=== PATIENT | male | born 1930 | race Caucasian/White ===

== ENCOUNTER 2016-07-08 18:45 | Inpatient (IN) | payer MEDICARE ==
[~2016-07-08] VITALS: Ht 175.3 cm; Wt 86.0 kg
[~2016-07-08 18:45] MED LIST: ACET325T PO; ALLO300 PO; ASPI1TAB73 PO; DIGO0.12 PO; DOCU1CAP39 PO; ENOX40P SQ; FAMO20TA2 PO; FLEE5TAB PO; FURO1TAB60 PO; GLIP10TA6 PO; METF500 PO; METFPOW PO; METO25TA3 PO; MILKSUS PO; OXYC-392 PO; PRAD150C PO; WALKER WHEELS/F1 MIS; [UNRECOGNIZED DRUG - CODE] PO; [UNRECOGNIZED DRUG - OTHER] TOPICAL
[2016-07-08 18:51] VITALS: BP 137/63; PULSE 105; RESP 20; TEMP 101; O2SAT 90
[2016-07-08 19:08] VITALS: O2SAT 89; O2SAT 98
--- NOTE | 2016-07-08 19:24 | PD ---
HPI Chief Complaint: Altered Mental Status Time Seen by Provider: 19:05 Travel History International Travel<30 days: No Contact w/Intl Traveler<30days: No Traveled to known affect area: No History of Present Illness HPI This is an 85 year old male who presents to the emergency department sent by his assisted due to problems with a wound on his back. The patient has been having fevers, some moderate pain in his back wound, constant, improved now with no associated numbness or weakness. He reports he is not sure why he was sent in but would like to go home. The patient recently completed a long stay in rehab following a thoracic fusion after a fall from a ladder, and fixation of an intertrochanteric femur fracture. PFSH Past Medical History Arthritis: No Asthma: No Autoimmune Disease: No Anxiety: Yes (occasionally in the evening since surgery) Depression: No Heart Rhythm Problems: Yes (A-fib) Cancer: No Cardiovascular Problems: Yes (AFIB) High Cholesterol: No Chemotherapy: No Chest Pain: No Congestive Heart Failure: No COPD: No Cerebrovascular Accident: No Diabetes: Yes Patient Takes Glucophage: No Endocrine: Yes Gastrointestinal Disorders: No GERD: Yes (occasional) Genitourinary: Yes Headaches: No Hiatal Hernia: No Heparin Induced Thrombocytopen: No Hypertension: Yes Immune Disorder: No Implanted Vascular Access Dvce: No Kidney Stones: Yes Musculoskeletal: Yes (gout) Neurologic: No Psychiatric: No Reproductive: No Respiratory: No Migraines: No Radiation Therapy: No Renal Failure: No Seizures: No Sickle Cell Disease: No Sleep Apnea: Yes Thyroid Disease: No Ulcer: No Past Surgical History Abdominal Surgery: Yes AICD: No Arteriovenous Shunt: No Cardiac Surgery: No Ear Surgery: No Endocrine Surgery: No Eye Surgery: Yes (Cataract surgery both eyes) Genitourinary Surgery: Yes (STONES) Gynecologic Surgery: No Insulin Pump: No Joint Replacement: Yes (KNEE) Neurologic Surgery: No Oral Surgery: No Pacemaker: No Thoracic Surgery: Yes (Laminectomy 05/04/2016) Other Surgery: Yes (INGUINAL HERNIA REPAIR) Social History Alcohol Use: Yes Tobacco Use: No Substance Use: No Allergies-Medications (Allergen,Severity, Reaction): Coded Allergies: No Known Allergies (Unverified , 07/08/16) Reported Meds & Prescriptions Reported Meds & Active Scripts Active Ilex Skin Protectant (Skin Protectants, Misc.) 58.3 % Pst 1 Applic TOPICAL DAILY PRN 14 Days Oxycodone (Oxycodone HCl) 5 Mg Tab 5 Mg PO Q4H PRN Metoprolol Tartrate 25 Mg Tab 25 Mg PO Q8HR 14 Days Milk of Magnesia Liq (Magnesium Hydroxide) 400 Mg/5 Ml Susp 30 Ml PO DAILY PRN 14 Days Glucophage (Metformin HCl) 500 Mg Tab 500 Mg PO BIDPC 14 Days Isradipine 2.5 Mg Cap 5 Mg PO BID 14 Days Glipizide 10 Mg Tab 10 Mg PO DAILY 14 Days Lasix (Furosemide) 40 Mg Tab 40 Mg PO DAILY 14 Days Famotidine 20 Mg Tab 10 Mg PO BID 14 Days Digoxin 0.125 Mg Tab 0.125 Mg PO DAILY 14 Days Bisacodyl EC (Bisacodyl) 5 Mg Tabec 10 Mg PO DAILY PRN 14 Days Zyloprim (Allopurinol) 300 Mg Tab 300 Mg PO DAILY 14 Days Acetaminophen 325 Mg Tab 650 Mg PO Q4H PRN 14 Days Oxycodone (Oxycodone HCl) 5 Mg Tab 10 Mg PO Q4H PRN 30 Days Walker with Front Wheels (Device) 1 Mis Mis 1 Ea .ROUTE DIRECTED Reported Glipizide 10 Mg Tab 20 Mg PO BIDAC Take 30 minutes before a meal Metformin HCl (Metformin HCl (Bulk)) 1 Pow Pow 1 Tab PO BID Review of Systems Except as stated in HPI: all other systems reviewed are Neg Physical Exam Narrative GENERAL: Frail, no acute distress SKIN: 1 cm area of wound dehiscence in the mid thoracic back with 7 cm surrounding area of warmth and erythema HEAD: Atraumatic. Normocephalic. EYES: Pupils equal and round. No injection or drainage. ENT: Moist mucous membranes NECK: Trachea midline. CARDIOVASCULAR: Regular rate and rhythm. No murmur appreciated. 2+ bilateral pitting edema. RESPIRATORY: Clear to auscultation. Breath sounds equal bilaterally. GASTROINTESTINAL: Abdomen soft, non-tender, nondistended. MUSCULOSKELETAL: No obvious deformities. NEUROLOGICAL: Awake and alert. No obvious cranial nerve deficits. Moving all extremities. PSYCHIATRIC: Appropriate mood and affect; insight and judgment normal. Data Data Last Documented VS Vital Signs Date Time Temp Pulse Resp B/P Pulse Ox O2 Delivery O2 Flow Rate FiO2 07/08/16 19:08 98 Nasal Cannula 2 07/08/16 18:51 101.0 105 20 137/63 Orders Complete Blood Count With Diff (07/08/16 19:06) Comprehensive Metabolic Panel (07/08/16 19:06) Prothrombin Time / Inr (Pt) (07/08/16 19:06) Act Partial Throm Time (Ptt) (07/08/16 19:06) Lactic Acid Sepsis Protocol (07/08/16 19:06) Urinalysis - C+S If Indicated (07/08/16 19:06) Blood Culture (07/08/16 19:06) Blood Glucose (07/08/16 19:06) Ecg Monitoring (07/08/16 19:06) Iv Access Insert/Monitor (07/08/16 19:06) Oximetry (07/08/16 19:06) Oxygen Administration (07/08/16 19:06) Chest, Single Ap (07/08/16 ) Sodium Chlor 0.9% 1000 Ml Inj (Ns 1000 M (07/08/16 19:30) Sodium Chlor 0.9% 1000 Ml Inj (Ns 1000 M (07/08/16 19:30) Vancomycin Inj (Vancomycin Inj) (07/08/16 19:45) Cefepime Inj (Maxipime Inj) (07/08/16 19:45) Urine Culture (07/08/16 19:41) Acetaminophen Supp (Tylenol Supp) (07/08/16 20:30) Acetaminophen (Tylenol) (07/08/16 20:45) Ct Thor Spine W Iv Contrast (07/08/16 ) Iohexol 350 Inj (Omnipaque 350 Inj) (07/08/16 21:02) Admit Order (Ed Use Only) (07/08/16 22:11) Admit Order (Ed Use Only) (07/08/16 22:12) Labs Laboratory Tests Test 07/08/16 07/08/16 19:11 19:41 White Blood Count 15.3 TH/MM3 Red Blood Count 4.07 MIL/MM3 Hemoglobin 12.3 GM/DL Hematocrit 37.3 % Mean Corpuscular Volume 91.6 FL Mean Corpuscular Hemoglobin 30.2 PG Mean Corpuscular Hemoglobin 33.0 % Concent Red Cell Distribution Width 15.4 % Platelet Count 192 TH/MM3 Mean Platelet Volume 9.4 FL Neutrophils (%) (Auto) 80.7 % Lymphocytes (%) (Auto) 11.8 % Monocytes (%) (Auto) 6.3 % Eosinophils (%) (Auto) 0.8 % Basophils (%) (Auto) 0.4 % Neutrophils # (Auto) 12.3 TH/MM3 Lymphocytes # (Auto) 1.8 TH/MM3 Monocytes # (Auto) 1.0 TH/MM3 Eosinophils # (Auto) 0.1 TH/MM3 Basophils # (Auto) 0.1 TH/MM3 CBC Comment DIFF FINAL Differential Comment Prothrombin Time 13.7 SEC Prothromb Time International 1.2 RATIO Ratio Activated Partial 30.1 SEC Thromboplast Time Sodium Level 137 MEQ/L Potassium Level 3.4 MEQ/L Chloride Level 97 MEQ/L Carbon Dioxide Level 32.2 MEQ/L Anion Gap 8 MEQ/L Blood Urea Nitrogen 22 MG/DL Creatinine 0.88 MG/DL Estimat Glomerular Filtration 82 ML/MIN Rate Random Glucose 168 MG/DL Lactic Acid Level 2.0 mmol/L Calcium Level 8.7 MG/DL Total Bilirubin 0.7 MG/DL Aspartate Amino Transf 16 U/L (AST/SGOT) Alanine Aminotransferase 26 U/L (ALT/SGPT) Alkaline Phosphatase 159 U/L Total Protein 7.1 GM/DL Albumin 2.8 GM/DL Urine Color YELLOW Urine Turbidity HAZY Urine pH 5.5 Urine Specific [place] 1.012 Urine Protein TRACE mg/dL Urine Glucose (UA) NEG mg/dL Urine Ketones NEG mg/dL Urine Occult Blood NEG Urine Nitrite NEG Urine Bilirubin NEG Urine Urobilinogen LESS THAN 2.0 MG/DL Urine Leukocyte Esterase LARGE Urine RBC 2 /hpf Urine WBC 19 /hpf Urine WBC Clumps FEW Urine Calcium Oxalate Crystals RARE /hpf Urine Amorphous Sediment RARE Urine Bacteria OCC /hpf Urine Mucus FEW /lpf Microscopic Urinalysis Comment CATH-CULTURE IND MDM Medical Decision Making Medical Screen Exam Complete: Yes Emergency Medical Condition: Yes Interpretation(s) Fever, tachycardia, mild hypoxia Leukocytosis with left shift Mild hypokalemia Lactic acid is 2.0 Urinalysis: Infection Chest x-ray: No pneumonia Differential Diagnosis Wound infection, osteomyelitis, discitis, urinary tract infection, pneumonia Narrative Course This is an 85-year-old male who presents to the emergency department with fever. He was placed on a monitor and an IV was established. He was found to have a white count of 15. He was covered with broad-spectrum antibiotics. He was found to have a urinary tract infection and on physical exam he has an area around his wound dehiscence which is concern for wound infection. I spoke to Dr. Knight who requested CT imaging. There is no obvious abscess or deep space infection. Dr. Knight will consult on the patient in the hospital. Physician Communication Physician Communication Discussed with Dr. Knight and Dr. Park Diagnosis Primary Impression: Sepsis Qualified Code: A41.9 - Sepsis, due to unspecified organism Admitting Information Admitting Physician Requests: Admit Isabel Stout MD Jul 08, 2016 19:24
[2016-07-08] MEDS ORDERED: SODIUM CHLOR 0.9% 1000 ML INJ 1,000 ML IV SCH ×2 (19:30)
[2016-07-08] MEDS ORDERED: VANCOMYCIN INJ 1,200 MG in SODIUM CHLOR 0.9% 250 ML INJ 250 ML IV ONE (19:45)
[2016-07-08] MEDS ORDERED: CEFEPIME INJ 2,000 MG in SODIUM CHLORIDE 0.9% INJ 100 ML IV ONE (19:45)
[2016-07-08 19:58] LABS: AUTOMATED NEUTROPHIL # 12.3 TH/MM3 (1.8-7.7); BASOPHIL # 0.1 TH/MM3 (0-0.2); BASOPHIL % 0.4 % (0.0-2.0); EOSINOPHIL # 0.1 TH/MM3 (0-0.4); EOSINOPHIL % 0.8 % (0.0-4.0); HEMATOCRIT 37.3 % (39.0-51.0); HEMO FLAGS DIFF FINAL; LYMPH % 11.8 % (9.0-44.0); LYMPHOCYTE # 1.8 TH/MM3 (1.0-4.8); MEAN CELL VOLUME 91.6 FL (80.0-100.0); MEAN CORPUSCULAR HEMOGLOBIN 30.2 PG (27.0-34.0); MONO % 6.3 % (0.0-8.0); NEUT % 80.7 % (16.0-70.0); PLATELET COUNT 192 TH/MM3 (150-450); RED BLOOD COUNT 4.07 MIL/MM3 (4.50-5.90); RED CELL DISTRIBUTION WIDTH 15.4 % (11.6-17.2); WHITE BLOOD COUNT 15.3 TH/MM3 (4.0-11.0)
[2016-07-08 20:09] LABS: APTT (PATIENT) 30.1 SEC (24.3-30.1); INTERNATIONAL NORMALIZED RATIO 1.2 RATIO; PROTHROMBIN TIME - PATIENT 13.7 SEC (9.8-11.6)
[2016-07-08 20:13] LABS: BACTERIA, URINE OCC /hpf; BLOOD, URINE NEG (NEG); CALCIUM OXALATE CRYSTALS,URINE RARE /hpf; GLUCOSE,URINE NEG (NEG); KETONE, URINE NEG (NEG); MUCUS URINE FEW /lpf (OCC); NITRITE,URINE NEG (NEG); PH, URINE 5.5 (5.0-8.5); URINE COLOR YELLOW (YELLW/STRAW)
[2016-07-08 20:14] LABS: COMMENT (UR) CATH-CULTURE IND; CULTURE IF INDICATED CATH CULTURE IND
[2016-07-08 20:18] LABS: ANION GAP 8 MEQ/L (5-15); AST (GOT) 16 U/L (15-37); BICARBONATE 32.2 MEQ/L (21.0-32.0); BLOOD UREA NITROGEN 22 MG/DL (7-18); CHLORIDE 97 MEQ/L (98-107); GLOMERULAR FILTRATION RATE 82 ML/MIN (>89); POTASSIUM 3.4 MEQ/L (3.5-5.1); SODIUM (NA) 137 MEQ/L (136-145)
[2016-07-08 20:21] LABS: ALKALINE PHOSPHATASE 159 U/L (45-117); ALT (GPT) 26 U/L (12-78); TOTAL BILIRUBIN ADULT 0.7 MG/DL (0.2-1.0)
[2016-07-08] MEDS ORDERED: ACETAMINOPHEN 650 MG SUPP RECTAL ONE (20:30)
--- NOTE | 2016-07-08 20:39 | RADRPT ---
EXAM DATE/TIME: 07/08/2016 17:46 [facility] COMPARISON: CHEST SINGLE AP, May 26, 2016, 9:57. INDICATIONS : Short of breath MEDICAL HISTORY : Cardiovascular disease. Diabetes mellitus type II. Hypertension. SURGICAL HISTORY : Fusion, thoracic. ENCOUNTER: Initial ACUITY: 1 day PAIN SCORE: 0/10 LOCATION: Bilateral chest FINDINGS: Heart size enlarged. Minimal basilar dependent atelectasis. Old left-sided rib fractures. No pneumoth orax or effusion. Previous spine fixation. CONCLUSION: 1. Cardiomegaly. Basilar atelectasis. No significant change from May 26. Kwasi Rico MD on July 08, 2016 at 20:37 Board Certified Radiologist. This report was verified electronically.
[2016-07-08] MEDS ORDERED: ACETAMINOPHEN 500 MG CPLT PO ONE (20:45)
[2016-07-08] MEDS ORDERED: IOHEXOL 350 MG/ML 10 ML VIAL (for RAD DIAG) IV ONE (21:02)
--- NOTE | 2016-07-08 21:36 | RADRPT ---
EXAM DATE/TIME: 07/08/2016 20:51 [facility] COMPARISON: MRI THORACIC SPINE W/O CONTRAST, May 01, 2016, 19:32. INDICATIONS : Wound on surgical site from thoracic fusion; fever. IV CONTRAST: 96 cc Omnipaque 350 (iohexol) IV RADIATION DOSE: 39.12 CTDIvol (mGy) MEDICAL HISTORY : Cardiovascular disease. Hypertension. Diabetes mellitus type 2. SURGICAL HISTORY : Fusion, thoracic. Laminectomy. ENCOUNTER: Initial ACUITY: 2 months PAIN SCALE: 5/10 LOCATION: Middle back TECHNIQUE: Volumetric scanning of the thoracic spine was performed. Multiplanar reconstructions in the sagittal , coronal and oblique axial planes were performed. Using automated exposure control and adjustment o f the mA and/or kV according to patient size, radiation dose was kept as low as reasonably achievable to obtain optimal diagnostic quality images. FINDINGS: Correlation is made with prior MRI. The patient is status post screw and rosa fixation extending from T7-T11 across a fracture through the superior aspect of T9 in the inferior aspect of T8. There is no significant subluxation. No significant bony canal stenosis. No new fractures are identified. No disc rete disc protrusions are seen on CT. CONCLUSION: 1. Remote fractures of T8 and T9 involving its superior aspect of T9 and inferior aspect of T8. There is previous screw and rosa fixation extending from T7-T11. No new fractures on the current exam. No s ignificant bony canal stenosis. Kwasi Rico MD on July 08, 2016 at 21:30 Board Certified Radiologist. This report was verified electronically.
[2016-07-08] MEDS ORDERED: BISACODYL EC 5 MG TABEC PO PRN (22:30)
[2016-07-08] MEDS ORDERED: GLUCAGON 1 MG/ML VIAL OTHER PRN (22:45)
[2016-07-08] MEDS: PIPERACIL-TAZO 3.375 GM PREMIX 50 ML IV SCH (23:31)
[2016-07-08 23:32] VITALS: BP 132/71; PULSE 103; RESP 20; O2SAT 95
[2016-07-09] VITALS (13 sets, daily range): BP systolic 110–165; BP diastolic 5–94; PULSE 88–106; RESP 18–20; TEMP 98.1–104.2; O2SAT 93–98
[2016-07-09] MEDS: RESP: ALBUTEROL 2.5 MG/IPRATROPIUM 0.5 MG NEB (SCH) NEB ×4 (03:27→19:17)
[2016-07-09] MEDS: PIPERACIL-TAZO 3.375 GM PREMIX 50 ML IV SCH ×3 (04:51→17:43)
[2016-07-09] MEDS: METOPROLOL TARTRATE 25 MG TAB PO SCH ×3 (04:51→23:46)
[2016-07-09] MEDS: INSULIN ASPART SUPPLEMENTAL SCALE SQ SCH ×4 (06:00→23:40)
[2016-07-09] MEDS: metFORMIN HCL 500 MG TAB PO SCH ×2 (07:23→17:47)
[2016-07-09] MEDS: FAMOTIDINE 20 MG TAB PO SCH ×2 (08:36→23:46)
[2016-07-09] MEDS: ACETAMINOPHEN 650 MG SUPP RECTAL PRN ×3 (08:37→17:44)
[2016-07-09] MEDS ORDERED: ACETAMINOPHEN 120 MG SUPP RECTAL PRN (08:45)
[2016-07-09] MEDS: ISRADIPINE 2.5 MG PO SCH (09:00)
[2016-07-09] MEDS: ALLOPURINOL 300 MG TAB PO SCH (09:30)
[2016-07-09] MEDS: DIGOXIN 0.125 MG TAB PO SCH (09:30)
--- NOTE | 2016-07-09 10:05 | MH ---
cc: RICARDA MOSS DATE OF ADMISSION: 07/08/2016 DATE OF 1930 CHIEF COMPLAINT Altered mental status HISTORY OF PRESENT ILLNESS This is an 85 year-old white male who was brought to the emergency room from a rehabilitation SNF unit for an extended stay from a previous fall from a ladder. He has a repaired intertrochanteric left femur fracture and was in rehab for his associated weaknesses. The patient was noted to have high fevers within the past 24-hours. Currently his fever rectally was 104.2 and he is drowsy, but will respond to loud verbal stimuli. He does attempt to assist with turning and positioning, but is currently tachypneic and still showing signs of altered mental status. According to the record, there is no associated numbness or weakness. He does have a small 1 cm round wound noted in the thoracic area around T7 in his back. It is draining a clear creamy serous drainage. His review of systems is limited secondary to his altered mental status. Some of this information is being pulled from the records. MEDICAL HISTORY Includes: 1. Atrial fibrillation 2. Cardiovascular disease 3. Recent left intertrochanteric femur fracture 4. Diabetes type 2 5. GERD 6. Previous UTI 7. Hypertension 8. Kidney stones 9. Gout 10. Sleep apnea SURGICAL HISTORY 1. Abdominal surgery 2. Cataracts both eyes 3. Stones 4. Lithotripsy 5. Knee replacement surgery 6. Laminectomy in 05/04/2016 7. Inguinal hernia repair ALLERGIES No known allergies. MEDICATIONS Reported: 1. Skin protectants 2. Oxycodone 3. Metoprolol 4. Milk of Magnesia 5. Glucophage 6. Isradipine 7. Glipizide 8. Lasix 9. Famotidine 10. Digoxin 11. Zyloprim 12. Tylenol 13. Oxycodone 14. Metformin SOCIAL HISTORY According to the record, positive for alcohol use. No tobacco. No illicit drugs. FAMILY HISTORY NA REVIEW OF SYSTEMS A 12-point review was attempted with limited information from patient secondary to his altered mental status. Most of this information was gathered from the record. PHYSICAL EXAM GENERAL: This is a tall, slim, slightly frail white male who looks to be his stated age resting in the bed, drowsy, tachypneic with mild respiratory distress. He does respond vaguely to verbal stimuli. SKIN: Pale, very warm to touch, dry, noted a 1 cm wound on his mid thoracic back around T7 with some erythema and drainage. HEAD, EYES, EARS, NOSE, AND THROAT: Atraumatic, normocephalic. Pupils are 2 mm and PERRLA. There is no drainage from his eyes. Mucous membranes are pale and moist. NECK: Midline and supple. CARDIOVASCULAR: Irregular rhythm with heart rate around 100. Distant heart sounds, but no murmurs, rubs or gallops heard. He has bilateral 1-2+ edema in his lower extremities. RESPIRATORY: He is essentially clear in his anteriorly lobes, but is showing some decreased breath sounds bilaterally at the bases with some rales and some minimal wheezing. GASTROINTESTINAL: Abdomen is round, soft, nontender and nondistended. Active bowel sounds in all four quadrants. MUSCULOSKELETAL: He moves his extremities randomly at this time. NEUROLOGIC: He is drowsy and lethargic. He does respond to loud verbal stimuli. PSYCHIATRIC: Appropriate mood without anxiety, drowsy. DIAGNOSTIC DATA WBC count 15.3, RBC 4.07, hemoglobin 12.3, hematocrit 37.3, platelet count 192, neutrophil auto count 80.7, modified R count 1, PT-INR is 1.2. Chemistry shows sodium 137, potassium 3.4, chloride 97, carbon dioxide 32.2, amnion gap 8, BUN 22, creatinine 0.88, GFR 82, glucose is 168, lactic acid 2, alkaline phosphatase 159, albumin 2.8. Urine is yellow and hazy. The pH is 5.5, specific gravity 1.012, trace of protein, large amount of leukocyte esterase, rare calcium oxylate crystals. Mucous few. Culture is being obtained. Chest x-ray shows bilateral atelectasis and cardiomegaly. CT of the thoracic spine shows fracture of T8 and T9 and the superior aspect of T9 and inferior aspect of T8. Previous screw and rosa fixation extended from T7 to T11. No new fractures on this exam. ASSESSMENT 1. Lactic acid sepsis related to thoracic wound infection 2. Urosepsis 3. Atrial fibrillation with RVR borderline heart rate 100-104. 4. Acute kidney injury with dehydration. 5. Hypokalemia 6. Diabetes type 2 with diabetic neuropathy. 7. History of gout. 8. Cardiomegaly PLAN Our plan is to admit currently for inpatient. Neurosurgery has been consulted for his expert opinion to evaluate the needs of the draining wound in the thoracic area. He is also being placed on antibiotics which includes vancomycin and Piperacillin. He also received Maxipime in the ER. The patient has had labs which include blood cultures, urine cultures done. We will reconcile his medications. The patient will be placed on PUD prophylaxis with Pepcid. He will be on pain management with Oxycodone, DuoNebs. Vital signs will be according to his needs anywhere from q1 to q4. ID consult will be obtained. O2 therapy. Wound care. When the patient is a little more stabilized, we will get physical therapy back involved. To my knowledge, the patient is full code, full aggressive care and we will follow. Dictated by ABAD Santana Ricarda Moss MD JP/STEFFEN /8:22 AM /10:02 AM PT SEEN AND EXAMINED ON DAY ADMISSION ABOVE FACE TO FACE TIME SPENT WITH PT CHART WAS REVIEWED. INCLUDING LABS MEDS AND RAD DATA NOTES WERE REVEIWED PLAN OF CARE WAS DW CODING QUALITY COORDINATOR ABOVE DW PT IN DETAIL DW DAUGHTER IN ER IN [facility] WAS GUARDED DW ID ON DAY OF ADMISSION MTDD
[2016-07-09] MEDS: glipiZIDE 10 MG TAB PO SCH (11:20)
[2016-07-09] MEDS: HEPARIN SODIUM - SQ 10,000 UNITS/ML VIAL SQ SCH ×2 (11:21→23:46)
--- NOTE | 2016-07-09 14:54 | PD.ID.CON ---
History of Present Illness Service ID Consult Requested By Reason for Consult Evaluation and Mment of Sepsis, Surgical site infection. Primary Care Physician Renard Phillips M.D. Diagnoses: History of Present Illness is an 85 y/o CM with PMHx of history of admission for Trauma alert after a fall from a ladder, when he was diagnosed to have left side femur fracture, left side rib fracture and fracture thoracic spine. He underwent open reduction internal fixation of T8 and T9 fractures, T7 to T11 segmental instrumented fixation using transpedicular screws and rods, T7 to T11 posterolateral fusion using autologous bone graft combined with stem cells, microsurgical dissection. Post surgery he was sent to a rehab. Family reports he was being treated with IM and oral antibiotics prior to admission at the facility for ? UTI. They also report the support shell for his thoracic spine has been abrading his skin locally. The rehab folks have been doing local wound care for the same but it continued to have local discharge. He is now brought to the emergency room from as patient was noted to have high grade fevers in last 24 hours. Patient was noted to have a temp of 104.2 F and was noted to be drowsy but responding to loud verbal stimuli. Sepsis workup was initiated. Patient has recd 2 liters of fluids per RN. Patient denies any change in sensation in perineal area or lower extremities. History of prostate problems with h/o UTIs in past. ID was consulted for evaluation and Mment of Sepsis, Probable surgical site infection ? Epidural abscess. Review of Systems Constitutional: COMPLAINS OF: Diaphoretic episodes, Fever, Chills, DENIES: Fatigue, Weight gain, Weight loss, Dizziness, Change in appetite, Night Sweats Endocrine: DENIES: Heat/cold intolerance, Polydipsia, Polyuria, Polyphagia Eyes: DENIES: Blurred vision, Diplopia, Eye inflammation, Eye pain, Vision loss , Photosensitivity, Double Vision Ears, nose, mouth, throat: DENIES: Tinnitus, Hearing loss, Vertigo, Nasal discharge, Oral lesions, Throat pain, Hoarseness, Ear Pain, Running Nose, Epistaxis, Sinus Pain, Toothache, Odynophagia Respiratory: DENIES: Apneas, Cough, Snoring, Wheezing, Hemoptysis, Sputum production, Shortness of breath Cardiovascular: DENIES: Chest pain, Palpitations, Syncope, Dyspnea on Exertion , PND, Lower Extremity Edema, Orthopnea, Claudication Gastrointestinal: DENIES: Abdominal pain, Black stools, Bloody stools, Constipation, Diarrhea, Nausea, Vomiting, Difficulty Swallowing, Anorexia Genitourinary: DENIES: Sexual dysfunction, Urinary frequency, Urinary incontinence, Urgency, Hematuria, Dysuria, Nocturia, Penile Discharge, Testicular Pain, Testicular Swelling Musculoskeletal: DENIES: Joint pain, Muscle aches, Stiffness, Joint Swelling, Back pain, Neck pain Integumentary: DENIES: Abnormal pigmentation, Nail changes, Pruritus, Rash Hematologic/lymphatic: DENIES: Bruising, Lymphadenopathy Immunologic/allergic: DENIES: Eczema, Urticaria Neurologic: DENIES: Abnormal gait, Headache, Localized weakness, Paresthesias, Seizures, Speech Problems, Tremor, Poor Balance Psychiatric: DENIES: Anxiety, Confusion, Mood changes, Depression, Hallucinations, Agitation, Suicidal Ideation, Homicidal Ideation, Delusions Past Family Social History Allergies: Coded Allergies: No Known Allergies (Unverified , 07/08/16) Past Medical History 1. Atrial fibrillation 2. Cardiovascular disease 3. Recent left intertrochanteric femur fracture 4. Diabetes type 2 5. GERD 6. Previous UTI 7. Hypertension 8. Kidney stones 9. Gout 10. Sleep apnea Past Surgical History 1. Abdominal surgery 2. Cataracts both eyes 3. Stones 4. Lithotripsy 5. Knee replacement surgery 6. Laminectomy in 05/04/2016 7. Inguinal hernia repair Reported Medications Reported Meds & Active Scripts Active Ilex Skin Protectant (Skin Protectants, Misc.) 58.3 % Pst 1 Applic TOPICAL DAILY PRN 14 Days Oxycodone (Oxycodone HCl) 5 Mg Tab 5 Mg PO Q4H PRN Metoprolol Tartrate 25 Mg Tab 25 Mg PO Q8HR 14 Days Milk of Magnesia Liq (Magnesium Hydroxide) 400 Mg/5 Ml Susp 30 Ml PO DAILY PRN 14 Days Glucophage (Metformin HCl) 500 Mg Tab 500 Mg PO BIDPC 14 Days Isradipine 2.5 Mg Cap 5 Mg PO BID 14 Days Glipizide 10 Mg Tab 10 Mg PO DAILY 14 Days Lasix (Furosemide) 40 Mg Tab 40 Mg PO DAILY 14 Days Famotidine 20 Mg Tab 10 Mg PO BID 14 Days Digoxin 0.125 Mg Tab 0.125 Mg PO DAILY 14 Days Bisacodyl EC (Bisacodyl) 5 Mg Tabec 10 Mg PO DAILY PRN 14 Days Zyloprim (Allopurinol) 300 Mg Tab 300 Mg PO DAILY 14 Days Acetaminophen 325 Mg Tab 650 Mg PO Q4H PRN 14 Days Oxycodone (Oxycodone HCl) 5 Mg Tab 10 Mg PO Q4H PRN 30 Days Walker with Front Wheels (Device) 1 Mis Mis 1 Ea .ROUTE DIRECTED Reported Glipizide 10 Mg Tab 20 Mg PO BIDAC Take 30 minutes before a meal Metformin HCl (Metformin HCl (Bulk)) 1 Pow Pow 1 Tab PO BID Active Ordered Medications Current Medications Medications (Trade) Dose Ordered Sig/Sybil Route Start Time Stop Time Status Last Admin (Zyloprim) 300 mg DAILY PO 07/09/16 09:00 07/09/16 09:30 (Dulcolax Ec) 10 mg DAILY PRN PO 07/08/16 22:30 (Lanoxin) 0.125 mg DAILY PO 07/09/16 09:00 07/09/16 09:30 (Pepcid) 10 mg BID PO 07/09/16 09:00 07/09/16 08:36 (Glucotrol) 10 mg DAILY PO 07/09/16 09:00 07/09/16 11:20 (Dynacirc) 5 mg BID PO 07/09/16 09:00 (Glucophage) 500 mg BIDPC PO 07/09/16 09:00 (Lopressor) 25 mg Q8HR PO 07/09/16 06:00 07/09/16 04:51 (Roxicodone) 10 mg Q4H PRN PO 07/08/16 22:30 (D50w (Vial) Inj) 25 ml UNSCH PRN IV PUSH 07/08/16 22:45 Glucagon 1 mg 1 mg UNSCH PRN OTHER 07/08/16 22:45 Piperacillin Sod/ Tazobactam Sod 50 ml @ 100 mls/hr Q6H IV 07/08/16 23:00 07/09/16 17:43 (Vancomycin Inj/ NS 250 ml Inj) 250 ml @ 250 mls/hr Q24H IV 07/09/16 20:00 (Tylenol Supp) 650 mg Q4H PRN RECTAL 07/09/16 08:30 07/09/16 17:44 (Tylenol Supp) 120 mg Q4H PRN RECTAL 07/09/16 08:45 Heparin Sodium (Porcine) 5000 units 5,000 units Q12HR SQ 07/09/16 09:00 07/09/16 11:21 (NS 1000 ml Inj) 1,000 ml @ 100 mls/hr Q10H IV 07/09/16 15:30 07/09/16 15:48 Family History reviewed and NC to current ID problems. Social History reviewed. Comes from Rehab. Sent to Rehab after a fall and several injuries and surgeries. No alcohol No drugs No illicit drugs. Physical Exam Vital Signs Vital Signs Date Time Temp Pulse Resp B/P Pulse Ox O2 Delivery O2 Flow Rate FiO2 07/09/16 13:00 101.6 91 127/60 93 Nasal Cannula 4 07/09/16 12:07 88 110/57 97 Nasal Cannula 4 07/09/16 12:01 100.2 90 114/67 98 Nasal Cannula 4 07/09/16 09:20 93 Nasal Cannula 4.50 07/09/16 08:00 104.2 104 145/94 93 Nasal Cannula 3 07/09/16 06:01 106 20 142/64 95 Nasal Cannula 3 07/09/16 04:56 95 Nasal Cannula 3 07/09/16 04:53 98.1 106 18 157/71 95 Nasal Cannula 3 07/09/16 03:30 94 Nasal Cannula 3.00 07/09/16 02:51 105 20 165/72 95 Nasal Cannula 3 07/09/16 01:40 98 18 155/68 96 Nasal Cannula 3 07/08/16 23:32 103 20 132/71 95 07/08/16 19:08 98 Nasal Cannula 2 07/08/16 19:08 98 Nasal Cannula 2.00 07/08/16 19:08 89 Room Air 07/08/16 18:51 101.0 105 20 137/63 90 Physical Exam GENERAL: This is a well-nourished, well-developed patient, in no apparent distress. SKIN: No rashes, ecchymoses or lesions. Cool and dry. HEAD: Atraumatic. Normocephalic. No temporal or scalp tenderness. EYES: Pupils equal round and reactive. Extraocular motions intact. No scleral icterus. No injection or drainage. ENT: Nose without bleeding, purulent drainage or septal hematoma. Throat without erythema, tonsillar hypertrophy or exudate. Uvula midline. Airway patent. NECK: Trachea midline. Supple, nontender, no meningeal signs. CARDIOVASCULAR: HS audible. RESPIRATORY: Clear to auscultation. Breath sounds equal bilaterally. No wheezes , rales, or rhonchi. GASTROINTESTINAL: Abdomen soft, non-tender, nondistended. MUSCULOSKELETAL: Extremities without clubbing, cyanosis, or edema. No joint tenderness, effusion, or edema noted. No calf tenderness. Negative Homans sign bilaterally. Left LE slightly shorter than right. Surgical scar on left hip with no e/o infection. Back: surgical site with copious serous at times yellow discharge. Dressing soaked, bedding soaked. Some fluctuance noted. NEUROLOGICAL: Awake and alert. Grossly non focal Psych: cooperative IV line sites with no e/o infection. Laboratory Laboratory Tests Test 07/08/16 07/08/16 19:11 19:41 White Blood Count 15.3 Red Blood Count 4.07 Hemoglobin 12.3 Hematocrit 37.3 Mean Corpuscular Volume 91.6 Mean Corpuscular Hemoglobin 30.2 Mean Corpuscular Hemoglobin 33.0 Concent Red Cell Distribution Width 15.4 Platelet Count 192 Mean Platelet Volume 9.4 Neutrophils (%) (Auto) 80.7 Lymphocytes (%) (Auto) 11.8 Monocytes (%) (Auto) 6.3 Eosinophils (%) (Auto) 0.8 Basophils (%) (Auto) 0.4 Neutrophils # (Auto) 12.3 Lymphocytes # (Auto) 1.8 Monocytes # (Auto) 1.0 Eosinophils # (Auto) 0.1 Basophils # (Auto) 0.1 CBC Comment DIFF FINAL Differential Comment Prothrombin Time 13.7 Prothromb Time International 1.2 Ratio Activated Partial 30.1 Thromboplast Time Sodium Level 137 Potassium Level 3.4 Chloride Level 97 Carbon Dioxide Level 32.2 Anion Gap 8 Blood Urea Nitrogen 22 Creatinine 0.88 Estimat Glomerular Filtration 82 Rate Random Glucose 168 Lactic Acid Level 2.0 Calcium Level 8.7 Total Bilirubin 0.7 Aspartate Amino Transf 16 (AST/SGOT) Alanine Aminotransferase 26 (ALT/SGPT) Alkaline Phosphatase 159 Total Protein 7.1 Albumin 2.8 Urine Color YELLOW Urine Turbidity HAZY Urine pH 5.5 Urine Specific [place] 1.012 Urine Protein TRACE Urine Glucose (UA) NEG Urine Ketones NEG Urine Occult Blood NEG Urine Nitrite NEG Urine Bilirubin NEG Urine Urobilinogen LESS THAN 2.0 Urine Leukocyte Esterase LARGE Urine RBC 2 Urine WBC 19 Urine WBC Clumps FEW Urine Calcium Oxalate Crystals RARE Urine Amorphous Sediment RARE Urine Bacteria OCC Urine Mucus FEW Microscopic Urinalysis Comment CATH-CULTURE IND Date/Time Procedure Status Source Growth 07/08/16 19:41 Urine Culture - Preliminary Resulted Urine Catheterized Urine NO GROWTH IN 24 HOURS. 07/08/16 19:11 Aerobic Blood Culture - Preliminary Resulted Blood Peripheral NO GROWTH IN 1 DAY 07/08/16 19:11 Anaerobic Blood Culture - Preliminary Resulted Blood Peripheral NO GROWTH IN 1 DAY Result Diagram: 07/08/16191007/08/161910 Imaging Last Impressions Thoracic Spine CT 07/08/16 0000 Signed Impressions: Service Date/Time: June 20:51 - CONCLUSION: 1. Remote fractures of T8 and T9 involving its superior aspect of T9 and inferior aspect of T8. There is previous screw and rosa fixation extending from T7-T11. No new fractures on the current exam. No significant bony canal stenosis. Kwasi Rico MD Chest X-Ray 07/08/16 0000 Signed Impressions: Service Date/Time: June 17:46 - CONCLUSION: 1. Cardiomegaly. Basilar atelectasis. No significant change from May 26. Kwasi Rico MD Assessment and Plan Assessment and Plan Severe Sepsis present on admission (Sepsis with acute metabolic encephalopathy, source: probable surgical site infection). Probable surgical site infection. Concern for epidural abscess or deep infection in view of high grade persistent fevers. Pneumonia present on admission. Was being treated for UTI prior to admission per family Acute metabolic encephalopathy: lethargic per family, sepsis. DM2 uncontrolled: sepsis, infection Recs: DC Zosyn IV Start Ceftazidime IV (better [employer]IC[employer] presentation) Continue Vanco IV (target trough 15-20) Start Flagyl oral Check CRP MRI T spine with and without contrast (concern for deeper infection: hardware infection, epidural abscess) Please make sure Neurosurgery sees patient in am. Persistent fevers and discharge concern for deep infection and abscess. Source control essential. Consult placed again and notified. Follow cultures Follow clinically. to cover for me this weekend. Melinda Antonio MD Jul 09, 2016 14:54
[2016-07-09] MEDS: SODIUM CHLOR 0.9% 1000 ML INJ 1,000 ML IV SCH (15:48)
[2016-07-09] MEDS ORDERED: VANCOMYCIN INJ 1,000 MG in SODIUM CHLOR 0.9% 250 ML INJ 250 ML IV SCH (20:00)
[2016-07-09] MEDS ORDERED: Vancomycin Consult Pharmacy 1 EA OTHER SCH (22:15)
[2016-07-09] MEDS: cefTAZidime INJ 2,000 MG in SODIUM CHLORIDE 0.9% INJ 100 ML IV SCH (23:46)
[2016-07-10] VITALS (9 sets, daily range): BP systolic 98–126; BP diastolic 51–71; PULSE 71–112; RESP 16–22; TEMP 96.2–100; O2SAT 93–98
[2016-07-10] MEDS ORDERED: VANCOMYCIN INJ 2,000 MG in SODIUM CHLORID 0.9% 500 ML INJ 500 ML IV ONE ×2
[2016-07-10] MEDS: ACETAMINOPHEN 650 MG SUPP RECTAL PRN (04:15)
[2016-07-10] MEDS: RESP: ALBUTEROL 2.5 MG/IPRATROPIUM 0.5 MG NEB (SCH) NEB ×4 (04:59→21:23)
[2016-07-10] MEDS: metroNIDAZOLE 500 MG TAB PO SCH ×3 (05:28→21:53)
[2016-07-10] MEDS: METOPROLOL TARTRATE 25 MG TAB PO SCH ×3 (05:28→21:54)
[2016-07-10] MEDS: cefTAZidime INJ 2,000 MG in SODIUM CHLORIDE 0.9% INJ 100 ML IV SCH ×3 (06:57→22:00)
[2016-07-10] MEDS: INSULIN ASPART SUPPLEMENTAL SCALE SQ SCH ×4 (07:00→20:32)
[2016-07-10] MEDS: ISRADIPINE 2.5 MG PO SCH ×2 (09:00→21:00)
[2016-07-10] MEDS: SODIUM CHLOR 0.9% 1000 ML INJ 1,000 ML IV SCH ×3 (09:04→15:13)
[2016-07-10] MEDS: glipiZIDE 10 MG TAB PO SCH (09:05)
[2016-07-10] MEDS: DIGOXIN 0.125 MG TAB PO SCH (09:05)
[2016-07-10] MEDS: metFORMIN HCL 500 MG TAB PO SCH ×2 (09:05→17:48)
[2016-07-10] MEDS: HEPARIN SODIUM - SQ 10,000 UNITS/ML VIAL SQ SCH ×2 (09:06→21:53)
[2016-07-10] MEDS: FAMOTIDINE 20 MG TAB PO SCH ×2 (09:06→21:54)
[2016-07-10] MEDS: ALLOPURINOL 300 MG TAB PO SCH (09:06)
[2016-07-10 09:39] LABS: HEMATOCRIT 33.9 % (39.0-51.0); MEAN CELL VOLUME 91.9 FL (80.0-100.0); MEAN CORPUSCULAR HEMOGLOBIN 29.5 PG (27.0-34.0); MEAN CORPUSCULAR HGB CONC 32.1 % (32.0-36.0); PLATELET COUNT 157 TH/MM3 (150-450); RED BLOOD COUNT 3.69 MIL/MM3 (4.50-5.90); RED CELL DISTRIBUTION WIDTH 15.5 % (11.6-17.2); REVIEW FLAG FINAL; WHITE BLOOD COUNT 15.8 TH/MM3 (4.0-11.0)
[2016-07-10 10:21] LABS: BICARBONATE 31.8 MEQ/L (21.0-32.0); POTASSIUM 3.2 MEQ/L (3.5-5.1)
[2016-07-10 11:05] LABS: CALCIUM-PROTEIN CORRECTED 8.1 MG/DL (8.5-10.1)
[2016-07-10] MEDS ORDERED: FUROSEMIDE 20 MG/2 ML VIAL IV PUSH ONE (13:30)
[2016-07-10] MEDS ORDERED: POTASSIUM CL 40 MEQ/30 ML LIQ UDC PO ONE (13:30)
--- NOTE | 2016-07-10 14:08 | HHI.PR ---
Subjective Subjective Remarks on 6L/NC via FM, dropped sats to 79 on 4L. Mouth breathing noted with coarse breath sounds, has a cough, congested, non productive fever 100 this morning not eating much no cp no sob somewhat lethargic, opens eyes to voice,oriented x 2 daughter at bsd Review of Systems Constitutional Constitutional Remarks 12 point ROS difficult to complete Vitals/Results Intake & Output 07/09/16 07/09/16 07/10/16 14:59 22:59 06:59 Intake Total 240 ml Balance 240 ml Intake Oral 240 ml # Voids 1 3 # Bowel Movements 1 1 Vital Signs Vital Signs Date Time Temp Pulse Resp B/P Pulse Ox O2 Delivery O2 Flow Rate FiO2 07/10/16 12:00 96.2 71 19 98/51 96 07/10/16 08:00 96.9 87 16 111/55 98 07/10/16 08:00 74 07/10/16 05:08 100.0 105 20 117/60 96 07/10/16 00:50 98.0 106 22 125/55 93 07/09/16 19:17 93 Nasal Cannula 2.00 07/09/16 17:06 101.9 99 19 115/57 94 Nasal Cannula 4 07/09/16 15:06 104 133/59 93 Nasal Cannula 4 CBC/BMP: 07/10/16 0835 07/10/16 0836 Lab Results Laboratory Tests Test 07/10/16 07/10/16 08:35 08:36 White Blood Count 15.8 TH/MM3 Red Blood Count 3.69 MIL/MM3 Hemoglobin 10.9 GM/DL Hematocrit 33.9 % Mean Corpuscular Volume 91.9 FL Mean Corpuscular Hemoglobin 29.5 PG Mean Corpuscular Hemoglobin 32.1 % Concent Red Cell Distribution Width 15.5 % Platelet Count 157 TH/MM3 Mean Platelet Volume 9.5 FL Sodium Level 142 MEQ/L Potassium Level 3.2 MEQ/L Chloride Level 101 MEQ/L Carbon Dioxide Level 31.8 MEQ/L Anion Gap 9 MEQ/L Blood Urea Nitrogen 33 MG/DL Creatinine 1.14 MG/DL Estimat Glomerular Filtration 61 ML/MIN Rate Random Glucose 96 MG/DL Calcium Level 7.3 MG/DL Protein Corrected Calcium 8.1 MG/DL C-Reactive Protein 25.00 MG/DL Total Protein 5.6 GM/DL Physical Exam General General Appearance: Well Developed, Comfortable Eyes Eye Exam: Pupils Equal, Pupils Reactive Ears & Nose Ears & Nose Exam: Nasal Mucosa [place] Throat Throat Exam: Oral Mucosa [place] & Moist Neck Neck Exam: Neck Supple, Trachea Midline Pulmonary Resp Exam: Crackles, Rhonchi Cardiology CV Exam: Regular Gastrointestinal/Abdomen GI Exam: Soft, Non-Tender, Bowel Sounds Present, Non-Distended Musculoskeletal MS Exam: Joints Intact Integumentary Skin Exam: Warm, Lesion(s) Skin Remarks mid back wound dehiscence Extremeties Extremities Exam: No Edema, Pedal Pulses Palpable Neurologic Neuro Exam: Awake, Speech Clear, Moving All Extremities, No Focal Deficits Psychiatric Psych Exam: Appropriate Responses VTE Prophylaxis VTE Prophylaxis Device: SCDs VTE Prophylaxis Meds: Heparin Assessment/Plan Problem List: (1) Sepsis (2) Hypoxia (3) Diabetic neuropathy (4) Atrial fibrillation (5) Hypertension (6) Diabetes 1.5, managed as type 2 (7) Hypokalemia (8) UTI (urinary tract infection) (9) Hx of unstable T8,T9 fractures due to fall with T7 to T11 posterior fixation using transpedicular screws and rods on 05/04/16 Assessment/Plan Sepsis, etiology unclear, poss. pulmonary, urinary, versus wound infection (s/p T7 to T11 posterior fixation using transpedicular screws and rods on 05/04/16) now with wound dehiscence CT thoracic spine results noted, no abscess MRI thoracic spine pending BC GPC +, sens. pending Urine + yeast Continue with abx, follow cultures ID following Neurosurgery consult pending Afib well controlled continue Dig Telemetry monitoring no anticoagulation, was on ASA resume baby ASA Noted with rales, hypoxia, now on 6L/NC D/C IVF CXR now BNP now Lasix 20 mg IV x 1 Resume PO lasix Echo 04/2016, EF 50 - 55% ? dysphagia, noted coughing with pills swallow evaluation Accuchecks AC/HS Blood glucose 80, dc oral hypoglycemics pt. not eating much enc. PO intake, family may bring food from home PT for eval and tx Heparin for DVT prophylaxis Pepcid for GI prophylaxis Condition guarded Labs in am D/W RN D/W pt, daughter and her , questions answered in detail D/W Dr. Moss This patient was seen by myself and Dr. Moss, this note is written on his behalf. Problem Qualifiers (1) Sepsis: Qualified Code: A41.9 - Sepsis, due to unspecified organism (2) Diabetic neuropathy: Qualified Code: E11.49 - Other diabetic neurological complication associated with type 2 diabetes mellitus (3) Atrial fibrillation: Qualified Code: I48.91 - Atrial fibrillation, unspecified type (4) Hypertension: Qualified Code: I10 - Essential hypertension (5) UTI (urinary tract infection): Qualified Code: N39.0 - Urinary tract infection without hematuria, site unspecified Margareth Iglesias Jul 10, 2016 14:08
--- NOTE | 2016-07-10 14:18 | RADRPT ---
EXAM DATE/TIME: 07/10/2016 14:04 [facility] COMPARISON: CHEST SINGLE AP, July 08, 2016, 17:46. INDICATIONS : Short of Breath. MEDICAL HISTORY : Congestive heart failure. Cardiovascular disease. Hypertension. Diabetes mellitus type 2. SURGICAL HISTORY : Fusion, thoracic. Laminectomy. ENCOUNTER: Subsequent ACUITY: 3 days PAIN SCORE: 0/10 LOCATION: Bilateral chest FINDINGS: A single view of the chest demonstrates cardiomegaly. Bibasilar densities and probable small left ple ural effusion.. Osseous structures are intact. Fusion rods along the mid to lower thoracic spine. CONCLUSION: Cardiomegaly bibasilar density likely atelectasis. There may be a small left pleural effusion. Jared Larios MD on July 10, 2016 at 14:16 Board Certified Radiologist. This report was verified electronically.
[2016-07-10] MEDS ORDERED: GADODIAMIDE PF 287 MG/ML 20 ML VIAL (for RAD MRI) IV ONE (14:45)
[2016-07-10] MEDS: FLUCONAZOLE 200 MG TAB PO SCH (15:12)
[2016-07-10] MEDS: ASPIRIN EC 81 MG TABEC PO SCH (15:12)
--- NOTE | 2016-07-10 15:47 | RADRPT ---
EXAM DATE/TIME: 07/10/2016 14:02 [facility] COMPARISON: No previous studies available for comparison. INDICATIONS : Abscess. Fever. Wound infection. CONTRAST: 16 cc Omniscan (gadodiamide) IV MEDICAL HISTORY : Hypertension. Afib,Kidney stones, enlarged prostate. SURGICAL HISTORY : Total knee replacement, left. Laminectomy, Left hip replacement. ENCOUNTER: Subsequent ACUITY: 3 day PAIN SCORE: 3/10 LOCATION: Parasp[facility] TECHNIQUE: Multiplanar multisequence MRI of the thoracic spine was performed. FINDINGS: Comparison MRI from May 01, 2016. Previous fracture at T8 and T9 have not healed with fracture [place] remaining visible. There is also extensive marrow edema in T9 and T10 and to a lesser extent T11 and T8. The thoracic cord appears atrophic. No enhancing epidural fluid collections are present. Ricks allan, there is a increased enhancement of the T9 and T10 vertebral bodies with some enhancement of T11 as well. In the dorsal soft tissues there is also some soft tissue swelling and edema posteriorly extending fr om T3 level through the T12 level. Fixation hardware is seen at T7-T12. Upper thoracic spine appears intact. CONCLUSION: 1. Marrow edema and enhancement predominantly at T9, T10 and T11 concerning for osteomyelitis. The am ount of marrow edema has increased from the previous study dated April 2016. No epidural abscess i s identified. There is a presumed cellulitis in the dorsal soft tissues with soft tissue swelling and edema present as above. Kwasi Rico MD on July 10, 2016 at 15:37 Board Certified Radiologist. This report was verified electronically.
--- NOTE | 2016-07-10 16:52 | HHI.NSPN ---
History Chief Complaint: none Interval History 85 yr old with multiple co morbidities including DM and ankylosing spondylitis underwent internal fixation with pedicular screws and rods for T9 unstable traumatic fx in early April 2016 after a fall from a homemade scaffold to fix his pool screen. He had some drainage from the wound after surgery. He was mobilized and went to rehab but is being readmitted with sepsis. CT of the thoracic spine shows no cutaneous or subcutaneous fluid collection and good approximation at the fracture level. However MRI shows a lytic defect with enhancement within T9 vertebra. One of two blood cultures are showing staph ape. The urine cx only shows yeast. He had significant pulmonary complications in April prior to rehab. Neurologically he appears stable, follows commands and moves the lower extremities well. Review of Systems General: Positive for: fever Respiratory: Positive for: shortness of breath Gastrointestinal: Negative for: nausea, vomitting, diarrhea, constipation Exam Results Vital Signs Date Time Temp Pulse Resp B/P Pulse Ox O2 Delivery O2 Flow Rate FiO2 07/10/16 12:00 96.2 71 19 98/51 96 07/10/16 10:50 Venturi Mask 35 07/09/16 19:17 2.00 Physical Examination Alert, speech fluent but short of breath, elderly gentleman, appears his stated age Follows commands, moves both bic/tri/IO/hip flex/gastroc with good strength No sensory level. no clonus, no Babinski Wound with 1 cm opening with about 2 inch subcutaneous pocket. Granulation tissue evident. Swab taken and sent for culture Lab, Micro, Other Results Last Impressions Thoracic Spine MRI 07/10/16 0000 Signed Impressions: Service Date/Time: Sunday, July 10, 2016 14:02 - CONCLUSION: 1. Marrow edema and enhancement predominantly at T9, T10 and T11 concerning for osteomyelitis. The amount of marrow edema has increased from the previous study dated April 2016. No epidural abscess is identified. There is a presumed cellulitis in the dorsal soft tissues with soft tissue swelling and edema present as above. Kwasi Rico MD Chest X-Ray 07/10/16 0000 Signed Impressions: Service Date/Time: Sunday, July 10, 2016 14:04 - CONCLUSION: Cardiomegaly bibasilar density likely atelectasis. There may be a small left pleural effusion. Jared Larios MD Thoracic Spine CT 07/08/16 0000 Signed Impressions: Service Date/Time: June 20:51 - CONCLUSION: 1. Remote fractures of T8 and T9 involving its superior aspect of T9 and inferior aspect of T8. There is previous screw and rosa fixation extending from T7-T11. No new fractures on the current exam. No significant bony canal stenosis. Kwasi Rico MD Laboratory Tests Test 07/10/16 07/10/16 08:35 08:36 White Blood Count 15.8 TH/MM3 Red Blood Count 3.69 MIL/MM3 Hemoglobin 10.9 GM/DL Hematocrit 33.9 % Mean Corpuscular Volume 91.9 FL Mean Corpuscular Hemoglobin 29.5 PG Mean Corpuscular Hemoglobin 32.1 % Concent Red Cell Distribution Width 15.5 % Platelet Count 157 TH/MM3 Mean Platelet Volume 9.5 FL Sodium Level 142 MEQ/L Potassium Level 3.2 MEQ/L Chloride Level 101 MEQ/L Carbon Dioxide Level 31.8 MEQ/L Anion Gap 9 MEQ/L Blood Urea Nitrogen 33 MG/DL Creatinine 1.14 MG/DL Estimat Glomerular Filtration 61 ML/MIN Rate Random Glucose 96 MG/DL Calcium Level 7.3 MG/DL Protein Corrected Calcium 8.1 MG/DL C-Reactive Protein 25.00 MG/DL Total Protein 5.6 GM/DL Medical Decision Making Impression and Plan 85 yr old with multiple co morbidities well known to use from his April 2016 trauma admission, has evidence of T9 vertebral body enhancement with marin on MRI. The is no fluid collection outside the spine and hematogenous seeding is unfortunately possibly happened from the skin breakdown from the TLSO. Removal of the hardware is not possible so soon after an unstable T9 fx and bracing alone would not allow for mobilization OOB. Wound debridement may be helpful but would not address the main enhancement which is within the T9 body. Radiologic and neurologic follow up will be needed. I will follow. Total Minutes: 20 Jared Ingram Jul 10, 2016 16:52
[2016-07-10] MEDS: VANCOMYCIN 1,500 MG/NS 500 ML IV SCH ×2 (17:49)
[2016-07-10] MEDS: DEXT 5%-NACL 0.9% 1000 ML INJ 1,000 ML IV SCH (23:00)
[2016-07-11] VITALS (9 sets, daily range): BP systolic 99–138; BP diastolic 57–67; PULSE 85–121; RESP 18–20; TEMP 96.5–98.3; O2SAT 92–99
[2016-07-11] MEDS: DEXT 5%-NACL 0.9% 1000 ML INJ 1,000 ML IV SCH (01:15)
[2016-07-11] MEDS: RESP: ALBUTEROL 2.5 MG/IPRATROPIUM 0.5 MG NEB (SCH) NEB ×4 (04:50→21:02)
[2016-07-11] MEDS: METOPROLOL TARTRATE 25 MG TAB PO SCH ×3 (06:21→21:15)
[2016-07-11] MEDS: metroNIDAZOLE 500 MG TAB PO SCH ×3 (06:21→21:16)
[2016-07-11] MEDS: cefTAZidime INJ 2,000 MG in SODIUM CHLORIDE 0.9% INJ 100 ML IV SCH ×3 (06:22→22:14)
[2016-07-11] MEDS: INSULIN ASPART SUPPLEMENTAL SCALE SQ SCH ×4 (06:33→21:00)
[2016-07-11] MEDS: DEXTROSE 50% IN WATER 50 ML VIAL(D50) IV PUSH PRN ×3 (06:44→16:55)
[2016-07-11 08:53] LABS: HEMATOCRIT 31.7 % (39.0-51.0); MEAN CELL VOLUME 91.4 FL (80.0-100.0); MEAN CORPUSCULAR HEMOGLOBIN 30.1 PG (27.0-34.0); MEAN CORPUSCULAR HGB CONC 32.9 % (32.0-36.0); PLATELET COUNT 139 TH/MM3 (150-450); RED BLOOD COUNT 3.47 MIL/MM3 (4.50-5.90); RED CELL DISTRIBUTION WIDTH 15.4 % (11.6-17.2); REVIEW FLAG FINAL; WHITE BLOOD COUNT 12.8 TH/MM3 (4.0-11.0)
[2016-07-11] MEDS: ISRADIPINE 2.5 MG PO SCH ×2 (09:00→21:00)
[2016-07-11 09:18] LABS: BICARBONATE 30.4 MEQ/L (21.0-32.0); POTASSIUM 3.3 MEQ/L (3.5-5.1)
[2016-07-11] MEDS ORDERED: POTASSIUM CL 40 MEQ/30 ML LIQ UDC PO ONE (09:45)
[2016-07-11] MEDS: ALLOPURINOL 300 MG TAB PO SCH (09:51)
[2016-07-11] MEDS: ASPIRIN EC 81 MG TABEC PO SCH (09:51)
[2016-07-11] MEDS: FLUCONAZOLE 200 MG TAB PO SCH (09:51)
[2016-07-11] MEDS: DIGOXIN 0.125 MG TAB PO SCH (09:52)
[2016-07-11] MEDS: FAMOTIDINE 20 MG TAB PO SCH ×2 (09:52→21:16)
[2016-07-11] MEDS: FUROSEMIDE 40 MG TAB PO SCH (09:52)
[2016-07-11] MEDS: HEPARIN SODIUM - SQ 10,000 UNITS/ML VIAL SQ SCH ×2 (09:52→21:17)
[2016-07-11] MEDS: VANCOMYCIN 1,500 MG/NS 500 ML IV SCH ×2 (10:00)
--- NOTE | 2016-07-11 11:11 | HHI.PR ---
Subjective Subjective Remarks on VM 6L/NC, sats 95% more awake today, oriented x 2-3 no pain no fever no cp some cough blood glucose dropped to 43, up to 100's with glucose x 2 not eating much no family at bsd Review of Systems Constitutional Constitutional Remarks 12 point ROS limited Vitals/Results Intake & Output 07/10/16 07/10/16 07/11/16 15:00 23:00 07:00 Intake Total 760 ml 120 ml 240 ml Balance 760 ml 120 ml 240 ml Intake Oral 760 ml 120 ml 240 ml # Voids 4 2 4 # Bowel Movements 0 1 1 Vital Signs Vital Signs Date Time Temp Pulse Resp B/P Pulse Ox O2 Delivery O2 Flow Rate FiO2 07/11/16 09:00 96 Venturi Mask 6.00 35 07/11/16 08:58 96.9 85 20 99/58 96 07/11/16 05:16 97.6 98 18 138/67 96 07/11/16 00:28 97.3 110 18 115/59 95 07/10/16 21:23 94 Venturi Mask 3.00 35 07/10/16 21:01 97.3 96 18 116/55 96 07/10/16 19:20 112 07/10/16 16:00 96.4 74 18 126/71 98 07/10/16 12:00 96.2 71 19 98/51 96 CBC/BMP: 07/11/16 0805 07/11/16 0805 Lab Results Laboratory Tests Test 07/10/16 07/11/16 07/11/16 20:20 06:50 08:05 Random Glucose 52 MG/DL 43 MG/DL 107 MG/DL White Blood Count 12.8 TH/MM3 Red Blood Count 3.47 MIL/MM3 Hemoglobin 10.4 GM/DL Hematocrit 31.7 % Mean Corpuscular Volume 91.4 FL Mean Corpuscular Hemoglobin 30.1 PG Mean Corpuscular Hemoglobin 32.9 % Concent Red Cell Distribution Width 15.4 % Platelet Count 139 TH/MM3 Mean Platelet Volume 9.5 FL Sodium Level 141 MEQ/L Potassium Level 3.3 MEQ/L Chloride Level 103 MEQ/L Carbon Dioxide Level 30.4 MEQ/L Anion Gap 8 MEQ/L Blood Urea Nitrogen 34 MG/DL Creatinine 1.08 MG/DL Estimat Glomerular Filtration 65 ML/MIN Rate Calcium Level 7.6 MG/DL Microbiology Microbiology 07/10/16 Gram Stain - Final, Resulted 07/10/16 Wound Culture, Resulted Pending 07/10/16 Aerobic Blood Culture, Received Pending 07/10/16 Anaerobic Blood Culture, Received Pending 07/10/16 Aerobic Blood Culture, Received Pending 07/10/16 Anaerobic Blood Culture, Received Pending Physical Exam General General Appearance: Well Developed, Comfortable Eyes Eye Exam: Pupils Equal, Pupils Reactive Ears & Nose Ears & Nose Exam: Nasal Mucosa Marvin Throat Throat Exam: Oral Mucosa Marvin & Moist Neck Neck Exam: Neck Supple, Trachea Midline Pulmonary Resp Remarks diffuse ronchi Cardiology CV Exam: Regular Gastrointestinal/Abdomen GI Exam: Soft, Non-Tender, Bowel Sounds Present, Non-Distended Musculoskeletal MS Exam: Joints Intact Integumentary Skin Exam: Warm, Lesion(s) Skin Remarks mid back wound dehiscence Extremeties Extremities Exam: No Edema, Pedal Pulses Palpable Neurologic Neuro Exam: Awake, Speech Clear, Moving All Extremities, No Focal Deficits Psychiatric Psych Exam: Appropriate Responses VTE Prophylaxis VTE Prophylaxis Device: SCDs VTE Prophylaxis Meds: Heparin PUD Prophylasis PUD Remarks PEPCID Assessment/Plan Problem List: (1) Sepsis (2) Hypoxia (3) Diabetic neuropathy (4) Atrial fibrillation (5) Hypertension (6) Diabetes 1.5, managed as type 2 (7) Hypokalemia (8) UTI (urinary tract infection) (9) Hx of unstable T8,T9 fractures due to fall with T7 to T11 posterior fixation using transpedicular screws and rods on 05/04/16 Assessment/Plan Sepsis, etiology unclear, poss. pulmonary, urinary, versus wound infection (s/p T7 to T11 posterior fixation using transpedicular screws and rods on 05/04/16) now with wound dehiscence. Source appears surgical site based on imaging findings, also has UTI, maybe pulmonary process as well. CT thoracic spine results noted, no abscess MRI thoracic spine done, results noted -has evidence of T9 vertebral body enhancement BC GPC +, sens. pending Urine + yeast Continue with abx, follow cultures ID following Neurosurgery input appreciated, per review of noted--"removal of the hardware is not possible so soon after an unstable T9 fx and bracing alone would not allow for mobilization OOB. Wound debridement may be helpful but would not address the main enhancement which is within the T9 body. Radiologic and neurologic follow up will be needed" Afib -HR elevated continue Dig and BB add Cardizem 30 mg PO TID no anticoagulation, was on ASA, can't take anticoagulant due to bleeding. Used to take coumadin continue baby ASA Poss. mild CHF continue PO Lasix off IVF BNP D/C IVF CXR 07/10, mild cardiomegaly BNP 211 Echo 04/2016, EF 50 - 55% ? dysphagia, noted coughing with pills swallow evaluation done, recommendations noted Accuchecks AC/HS Hypoglycemic overnight will dc Metformin also D5W at 30/hr Enc. PO intake PT for eval and tx Needs brace Heparin for DVT prophylaxis Pepcid for GI prophylaxis Condition guarded Labs reviewed Replace K D/W RN D/W pt, D/W Dr. Moss This patient was seen by myself and Dr. Moss, this note is written on his behalf. Problem Qualifiers (1) Sepsis: Qualified Code: A41.9 - Sepsis, due to unspecified organism (2) Diabetic neuropathy: Qualified Code: E11.49 - Other diabetic neurological complication associated with type 2 diabetes mellitus (3) Atrial fibrillation: Qualified Code: I48.91 - Atrial fibrillation, unspecified type (4) Hypertension: Qualified Code: I10 - Essential hypertension (5) UTI (urinary tract infection): Qualified Code: N39.0 - Urinary tract infection without hematuria, site unspecified Margareth Iglesias Jul 11, 2016 11:11
--- NOTE | 2016-07-11 13:42 | HHI.NSPN ---
History Chief Complaint: none Interval History 85 yr old with multiple co morbidities including DM and ankylosing spondylitis underwent internal fixation with pedicular screws and rods for T9 unstable traumatic fx in early April 2016 after a fall from a homemade scaffold to fix his pool screen. He had some drainage from the wound after surgery. He was mobilized and went to rehab but is being readmitted with sepsis. CT of the thoracic spine shows no cutaneous or subcutaneous fluid collection and good approximation at the fracture level. However MRI shows a lytic defect with enhancement within T9 vertebra. One of two blood cultures are showing staph ape. The urine cx only shows yeast. He had significant pulmonary complications in April prior to rehab. Neurologically he appears stable, follows commands and moves the lower extremities well. 07/11/16 The wound in the back is being packed. It will need I and D in the future. Neurologically he is alert and awake moving both extremities 5/5 Review of Systems General: Negative for: fever, chills, insomnia Respiratory: Positive for: cough, Negative for: shortness of breath, sputum Exam Results Vital Signs Date Time Temp Pulse Resp B/P Pulse Ox O2 Delivery O2 Flow Rate FiO2 07/11/16 13:33 96.5 101 20 108/63 96 07/11/16 09:00 Venturi Mask 6.00 35 Intake and Output 07/10/16 07/10/16 07/11/16 08:00 16:00 00:00 Intake Total 240 ml 760 ml 120 ml Balance 240 ml 760 ml 120 ml Physical Examination Alert, speech fluent but short of breath, elderly gentleman, appears his stated age Follows commands, moves both bic/tri/IO/hip flex/gastroc with good strength No sensory level. no clonus, no Babinski Wound with 1 cm opening with about 2 inch subcutaneous pocket. Granulation tissue evident. Swab taken and sent for culture again Lab, Micro, Other Results Laboratory Tests Test 07/10/16 07/11/16 07/11/16 20:20 06:50 08:05 Random Glucose 52 MG/DL 43 MG/DL 107 MG/DL White Blood Count 12.8 TH/MM3 Red Blood Count 3.47 MIL/MM3 Hemoglobin 10.4 GM/DL Hematocrit 31.7 % Mean Corpuscular Volume 91.4 FL Mean Corpuscular Hemoglobin 30.1 PG Mean Corpuscular Hemoglobin 32.9 % Concent Red Cell Distribution Width 15.4 % Platelet Count 139 TH/MM3 Mean Platelet Volume 9.5 FL Sodium Level 141 MEQ/L Potassium Level 3.3 MEQ/L Chloride Level 103 MEQ/L Carbon Dioxide Level 30.4 MEQ/L Anion Gap 8 MEQ/L Blood Urea Nitrogen 34 MG/DL Creatinine 1.08 MG/DL Estimat Glomerular Filtration 65 ML/MIN Rate Calcium Level 7.6 MG/DL Medical Decision Making Impression and Plan 85 yr old with multiple co morbidities well known to use from his April 2016 trauma admission, has evidence of T9 vertebral body enhancement with marin on MRI. The is no fluid collection outside the spine and hematogenous seeding is unfortunately possibly happened from the skin breakdown from the TLSO. Removal of the hardware is not possible so soon after an unstable T9 fx and bracing alone would not allow for mobilization OOB. Wound debridement may be helpful but would not address the main enhancement which is within the T9 body. Radiologic and neurologic follow up will be needed. I will follow. 07/11/16 The wound looks like it will need an I and D. He is doing well clinically and may be OOB. Cultures are pending. Total Minutes: 20 Jared Ingram Jul 11, 2016 13:42
[2016-07-11] MEDS: DILTIAZEM HCL 30 MG TAB PO SCH ×2 (14:29→21:16)
[2016-07-12] VITALS (9 sets, daily range): BP systolic 105–139; BP diastolic 51–73; PULSE 56–110; RESP 18–20; TEMP 95.8–98.2; O2SAT 90–95
[2016-07-12] MEDS: RESP: ALBUTEROL 2.5 MG/IPRATROPIUM 0.5 MG NEB (SCH) NEB ×4 (04:29→20:40)
[2016-07-12] MEDS ORDERED: PHARMACY ORDERED LAB XX ONE (04:45)
[2016-07-12] MEDS: VANCOMYCIN 1,500 MG/NS 500 ML IV SCH ×4 (05:06→22:29)
[2016-07-12] MEDS: METOPROLOL TARTRATE 25 MG TAB PO SCH ×3 (06:00→21:38)
[2016-07-12] MEDS: metroNIDAZOLE 500 MG TAB PO SCH ×3 (06:00→21:38)
[2016-07-12] MEDS: cefTAZidime INJ 2,000 MG in SODIUM CHLORIDE 0.9% INJ 100 ML IV SCH ×3 (06:00→21:40)
[2016-07-12] MEDS: INSULIN ASPART SUPPLEMENTAL SCALE SQ SCH ×4 (07:00→21:40)
[2016-07-12] MEDS: FLUCONAZOLE 200 MG TAB PO SCH (08:18)
[2016-07-12] MEDS: ALLOPURINOL 300 MG TAB PO SCH (08:18)
[2016-07-12] MEDS: HEPARIN SODIUM - SQ 10,000 UNITS/ML VIAL SQ SCH ×2 (08:19→21:39)
[2016-07-12] MEDS: DILTIAZEM HCL 30 MG TAB PO SCH ×3 (08:19→21:38)
[2016-07-12] MEDS: FUROSEMIDE 40 MG TAB PO SCH (08:19)
[2016-07-12] MEDS: ISRADIPINE 2.5 MG PO SCH ×2 (08:19→21:38)
[2016-07-12] MEDS: ASPIRIN EC 81 MG TABEC PO SCH (08:19)
[2016-07-12] MEDS: DIGOXIN 0.125 MG TAB PO SCH (08:19)
[2016-07-12] MEDS: FAMOTIDINE 20 MG TAB PO SCH ×2 (08:19→21:38)
--- NOTE | 2016-07-12 12:18 | HHI.PR ---
Subjective Subjective Remarks on NC 4L awake, oriented x 2 forgetful was able to stand and use commode no cp no sob no fever no family at bsd tele reviewed, HR 100, afib Review of Systems Constitutional Constitutional Remarks 12 point ROS limited Vitals/Results Intake & Output 07/11/16 07/11/16 07/12/16 14:59 22:59 06:59 Intake Total 480 ml 360 ml Balance 480 ml 360 ml Intake Oral 480 ml 360 ml # Voids 2 7 # Bowel Movements 3 1 Vital Signs Vital Signs Date Time Temp Pulse Resp B/P Pulse Ox O2 Delivery O2 Flow Rate FiO2 07/12/16 10:41 102 07/12/16 10:17 95 Nasal Cannula 5.00 07/12/16 08:15 97.0 110 18 139/73 93 07/12/16 04:48 98.2 94 18 123/70 93 07/12/16 00:40 98.0 99 18 119/60 93 07/11/16 21:04 95 Nasal Cannula 4.00 07/11/16 19:59 98.1 94 18 106/57 92 07/11/16 16:38 98.3 95 20 125/59 99 07/11/16 13:33 96.5 101 20 108/63 96 CBC/BMP: 07/11/16 0805 07/11/16 0805 Lab Results Laboratory Tests Test 07/12/16 04:40 Vancomycin Level Trough 18.4 MCG/ML Physical Exam General General Appearance: Well Developed, Comfortable Eyes Eye Exam: Pupils Equal, Pupils Reactive Ears & Nose Ears & Nose Exam: Nasal Mucosa Hector Throat Throat Exam: Oral Mucosa Hector & Moist Neck Neck Exam: Neck Supple, Trachea Midline Pulmonary Resp Remarks diffuse ronchi-improved Cardiology CV Exam: Regular Gastrointestinal/Abdomen GI Exam: Soft, Non-Tender, Bowel Sounds Present, Non-Distended Musculoskeletal MS Exam: Joints Intact Integumentary Skin Exam: Warm, Lesion(s) Skin Remarks mid back wound dehiscence Extremeties Extremities Exam: No Edema, Pedal Pulses Palpable Neurologic Neuro Exam: Alert, Awake, Speech Clear, Moving All Extremities, No Focal Deficits Psychiatric Psych Exam: Appropriate Responses VTE Prophylaxis VTE Prophylaxis Device: SCDs VTE Prophylaxis Meds: Heparin PUD Prophylasis PUD Remarks PEPCID Assessment/Plan Problem List: (1) Sepsis (2) Hypoxia (3) Diabetic neuropathy (4) Atrial fibrillation (5) Hypertension (6) Diabetes 1.5, managed as type 2 (7) Hypokalemia (8) UTI (urinary tract infection) (9) Hx of unstable T8,T9 fractures due to fall with T7 to T11 posterior fixation using transpedicular screws and rods on 05/04/16 (10) thoracic wound infection + MRSA Assessment/Plan Sepsis, etiology unclear, poss. pulmonary, urinary, versus wound infection (s/p T7 to T11 posterior fixation using transpedicular screws and rods on 05/04/16) now with wound dehiscence. Source appears surgical site based on imaging findings, also has UTI, maybe pulmonary process as well. CT thoracic spine results noted, no abscess MRI thoracic spine done, results noted -has evidence of T9 vertebral body enhancement BC GPC +, sens noted Urine + yeast Wound culture 07/10-MRSA ID following, already on Vanco Neurosurgery input appreciated, per review of noted--removal of the hardware is not possible so soon after an unstable T9 fx and bracing alone would not allow for mobilization OOB. Wound debridement may be helpful but would not address the main enhancement which is within the T9 body. Radiologic and neurologic follow up will be needed" Wound care orders per neurosurgery Afib -HR elevated -improving continue Dig and BB/ Cardizem no anticoagulation, was on ASA, can't take anticoagulant due to bleeding. Used to take coumadin continue baby ASA Poss. mild CHF CXR 07/10, mild cardiomegaly BNP 211 Echo 04/2016, EF 50 - 55% Stable, continue with Lasix Accuchecks AC/HS Was hypoglycemic -now improved D/C D5W continue to hold hypoglycemic agents Enc. PO intake PT for eval and tx OOB with corset brace per neurosurgery orders Heparin for DVT prophylaxis Pepcid for GI prophylaxis Labs in am D/W RN D/W pt, D/W Dr. Moss This patient was seen by myself and Dr. Moss, this note is written on his behalf. Problem Qualifiers (1) Sepsis: Qualified Code: A41.9 - Sepsis, due to unspecified organism (2) Diabetic neuropathy: Qualified Code: E11.49 - Other diabetic neurological complication associated with type 2 diabetes mellitus (3) Atrial fibrillation: Qualified Code: I48.91 - Atrial fibrillation, unspecified type (4) Hypertension: Qualified Code: I10 - Essential hypertension (5) UTI (urinary tract infection): Qualified Code: N39.0 - Urinary tract infection without hematuria, site unspecified Margareth Iglesias Jul 12, 2016 12:18 (4) Hypertension: Qualified Code: I10 - Essential hypertension (5) UTI (urinary tract infection): Qualified Code: N39.0 - Urinary tract infection without hematuria, site unspecified Margareth Iglesias Jul 12, 2016 12:18
--- NOTE | 2016-07-12 13:31 | HHI.NSPN ---
(Loulou Lozano) Note Status Status: Progress Note (Loulou Lozano) Interval History Interval History 85 yr old with multiple co morbidities including DM and ankylosing spondylitis underwent internal fixation with pedicular screws and rods for T9 unstable traumatic fx in early April 2016 after a fall from a homemade scaffold to fix his pool screen. He had some drainage from the wound after surgery. He was mobilized and went to rehab but is being readmitted with sepsis. CT of the thoracic spine shows no cutaneous or subcutaneous fluid collection and good approximation at the fracture level. However MRI shows a lytic defect with enhancement within T9 vertebra. One of two blood cultures are showing staph ape. The urine cx only shows yeast. He had significant pulmonary complications in April prior to rehab. Neurologically he appears stable, follows commands and moves the lower extremities well. 07/12: denies back pain. feeling better today, sitting up. no drainage seen from wound. (Loulou Lozano) Labs, Micro, & Vital Signs Results Date Time Temp Pulse Resp B/P Pulse Ox O2 Delivery O2 Flow Rate FiO2 07/12/16 13:00 96.1 85 20 115/51 91 07/12/16 10:41 102 07/12/16 10:17 95 Nasal Cannula 5.00 07/12/16 08:15 97.0 110 18 139/73 93 07/12/16 04:48 98.2 94 18 123/70 93 07/12/16 00:40 98.0 99 18 119/60 93 07/11/16 21:04 95 Nasal Cannula 4.00 07/11/16 19:59 98.1 94 18 106/57 92 07/11/16 16:38 98.3 95 20 125/59 99 07/11/16 13:33 96.5 101 20 108/63 96 07/12/16 07:00 Intake Total 840 ml Balance 840 ml Constitutional Vital Signs Date Time Temp Pulse Resp B/P Pulse Ox O2 Delivery O2 Flow Rate FiO2 07/12/16 13:00 96.1 85 20 115/51 91 07/12/16 10:41 102 07/12/16 10:17 95 Nasal Cannula 5.00 07/12/16 08:15 97.0 110 18 139/73 93 07/12/16 04:48 98.2 94 18 123/70 93 07/12/16 00:40 98.0 99 18 119/60 93 07/11/16 21:04 95 Nasal Cannula 4.00 07/11/16 19:59 98.1 94 18 106/57 92 07/11/16 16:38 98.3 95 20 125/59 99 07/11/16 13:33 96.5 101 20 108/63 96 07/12/16 07:00 Intake Total 840 ml Balance 840 ml (Loulou Lozano) Review of Systems/Exam Exam Alert, siting up edge of bed eating lunch. Very pleasant. Speech is appropriate. Thoracic wound with 1 cm opening with about 2 inch subcutaneous pocket. No drainage seen currently. Wound packed with nu gauze and covered with clean dressing Motor: moves major muscle groups of LE's well b/l Sensory: intact to light touch in LE's No clonus, no Babinski (Loulou Lozano) Medications Current Medications Current Medications Medications (Trade) Dose Ordered Sig/Sybil Route PRN Reason Start Time Stop Time Status Last Admin Dose Admin Allopurinol (Zyloprim) 300 mg DAILY PO 07/09/16 09:00 07/12/16 08:18 Bisacodyl (Dulcolax Ec) 10 mg DAILY PRN PO CONSTIPATION 07/08/16 22:30 Digoxin (Lanoxin) 0.125 mg DAILY PO 07/09/16 09:00 07/12/16 08:19 Famotidine (Pepcid) 10 mg BID PO 07/09/16 09:00 07/12/16 08:19 Isradipine (Dynacirc) 5 mg BID PO 07/09/16 09:00 07/12/16 08:19 Metoprolol Tartrate (Lopressor) 25 mg Q8HR PO 07/09/16 06:00 07/12/16 06:00 Oxycodone HCl (Roxicodone) 10 mg Q4H PRN PO PAIN SCALE 6 TO 10 07/08/16 22:30 Dextrose (D50w (Vial) Inj) 25 ml UNSCH PRN IV PUSH HYPOGLYCEMIA-SEE COMMENTS 07/08/16 22:45 07/11/16 16:55 Glucagon (Glucagon Inj) 1 mg UNSCH PRN OTHER HYPOGLYCEMIA-SEE COMMENTS 07/08/16 22:45 Acetaminophen (Tylenol Supp) 650 mg Q4H PRN RECTAL FEVER 07/09/16 08:30 07/10/16 04:15 Acetaminophen (Tylenol Supp) 120 mg Q4H PRN RECTAL FEVER 07/09/16 08:45 Heparin Sodium (Porcine) 5000 units 5,000 units Q12HR SQ 07/09/16 09:00 07/12/16 08:19 Pharmacy Profile Note 0 ml @ 0 mls/hr UNSCH OTHER 07/09/16 22:15 Ceftazidime/ Sodium Chloride (Fortaz Inj/NS Inj) 100 ml @ 200 mls/hr Q8H IV 07/09/16 22:00 07/12/16 06:00 Metronidazole 500 mg 500 mg Q8HR PO 07/10/16 06:00 07/12/16 06:00 Vancomycin HCl/ Sodium Chloride (Vancomycin Inj/ NS 500 ml Inj) 515 ml @ 257.5 mls/ hr Q18H IV 07/10/16 17:00 07/12/16 05:06 Fluconazole (Diflucan) 200 mg DAILY PO 07/10/16 14:00 07/12/16 08:18 Furosemide (Lasix) 40 mg DAILY PO 07/11/16 09:00 07/12/16 08:19 Aspirin 81 mg 81 mg DAILY PO 07/10/16 14:15 07/12/16 08:19 Dextrose/Sodium Chloride (D5W-NS 1000 ml Inj) 1,000 ml @ 30 mls/hr Q24H IV 07/10/16 23:00 07/11/16 01:15 Diltiazem HCl (Cardizem) 30 mg TID@08,14,20 PO 07/11/16 14:00 07/12/16 08:19 (Loulou Lozano) Medical Decision Making MDM Remarks 85y/o male with 85 yr old with thoracic wound dehiscence wound cultures reports MRSA infection hx T8/T9 fracture following fall and underwent ORIF with T7-T11 posterolateral fixation on 05/04/16 (Loulou Lozano) Plan Plan Remarks wound care with wet to dry nu gauze dressing keep wound covered cont IV abx will need total 6 weeks, dw Dr. Paco resendez use of TLSO, place on quick draw corset when out of bed (Loulou Lozano) Attending Statement Discussed with his daughter and Dr fan The exam, history, and the medical decision-making described in the above note were completed with the assistance of the mid-level provider. I reviewed and agree with the findings presented. I attest that I had a [id number] encounter with the patient on the same day, and personally performed and documented my assessment and findings in the medical record. (Leeroy Knight MD) Loulou Lozano Jul 12, 2016 13:31 Leeroy Knight MD Jul 12, 2016 15:35
--- NOTE | 2016-07-12 17:30 | HHI.IDPN ---
Subjective Subjective Remarks is an 85 y/o CM with PMHx of history of admission for Trauma alert after a fall from a ladder, when he was diagnosed to have left side femur fracture, left side rib fracture and fracture thoracic spine. He underwent open reduction internal fixation of T8 and T9 fractures, T7 to T11 segmental instrumented fixation using transpedicular screws and rods, T7 to T11 posterolateral fusion using autologous bone graft combined with stem cells, microsurgical dissection. Overnight events reviewed. Reports less drainage and bed sheets are dry now. No fever No rash No diarrhea Antibiotics Ceftazidime IV Vanco IV Flagyl oral Lines Line sites with no e/o infection Past Medical History reviewed Allergies: Coded Allergies: No Known Allergies (Unverified , 07/08/16) Objective . Vital Signs Date Time Temp Pulse Resp B/P Pulse Ox O2 Delivery O2 Flow Rate FiO2 07/12/16 16:05 95.8 78 20 105/58 92 07/12/16 13:00 96.1 85 20 115/51 91 07/12/16 10:41 102 07/12/16 10:17 95 Nasal Cannula 5.00 07/12/16 08:15 97.0 110 18 139/73 93 07/12/16 04:48 98.2 94 18 123/70 93 07/12/16 00:40 98.0 99 18 119/60 93 07/11/16 21:04 95 Nasal Cannula 4.00 07/11/16 19:59 98.1 94 18 106/57 92 07/11/16 07/11/16 07/12/16 15:00 23:00 07:00 Intake Total 480 ml 360 ml Balance 480 ml 360 ml Intake Oral 480 ml 360 ml # Voids 2 7 # Bowel Movements 3 1 . Laboratory Tests Test 07/11/16 08:05 White Blood Count 12.8 TH/MM3 Red Blood Count 3.47 MIL/MM3 Hemoglobin 10.4 GM/DL Hematocrit 31.7 % Mean Corpuscular Volume 91.4 FL Mean Corpuscular Hemoglobin 30.1 PG Mean Corpuscular Hemoglobin 32.9 % Concent Red Cell Distribution Width 15.4 % Platelet Count 139 TH/MM3 Mean Platelet Volume 9.5 FL Laboratory Tests Test 07/10/16 07/11/16 07/11/16 20:20 06:50 08:05 Random Glucose 52 MG/DL 43 MG/DL 107 MG/DL Sodium Level 141 MEQ/L Potassium Level 3.3 MEQ/L Chloride Level 103 MEQ/L Carbon Dioxide Level 30.4 MEQ/L Anion Gap 8 MEQ/L Blood Urea Nitrogen 34 MG/DL Creatinine 1.08 MG/DL Estimat Glomerular Filtration 65 ML/MIN Rate Calcium Level 7.6 MG/DL Microbiology Date/Time Procedure Status Source Growth 07/10/16 18:48 Gram Stain - Final Resulted Wound Back 07/10/16 18:48 Wound Culture - Preliminary Resulted S. Aureus Mrsa 07/10/16 19:30 Aerobic Blood Culture - Preliminary Resulted Blood Peripheral NO GROWTH IN 2 DAYS 07/10/16 19:30 Anaerobic Blood Culture - Preliminary Resulted Blood Peripheral NO GROWTH IN 2 DAYS 07/10/16 19:40 Aerobic Blood Culture - Preliminary Resulted Blood Peripheral NO GROWTH IN 2 DAYS 07/10/16 19:40 Anaerobic Blood Culture - Preliminary Resulted Blood Peripheral NO GROWTH IN 2 DAYS Imaging Last Impressions Thoracic Spine MRI 07/10/16 0000 Signed Impressions: Service Date/Time: Sunday, July 10, 2016 14:02 - CONCLUSION: 1. Marrow edema and enhancement predominantly at T9, T10 and T11 concerning for osteomyelitis. The amount of marrow edema has increased from the previous study dated April 2016. No epidural abscess is identified. There is a presumed cellulitis in the dorsal soft tissues with soft tissue swelling and edema present as above. Kwasi Rico MD Chest X-Ray 07/10/16 0000 Signed Impressions: Service Date/Time: Sunday, July 10, 2016 14:04 - CONCLUSION: Cardiomegaly bibasilar density likely atelectasis. There may be a small left pleural effusion. Jared Larios MD Thoracic Spine CT 07/08/16 0000 Signed Impressions: Service Date/Time: June 20:51 - CONCLUSION: 1. Remote fractures of T8 and T9 involving its superior aspect of T9 and inferior aspect of T8. There is previous screw and rosa fixation extending from T7-T11. No new fractures on the current exam. No significant bony canal stenosis. Kwasi Rico MD Physical Exam GENERAL: This is a well-nourished, well-developed patient, in no apparent distress. SKIN: No rashes, ecchymoses or lesions. Cool and dry. HEAD: Atraumatic. Normocephalic. No temporal or scalp tenderness. EYES: Pupils equal round and reactive. Extraocular motions intact. No scleral icterus. No injection or drainage. ENT: Nose without bleeding, purulent drainage or septal hematoma. Throat without erythema, tonsillar hypertrophy or exudate. Uvula midline. Airway patent. NECK: Trachea midline. Supple, nontender, no meningeal signs. CARDIOVASCULAR: HS audible. RESPIRATORY: Clear to auscultation. Breath sounds equal bilaterally. No wheezes , rales, or rhonchi. GASTROINTESTINAL: Abdomen soft, non-tender, nondistended. MUSCULOSKELETAL: Extremities without clubbing, cyanosis, or edema. No joint tenderness, effusion, or edema noted. No calf tenderness. Negative Homans sign bilaterally. Left LE slightly shorter than right. Surgical scar on left hip with no e/o infection. Back: surgical site with no active discharge. Appears dried since last exam. NEUROLOGICAL: Awake and alert. Grossly non focal Psych: cooperative IV line sites with no e/o infection. Assessment & Plan Remarks Severe Sepsis present on admission (Sepsis with acute metabolic encephalopathy, source: probable surgical site infection). Probable surgical site infection. Concern for epidural abscess or deep infection in view of high grade persistent fevers. Pneumonia present on admission. Was being treated for UTI prior to admission per family Acute metabolic encephalopathy: lethargic per family, sepsis. 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 Will deescalate once cultures final. Continue Vanco IV (target trough 15-20) will need 6 weeks. Await Susceptibility to decide final regimen. Continue Flagyl oral will deescalate once cultures final. Continue Diflucan for C.glabrata UTI. H/o prostate problems and urinary retention. Noted CRP high. Noted MRI T spine with abnormal marrow edema. ? trauma ? infection. Khadar Emerson will treat as osteomyelitis. Follow cultures Follow clinically. Khadar patient and daughter in room. Melinda Antonio MD Jul 12, 2016 17:30
[2016-07-13] VITALS (7 sets, daily range): BP systolic 97–119; BP diastolic 51–57; PULSE 56–85; RESP 18–25; TEMP 95.9–97.9; O2SAT 85–92
[2016-07-13] MEDS: cefTAZidime INJ 2,000 MG in SODIUM CHLORIDE 0.9% INJ 100 ML IV SCH ×2 (05:04→13:38)
[2016-07-13] MEDS: METOPROLOL TARTRATE 25 MG TAB PO SCH ×3 (05:04→21:33)
[2016-07-13] MEDS: metroNIDAZOLE 500 MG TAB PO SCH ×2 (05:04→13:38)
[2016-07-13] MEDS: INSULIN ASPART SUPPLEMENTAL SCALE SQ SCH ×4 (05:52→21:35)
[2016-07-13 08:45] LABS: HEMATOCRIT 30.6 % (39.0-51.0); MEAN CORPUSCULAR HEMOGLOBIN 30.4 PG (27.0-34.0); MEAN CORPUSCULAR HGB CONC 33.4 % (32.0-36.0); PLATELET COUNT 155 TH/MM3 (150-450); RED BLOOD COUNT 3.36 MIL/MM3 (4.50-5.90); RED CELL DISTRIBUTION WIDTH 15.1 % (11.6-17.2); REVIEW FLAG FINAL
[2016-07-13] MEDS: DIGOXIN 0.125 MG TAB PO SCH (09:15)
[2016-07-13] MEDS: ALLOPURINOL 300 MG TAB PO SCH (09:15)
[2016-07-13] MEDS: FUROSEMIDE 40 MG TAB PO SCH (09:15)
[2016-07-13] MEDS: DILTIAZEM HCL 30 MG TAB PO SCH ×3 (09:15→21:33)
[2016-07-13] MEDS: ISRADIPINE 2.5 MG PO SCH ×2 (09:16→21:33)
[2016-07-13] MEDS: FLUCONAZOLE 200 MG TAB PO SCH (09:16)
[2016-07-13] MEDS: ASPIRIN EC 81 MG TABEC PO SCH (09:16)
[2016-07-13] MEDS: FAMOTIDINE 20 MG TAB PO SCH ×2 (09:16→21:34)
[2016-07-13 09:17] LABS: BICARBONATE 29.9 MEQ/L (21.0-32.0); POTASSIUM 3.7 MEQ/L (3.5-5.1)
[2016-07-13] MEDS: HEPARIN SODIUM - SQ 10,000 UNITS/ML VIAL SQ SCH ×2 (09:17→21:34)
--- NOTE | 2016-07-13 10:41 | HHI.PR ---
Subjective Subjective Remarks Cough, coarse, unable to cough up Alert Appetite fair Weakness generalized No chest pain No shortness of breath at rest (Chloé Khanna) Review of Systems Constitutional Constitutional: Fatigue, Weakness (mild) Constitutional Remarks 10 point ROS done. Positives include weakness fatigue, cough course (Chloé Khanna) Pulmonary Respiratory: Coughing, Shortness of Breath (exertional mild) (Chloé Khanna) Musculoskeletal MS: Stiffness (Chloé Khanna) Psychiatric Psychiatric: Normal Mood (Chloé Khanna) Vitals/Results Intake & Output 07/12/16 07/12/16 07/13/16 15:00 23:00 07:00 Output Total 300 ml Balance -300 ml Output Urine Total 300 ml # Voids 1 2 # Bowel Movements 1 1 Vital Signs Vital Signs Date Time Temp Pulse Resp B/P Pulse Ox O2 Delivery O2 Flow Rate FiO2 07/13/16 08:38 95.9 65 18 119/56 92 07/13/16 04:49 97.4 85 22 104/55 91 07/13/16 00:25 97.9 56 18 103/53 90 07/12/16 21:06 97.0 56 18 122/55 90 07/12/16 17:41 73 07/12/16 16:05 95.8 78 20 105/58 92 07/12/16 13:00 96.1 85 20 115/51 91 07/12/16 10:41 102 (Chloé Khanna) CBC/BMP: 07/13/16 0759 07/13/16 0759 Lab Results Laboratory Tests Test 07/13/16 07:59 White Blood Count 10.0 TH/MM3 Red Blood Count 3.36 MIL/MM3 Hemoglobin 10.2 GM/DL Hematocrit 30.6 % Mean Corpuscular Volume 91.0 FL Mean Corpuscular Hemoglobin 30.4 PG Mean Corpuscular Hemoglobin 33.4 % Concent Red Cell Distribution Width 15.1 % Platelet Count 155 TH/MM3 Mean Platelet Volume 9.8 FL Sodium Level 143 MEQ/L Potassium Level 3.7 MEQ/L Chloride Level 106 MEQ/L Carbon Dioxide Level 29.9 MEQ/L Anion Gap 7 MEQ/L Blood Urea Nitrogen 26 MG/DL Creatinine 1.00 MG/DL Estimat Glomerular Filtration 71 ML/MIN Rate Random Glucose 165 MG/DL Calcium Level 8.6 MG/DL Imaging Remarks Last Impressions Thoracic Spine MRI 07/10/16 Signed Impressions: Service Date/Time: Sunday, July 10, 2016 14:02 - CONCLUSION: 1. Marrow edema and enhancement predominantly at T9, T10 and T11 concerning for osteomyelitis. The amount of marrow edema has increased from the previous study dated April 2016. No epidural abscess is identified. There is a presumed cellulitis in the dorsal soft tissues with soft tissue swelling and edema present as above. Kwasi Rico MD Chest X-Ray 07/10/16 Signed Impressions: Service Date/Time: Sunday, July 10, 2016 14:04 - CONCLUSION: Cardiomegaly bibasilar density likely atelectasis. There may be a small left pleural effusion. Jared Larios MD Thoracic Spine CT 07/08/16 Signed Impressions: Service Date/Time: June 20:51 - CONCLUSION: 1. Remote fractures of T8 and T9 involving its superior aspect of T9 and inferior aspect of T8. There is previous screw and rosa fixation extending from T7-T11. No new fractures on the current exam. No significant bony canal stenosis. Kwasi Rico MD (Chloé Khanna M. ABAD) Physical Exam General General Appearance: Well Developed, Comfortable (Chloé Khanna M. DOOR HANGER) Eyes Eye Exam: Pupils Equal, Pupils Reactive (Chloé Khanna M. DOOR HANGER) Ears & Nose Ears & Nose Exam: Nasal Mucosa [place] (Chloé Khanna M. DOOR HANGER) Throat Throat Exam: Oral Mucosa [place] & Moist ([place],Chloé M. DOOR HANGER) Neck Neck Exam: Neck Supple, Trachea Midline ([place],Chloé M. DOOR HANGER) Pulmonary Resp Exam: Rhonchi, Diminished Breath Sounds, Poor Inspiratory Effort (Elenita Khannaan M. DOOR HANGER) Cardiology CV Exam: Regular ([place] M. DOOR HANGER) Gastrointestinal/Abdomen GI Exam: Soft, Non-Tender, Bowel Sounds Present, Non-Distended ([place] M. DOOR HANGER) Musculoskeletal MS Exam: Joints Intact (Chloé Khanna M. DOOR HANGER) Integumentary Skin Exam: Warm, Lesion(s) Skin Remarks Small surgical site wound mid back, (Chloé Khanna) Extremeties Extremities Exam: No Edema, Pedal Pulses Palpable (Chloé Khanna) Neurologic Neuro Exam: Alert, Awake, Speech Clear, Moving All Extremities, No Focal Deficits (Chloé KhannaP) Psychiatric Psych Exam: Appropriate Responses (Chloé Khanna) VTE Prophylaxis VTE Prophylaxis Device: SCDs VTE Prophylaxis Meds: Heparin VTE Remarks ASA (Chloé Khanna DOOR HANGER) PUD Prophylasis PUD Remarks Pepcid (Chloé Khanna) Assessment/Plan Problem List: (1) Sepsis (2) Hypoxia (3) Diabetic neuropathy (4) Atrial fibrillation (5) Hypertension (6) Diabetes 1.5, managed as type 2 (7) Hypokalemia (8) UTI (urinary tract infection) (9) Hx of unstable T8,T9 fractures due to fall with T7 to T11 posterior fixation using transpedicular screws and rods on 05/04/16 (10) thoracic wound infection + MRSA Assessment/Plan Sepsis, etiology unclear, poss. pulmonary, urinary, versus wound infection (s/p T7 to T11 posterior fixation using transpedicular screws and rods on 05/04/16) now with wound dehiscence. Source appears surgical site based on imaging findings, also has UTI, maybe pulmonary process as well. Shows small soft tissue swelling, concern for osteomyelitis. Will need IV antibiotics for 6 weeks according to neurosurgery note CT thoracic spine results noted, no abscess MRI thoracic spine done, results noted -has evidence of T9 vertebral body enhancement BC GPC +, sens noted Urine + yeast Wound culture 07/10-MRSA ID following, already on Vanco Neurosurgery input appreciated, per review of noted--removal of the hardware is not possible so soon after an unstable T9 fx and bracing alone would not allow for mobilization OOB. Wound debridement may be helpful but would not address the main enhancement which is within the T9 body. Radiologic and neurologic follow up will be needed" Wound care orders per neurosurgery , dressing clean dry and intact. Monitor for any acute redness or needs Afib -HR elevated -improving continue Dig and BB/ Cardizem no anticoagulation, was on ASA, can't take anticoagulant due to bleeding. Used to take coumadin continue baby ASA Poss. mild CHF CXR 07/10, mild cardiomegaly BNP elevated.mild Echo 04/2016, EF 50 - 55% Stable, continue with Lasix Cough productive, encourage patient to spit out any sputum. Patient denies any problems with swallow, liquid or solid food Accuchecks AC/HS Monitor for any hypoglycemia D/C D5W continue to hold hypoglycemic agents Enc. PO intake , and solid food. A DA diet PT for eval and tx, needs strengthening, and mobility strengthening. OOB with corset brace per neurosurgery orders Heparin for DVT prophylaxis Pepcid for GI prophylaxis Labs monitor, Monitor vital signs, currently patient afebrile D/W RN D/W pt, and son D/W Dr. Moss This patient was seen by myself and Dr. Moss, this note is written on his behalf. (Chloé Khanna) Assessment/Plan Patient seen and examined as above Labs reviewed Culture reviewed Appreciate infectious disease input. Discussed with her yesterday Discussed with patient On a fair discussed with DOOR HANGER (Devorah Moss MD) Problem Qualifiers (1) Sepsis: Qualified Code: A41.9 - Sepsis, due to unspecified organism (2) Diabetic neuropathy: Qualified Code: E11.49 - Other diabetic neurological complication associated with type 2 diabetes mellitus (3) Atrial fibrillation: Qualified Code: I48.91 - Atrial fibrillation, unspecified type (4) Hypertension: Qualified Code: I10 - Essential hypertension (5) UTI (urinary tract infection): Qualified Code: N39.0 - Urinary tract infection without hematuria, site unspecified Chloé Khanna Jul 13, 2016 10:41 Devorah Moss MD Jul 13, 2016 13:47
--- NOTE | 2016-07-13 18:03 | HHI.IDPN ---
Subjective Subjective Remarks is an 85 y/o CM with PMHx of history of admission for Trauma alert after a fall from a ladder, when he was diagnosed to have left side femur fracture, left side rib fracture and fracture thoracic spine. He underwent open reduction internal fixation of T8 and T9 fractures, T7 to T11 segmental instrumented fixation using transpedicular screws and rods, T7 to T11 posterolateral fusion using autologous bone graft combined with stem cells, microsurgical dissection. Overnight events reviewed. Reports less drainage and bed sheets are dry now. No fever No rash No diarrhea Antibiotics Ceftazidime IV Vanco IV Flagyl oral Lines Line sites with no e/o infection Past Medical History reviewed Allergies: Coded Allergies: *MDRO Multi-Drug Resistant Organism (Verified Adverse Reaction, Unknown, ) 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 Objective . Vital Signs Date Time Temp Pulse Resp B/P Pulse Ox O2 Delivery O2 Flow Rate FiO2 07/13/16 16:39 96.1 62 18 97/51 90 07/13/16 11:19 96.9 75 25 115/56 85 07/13/16 08:38 95.9 65 18 119/56 92 07/13/16 04:49 97.4 85 22 104/55 91 07/13/16 00:25 97.9 56 18 103/53 90 07/12/16 21:06 97.0 56 18 122/55 90 07/12/16 07/12/16 07/13/16 15:00 23:00 07:00 Output Total 300 ml Balance -300 ml Output Urine Total 300 ml # Voids 1 2 # Bowel Movements 1 1 . Laboratory Tests Test 07/13/16 07:59 White Blood Count 10.0 TH/MM3 Red Blood Count 3.36 MIL/MM3 Hemoglobin 10.2 GM/DL Hematocrit 30.6 % Mean Corpuscular Volume 91.0 FL Mean Corpuscular Hemoglobin 30.4 PG Mean Corpuscular Hemoglobin 33.4 % Concent Red Cell Distribution Width 15.1 % Platelet Count 155 TH/MM3 Mean Platelet Volume 9.8 FL Laboratory Tests Test 07/13/16 07:59 Sodium Level 143 MEQ/L Potassium Level 3.7 MEQ/L Chloride Level 106 MEQ/L Carbon Dioxide Level 29.9 MEQ/L Anion Gap 7 MEQ/L Blood Urea Nitrogen 26 MG/DL Creatinine 1.00 MG/DL Estimat Glomerular Filtration 71 ML/MIN Rate Random Glucose 165 MG/DL Calcium Level 8.6 MG/DL Microbiology Date/Time Procedure Status Source Growth 07/10/16 18:48 Gram Stain - Final Complete Wound Back 07/10/16 18:48 Wound Culture - Final Complete S. Aureus Mrsa 07/10/16 19:30 Aerobic Blood Culture - Preliminary Resulted Blood Peripheral NO GROWTH IN 3 DAYS 07/10/16 19:30 Anaerobic Blood Culture - Preliminary Resulted Blood Peripheral NO GROWTH IN 3 DAYS 07/10/16 19:40 Aerobic Blood Culture - Preliminary Resulted Blood Peripheral NO GROWTH IN 3 DAYS 07/10/16 19:40 Anaerobic Blood Culture - Preliminary Resulted Blood Peripheral NO GROWTH IN 3 DAYS Imaging Last Impressions Thoracic Spine MRI 07/10/16 0000 Signed Impressions: Service Date/Time: Sunday, July 10, 2016 14:02 - CONCLUSION: 1. Marrow edema and enhancement predominantly at T9, T10 and T11 concerning for osteomyelitis. The amount of marrow edema has increased from the previous study dated April 2016. No epidural abscess is identified. There is a presumed cellulitis in the dorsal soft tissues with soft tissue swelling and edema present as above. Kwasi iRco MD Chest X-Ray 07/10/16 0000 Signed Impressions: Service Date/Time: Sunday, July 10, 2016 14:04 - CONCLUSION: Cardiomegaly bibasilar density likely atelectasis. There may be a small left pleural effusion. Jared Larios MD Thoracic Spine CT 07/08/16 0000 Signed Impressions: Service Date/Time: June 20:51 - CONCLUSION: 1. Remote fractures of T8 and T9 involving its superior aspect of T9 and inferior aspect of T8. There is previous screw and rosa fixation extending from T7-T11. No new fractures on the current exam. No significant bony canal stenosis. Kwasi Rico MD Physical Exam GENERAL: This is a well-nourished, well-developed patient, in no apparent distress. SKIN: No rashes, ecchymoses or lesions. Cool and dry. HEAD: Atraumatic. Normocephalic. No temporal or scalp tenderness. EYES: Pupils equal round and reactive. Extraocular motions intact. No scleral icterus. No injection or drainage. ENT: Nose without bleeding, purulent drainage or septal hematoma. Throat without erythema, tonsillar hypertrophy or exudate. Uvula midline. Airway patent. NECK: Trachea midline. Supple, nontender, no meningeal signs. CARDIOVASCULAR: HS audible. RESPIRATORY: Clear to auscultation. Breath sounds equal bilaterally. No wheezes , rales, or rhonchi. GASTROINTESTINAL: Abdomen soft, non-tender, nondistended. MUSCULOSKELETAL: Extremities without clubbing, cyanosis, or edema. No joint tenderness, effusion, or edema noted. No calf tenderness. Negative Homans sign bilaterally. Left LE slightly shorter than right. Surgical scar on left hip with no e/o infection. Back: surgical site with no active discharge. Appears dried since last exam. NEUROLOGICAL: Awake and alert. Grossly non focal Psych: cooperative IV line sites with no e/o infection. Assessment & Plan Remarks Severe Sepsis present on admission (Sepsis with acute metabolic encephalopathy, source: probable surgical site infection). Probable surgical site infection. Concern for epidural abscess or deep infection in view of high grade persistent fevers. Pneumonia present on admission. Staph epidermidis bacteremia: Likely contaminant MRSA surgical site infection. Was being treated for UTI prior to admission per family Acute metabolic encephalopathy: lethargic per family, sepsis. DM2 uncontrolled: sepsis, infection Recs: Discontinue ceftaz Continue Vanco IV (target trough 15-20) will need 6 weeks. Await Susceptibility to decide final regimen. DC Flagyl Continue Diflucan for C.glabrata UTI. H/o prostate problems and urinary retention. Follow cultures Follow clinically. Khadar patient and son in room. Melinda Antonio MD Jul 13, 2016 18:03
[2016-07-13] MEDS: VANCOMYCIN 1,500 MG/NS 500 ML IV SCH ×2 (18:17)
[2016-07-14] VITALS (10 sets, daily range): BP systolic 93–130; BP diastolic 50–57; PULSE 48–67; RESP 18–22; TEMP 96.2–97.9; O2SAT 90–93
[2016-07-14] MEDS: METOPROLOL TARTRATE 25 MG TAB PO SCH ×4 (06:00→22:51)
[2016-07-14] MEDS: INSULIN ASPART SUPPLEMENTAL SCALE SQ SCH ×4 (06:46→21:00)
[2016-07-14] MEDS: DILTIAZEM HCL 30 MG TAB PO SCH ×3 (09:17→22:51)
[2016-07-14] MEDS: FLUCONAZOLE 200 MG TAB PO SCH (09:17)
[2016-07-14] MEDS: DIGOXIN 0.125 MG TAB PO SCH (09:18)
[2016-07-14] MEDS: ISRADIPINE 2.5 MG PO SCH ×3 (09:18→22:51)
[2016-07-14] MEDS: FUROSEMIDE 40 MG TAB PO SCH (09:18)
[2016-07-14] MEDS: HEPARIN SODIUM - SQ 10,000 UNITS/ML VIAL SQ SCH ×2 (09:18→22:52)
[2016-07-14] MEDS: FAMOTIDINE 20 MG TAB PO SCH ×2 (09:18→22:51)
[2016-07-14] MEDS: ASPIRIN EC 81 MG TABEC PO SCH (09:18)
[2016-07-14] MEDS: ALLOPURINOL 300 MG TAB PO SCH (09:18)
--- NOTE | 2016-07-14 09:53 | HHI.NSPN ---
(Loulou Lozano) Note Status Status: Progress Note (Loulou Lozano) Interval History Interval History 85 yr old with multiple co morbidities including DM and ankylosing spondylitis underwent internal fixation with pedicular screws and rods for T9 unstable traumatic fx in early April 2016 after a fall from a homemade scaffold to fix his pool screen. He had some drainage from the wound after surgery. He was mobilized and went to rehab but is being readmitted with sepsis. CT of the thoracic spine shows no cutaneous or subcutaneous fluid collection and good approximation at the fracture level. However MRI shows a lytic defect with enhancement within T9 vertebra. One of two blood cultures are showing staph ape. The urine cx only shows yeast. He had significant pulmonary complications in April prior to rehab. Neurologically he appears stable, follows commands and moves the lower extremities well. 07/12: denies back pain. feeling better today, sitting up. no drainage seen from wound. 07/14: wound packed with nu gauze, no gross drainage seen. (Loulou Lozano) Labs, Micro, & Vital Signs Results Date Time Temp Pulse Resp B/P Pulse Ox O2 Delivery O2 Flow Rate FiO2 07/14/16 08:42 96.2 58 22 105/55 91 07/14/16 04:29 96.2 65 22 120/56 91 07/14/16 00:35 97.5 56 20 93/50 91 07/14/16 00:10 64 07/13/16 20:53 97.5 74 18 106/57 92 07/13/16 16:39 96.1 62 18 97/51 90 07/13/16 15:00 67 07/13/16 11:19 96.9 75 25 115/56 85 07/14/16 07:00 Intake Total 480 ml Balance 480 ml Constitutional Vital Signs Date Time Temp Pulse Resp B/P Pulse Ox O2 Delivery O2 Flow Rate FiO2 07/14/16 08:42 96.2 58 22 105/55 91 07/14/16 04:29 96.2 65 22 120/56 91 07/14/16 00:35 97.5 56 20 93/50 91 07/14/16 00:10 64 07/13/16 20:53 97.5 74 18 106/57 92 07/13/16 16:39 96.1 62 18 97/51 90 07/13/16 15:00 67 07/13/16 11:19 96.9 75 25 115/56 85 07/14/16 07:00 Intake Total 480 ml Balance 480 ml (Loulou Lozano) Review of Systems/Exam Exam Alert, pleasant. Speech is appropriate. Thoracic wound with 1 cm opening with nu gauze packed. Scant drainage seen on dressing. Motor: moves major muscle groups of LE's well b/l Sensory: intact to light touch in LE's No clonus, no Babinski (Loulou Lozano) Medications Current Medications Current Medications Medications (Trade) Dose Ordered Sig/Sybil Route PRN Reason Start Time Stop Time Status Last Admin Dose Admin Allopurinol (Zyloprim) 300 mg DAILY PO 07/09/16 09:00 07/14/16 09:18 Bisacodyl (Dulcolax Ec) 10 mg DAILY PRN PO CONSTIPATION 07/08/16 22:30 Digoxin (Lanoxin) 0.125 mg DAILY PO 07/09/16 09:00 07/14/16 09:18 Famotidine (Pepcid) 10 mg BID PO 07/09/16 09:00 07/14/16 09:18 Isradipine (Dynacirc) 5 mg BID PO 07/09/16 09:00 07/14/16 09:18 Metoprolol Tartrate (Lopressor) 25 mg Q8HR PO 07/09/16 06:00 07/14/16 06:00 Oxycodone HCl (Roxicodone) 10 mg Q4H PRN PO PAIN SCALE 6 TO 10 07/08/16 22:30 Dextrose (D50w (Vial) Inj) 25 ml UNSCH PRN IV PUSH HYPOGLYCEMIA-SEE COMMENTS 07/08/16 22:45 07/11/16 16:55 Glucagon (Glucagon Inj) 1 mg UNSCH PRN OTHER HYPOGLYCEMIA-SEE COMMENTS 07/08/16 22:45 Acetaminophen (Tylenol Supp) 650 mg Q4H PRN RECTAL FEVER 07/09/16 08:30 07/10/16 04:15 Acetaminophen (Tylenol Supp) 120 mg Q4H PRN RECTAL FEVER 07/09/16 08:45 Heparin Sodium (Porcine) 5000 units 5,000 units Q12HR SQ 07/09/16 09:00 07/14/16 09:18 Pharmacy Profile Note 0 ml @ 0 mls/hr UNSCH OTHER 07/09/16 22:15 Vancomycin HCl/ Sodium Chloride (Vancomycin Inj/ NS 500 ml Inj) 515 ml @ 257.5 mls/ hr Q18H IV 07/10/16 17:00 07/13/16 18:17 Fluconazole (Diflucan) 200 mg DAILY PO 07/10/16 14:00 07/17/16 13:59 07/14/16 09:17 Furosemide (Lasix) 40 mg DAILY PO 07/11/16 09:00 07/14/16 09:18 Aspirin (Ecotrin Ec) 81 mg DAILY PO 07/10/16 14:15 07/14/16 09:18 Diltiazem HCl (Cardizem) 30 mg TID@08,14,20 PO 07/11/16 14:00 07/14/16 09:17 (Loulou Lozano) Medical Decision Making MDM Remarks 85y/o male with 85 yr old with thoracic wound dehiscence wound cultures reports MRSA infection hx T8/T9 fracture following fall and underwent ORIF with T7-T11 posterolateral fixation on 05/04/16 (Loulou Lozano) Plan Plan Remarks cont wound care with wet to dry nu gauze dressing bid keep wound covered cont IV abx will need total 6 weeks, dw Dr. Antonio quick draw corset when out of bed clear for dc from standpoint, Dr. Antonia Moss (Loulou Lozano) Attending Statement The exam, history, and the medical decision-making described in the above note were completed with the assistance of the mid-level provider. I reviewed and agree with the findings presented. I attest that I had a [id number] encounter with the patient on the same day, and personally performed and documented my assessment and findings in the medical record. (Leeroy Knight MD) Loulou Lozano Jul 14, 2016 09:53 Leeroy Knight MD Jul 14, 2016 15:06
[2016-07-14] MEDS: VANCOMYCIN 1,500 MG/NS 500 ML IV SCH ×2 (11:36)
--- NOTE | 2016-07-14 17:43 | HHI.IDPN ---
Subjective Subjective Remarks is an 85 y/o CM with PMHx of history of admission for Trauma alert after a fall from a ladder, when he was diagnosed to have left side femur fracture, left side rib fracture and fracture thoracic spine. He underwent open reduction internal fixation of T8 and T9 fractures, T7 to T11 segmental instrumented fixation using transpedicular screws and rods, T7 to T11 posterolateral fusion using autologous bone graft combined with stem cells, microsurgical dissection. Overnight events reviewed. No fever No rash No diarrhea Antibiotics Vanco IV Lines Line sites with no e/o infection Past Medical History reviewed Allergies: Coded Allergies: *MDRO Multi-Drug Resistant Organism (Verified Adverse Reaction, Unknown, ) 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 Objective . Vital Signs Date Time Temp Pulse Resp B/P Pulse Ox O2 Delivery O2 Flow Rate FiO2 07/14/16 16:41 97.9 54 22 116/55 90 07/14/16 12:44 97.4 56 20 130/51 91 07/14/16 10:31 67 07/14/16 08:42 96.2 58 22 105/55 91 07/14/16 04:29 96.2 65 22 120/56 91 07/14/16 00:35 97.5 56 20 93/50 91 07/14/16 00:10 64 07/13/16 20:53 97.5 74 18 106/57 92 07/13/16 07/13/16 07/14/16 15:00 23:00 07:00 Intake Total 240 ml 240 ml Balance 240 ml 240 ml Intake Oral 240 ml 240 ml # Voids 2 5 . Laboratory Tests Test 07/13/16 07:59 White Blood Count 10.0 TH/MM3 Red Blood Count 3.36 MIL/MM3 Hemoglobin 10.2 GM/DL Hematocrit 30.6 % Mean Corpuscular Volume 91.0 FL Mean Corpuscular Hemoglobin 30.4 PG Mean Corpuscular Hemoglobin 33.4 % Concent Red Cell Distribution Width 15.1 % Platelet Count 155 TH/MM3 Mean Platelet Volume 9.8 FL Laboratory Tests Test 07/13/16 07:59 Sodium Level 143 MEQ/L Potassium Level 3.7 MEQ/L Chloride Level 106 MEQ/L Carbon Dioxide Level 29.9 MEQ/L Anion Gap 7 MEQ/L Blood Urea Nitrogen 26 MG/DL Creatinine 1.00 MG/DL Estimat Glomerular Filtration 71 ML/MIN Rate Random Glucose 165 MG/DL Calcium Level 8.6 MG/DL Imaging Last Impressions Thoracic Spine MRI 07/10/16 0000 Signed Impressions: Service Date/Time: Sunday, July 10, 2016 14:02 - CONCLUSION: 1. Marrow edema and enhancement predominantly at T9, T10 and T11 concerning for osteomyelitis. The amount of marrow edema has increased from the previous study dated April 2016. No epidural abscess is identified. There is a presumed cellulitis in the dorsal soft tissues with soft tissue swelling and edema present as above. Kwasi Rico MD Chest X-Ray 07/10/16 0000 Signed Impressions: Service Date/Time: Sunday, July 10, 2016 14:04 - CONCLUSION: Cardiomegaly bibasilar density likely atelectasis. There may be a small left pleural effusion. Jared Larios MD Thoracic Spine CT 07/08/16 0000 Signed Impressions: Service Date/Time: June 20:51 - CONCLUSION: 1. Remote fractures of T8 and T9 involving its superior aspect of T9 and inferior aspect of T8. There is previous screw and rosa fixation extending from T7-T11. No new fractures on the current exam. No significant bony canal stenosis. Kwasi Rico MD Physical Exam GENERAL: This is a well-nourished, well-developed patient, in no apparent distress. SKIN: No rashes, ecchymoses or lesions. Cool and dry. HEAD: Atraumatic. Normocephalic. No temporal or scalp tenderness. EYES: Pupils equal round and reactive. Extraocular motions intact. No scleral icterus. No injection or drainage. ENT: Nose without bleeding, purulent drainage or septal hematoma. Throat without erythema, tonsillar hypertrophy or exudate. Uvula midline. Airway patent. NECK: Trachea midline. Supple, nontender, no meningeal signs. CARDIOVASCULAR: HS audible. RESPIRATORY: Clear to auscultation. Breath sounds equal bilaterally. No wheezes , rales, or rhonchi. GASTROINTESTINAL: Abdomen soft, non-tender, nondistended. MUSCULOSKELETAL: Extremities without clubbing, cyanosis, or edema. No joint tenderness, effusion, or edema noted. No calf tenderness. Negative Homans sign bilaterally. Left LE slightly shorter than right. Surgical scar on left hip with no e/o infection. Back: surgical site with no active discharge. Appears dried since last exam. NEUROLOGICAL: Awake and alert. Grossly non focal Psych: cooperative IV line sites with no e/o infection. Assessment & Plan Remarks Severe Sepsis present on admission (Sepsis with acute metabolic encephalopathy, source: probable surgical site infection). 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 Pneumonia present on admission. Staph epidermidis bacteremia: Likely contaminant MRSA surgical site infection. DM2 uncontrolled: sepsis, infection Recs: Continue Vanco IV (target trough 15-20) will need 6 weeks. Vanco dose adjusted by me to make it a q24hrs regimen. Continue Diflucan for C.glabrata UTI. Stop date in chart. d.w case management. Orders placed in chart. Plan d/w family on multiple occasions Will not start Rifampin as this is not biopsy proven osteo and infection appears superficial. MRI with bone abnormality which could be from trauma or infection per jeanew . Follow cultures. If negative in am final ok to place PICC line. Follow clinically. Dr.Reba Esteves office notified of pt visit needs. Pt family to call to schedule appt. Khadar patient and son in room yesterday and need for ID follow up with Dr.Reba Esteves. Time spent in DC planning 40 mins. jeanew registered nurse hh case manager, orders, jeanew office. If patients discharge is delayed please notify me as Vanco consult was cancelled. Will sign off please call back if any change in clinical condition or questions. Melinda Antonio MD Jul 14, 2016 17:43
--- NOTE | 2016-07-14 17:54 | HHI.FF ---
cc: Alisha Esteves MD Infusion Therapy Location of Infusion Therapy: Infusion Therapy Order Patient Information Appointment Date: Jul 15, 2016 Patient Weight 86 kg Diagnosis: Diagnosis MRSA surgical site infection MRSA spinal hardware infection/osteomyelitis C.glabrata UTI Coded Allergies: *MDRO Multi-Drug Resistant Organism (Verified Adverse Reaction, Unknown, ) 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 Administer Medication Vancomycin 1.5 grams IV q 24 hours (Target trough 15-20) Start Treatment: Jul 15, 2016 Stop Treatment: Aug 20, 2016 Additional Information Venous access: PICC Line Additional Instructions [x] Peripheral flush and dressing changes per protocol [x] Implanted port and central automatic line set up mechanic: * Implanted port: 10 ml Normal Saline followed by 5 ml Heparin 100 units/ml Heparin flush after each use and monthly to maintain. [] May leave port accessed during therapy. [] May leave peripheral site accessed for duration of therapy. [x] If patient has SOB or respiratory distress, check oxygen saturation. If less than 90% or clinical signs of respiratory distress, administer oxygen at 2 L/min. via nasal cannula and notify physician. [x] Anaphylaxis/Reaction orders: * Stop infusion. * Keep IV line open with saline flush. * Notify physician. * Monitor vital signs every 15 minutes until symptoms resolve. * Check Oxygen saturation; Oxygen at 2 L/min. via nasal cannula if less than 90% or clinical signs of respiratory distress. * Administer diphenhydramine (Benadryl) 25 mg IV STAT, (unless patient has received as pre-med). May repeat once, if necessary. * Solu-Cortef 250 mg IVP over 30-60 seconds, use 100 mg vials for each dissolution. * Epinephrine (1mg/1 ml) 0.3 mg subcutaneously or IVP now with any signs of respiratory distress. * Check with physician for new additional pre-med orders if patient is re- challenged or re-treated. [x] May remove PICC line when treatment complete, after confirming with Physician. [x] If the patient is admitted to the hospital, the ED, or transferred via [facility] , complete transfer form including medication reconciliation order sheet. Laboratory Tests Weekly Labs: CBC w/diff, Creatinine, CRP, LFT's (Hepatic function test), Vancomycin Trough Additional Information Please draw labs, fax labs to numbers below, Call with abnormal labs, change in clinical condition or problems to: Dr.Reba Esteves or or covering ID Physician Follow up appt: Patient to schedule follow up appt with Dr.Reba Esteves within 2 weeks post discharge. Follow up with PCP Follow up with Follow up with other MDs as planned. Counseling: Counseled about medication side effects Counseled about PICC line care and hand hygiene. Mleinda Antonio MD Jul 14, 2016 17:54
[2016-07-14] MEDS ORDERED: EPIN1INJ21 SQ (17:56)
[2016-07-14] MEDS ORDERED: SOLU250I IV PUSH (17:56)
[2016-07-14] MEDS ORDERED: VANC10IN IV (17:56)
[2016-07-14] MEDS ORDERED: DIFL200T PO (17:56)
[2016-07-14] MEDS ORDERED: EPIN1INJ21 IV PUSH (17:56)
[2016-07-15 04:46] VITALS: BP 116/61; PULSE 92; RESP 20; TEMP 97.5; O2SAT 91
[2016-07-15] MEDS: METOPROLOL TARTRATE 25 MG TAB PO SCH ×2 (05:07→13:17)
[2016-07-15] MEDS: INSULIN ASPART SUPPLEMENTAL SCALE SQ SCH ×2 (07:00→11:52)
[2016-07-15 08:00] VITALS: BP 115/53; PULSE 68; RESP 24; TEMP 95.3; O2SAT 93
[2016-07-15] MEDS: ALLOPURINOL 300 MG TAB PO SCH (08:07)
[2016-07-15] MEDS: FLUCONAZOLE 200 MG TAB PO SCH (08:07)
[2016-07-15] MEDS: FAMOTIDINE 20 MG TAB PO SCH (08:07)
[2016-07-15] MEDS: DIGOXIN 0.125 MG TAB PO SCH (08:08)
[2016-07-15] MEDS: FUROSEMIDE 40 MG TAB PO SCH (08:08)
[2016-07-15] MEDS: HEPARIN SODIUM - SQ 10,000 UNITS/ML VIAL SQ SCH (08:08)
[2016-07-15] MEDS: DILTIAZEM HCL 30 MG TAB PO SCH ×2 (08:08→13:17)
[2016-07-15] MEDS: ASPIRIN EC 81 MG TABEC PO SCH (08:08)
[2016-07-15] MEDS ORDERED: VANCOMYCIN INJ 1,500 MG in SODIUM CHLORID 0.9% 500 ML INJ 500 ML IV SCH (11:00)
--- NOTE | 2016-07-15 11:30 | HHI.PR ---
Subjective Interval History Patient is feeling better Happy about discharge Offering no complaint Review of systems a 10 point system unremarkable Review of Systems Pulmonary Pulmonary Remarks Occasional cough Psychiatric Psychiatric: Normal Mood Vitals/Results Intake & Output 07/14/16 07/14/16 07/15/16 15:00 23:00 07:00 Intake Total 360 ml Balance 360 ml Intake Oral 360 ml # Voids 8 3 # Bowel Movements 2 Vital Signs Vital Signs Date Time Temp Pulse Resp B/P Pulse Ox O2 Delivery O2 Flow Rate FiO2 07/15/16 08:00 95.3 68 24 115/53 93 07/15/16 04:46 97.5 92 20 116/61 91 07/14/16 23:39 96.9 61 18 121/57 92 07/14/16 19:30 96.2 56 22 116/51 93 07/14/16 18:00 48 07/14/16 16:41 97.9 54 22 116/55 90 07/14/16 12:44 97.4 56 20 130/51 91 CBC/BMP: 07/13/16 0759 07/15/16 0606 Lab Results Laboratory Tests Test 07/15/16 06:06 Creatinine 1.20 MG/DL Estimat Glomerular Filtration 57 ML/MIN Rate Physical Exam General General Appearance: Well Developed, Comfortable Eyes Eye Exam: Pupils Equal, Pupils Reactive Ears & Nose Ears & Nose Exam: Nasal Mucosa [place] Throat Throat Exam: Oral Mucosa [place] & Moist Neck Neck Exam: Neck Supple, Trachea Midline Pulmonary Resp Exam: Breath Sounds Equal, Diminished Breath Sounds Resp Remarks Slight diminished breath sounds bibasally Cardiology CV Exam: Regular Gastrointestinal/Abdomen GI Exam: Soft, Non-Tender, Bowel Sounds Present, Non-Distended Musculoskeletal MS Exam: Joints Intact Integumentary Skin Exam: Warm, Lesion(s) Extremeties Extremities Exam: No Edema, Pedal Pulses Palpable Neurologic Neuro Exam: Alert, Awake, Speech Clear, Moving All Extremities, No Focal Deficits Psychiatric Psych Exam: Appropriate Responses VTE Prophylaxis VTE Prophylaxis Device: SCDs VTE Prophylaxis Meds: Heparin Assessment/Plan Problem List: (1) Sepsis (2) Hypoxia (3) Diabetic neuropathy (4) Atrial fibrillation (5) Hypertension (6) Diabetes 1.5, managed as type 2 (7) Hypokalemia (8) UTI (urinary tract infection) (9) Hx of unstable T8,T9 fractures due to fall with T7 to T11 posterior fixation using transpedicular screws and rods on 05/04/16 (10) thoracic wound infection + MRSA Assessment/Plan (1) Sepsis (2) Hypoxia (3) Diabetic neuropathy (4) Atrial fibrillation (5) Hypertension (6) Diabetes 1.5, managed as type 2 (7) Hypokalemia (8) UTI (urinary tract infection) (9) Hx of unstable T8,T9 fractures due to fall with T7 to T11 posterior fixation using transpedicular screws and rods on 05/04/16 (10) thoracic wound infection + MRSA Plan Sepsis,source appears surgical site based on imaging findings, also has UTI. Shows small soft tissue swelling, concern for osteomyelitis. Will need long- term IV antibiotics according to neurosurgery and ID CT thoracic spine results noted, no abscess MRI thoracic spine done, results noted -has evidence of T9 vertebral body enhancement BC GPC +, sens noted Urine + yeast Wound culture 07/10-MRSA ID following, already on Vanco. Appreciate input Neurosurgery input appreciated, per review of noted--removal of the hardware is not possible so soon after an unstable T9 fx and bracing alone would not allow for mobilization OOB. Wound debridement may be helpful but would not address the main enhancement which is within the T9 body. Radiologic and neurologic follow up will be needed" Wound care orders per neurosurgery , dressing clean dry and intact. Monitor for any acute redness or needs Afib -HR elevated -improving continue Dig and BB/ Cardizem no anticoagulation, was on ASA, can't take anticoagulant due to bleeding. Used to take coumadin continue baby ASA Poss. mild CHF CXR 07/10, mild cardiomegaly BNP elevated.mild Echo 04/2016, EF 50 - 55% Stable, continue with Lasix Cough productive, encourage patient to spit out any sputum. Patient denies any problems with swallow, liquid or solid food Accuchecks AC/HS Monitor for any hypoglycemia D/C D5W continue to hold hypoglycemic agents Enc. PO intake , and solid food. A DA diet PT for eval and tx, needs strengthening, and mobility strengthening. OOB with corset brace per neurosurgery orders Heparin for DVT prophylaxis Pepcid for GI prophylaxis Patient is stable to transfer with IV antibiotics as per ID. As per consultants okay to discharge plan to discharge today D/W RN D/W pt Problem Qualifiers (1) Sepsis: Qualified Code: A41.9 - Sepsis, due to unspecified organism (2) Diabetic neuropathy: Qualified Code: E11.49 - Other diabetic neurological complication associated with type 2 diabetes mellitus (3) Atrial fibrillation: Qualified Code: I48.91 - Atrial fibrillation, unspecified type (4) Hypertension: Qualified Code: I10 - Essential hypertension (5) UTI (urinary tract infection): Qualified Code: N39.0 - Urinary tract infection without hematuria, site unspecified Devorah Moss MD Jul 15, 2016 11:30
[2016-07-15] MEDS ORDERED: OXYC-392 PO (11:35)
[2016-07-15] MEDS ORDERED: ASPI81TA11 PO (11:35)
[2016-07-15] MEDS: ISRADIPINE 2.5 MG PO SCH (11:57)
[2016-07-15 12:00] VITALS: BP 141/55; PULSE 69; RESP 23; TEMP 95.6; O2SAT 90
--- NOTE | 2016-07-15 15:51 | RADRPT ---
EXAM DATE/TIME: 07/15/2016 15:25 [facility] COMPARISON: CHEST SINGLE AP, July 10, 2016, 14:04. INDICATIONS : Picc line placement. MEDICAL HISTORY : Congestive heart failure. Cardiovascular disease. Hypertension. Diabetes SURGICAL HISTORY : Thoracic fusion, Lamenectomy. ENCOUNTER: Subsequent ACUITY: 4 - 6 days PAIN SCORE: 0/10 LOCATION: Bilateral chest FINDINGS: A right-sided PICC line has been placed. The tip projects at the cavoatrial junction. Heart remains e nlarged. Right basal pulmonary infiltrates are partially seen and are grossly unchanged. Heart remain s enlarged. Orthopedic hardware involving the spine. CONCLUSION: PICC line in good position. Leonel Cuellar Jr., MD on July 15, 2016 at 15:48 Board Certified Radiologist. This report was verified electronically.
[2016-07-15 16:00] VITALS: BP 102/47; PULSE 50; RESP 23; TEMP 95.7; O2SAT 92
--- NOTE | 2016-07-15 17:37 | HHI.DS ---
Discharge Summary Admission Date Jul 08, 2016 at 22:13 Discharge Date: Jul 15, 2016 Admitting Diagnosis sepsis, urinary tract infection, wound infection Brief History This was an 85 year-old white male who was brought to the emergency room from a rehabilitation SNF unit for an extended stay from a previous fall from a ladder. He had a repaired intertrochanteric left femur fracture and was in rehab for his associated weaknesses. The patient was noted to have high fevers within the past 24-hours. Currently his fever was rectally at 104.2 and he was drowsy, but would respond to loud verbal stimuli. He did attempt to assist with turning and positioning, but was currently tachypneic and still showing signs of altered mental status. According to the record, there was no associated numbness or weakness. He did have a small 1 cm round wound noted in the thoracic area around T7 in his back. It was draining a clear creamy serous drainage. His review of systems was limited secondary to his altered mental status. Some of this information was being pulled from the records. CBC/BMP: 07/13/16 0759 07/15/16 0606 Significant Findings Laboratory Tests Test 07/13/16 07/15/16 07:59 06:06 Red Blood Count 3.36 MIL/MM3 (4.50-5.90) Hemoglobin 10.2 GM/DL (13.0-17.0) Hematocrit 30.6 % (39.0-51.0) Blood Urea Nitrogen 26 MG/DL (7-18) Estimat Glomerular Filtration 71 ML/MIN (>89) 57 ML/MIN (>89) Rate Random Glucose 165 MG/DL (74-106) Imaging Last Impressions Chest X-Ray 07/15/16 0000 Signed Impressions: Service Date/Time: June 15:25 - CONCLUSION: PICC line in good position. Leonel Cuellar Jr., MD Thoracic Spine MRI 07/10/16 0000 Signed Impressions: Service Date/Time: Sunday, July 10, 2016 14:02 - CONCLUSION: 1. Marrow edema and enhancement predominantly at T9, T10 and T11 concerning for osteomyelitis. The amount of marrow edema has increased from the previous study dated April 2016. No epidural abscess is identified. There is a presumed cellulitis in the dorsal soft tissues with soft tissue swelling and edema present as above. Kwasi Rico MD Thoracic Spine CT 07/08/16 0000 Signed Impressions: Service Date/Time: June 20:51 - CONCLUSION: 1. Remote fractures of T8 and T9 involving its superior aspect of T9 and inferior aspect of T8. There is previous screw and rosa fixation extending from T7-T11. No new fractures on the current exam. No significant bony canal stenosis. Kwasi Rico MD PE at Discharge General Appearance: Well Developed, Comfortable Eye Exam: Pupils Equal, Pupils Reactive Ears & Nose Exam: Nasal Mucosa [place] Throat Exam: Oral Mucosa [place] & Moist Neck Exam: Neck Supple, Trachea Midline Resp Exam: Breath Sounds Equal, Diminished Breath Sounds Resp Remarks Slight diminished breath sounds bibasally CV Exam: Regular GI Exam: Soft, Non-Tender, Bowel Sounds Present, Non-Distended MS Exam: Joints Intact Skin Exam: Warm, Lesion(s) Extremities Exam: No Edema, Pedal Pulses Palpable Neuro Exam: Alert, Awake, Speech Clear, Moving All Extremities, No Focal Deficits Psych Exam: Appropriate Responses VTE Prophylaxis Device: SCDs VTE Prophylaxis Meds: Heparin Hospital Course These are the diagnosis used to treat with this plan of care. (1) Sepsis (2) Hypoxia (3) Diabetic neuropathy (4) Atrial fibrillation (5) Hypertension (6) Diabetes 1.5, managed as type 2 (7) Hypokalemia (8) UTI (urinary tract infection) (9) Hx of unstable T8,T9 fractures due to fall with T7 to T11 posterior fixation using transpedicular screws and rods on 05/04/16 (10) thoracic wound infection + MRSA According to initial exam , sepsis,source appears to be the surgical site based on imaging findings. Patient also has UTI. The wound shows small soft tissue swelling, concern for osteomyelitis. Patient will need long-term IV antibiotics according to neurosurgery and ID consults. We appreciate their expert opinion. CT thoracic spine results noted, no abscess MRI thoracic spine done, results noted -has evidence of T9 vertebral body enhancement BC GPC +, sens noted Urine + yeast Wound culture 07/10-MRSA ID is following patient and is already placed on Vanco. Neurosurgery input appreciated, per review of noted--removal of the hardware is not possible so soon after an unstable T9 fx and bracing alone would not allow for mobilization OOB. Wound debridement may be helpful but would not address the main enhancement which is within the T9 body. Radiologic and neurologic follow up will be needed at a later date. Wound care orders per neurosurgery , dressing clean dry and intact. Monitor for any acute redness or needs. Afib -HR elevated -improving with medical management and time. continue Dig and BB/ Cardizem for control of heart rate. no anticoagulation, was on ASA, patient can't take anticoagulant due to bleeding. Used to take coumadin in the past. continue baby ASA for now. Poss. mild CHF CXR 07/10, mild cardiomegaly BNP elevated.mild Echo 04/2016, EF 50 - 55% Stable, continue with Lasix and monitor intake and output. Cough productive noted during hospital stay .Encouraged patient to spit out any sputum. Patient denies any problems with swallow, liquid or solid food Accuchecks AC/HS Monitor for any hypoglycemia D/C D5W continue to hold any hypoglycemic agents Enc. PO intake , and solid food. A DA diet, with at bedtime snack. Patient tolerated without any nausea vomiting diarrhea or constipation. PT for eval and tx, patient needesd strengthening, and mobility strengthening. OOB with corset brace per neurosurgery orders Heparin for DVT prophylaxis Pepcid for GI prophylaxis Patient is stable to transfer with IV antibiotics as per ID. As per consultants okay to discharge plan to discharge today to SNF. Vital signs were monitored. Afebrile, heart rate ,blood pressure ,and respirations normal trends. Labs monitored as warranted any abnormals treated. Pt Condition on Discharge: Good Discharge Disposition: Discharge to SNF Discharge Instructions DIET: Follow Instructions for: Diabetic Diet Activities you can perform: Weight Bearing as Mary Follow up Referrals: Appointment for Follow Up - 07/28/16 @ [facility] with Alisha Esteves Infectious Disease - 2 Weeks Neurosurgery - 2 Weeks PCP Follow-up - 3-5 Days New Medications: Epinephrine Inj (Epinephrine Inj) 1 Mg/Ml Inj 0.3 MG IV PUSH ONCE PRN ALLERGIC REACTION #1 VIAL Epinephrine Inj (Epinephrine Inj) 1 Mg/Ml Inj 0.3 MG SQ ONCE Give with any signs of respiratory distress. PRN ALLERGIC REACTION #1 VIAL Hydrocortisone Inj (Solu-Cortef Inj) 250 Mg Inj 250 MG IV PUSH ONCE Give over 30-60 seconds. PRN ALLERGIC REACTION #1 Ref 0 VIAL Vancomycin Inj (Vancomycin Inj) 10 Gm Inj 1500 MG IV DAILY MRSA spine hardware infection Days 42 Ref [address] (Aspirin EC) 81 Mg Tabdr 81 MG PO DAILY A. fib #30 TAB Fluconazole (Diflucan) 200 Mg Tab 200 MG PO DAILY Ethel UTI Days 7 Ref 0 TAB Continued Medications: Acetaminophen (Acetaminophen) 325 Mg Tab 650 MG PO Q4H PRN PAIN SCALE 1 TO 5 Days 14 TAB Allopurinol (Zyloprim) 300 Mg Tab 300 MG PO DAILY Days [address] (Bisacodyl EC) 5 Mg Tabec 10 MG PO DAILY PRN CONSTIPATION Days 14 TAB Digoxin (Digoxin) 0.125 Mg Tab 0.125 MG PO DAILY Days 14 TAB Famotidine (Famotidine) 20 Mg Tab 10 MG PO BID Days 14 TAB Furosemide (Lasix) 40 Mg Tab 40 MG PO DAILY Days 14 TAB Glipizide (Glipizide) 10 Mg Tab 20 MG PO BIDAC Take 30 minutes before a meal Blood Sugar Management #60 Ref 0 TAB Glipizide (Glipizide) 10 Mg Tab 10 MG PO DAILY Days 14 TAB Isradipine (Isradipine) 2.5 Mg Cap 5 MG PO BID Days 14 CAP Magnesium Hydroxide Liq (Milk of Magnesia Liq) 400 Mg/5 Ml Susp 30 ML PO DAILY PRN constipation Days 14 Metformin (Glucophage) 500 Mg Tab 500 MG PO BIDPC Days 14 TAB Metformin HCl (Bulk) (Metformin HCl) 1 Pow Pow 1 TAB PO BID Metoprolol Tartrate (Metoprolol Tartrate) 25 Mg Tab 25 MG PO Q8HR Days 14 TAB Oxycodone (Oxycodone) 5 Mg Tab 10 MG PO Q4H PRN PAIN SCALE 6 TO 10 Days 30 TAB (This prescription has been renewed) Oxycodone (Oxycodone) 5 Mg Tab 5 MG PO Q4H PRN PAIN SCALE 1 TO 10 #14 TAB (This prescription has been renewed) Skin Protectants, Misc. (Ilex Skin Protectant) 58.3 % Pst 1 APPLIC TOPICAL DAILY PRN skin prep Days 14 Chloé Khanna Jul 15, 2016 17:37 10 MG PO BID Days 14 TAB Furosemide (Lasix) 40 Mg Tab 40 MG PO DAILY Days 14 TAB Glipizide (Glipizide) 10 Mg Tab 20 MG PO BIDAC Take 30 minutes before a meal Blood Sugar Management #60 Ref 0 TAB Glipizide (Glipizide) 10 Mg Tab 10 MG PO DAILY Days 14 TAB Isradipine (Isradipine) 2.5 Mg Cap 5 MG PO BID Days 14 CAP Magnesium Hydroxide Liq (Milk of Magnesia Liq) 400 Mg/5 Ml Susp 30 ML PO DAILY PRN constipation Days 14 Metformin (Glucophage) 500 Mg Tab 500 MG PO BIDPC Days 14 TAB Metformin HCl (Bulk) (Metformin HCl) 1 Pow Pow 1 TAB PO BID Metoprolol Tartrate (Metoprolol Tartrate) 25 Mg Tab 25 MG PO Q8HR Days 14 TAB Oxycodone (Oxycodone) 5 Mg Tab 10 MG PO Q4H PRN PAIN SCALE 6 TO 10 Days 30 TAB (This prescription has been renewed) Oxycodone (Oxycodone) 5 Mg Tab 5 MG PO Q4H PRN PAIN SCALE 1 TO 10 #14 TAB (This prescription has been renewed) Skin Protectants, Misc. (Ilex Skin Protectant) 58.3 % Pst 1 APPLIC TOPICAL DAILY PRN skin prep Days 14 Chloé Khanna Jul 15, 2016 17:37
[2016-09-08] MEDS ORDERED: DOXA1TAB36 PO (12:07)
[2016-09-20] MEDS ORDERED: BETH25TA2 PO (14:43)
[2016-09-27] MEDS ORDERED: DOXA1TAB36 PO (17:13)
[2016-10-13] MEDS ORDERED: LACTCAP8 PO (10:52)
[2016-10-13] MEDS ORDERED: DOXY1CAP91 PO (10:52)
[2016-11-03] MEDS ORDERED: LACTCAP8 PO (13:27)
[2016-11-03] MEDS ORDERED: VITA100T54 PO (13:27)
[2016-11-03] MEDS ORDERED: FURO1TAB62 PO (13:27)
[2016-11-03] MEDS ORDERED: METO25TA3 PO (13:27)
[2016-11-03] MEDS ORDERED: MELA5TAB15 PO (13:27)
[2016-11-03] MEDS ORDERED: DOXA1TAB36 PO (14:14)
[2016-11-03] MEDS ORDERED: BETH25TA2 PO (14:14)
== END 2016-07-15 18:40 | DRG 871 ==
LOC: NEPE 18:45 → NEDA 22:13 → NEDH 07-09 02:13 → N05B 07-09 21:02
PROVIDERS: ADMIT Specialist; ATTEND Specialist
DX: A41.9 Sepsis, unspecified organism (principal); J18.9 Pneumonia, unspecified organism; G93.41 Metabolic encephalopathy; N17.9 Acute kidney failure, unspecified; T81.30XA Disruption of wound, unspecified, initial encounter; E11.40 Type 2 diabetes mellitus with diabetic neuropathy, unspecified; R13.10 Dysphagia, unspecified; B37.49 Other urogenital candidiasis; T81.4XXA Infection following a procedure, initial encounter; E11.65 Type 2 diabetes mellitus with hyperglycemia; I48.91 Unspecified atrial fibrillation; I10 Essential (primary) hypertension; E86.0 Dehydration; M10.9 Gout, unspecified; F41.9 Anxiety disorder, unspecified; G47.30 Sleep apnea, unspecified; K21.9 Gastro-esophageal reflux disease without esophagitis; Z87.442 Personal history of urinary calculi; S72.142D Displaced intertrochanteric fracture of left femur, subsequent encounter for closed fracture with routine healing; W11.XXXD Fall on and from ladder, subsequent encounter; Z87.440 Personal history of urinary (tract) infections; Z79.84 Long term (current) use of oral hypoglycemic drugs; E87.6 Hypokalemia; I50.9 Heart failure, unspecified; S22.069D Unspecified fracture of T7-T8 vertebra, subsequent encounter for fracture with routine healing; S22.079D Unspecified fracture of T9-T10 vertebra, subsequent encounter for fracture with routine healing; R09.02 Hypoxemia; B95.62 Methicillin resistant Staphylococcus aureus infection as the cause of diseases classified elsewhere; M45.9 Ankylosing spondylitis of unspecified sites in spine; R65.20 Severe sepsis without septic shock; I25.10 Atherosclerotic heart disease of native coronary artery without angina pectoris; I51.7 Cardiomegaly; Z96.642 Presence of left artificial hip joint
CPT/HCPCS: 36569; 71010; 72129; 72157; 76937; 80048; 80053; 80202; 81001; 82565; 82947; 82948; 83605; 83880; 84155; 85025; 85027; 85610; 85730; 86140; 86403; 87040; 87070; 87086; 87147; 87186; 87205; 94640; 94664; 96365; 96367; A9579; J0692; J0713; J1644; J1815; J1940; J2543; J3370; J7030; J7040; J7042; J7050; L0484; L0627; Q9967

== ENCOUNTER 2016-07-16 19:36 | Inpatient (IN) | payer MEDICARE ==
[~2016-07-16] VITALS: Ht 180.3 cm; Wt 85.6 kg
[~2016-07-16 19:36] MED LIST changes: -ASPI1TAB73 PO; +ASPI81TA11 PO; +DIFL200T PO; -DOCU1CAP39 PO; -ENOX40P SQ; +EPIN1INJ21 IV PUSH; +EPIN1INJ21 SQ; -PRAD150C PO; +SOLU250I IV PUSH; +VANC10IN IV
[2016-07-16 19:39] VITALS: BP 150/77; PULSE 64; RESP 24; TEMP 97.7; O2SAT 95
[2016-07-16] MEDS ORDERED: SODIUM CHLORIDE 0.9% FLUSH 5 ML FLUSH IVF PRN (20:00)
[2016-07-16 20:33] LABS: AUTOMATED NEUTROPHIL # 7.8 TH/MM3 (1.8-7.7); BASOPHIL % 0.2 % (0.0-2.0); EOSINOPHIL # 0.8 TH/MM3 (0-0.4); EOSINOPHIL % 7.1 % (0.0-4.0); LYMPH % 16.3 % (9.0-44.0); LYMPHOCYTE # 1.8 TH/MM3 (1.0-4.8); MEAN CELL VOLUME 90.5 FL (80.0-100.0); MEAN CORPUSCULAR HEMOGLOBIN 29.9 PG (27.0-34.0); MONO % 7.3 % (0.0-8.0); NEUT % 69.1 % (16.0-70.0); PLATELET COUNT 312 TH/MM3 (150-450); RED BLOOD COUNT 3.75 MIL/MM3 (4.50-5.90); RED CELL DISTRIBUTION WIDTH 15.1 % (11.6-17.2); WHITE BLOOD COUNT 11.3 TH/MM3 (4.0-11.0)
[2016-07-16 20:49] LABS: ANION GAP 8 MEQ/L (5-15); AST (GOT) 17 U/L (15-37); BLOOD UREA NITROGEN 26 MG/DL (7-18); CHLORIDE 102 MEQ/L (98-107); GLOMERULAR FILTRATION RATE 46 ML/MIN (>89); POTASSIUM 3.5 MEQ/L (3.5-5.1); SODIUM (NA) 141 MEQ/L (136-145)
[2016-07-16 20:51] LABS: HEMO FLAGS AUTO DIFF
[2016-07-16 20:53] LABS: ALKALINE PHOSPHATASE 99 U/L (45-117); ALT (GPT) 20 U/L (12-78); TOTAL BILIRUBIN ADULT 0.3 MG/DL (0.2-1.0)
[2016-07-16 21:04] LABS: CREATINE KINASE 20 U/L (39-308)
[2016-07-16 21:19] VITALS: RESP 18; O2SAT 96
[2016-07-16 21:20] VITALS: BP 144/71; PULSE 61; RESP 20; O2SAT 96
--- NOTE | 2016-07-16 21:20 | RADRPT ---
EXAM DATE/TIME: 07/16/2016 20:04 [place] COMPARISON: CHEST SINGLE AP, July 15, 2016, 15:25. INDICATIONS : Weakness and shortness of breath. MEDICAL HISTORY : Hypertension. Diabetes mellitus type II. Congestive heart failure. Cardiova scular disease. SURGICAL HISTORY : Thoracic spinal fusion. ENCOUNTER: Initial ACUITY: 1 day PAIN SCORE: 5/10 LOCATION: Bilateral chest FINDINGS: There is a PICC line in place from the right arm with the tip overlying the SVC. There is surgical hardware in the mid and lower thoracic spine. The heart size is enlarged. The lungs dem onstrate diffuse mixed interstitial and alveolar consolidation. There is hazy density identified at the bases bilaterally which may represent some degree of effusion. There is a fracture at the senior naval parachutist ior left sixth rib. CONCLUSION: Cardiomegaly with diffuse pulmonary consolidation likely representing edema. Some deg ree of effusion needs to be considered given the increased density at the bases. Paul Mahmood MD on July 16, 2016 at 21:13 Board Certified Radiologist. This report was verified electronically.
--- NOTE | 2016-07-16 22:09 | PD ---
HPI Chief Complaint: General Weakness Time Seen by Provider: 19:55 Travel History International Travel<30 days: No Contact w/Intl Traveler<30days: No Traveled to known affect area: No History of Present Illness HPI This report is in ERROR Please disregard this report and all prior copies ! This report is in ERROR Please disregard this report and all prior copies ! This report is in ERROR Please disregard this report and all prior copies ! PFSH Past Medical History Arthritis: No Asthma: No Autoimmune Disease: No Anxiety: Yes (occasionally in the evening since surgery) Depression: No Heart Rhythm Problems: Yes (A-fib) Cancer: No Cardiovascular Problems: Yes (AFIB) High Cholesterol: No Chemotherapy: No Chest Pain: No Congestive Heart Failure: No COPD: No Cerebrovascular Accident: No Diabetes: Yes Patient Takes Glucophage: Yes Endocrine: Yes Gastrointestinal Disorders: No GERD: Yes (occasional) Genitourinary: Yes Headaches: No Hiatal Hernia: No Heparin Induced Thrombocytopen: No Hypertension: Yes Immune Disorder: No Implanted Vascular Access Dvce: No Kidney Stones: Yes Musculoskeletal: Yes (gout) Neurologic: No Psychiatric: No Reproductive: No Respiratory: No Migraines: No Radiation Therapy: No Renal Failure: No Seizures: No Sickle Cell Disease: No Sleep Apnea: Yes Thyroid Disease: No Ulcer: No Past Surgical History Abdominal Surgery: Yes AICD: No Arteriovenous Shunt: No Cardiac Surgery: No Ear Surgery: No Endocrine Surgery: No Eye Surgery: Yes (Cataract surgery both eyes) Genitourinary Surgery: Yes (STONES) Gynecologic Surgery: No Insulin Pump: No Joint Replacement: Yes (KNEE) Neurologic Surgery: No Oral Surgery: No Pacemaker: No Thoracic Surgery: Yes (Laminectomy 05/04/2016) Other Surgery: Yes (INGUINAL HERNIA REPAIR) Social History Alcohol Use: Yes (couple times a week) Tobacco Use: No Substance Use: No Allergies-Medications (Allergen,Severity, Reaction): Coded Allergies: *MDRO Multi-Drug Resistant Organism (Verified Adverse Reaction, Unknown, ) 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 Epinephrine Inj 1 Mg/Ml Inj 0.3 Mg IV PUSH ONCE PRN Solu-Cortef Inj (Hydrocortisone Sodium Succinate) 250 Mg Inj 250 Mg IV PUSH ONCE PRN Give over 30-60 seconds. Vancomycin Inj (Vancomycin HCl) 10 Gm Inj 1,500 Mg IV DAILY 42 Days Diflucan (Fluconazole) 200 Mg Tab 200 Mg PO DAILY 7 Days Ilex Skin Protectant (Skin Protectants, Misc.) 58.3 % Pst 1 Applic TOPICAL DAILY PRN 14 Days Metoprolol Tartrate 25 Mg Tab 25 Mg PO Q8HR 14 Days Milk of Magnesia Liq (Magnesium Hydroxide) 400 Mg/5 Ml Susp 30 Ml PO DAILY PRN 14 Days Glucophage (Metformin HCl) 500 Mg Tab 500 Mg PO BIDPC 14 Days Isradipine 2.5 Mg Cap 5 Mg PO BID 14 Days Lasix (Furosemide) 40 Mg Tab 40 Mg PO DAILY 14 Days Famotidine 20 Mg Tab 10 Mg PO BID 14 Days Digoxin 0.125 Mg Tab 0.125 Mg PO DAILY 14 Days Bisacodyl EC (Bisacodyl) 5 Mg Tabec 10 Mg PO DAILY PRN 14 Days Zyloprim (Allopurinol) 300 Mg Tab 300 Mg PO DAILY 14 Days Acetaminophen 325 Mg Tab 650 Mg PO Q4H PRN 14 Days Walker with Front Wheels (Device) 1 Mis Mis 1 Ea .ROUTE DIRECTED Reported Glipizide 10 Mg Tab 20 Mg PO BIDAC Take 30 minutes before a meal Physical Exam Narrative This report is in ERROR Please disregard this report and all prior copies ! This report is in ERROR Please disregard this report and all prior copies ! This report is in ERROR Please disregard this report and all prior copies ! Data Data Last Documented VS Vital Signs Date Time Temp Pulse Resp B/P Pulse Ox O2 Delivery O2 Flow Rate FiO2 07/17/16 00:35 64 20 147/80 95 Simple Mask 07/16/16 21:20 5 07/16/16 19:39 97.7 Orders Electrocardiogram (07/16/16 20:00) Complete Blood Count With Diff (07/16/16 20:00) Comprehensive Metabolic Panel (07/16/16 20:00) Creatine Kinase (Cpk) (07/16/16 20:00) Troponin I (07/16/16 20:00) Urinalysis - C+S If Indicated (07/16/16 20:00) Chest, Single Ap (07/16/16 20:00) Blood Glucose (07/16/16 20:00) Ecg Monitoring (07/16/16 20:00) Iv Access Insert/Monitor (07/16/16 20:00) Cath For Specimen (07/16/16 20:00) Oximetry (07/16/16 20:00) Sodium Chloride 0.9% Flush (Ns Flush) (07/16/16 20:00) Drug Screen, Random Urine (07/16/16 20:00) Blood Culture (07/16/16 22:08) Ceftriaxone Inj (Rocephin Inj) (07/16/16 22:15) Azithromycin Inj (Zithromax Inj) (07/16/16 22:15) B-Type Natriuretic Peptide (07/16/16 22:17) Urine Culture (07/16/16 22:10) Cefepime Inj (Maxipime Inj) (07/16/16 23:15) Azithromycin (Zithromax) (07/16/16 23:15) Furosemide Inj (Lasix Inj) (07/16/16 23:45) Admit To Inpatient (07/17/16 ) Vital Signs (Adult) Q4H (07/17/16 00:29) Bedside Glucose JA.AC&HS (07/17/16 00:29) Manager Drug / Telemetry .CONTINUOUS (07/17/16 00:29) Intake + Output JA.QSHIFT (07/17/16 00:29) Diet Regular Basic (07/17/16 Breakfast) Sodium Chloride 0.9% Flush (Ns Flush) (07/17/16 00:30) Sodium Chloride 0.9% Flush (Ns Flush) (07/17/16 09:00) Acetaminophen (Tylenol) (07/17/16 00:30) Ondansetron Inj (Zofran Inj) (07/17/16 00:30) Comprehensive Metabolic Panel (07/18/16 06:00) Complete Blood Count With Diff (07/18/16 06:00) Naloxone Inj (Narcan Inj) (07/17/16 00:30) Vancomycin Consult Pharmacy (Vancomycin (07/17/16 00:30) Cefepime Inj (Maxipime Inj) (07/17/16 12:00) Vancomycin Inj (Vancomycin Inj) (07/17/16 01:00) Admit Order (Ed Use Only) (07/17/16 00:56) Labs Laboratory Tests Test 07/16/16 07/16/16 07/16/16 07/16/16 19:50 20:00 22:10 22:45 White Blood Count 11.3 TH/MM3 Red Blood Count 3.75 MIL/MM3 Hemoglobin 11.2 GM/DL Hematocrit 34.0 % Mean Corpuscular Volume 90.5 FL Mean Corpuscular Hemoglobin 29.9 PG Mean Corpuscular Hemoglobin 33.0 % Concent Red Cell Distribution Width 15.1 % Platelet Count 312 TH/MM3 Mean Platelet Volume 9.0 FL Neutrophils (%) (Auto) 69.1 % Lymphocytes (%) (Auto) 16.3 % Monocytes (%) (Auto) 7.3 % Eosinophils (%) (Auto) 7.1 % Basophils (%) (Auto) 0.2 % Neutrophils # (Auto) 7.8 TH/MM3 Lymphocytes # (Auto) 1.8 TH/MM3 Monocytes # (Auto) 0.8 TH/MM3 Eosinophils # (Auto) 0.8 TH/MM3 Basophils # (Auto) 0.0 TH/MM3 CBC Comment AUTO DIFF Differential Comment AUTO DIFF CONFIRMED Sodium Level 141 MEQ/L Potassium Level 3.5 MEQ/L Chloride Level 102 MEQ/L Carbon Dioxide Level 31.0 MEQ/L Anion Gap 8 MEQ/L Blood Urea Nitrogen 26 MG/DL Creatinine 1.45 MG/DL Estimat Glomerular Filtration 46 ML/MIN Rate Random Glucose 78 MG/DL Calcium Level 8.7 MG/DL Total Bilirubin 0.3 MG/DL Aspartate Amino Transf 17 U/L (AST/SGOT) Alanine Aminotransferase 20 U/L (ALT/SGPT) Alkaline Phosphatase 99 U/L Total Creatine Kinase 20 U/L Troponin I LESS THAN 0.02 NG/ML Total Protein 6.2 GM/DL Albumin 2.1 GM/DL Urine Opiates Screen NEG Urine Barbiturates Screen NEG Urine Amphetamines Screen NEG Urine Benzodiazepines Screen NEG Urine Cocaine Screen NEG Urine Cannabinoids Screen NEG Urine Color YELLOW Urine Turbidity HAZY Urine pH 5.0 Urine Specific [place] 1.009 Urine Protein TRACE mg/dL Urine Glucose (UA) NEG mg/dL Urine Ketones NEG mg/dL Urine Occult Blood NEG Urine Nitrite NEG Urine Bilirubin NEG Urine Urobilinogen LESS THAN 2.0 MG/DL Urine Leukocyte Esterase LARGE Urine RBC 6 /hpf Urine WBC 50 /hpf Urine Squamous Epithelial <1 /hpf Cells Urine Bacteria OCC /hpf Urine Mucus FEW /lpf Urine Yeast (Budding) RARE Microscopic Urinalysis Comment CATH-CULTURE IND B-Type Natriuretic Peptide 468 PG/ML MDM Medical Decision Making Medical Screen Exam Complete: Yes Emergency Medical Condition: Yes Differential Diagnosis This report is in ERROR Please disregard this report and all prior copies ! This report is in ERROR Please disregard this report and all prior copies ! This report is in ERROR Please disregard this report and all prior copies ! Narrative Course This report is in ERROR Please disregard this report and all prior copies ! This report is in ERROR Please disregard this report and all prior copies ! This report is in ERROR Please disregard this report and all prior copies ! Skyler Harman MD Jul 16, 2016 22:09
[2016-07-16] MEDS ORDERED: cefTRIAXone INJ 1,000 MG in SODIUM CHLORIDE 0.9% INJ 100 ML IV ONE (22:15)
[2016-07-16] MEDS ORDERED: AZITHROMYCIN INJ 500 MG in SODIUM CHLOR 0.9% 250 ML INJ 250 ML IV ONE (22:15)
[2016-07-16 22:37] VITALS: BP 147/80; PULSE 53; RESP 18; O2SAT 96
[2016-07-16 22:44] LABS: SCAN/DIFF AUTO DIFF CONFIRMED
--- NOTE | 2016-07-16 22:47 | PD ---
HPI Chief Complaint: General Weakness Time Seen by Provider: 19:55 Travel History International Travel<30 days: No Contact w/Intl Traveler<30days: No Traveled to known affect area: No History of Present Illness HPI Patient's 85 years old. He arrives from rehabilitation facility. He fell 3 months prior and has been in and out of [facility] following a fracture of the spine and subsequent postoperative infections. He also suffered a fracture of the left hip. He was observed to have increased lethargy on the morning of ER arrival. Evidently he was staring into space while his family members were in front of him. His O2 sat was also somewhat low at approximately 85% on a nasal cannula at 5 L. Normally the patient is lucid and alert and oriented 4. Appetite has been normal. He has no shortness of breath at rest. The patient was started on vancomycin the day admission due to a urinary tract infection. Patient has no specific complaint in the ER at the time of my examination. PFSH Past Medical History Arthritis: No Asthma: No Autoimmune Disease: No Anxiety: Yes (occasionally in the evening since surgery) Depression: No Heart Rhythm Problems: Yes (A-fib) Cancer: No Cardiovascular Problems: Yes (AFIB) High Cholesterol: No Chemotherapy: No Chest Pain: No Congestive Heart Failure: No COPD: No Cerebrovascular Accident: No Diabetes: Yes Patient Takes Glucophage: Yes Endocrine: Yes Gastrointestinal Disorders: No GERD: Yes (occasional) Genitourinary: Yes Headaches: No Hiatal Hernia: No Heparin Induced Thrombocytopen: No Hypertension: Yes Immune Disorder: No Implanted Vascular Access Dvce: No Kidney Stones: Yes Musculoskeletal: Yes (gout) Neurologic: No Psychiatric: No Reproductive: No Respiratory: No Migraines: No Radiation Therapy: No Renal Failure: No Seizures: No Sickle Cell Disease: No Sleep Apnea: Yes Thyroid Disease: No Ulcer: No Past Surgical History Abdominal Surgery: Yes AICD: No Arteriovenous Shunt: No Cardiac Surgery: No Ear Surgery: No Endocrine Surgery: No Eye Surgery: Yes (Cataract surgery both eyes) Genitourinary Surgery: Yes (STONES) Gynecologic Surgery: No Insulin Pump: No Joint Replacement: Yes (KNEE) Neurologic Surgery: No Oral Surgery: No Pacemaker: No Thoracic Surgery: Yes (Laminectomy 05/04/2016) Other Surgery: Yes (INGUINAL HERNIA REPAIR) Social History Alcohol Use: Yes (couple times a week) Tobacco Use: No Substance Use: No Allergies-Medications (Allergen,Severity, Reaction): Coded Allergies: *MDRO Multi-Drug Resistant Organism (Verified Adverse Reaction, Unknown, ) 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 Epinephrine Inj 1 Mg/Ml Inj 0.3 Mg IV PUSH ONCE PRN Solu-Cortef Inj (Hydrocortisone Sodium Succinate) 250 Mg Inj 250 Mg IV PUSH ONCE PRN Give over 30-60 seconds. Vancomycin Inj (Vancomycin HCl) 10 Gm Inj 1,500 Mg IV DAILY 42 Days Diflucan (Fluconazole) 200 Mg Tab 200 Mg PO DAILY 7 Days Ilex Skin Protectant (Skin Protectants, Misc.) 58.3 % Pst 1 Applic TOPICAL DAILY PRN 14 Days Metoprolol Tartrate 25 Mg Tab 25 Mg PO Q8HR 14 Days Milk of Magnesia Liq (Magnesium Hydroxide) 400 Mg/5 Ml Susp 30 Ml PO DAILY PRN 14 Days Glucophage (Metformin HCl) 500 Mg Tab 500 Mg PO BIDPC 14 Days Isradipine 2.5 Mg Cap 5 Mg PO BID 14 Days Lasix (Furosemide) 40 Mg Tab 40 Mg PO DAILY 14 Days Famotidine 20 Mg Tab 10 Mg PO BID 14 Days Digoxin 0.125 Mg Tab 0.125 Mg PO DAILY 14 Days Bisacodyl EC (Bisacodyl) 5 Mg Tabec 10 Mg PO DAILY PRN 14 Days Zyloprim (Allopurinol) 300 Mg Tab 300 Mg PO DAILY 14 Days Acetaminophen 325 Mg Tab 650 Mg PO Q4H PRN 14 Days Walker with Front Wheels (Device) 1 Mis Mis 1 Ea .ROUTE DIRECTED Reported Glipizide 10 Mg Tab 20 Mg PO BIDAC Take 30 minutes before a meal Review of Systems Except as stated in HPI: all other systems reviewed are Neg General / Constitutional: No: Fever Physical Exam Narrative GENERAL: 85-year-old male pleasant well-nourished well-developed SKIN: Warm and dry. Stage II sacral ulcer approximately 7 cm in diameter. HEAD: Atraumatic. Normocephalic. EYES: Pupils equal and round. No scleral icterus. No injection or drainage. ENT: No nasal bleeding or discharge. Mucous membranes pink and moist. NECK: Trachea midline. No JVD. CARDIOVASCULAR: Regular rate and rhythm. No murmur appreciated. RESPIRATORY: No accessory muscle use. Clear to auscultation. Breath sounds equal bilaterally. GASTROINTESTINAL: Abdomen soft, non-tender, nondistended. Hepatic and splenic margins not palpable. MUSCULOSKELETAL: No obvious deformities. No clubbing. No cyanosis. 2+ pitting edema bilaterally. Right upper extremity PICC line. NEUROLOGICAL: Awake and alert. No obvious cranial nerve deficits. Motor grossly within normal limits. Normal speech. PSYCHIATRIC: Appropriate mood and affect; insight and judgment normal. Data Data Last Documented VS Vital Signs Date Time Temp Pulse Resp B/P Pulse Ox O2 Delivery O2 Flow Rate FiO2 07/17/16 00:35 64 20 147/80 95 Simple Mask 07/16/16 21:20 5 07/16/16 19:39 97.7 Orders Electrocardiogram (07/16/16 20:00) Complete Blood Count With Diff (07/16/16 20:00) Comprehensive Metabolic Panel (07/16/16 20:00) Creatine Kinase (Cpk) (07/16/16 20:00) Troponin I (07/16/16 20:00) Urinalysis - C+S If Indicated (07/16/16 20:00) Chest, Single Ap (07/16/16 20:00) Blood Glucose (07/16/16 20:00) Ecg Monitoring (07/16/16 20:00) Iv Access Insert/Monitor (07/16/16 20:00) Cath For Specimen (07/16/16 20:00) Oximetry (07/16/16 20:00) Sodium Chloride 0.9% Flush (Ns Flush) (07/16/16 20:00) Drug Screen, Random Urine (07/16/16 20:00) Blood Culture (07/16/16 22:08) Ceftriaxone Inj (Rocephin Inj) (07/16/16 22:15) Azithromycin Inj (Zithromax Inj) (07/16/16 22:15) B-Type Natriuretic Peptide (07/16/16 22:17) Urine Culture (07/16/16 22:10) Cefepime Inj (Maxipime Inj) (07/16/16 23:15) Azithromycin (Zithromax) (07/16/16 23:15) Furosemide Inj (Lasix Inj) (07/16/16 23:45) Admit To Inpatient (07/17/16 ) Vital Signs (Adult) Q4H (07/17/16 00:29) Bedside Glucose JA.AC&HS (07/17/16 00:29) Manager Advertising / Telemetry .CONTINUOUS (07/17/16 00:29) Intake + Output JA.QSHIFT (07/17/16 00:29) Diet Regular Basic (07/17/16 Breakfast) Sodium Chloride 0.9% Flush (Ns Flush) (07/17/16 00:30) Sodium Chloride 0.9% Flush (Ns Flush) (07/17/16 09:00) Acetaminophen (Tylenol) (07/17/16 00:30) Ondansetron Inj (Zofran Inj) (07/17/16 00:30) Comprehensive Metabolic Panel (07/18/16 06:00) Complete Blood Count With Diff (07/18/16 06:00) Naloxone Inj (Narcan Inj) (07/17/16 00:30) Vancomycin Consult Pharmacy (Vancomycin (07/17/16 00:30) Cefepime Inj (Maxipime Inj) (07/17/16 12:00) Vancomycin Inj (Vancomycin Inj) (07/17/16 01:00) Admit Order (Ed Use Only) (07/17/16 00:56) Labs Laboratory Tests Test 07/16/16 07/16/16 07/16/16 07/16/16 19:50 20:00 22:10 22:45 White Blood Count 11.3 TH/MM3 Red Blood Count 3.75 MIL/MM3 Hemoglobin 11.2 GM/DL Hematocrit 34.0 % Mean Corpuscular Volume 90.5 FL Mean Corpuscular Hemoglobin 29.9 PG Mean Corpuscular Hemoglobin 33.0 % Concent Red Cell Distribution Width 15.1 % Platelet Count 312 TH/MM3 Mean Platelet Volume 9.0 FL Neutrophils (%) (Auto) 69.1 % Lymphocytes (%) (Auto) 16.3 % Monocytes (%) (Auto) 7.3 % Eosinophils (%) (Auto) 7.1 % Basophils (%) (Auto) 0.2 % Neutrophils # (Auto) 7.8 TH/MM3 Lymphocytes # (Auto) 1.8 TH/MM3 Monocytes # (Auto) 0.8 TH/MM3 Eosinophils # (Auto) 0.8 TH/MM3 Basophils # (Auto) 0.0 TH/MM3 CBC Comment AUTO DIFF Differential Comment AUTO DIFF CONFIRMED Sodium Level 141 MEQ/L Potassium Level 3.5 MEQ/L Chloride Level 102 MEQ/L Carbon Dioxide Level 31.0 MEQ/L Anion Gap 8 MEQ/L Blood Urea Nitrogen 26 MG/DL Creatinine 1.45 MG/DL Estimat Glomerular Filtration 46 ML/MIN Rate Random Glucose 78 MG/DL Calcium Level 8.7 MG/DL Total Bilirubin 0.3 MG/DL Aspartate Amino Transf 17 U/L (AST/SGOT) Alanine Aminotransferase 20 U/L (ALT/SGPT) Alkaline Phosphatase 99 U/L Total Creatine Kinase 20 U/L Troponin I LESS THAN 0.02 NG/ML Total Protein 6.2 GM/DL Albumin 2.1 GM/DL Urine Opiates Screen NEG Urine Barbiturates Screen NEG Urine Amphetamines Screen NEG Urine Benzodiazepines Screen NEG Urine Cocaine Screen NEG Urine Cannabinoids Screen NEG Urine Color YELLOW Urine Turbidity HAZY Urine pH 5.0 Urine Specific [place] 1.009 Urine Protein TRACE mg/dL Urine Glucose (UA) NEG mg/dL Urine Ketones NEG mg/dL Urine Occult Blood NEG Urine Nitrite NEG Urine Bilirubin NEG Urine Urobilinogen LESS THAN 2.0 MG/DL Urine Leukocyte Esterase LARGE Urine RBC 6 /hpf Urine WBC 50 /hpf Urine Squamous Epithelial <1 /hpf Cells Urine Bacteria OCC /hpf Urine Mucus FEW /lpf Urine Yeast (Budding) RARE Microscopic Urinalysis Comment CATH-CULTURE IND B-Type Natriuretic Peptide 468 PG/ML [facility] Medical Decision Making Medical Screen Exam Complete: Yes Emergency Medical Condition: Yes Differential Diagnosis Pneumonia, UTI, anemia, dehydration Narrative Course CBC & BMP Diagram 07/16/16 19:50 BNP 468 Troponin less than 0.02 Last 24 hours Impressions Chest X-Ray 07/16/161999 Signed Impressions: Service Date/Time: Saturday, July 16, 2016 20:04 - CONCLUSION: Cardiomegaly with diffuse pulmonary consolidation likely representing edema. Some degree of effusion needs to be considered given the increased density at the bases. Paul Mahmood MD Lasix started. Antibiotic started, Rocephin and azithromycin. Discussed with Dr. Craft Diagnosis Primary Impression: UTI (urinary tract infection) Qualified Code: N30.00 - Acute cystitis without hematuria Additional Impressions: Altered mental status Qualified Code: R41.0 - Delirium CHF (congestive heart failure) Qualified Code: I50.9 - Congestive heart failure, unspecified congestive heart failure chronicity, unspecified congestive heart failure type Admitting Information Admitting Physician Requests: Admit Skyler Harman MD Jul 16, 2016 22:47
[2016-07-16 22:49] LABS: BACTERIA, URINE OCC /hpf; BLOOD, URINE NEG (NEG); GLUCOSE,URINE NEG (NEG); KETONE, URINE NEG (NEG); MUCUS URINE FEW /lpf (OCC); NITRITE,URINE NEG (NEG); SQUAMOUS EPITHELIAL CELL URINE <1 /hpf (0-5); URINE COLOR YELLOW (YELLW/STRAW)
[2016-07-16 22:50] LABS: COMMENT (UR) CATH-CULTURE IND; CULTURE IF INDICATED CATH CULTURE IND
[2016-07-16 23:00] LABS: AMPHETAMINE, URINE NEG (NEG); BARBITURATES, URINE NEG (NEG); COCAINE, URINE NEG (NEG)
[2016-07-16] MEDS ORDERED: AZITHROMYCIN 250 MG TAB PO ONE (23:15)
[2016-07-16] MEDS ORDERED: CEFEPIME INJ 2,000 MG in SODIUM CHLORIDE 0.9% INJ 100 ML IV ONE (23:15)
[2016-07-16 23:30] VITALS: BP 144/71; PULSE 64; RESP 18; O2SAT 94
[2016-07-16] MEDS ORDERED: FUROSEMIDE 40 MG/4 ML VIAL IV PUSH ONE (23:45)
[2016-07-17] VITALS (10 sets, daily range): BP systolic 109–168; BP diastolic 53–80; PULSE 50–89; RESP 16–20; TEMP 95.4–97.2; O2SAT 94–99
[2016-07-17] MEDS ORDERED: VANCOMYCIN INJ 1,000 MG in SODIUM CHLOR 0.9% 250 ML INJ 250 ML IV SCH (00:30)
[2016-07-17] MEDS ORDERED: NALOXONE HCL 0.4 MG/ML AMP IV PRN (00:30)
[2016-07-17] MEDS ORDERED: ACETAMINOPHEN 325 MG TAB PO PRN (00:30)
[2016-07-17] MEDS ORDERED: Vancomycin Consult Pharmacy 1 EA OTHER SCH ×2 (00:30→08:15)
[2016-07-17] MEDS ORDERED: ONDANSETRON HCL 4 MG/2 ML VIAL IVP PRN (00:30)
[2016-07-17] MEDS ORDERED: SODIUM CHLORIDE 0.9% FLUSH 5 ML FLUSH FLUSH PRN (00:30)
[2016-07-17] MEDS ORDERED: VANCOMYCIN INJ 1,700 MG in SODIUM CHLORID 0.9% 500 ML INJ 500 ML IV SCH (01:00)
[2016-07-17] MEDS ORDERED: DEXTROSE 50% IN WATER 50 ML VIAL(D50) IV SCH (07:00)
[2016-07-17] MEDS: DEXTROSE 10% INJ 1,000 ML IV SCH (07:54)
[2016-07-17] MEDS: SODIUM CHLORIDE 0.9% FLUSH 5 ML FLUSH FLUSH SCH ×2 (08:00→21:00)
--- NOTE | 2016-07-17 08:14 | HHI.HP ---
HPI Service [facility] Primary Care Physician Renard Phillips M.D. Admission Diagnosis CHF, AMS Diagnoses: Chief Complaint: AMS, SOB (Margareth Iglesias) Travel History International Travel<30 Days: No Contact w/Intl Traveler <30 Da: No Traveled to Known Affected Are: No (Margareth Iglesias) History of Present Illness Pt is an 86 year old male patient, PMH of Atrial Fibrillation, HTN, CAD, and DM2, with recent hospitalizations. Initially, pt. presented to [facility] ER on 04/30 after a fall from 10 feet while trying to fix his pool screen and landed on his LEFT hip, hitting his head on the ground. No LOC. He was with left intertrochanteric femur fx and T8-T9 fx.Neursosurgery was consulted; s/p ORIF unstable T8,T9 fractures with T7 to T11 posterior fixation using transpedicular screws and rods on 05/04/[address] Knight. Orthopedics was consulted; s/p Left femur IMN on 05/[address] France. Pt. eventually stabilized and went to [facility] for comprehensive rehab. After [facility], he went to SNF for further rehab. He presented back to [place] -2015 with fever, was found septic. During workup he was found with MRSA to surgical site as well as pneumonia. He was evaluated by neurosurgery, as well as infectious disease. Per neurosurgery , there was no need to remove hardware. The recommendation was that there was no osteomyelitis and infection was likely superficial. Recommendations were made to continue on IV antibiotics at rehabilitation facility and PICC line was placed. Patient presented back to the emergency room for increased lethargy. Per emergency room report, patient was staring into space. Sats were 85% on nasal cannula 5 L. Patient is normally alert and oriented 4. Patient was evaluated in emergency room, laboratory workup was completed. He was noted with mild leukocytosis, WBC 11.3, hemoglobin 11.2, hematocrit 34. Creatinine was slightly elevated, 1.45. BUN 26. B natruretic peptide 468. Troponin was negative. Chest x-ray completed showed cardiomegaly with diffuse pulmonary consolidation likely representing edema as well as some degree of effusion 90s to be considered given the increased density at the bases. EKG showed atrial fibrillation. Patient was started empirically on antibiotics and Lasix. Cultures were obtained. UA positive for large amount of leukocyte esterase and WBC. Patient is not evaluated, son is at bedside. He is also the POA. Patient is lethargic, does open eyes to voice, know he is in the hospital however unable to provide any other details. His son Bill is concerned about patient's declining health and frequent hospitalizations. Patient does have a DNR and son wants to make sure that we respect his wishes. He has a sister arriving from [place] and they will be discussing future goals of care. They have noticed that in the last couple days, patient has been refusing to eat and appears to be "giving up". Patient is admitted for further evaluation and treatment. (Margareth Iglesias) Review of Systems ROS Limitations: Clinical Condition, Poor Historian (Margareth Iglesias) Past Family Social History Past Medical History 1. Atrial fibrillation 2. Cardiovascular disease 3. Admitted 07/01-07/08 after a fall from roof, had injuries that resulted in left femur fracture and T8-T9 fracture. Eventually discharged to [facility] 4. Diabetes type 2 5. GERD 6. Previous UTI 7. Hypertension 8. Kidney stones 9. Gout 10. Sleep apnea 11. Admitted 07/08 to 07/15/2016 with sepsis, pneumonia, was found with MRSA in surgical site. He was discharged back to SNF on IV antibiotics with PICC in place. Past Surgical History 1. Abdominal surgery 2. Cataracts both eyes 3. Stones 4. Lithotripsy 5. Knee replacement surgery 6. Inguinal hernia repair 7. Status post left hip IM May 01, 2016 8. Status post ORIF with T7-T11 posterolateral fixation on 05/04/16 Reported Medications Reported Meds & Active Scripts Active Aspirin EC (Aspirin) 81 Mg Tabdr 81 Mg PO DAILY Oxycodone (Oxycodone HCl) 5 Mg Tab 5 Mg PO Q4H PRN Oxycodone (Oxycodone HCl) 5 Mg Tab 10 Mg PO Q4H PRN 30 Days Epinephrine Inj 1 Mg/Ml Inj 0.3 Mg SQ ONCE PRN Give with any signs of respiratory distress. Epinephrine Inj 1 Mg/Ml Inj 0.3 Mg IV PUSH ONCE PRN Solu-Cortef Inj (Hydrocortisone Sodium Succinate) 250 Mg Inj 250 Mg IV PUSH ONCE PRN Give over 30-60 seconds. Vancomycin Inj (Vancomycin HCl) 10 Gm Inj 1,500 Mg IV DAILY 42 Days Diflucan (Fluconazole) 200 Mg Tab 200 Mg PO DAILY 7 Days Ilex Skin Protectant (Skin Protectants, Misc.) 58.3 % Pst 1 Applic TOPICAL DAILY PRN 14 Days Metoprolol Tartrate 25 Mg Tab 25 Mg PO Q8HR 14 Days Milk of Magnesia Liq (Magnesium Hydroxide) 400 Mg/5 Ml Susp 30 Ml PO DAILY PRN 14 Days Glucophage (Metformin HCl) 500 Mg Tab 500 Mg PO BIDPC 14 Days Isradipine 2.5 Mg Cap 5 Mg PO BID 14 Days Lasix (Furosemide) 40 Mg Tab 40 Mg PO DAILY 14 Days Famotidine 20 Mg Tab 10 Mg PO BID 14 Days Digoxin 0.125 Mg Tab 0.125 Mg PO DAILY 14 Days Bisacodyl EC (Bisacodyl) 5 Mg Tabec 10 Mg PO DAILY PRN 14 Days Zyloprim (Allopurinol) 300 Mg Tab 300 Mg PO DAILY 14 Days Acetaminophen 325 Mg Tab 650 Mg PO Q4H PRN 14 Days Walker with Front Wheels (Device) 1 Mis Mis 1 Ea .ROUTE DIRECTED Reported Glipizide 10 Mg Tab 20 Mg PO BIDAC Take 30 minutes before a meal (Margareth Iglesias) Allergies: Coded Allergies: *MDRO Multi-Drug Resistant Organism (Verified Adverse Reaction, Unknown, ) 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 Active Ordered Medications Inpatient Medications Acetaminophen (Tylenol) 650 mg Q4H PRN PO TEMP > 100.4; Start 07/17/16 at 00:30 Aspirin (Ecotrin Ec) 81 mg DAILY PO ; Start 07/17/16 at 09:00; Status UNV Azithromycin (Zithromax) 500 mg ONCE ONCE PO ; Start 07/16/16 at 23:15; Stop at 23:44; Status DC Azithromycin 500 mg/Sodium Chloride 250 ml @ 250 mls/hr ONCE ONCE IV Last administered on 07/16/16t 23:07; Start 07/16/16 at 22:15; Stop 07/16/16 at 23:18 ; Status DC Cefepime HCl 1000 mg/Sodium Chloride 100 ml @ 200 mls/hr Q12H IV ; Start at 12:00 Cefepime HCl/ Sodium Chloride (Maxipime Inj/NS Inj) 100 ml @ 200 mls/hr ONCE ONCE IV ; Start 07/16/16 at 23:15; Stop 07/16/16 at 23:43; Status DC Ceftriaxone Sodium 1000 mg/ Sodium Chloride 100 ml @ 200 mls/hr ONCE ONCE IV Last administered on 07/16/16 22:47; Start 07/16/16 at 22:15; Stop 07/16/16 at 23:17; Status DC Dextrose (D50w (Vial) Inj) 50 ml UNSCH X1 IV Last administered on 07/17/16 07 :25; Start 07/17/16 at 07:00; Stop 07/17/16 at 09:00 Dextrose (Dextrose 10% In Water 1000 ml Inj) 1,000 ml @ 30 mls/hr Q24H IV Last administered on 07/17/16 07:54; Start 07/17/16 at 07:00 Famotidine (Pepcid) 10 mg BID PO ; Start 07/17/16 at 09:00; Status UNV Fluconazole (Diflucan) 200 mg DAILY PO ; Start 07/17/16 at 09:00; Status UNV Furosemide (Lasix Inj) 40 mg ONCE ONCE IV PUSH Last administered on 07/16/16 00:35; Start 07/16/16 at 23:45; Stop 07/16/16 at 23:46; Status DC Isradipine (Dynacirc) 5 mg BID PO ; Start 07/17/16 at 09:00; Status UNV IV Flush (NS Flush) 2 ml BID FLUSH Last administered on 07/17/16 08:00; Start 07/17/16 at 09:00 IV Flush 2 ml 2 ml UNSCH PRN IVF FLUSH AFTER USING IV ACCESS; Start 07/16/16 at 20:00; Stop 07/17/16 at 00:44; Status DC Metoprolol Tartrate 25 mg 25 mg Q8HR PO ; Start 07/17/16 at 14:00; Status UNV Naloxone HCl 0.4 mg 0.4 mg UNSCH PRN IV SEE LABEL COMMENTS; Start 07/17/16 at 00:30 Ondansetron HCl (Zofran Inj) 4 mg Q6H PRN IVP NAUSEA OR VOMITING; Start at 00:30 Pharmacy Profile Note (Vancomycin Consult Pharmacy) 0 ml @ 0 mls/hr UNSCH OTHER ; Start 07/17/16 at 08:15; Status UNV Vancomycin HCl 1700 mg/Sodium Chloride 517 ml @ 250 mls/hr DAILY@01 IV Last administered on 07/17/16t 01:46; Start 07/17/16 at 01:00; Stop 07/17/16 at 04:00 ; Status DC Family History Unable to obtain Social History Patient currently at a rehabilitation facility, prior to that lived alone, was a . Has 2 daughters and 1 son. Son Shawn is the POA. Patient has a living will. Currently a DO NOT RESUSCITATE. Patient was ambulatory, now requires assistance with walker. No smoking, no alcohol, no substance abuse. ( Margareth Iglesias) Physical Exam Vital Signs Vital Signs Date Time Temp Pulse Resp B/P Pulse Ox O2 Delivery O2 Flow Rate FiO2 07/17/16 04:29 97.2 62 19 150/70 96 07/17/16 03:21 72 18 160/78 96 07/17/16 02:38 74 20 168/77 94 Simple Mask 07/17/16 00:35 64 20 147/80 95 Simple Mask 07/16/16 23:30 64 18 144/71 94 Simple Mask 07/16/16 22:37 53 18 147/80 96 Simple Mask 07/16/16 21:20 61 20 144/71 96 Simple Mask 5 07/16/16 21:19 18 96 Simple Mask 5 07/16/16 19:55 67 20 96 Simple Mask 5 07/16/16 19:39 97.7 64 24 150/77 95 Physical Exam GENERAL: This is a well-nourished, well-developed patient, in no apparent distress. Lethargic, wakes to voice SKIN: No rashes, ecchymoses or lesions. Cool and dry. HEAD: Atraumatic. Normocephalic. No temporal or scalp tenderness. EYES: Pupils equal round and reactive. Extraocular motions intact. No scleral icterus. No injection or drainage. ENT: Nose without bleeding, purulent drainage or septal hematoma. Throat without erythema, tonsillar hypertrophy or exudate. Uvula midline. Airway patent. Oral mucosa dry. NECK: Trachea midline. No JVD or lymphadenopathy. Supple, nontender, no meningeal signs. CARDIOVASCULAR: S1 S2 irregularly irregular. Unable to detect any murmurs rubs or gallops. RESPIRATORY: Diminished at bases, faint rales bibasilar GASTROINTESTINAL: Abdomen soft, non-tender, nondistended. No hepato-splenomegaly , or palpable masses. No guarding. MUSCULOSKELETAL: Extremities without clubbing, cyanosis. Bilateral lower extremities with trace pretibial edema, pedal pulses 2+ bilaterally. No joint tenderness, effusion, or edema noted. No calf tenderness. Negative Homans sign bilaterally. NEUROLOGICAL: Awakes to voice, lethargic. Oriented to self, place others. Follows commands. Speech is clear. No focal deficits Laboratory Laboratory Tests Test 07/16/16 07/16/16 07/16/16 07/16/16 19:50 20:00 22:10 22:45 White Blood Count 11.3 Red Blood Count 3.75 Hemoglobin 11.2 Hematocrit 34.0 Mean Corpuscular Volume 90.5 Mean Corpuscular Hemoglobin 29.9 Mean Corpuscular Hemoglobin 33.0 Concent Red Cell Distribution Width 15.1 Platelet Count 312 Mean Platelet Volume 9.0 Neutrophils (%) (Auto) 69.1 Lymphocytes (%) (Auto) 16.3 Monocytes (%) (Auto) 7.3 Eosinophils (%) (Auto) 7.1 Basophils (%) (Auto) 0.2 Neutrophils # (Auto) 7.8 Lymphocytes # (Auto) 1.8 Monocytes # (Auto) 0.8 Eosinophils # (Auto) 0.8 Basophils # (Auto) 0.0 CBC Comment AUTO DIFF Differential Comment AUTO DIFF CONFIRMED Sodium Level 141 Potassium Level 3.5 Chloride Level 102 Carbon Dioxide Level 31.0 Anion Gap 8 Blood Urea Nitrogen 26 Creatinine 1.45 Estimat Glomerular Filtration 46 Rate Random Glucose 78 Calcium Level 8.7 Total Bilirubin 0.3 Aspartate Amino Transf 17 (AST/SGOT) Alanine Aminotransferase 20 (ALT/SGPT) Alkaline Phosphatase 99 Total Creatine Kinase 20 Troponin I LESS THAN 0.02 Total Protein 6.2 Albumin 2.1 Urine Opiates Screen NEG Urine Barbiturates Screen NEG Urine Amphetamines Screen NEG Urine Benzodiazepines Screen NEG Urine Cocaine Screen NEG Urine Cannabinoids Screen NEG Urine Color YELLOW Urine Turbidity HAZY Urine pH 5.0 Urine Specific Dent 1.009 Urine Protein TRACE Urine Glucose (UA) NEG Urine Ketones NEG Urine Occult Blood NEG Urine Nitrite NEG Urine Bilirubin NEG Urine Urobilinogen LESS THAN 2.0 Urine Leukocyte Esterase LARGE Urine RBC 6 Urine WBC 50 Urine Squamous Epithelial <1 Cells Urine Bacteria OCC Urine Mucus FEW Urine Yeast (Budding) RARE Microscopic Urinalysis Comment CATH-CULTURE IND B-Type Natriuretic Peptide 468 Date/Time Procedure Status Source Growth 07/16/16 22:55 Aerobic Blood Culture Received Blood Peripheral Pending 07/16/16 22:55 Anaerobic Blood Culture Received Blood Peripheral Pending 07/16/16 22:10 Urine Culture Received Urine Catheterized Urine Pending (Margareth Iglesias) Result Diagram: 07/16/[id number]/16/161949 Imaging Last Impressions Chest X-Ray 07/16/161999 Signed Impressions: Service Date/Time: Saturday, July 16, 2016 20:04 - CONCLUSION: Cardiomegaly with diffuse pulmonary consolidation likely representing edema. Some degree of effusion needs to be considered given the increased density at the bases. Paul Mahmood MD (Margareth Iglesias) Assessment and Plan Problem List: (1) CHF (congestive heart failure) (2) Diabetic neuropathy (3) Hx of unstable T8,T9 fractures due to fall with T7 to T11 posterior fixation using transpedicular screws and rods on 05/04/16 (4) MRSA (methicillin resistant Staphylococcus aureus) infection (5) Diabetes 1.5, managed as type 2 (6) Hypertension (7) Atrial fibrillation (8) Hypoglycemia (9) Acute renal injury Assessment and Plan Admit to Dr. Moss 85-year-old elderly male with recent admissions, first after 10 ft. fall that resulted in left femur fracture as well T8-T9 fracture both requiring surgery. Most recently admitted with sepsis, pneumonia. Found with MRSA to surgical site in the spine, and hardware. Patient presented this time with shortness of breath and altered mental status. Chest x-ray with findings of possible CHF versus pneumonia. Altered mental status, possibly secondary to infectious process, Possible recurrent pneumonia, possibly healthcare acquired versus aspiration, also with MRSA infection to spinal hardware, surgical site. Positive for UTI. -Continue with vancomycin, follow cultures DuoNeb's Continue with oxygen to keep sats greater than 92 -We will order swallow evaluation -Consult infectious disease, Dr. Antonio CHF exacerbation, possibly diastolic, had recent echocardiogram May 13, 2016, EF 50-55% -Continue Lasix 40 mg IV daily -Monitor intake and output A. fib, controlled Continuous cardiac telemetry -Continue beta blockers Acute renal injury, likely due to dehydration Cautious hydration History of diabetes II, now hypoglycemic, on oral hypoglycemics with poor by mouth intake -Accu-Cheks before meals and at bedtime D5W at 30 an hour -Encourage oral intake Hypertension, stable Continue home medications Home medications reviewed, initiated as indicated Heparin for DVT prophylaxis End-of-life care issue have been discussed with the patient's son Shawn who is also POA. Patient has a DNR, appropriate documentation has been sent from rehabilitation facility. DNR order has been entered. Patient's son will speak to his sisters regarding future goals of care, they may consider discussing with hospice at some point. We will obtain consultation with physical therapy to assist patient out of bed Plan of care discussed with the patient and his family, their questions answered in detail. Plan of care discussed with attending and registered nurse. Further management of the patient will be dependent on the hospital course This patient was seen by myself and Dr. Moss, this H&P is written on his behalf (Margareth Iglesias) Assessment and Plan Pt seen and examined and face to face time spent with pt with daughter at bedside yesterday chart was reviewed in detail yesterday labs reviwed meds reviewed dw rn darling juares plan of care dw pt's dauhgter in detail (Devorah Moss MD) Physician Certification 2 Midnight Certification Type: Admission for Inpatient Services Order for Inpatient Services The services are ordered in accordance with Medicare regulations or non- Medicare payer requirements, as applicable. In the case of services not specified as inpatient-only, they are appropriately provided as inpatient services in accordance with the 2-midnight benchmark. Estimated LOS (days): 2 2 days is the estimated time the patient will need to remain in the hospital, assuming treatment plan goals are met and no additional complications. Post-Hospital Plan: SNF (Margareth Iglesias) Problem Qualifiers (1) CHF (congestive heart failure): Qualified Code: I50.9 - Congestive heart failure, unspecified congestive heart failure chronicity, unspecified congestive heart failure type (2) Diabetic neuropathy: Qualified Code: E11.42 - Diabetic polyneuropathy associated with type 2 diabetes mellitus (3) Hypertension: Qualified Code: I10 - Essential hypertension (4) Atrial fibrillation: Qualified Code: I48.91 - Atrial fibrillation, unspecified type Margareth Iglesias Jul 17, 2016 08:13 Devorah Moss MD Jul 18, 2016 13:06
[2016-07-17] MEDS ORDERED: DEXTROSE 50% IN WATER 50 ML VIAL(D50) IV PUSH PRN (08:15)
[2016-07-17] MEDS ORDERED: GLUCAGON 1 MG/ML VIAL OTHER PRN (08:15)
[2016-07-17] MEDS: FAMOTIDINE 20 MG TAB PO SCH ×2 (10:44→23:40)
[2016-07-17] MEDS: ASPIRIN EC 81 MG TABEC PO SCH (10:44)
[2016-07-17] MEDS: ISRADIPINE 2.5 MG PO SCH ×2 (10:45→23:41)
[2016-07-17] MEDS: FLUCONAZOLE 200 MG TAB PO SCH (10:45)
[2016-07-17] MEDS: FUROSEMIDE 40 MG/4 ML VIAL IV PUSH SCH (10:46)
[2016-07-17] MEDS: INSULIN ASPART SUPPLEMENTAL SCALE SQ SCH ×3 (11:00→21:00)
[2016-07-17] MEDS ORDERED: CEFEPIME INJ 1,000 MG in SODIUM CHLORIDE 0.9% INJ 100 ML IV SCH (12:00)
[2016-07-17] MEDS: METOPROLOL TARTRATE 25 MG TAB PO SCH ×2 (14:00→22:00)
--- NOTE | 2016-07-17 15:21 | EKG ---
Date Performed: 07/16/2016 Time Performed: 21:28:55 PTAGE: 85 years EKG: ATRIAL FIBRILLATION LOW QRS VOLTAGE IN EXTREMITY LEADS NONSPECIFIC T WAVE CHANGE Poor initi al anterior forces Compared to prior tracing no significant change ABNORMAL ECG PREVIOUS TRACING : 04/30/2016 19.30 DOCTOR: Benny Barry Interpretating Date/Time 07/17/2016 15:20:41
--- NOTE | 2016-07-17 15:54 | PD.ID.CON ---
History of Present Illness Service Infectious disease Consult Requested By LYNN Sparrow/ Reason for Consult Evaluation and management of postoperative wound MRSA infection and thoracic spine possible osteomyelitis. Primary Care Physician Renard Phillips M.D. Diagnoses: History of Present Illness is an 85 y/o CM with PMHx of history of admission for Trauma alert after a fall from a ladder, when he was diagnosed to have left side femur fracture, left side rib fracture and fracture thoracic spine. He underwent open reduction internal fixation of T8 and T9 fractures, T7 to T11 segmental instrumented fixation using transpedicular screws and rods, T7 to T11 posterolateral fusion using autologous bone graft combined with stem cells, microsurgical dissection. Post surgery he was sent to a rehab. Family reports he was being treated with IM and oral antibiotics prior to admission at the facility for ? UTI. They also report the support shell for his thoracic spine has been abrading his skin locally. The rehab folks have been doing local wound care for the same but it continued to have local discharge. He is now brought to the emergency room from as patient was noted to have high grade fevers in last 24 hours. Patient was noted to have a temp of 104.2 F and was noted to be drowsy but responding to loud verbal stimuli. Patient was s/b and non surgical management was considered. I saw pt during the admission and with IV antibiotics his local discharge slowed down and the swelling decreased as well. MRI showed Osteomyelitis >? trauma related marrow edema. Patient was discharged on vanco IV 1500 mg q24hrs. Patients family reports he was started on pain meds oxycodone at the facility and he became drowsy. His family insisted on further evaluation and the PA at the [facility] agreed he needed admission for further evaluation. Upon presentation to ER he appeared drowsy and short of breath with low oxygen sats in 80s. Patient had a CXR which showed edema vs pneumonia. Patient has received Cefepime IV, Ceftriaxone IV, Azithro IV and Vanco IV. ID was consulted for evaluation and Mment of Pneumonia and MRSA surgical site infection >? spinal osteomyelitis. Patient denies any change in sensation in perineal area or lower extremities. History of prostate problems with h/o UTIs in past. ID was consulted for evaluation and Mment of Sepsis, Probable surgical site infection ? Epidural abscess. Review of Systems Constitutional: DENIES: Diaphoretic episodes, Fatigue, Fever, Weight gain, Weight loss, Chills, Dizziness, Change in appetite, Night Sweats Endocrine: DENIES: Heat/cold intolerance, Polydipsia, Polyuria, Polyphagia Eyes: DENIES: Blurred vision, Diplopia, Eye inflammation, Eye pain, Vision loss , Photosensitivity, Double Vision Ears, nose, mouth, throat: DENIES: Tinnitus, Hearing loss, Vertigo, Nasal discharge, Oral lesions, Throat pain, Hoarseness, Ear Pain, Running Nose, Epistaxis, Sinus Pain, Toothache, Odynophagia Respiratory: COMPLAINS OF: Shortness of breath, DENIES: Apneas, Cough, Snoring , Wheezing, Hemoptysis, Sputum production Cardiovascular: DENIES: Chest pain, Palpitations, Syncope, Dyspnea on Exertion , PND, Lower Extremity Edema, Orthopnea, Claudication Gastrointestinal: DENIES: Abdominal pain, Black stools, Bloody stools, Constipation, Diarrhea, Nausea, Vomiting, Difficulty Swallowing, Anorexia Genitourinary: DENIES: Sexual dysfunction, Urinary frequency, Urinary incontinence, Urgency, Hematuria, Dysuria, Nocturia, Penile Discharge, Testicular Pain, Testicular Swelling Musculoskeletal: DENIES: Joint pain, Muscle aches, Stiffness, Joint Swelling, Back pain, Neck pain Integumentary: DENIES: Abnormal pigmentation, Nail changes, Pruritus, Rash Hematologic/lymphatic: DENIES: Bruising, Lymphadenopathy Immunologic/allergic: DENIES: Eczema, Urticaria Neurologic: DENIES: Abnormal gait, Headache, Localized weakness, Paresthesias, Seizures, Speech Problems, Tremor, Poor Balance Psychiatric: DENIES: Anxiety, Confusion, Mood changes, Depression, Hallucinations, Agitation, Suicidal Ideation, Homicidal Ideation, Delusions Except as stated in HPI: all other systems reviewed are Neg Past Family Social History Allergies: Coded Allergies: *MDRO Multi-Drug Resistant Organism (Verified Adverse Reaction, Unknown, ) 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 Past Medical History 1. Atrial fibrillation 2. Cardiovascular disease 3. Recent left intertrochanteric femur fracture 4. Diabetes type 2 5. GERD 6. Previous UTI 7. Hypertension 8. Kidney stones 9. Gout 10. Sleep apnea Past Surgical History 1. Abdominal surgery 2. Cataracts both eyes 3. Stones 4. Lithotripsy 5. Knee replacement surgery 6. Laminectomy in 05/04/2016 7. Inguinal hernia repair Reported Medications Reported Meds & Active Scripts Active Aspirin EC (Aspirin) 81 Mg Tabdr 81 Mg PO DAILY Oxycodone (Oxycodone HCl) 5 Mg Tab 5 Mg PO Q4H PRN Oxycodone (Oxycodone HCl) 5 Mg Tab 10 Mg PO Q4H PRN 30 Days Epinephrine Inj 1 Mg/Ml Inj 0.3 Mg SQ ONCE PRN Give with any signs of respiratory distress. Epinephrine Inj 1 Mg/Ml Inj 0.3 Mg IV PUSH ONCE PRN Solu-Cortef Inj (Hydrocortisone Sodium Succinate) 250 Mg Inj 250 Mg IV PUSH ONCE PRN Give over 30-60 seconds. Vancomycin Inj (Vancomycin HCl) 10 Gm Inj 1,500 Mg IV DAILY 42 Days Diflucan (Fluconazole) 200 Mg Tab 200 Mg PO DAILY 7 Days Ilex Skin Protectant (Skin Protectants, Misc.) 58.3 % Pst 1 Applic TOPICAL DAILY PRN 14 Days Metoprolol Tartrate 25 Mg Tab 25 Mg PO Q8HR 14 Days Milk of Magnesia Liq (Magnesium Hydroxide) 400 Mg/5 Ml Susp 30 Ml PO DAILY PRN 14 Days Glucophage (Metformin HCl) 500 Mg Tab 500 Mg PO BIDPC 14 Days Isradipine 2.5 Mg Cap 5 Mg PO BID 14 Days Lasix (Furosemide) 40 Mg Tab 40 Mg PO DAILY 14 Days Famotidine 20 Mg Tab 10 Mg PO BID 14 Days Digoxin 0.125 Mg Tab 0.125 Mg PO DAILY 14 Days Bisacodyl EC (Bisacodyl) 5 Mg Tabec 10 Mg PO DAILY PRN 14 Days Zyloprim (Allopurinol) 300 Mg Tab 300 Mg PO DAILY 14 Days Acetaminophen 325 Mg Tab 650 Mg PO Q4H PRN 14 Days Walker with Front Wheels (Device) 1 Mis Mis 1 Ea .ROUTE DIRECTED Reported Glipizide 10 Mg Tab 20 Mg PO BIDAC Take 30 minutes before a meal Active Ordered Medications Current Medications Medications (Trade) Dose Ordered Sig/Sybil Route Start Time Stop Time Status Last Admin (NS Flush) 2 ml UNSCH PRN FLUSH 07/17/16 00:30 (NS Flush) 2 ml BID FLUSH 07/17/16 09:00 07/17/16 08:00 (Tylenol) 650 mg Q4H PRN PO 07/17/16 00:30 (Zofran Inj) 4 mg Q6H PRN IVP 07/17/16 00:30 Naloxone HCl 0.4 mg 0.4 mg UNSCH PRN IV 07/17/16 00:30 Pharmacy Profile Note 0 ml @ 0 mls/hr UNSCH OTHER 07/17/16 00:30 (Dextrose 10% In Water 1000 ml Inj) 1,000 ml @ 30 mls/hr Q24H IV 07/17/16 07:00 07/17/16 07:54 (Ecotrin Ec) 81 mg DAILY PO 07/17/16 09:00 07/17/16 10:44 (Pepcid) 10 mg BID PO 07/17/16 09:00 07/17/16 10:44 (Diflucan) 200 mg DAILY PO 07/17/16 09:00 07/17/16 10:45 (Dynacirc) 5 mg BID PO 07/17/16 09:00 07/17/16 10:45 (Lopressor) 25 mg Q8HR PO 07/17/16 14:00 (Lasix Inj) 40 mg DAILY IV PUSH 07/17/16 09:00 07/17/16 10:46 (D50w (Vial) Inj) 25 ml UNSCH PRN IV PUSH 07/17/16 08:15 (Glucagon Inj) 1 mg UNSCH PRN OTHER 07/17/16 08:15 Miscellaneous Information TSPECIFIC LAB TO BE ... ONCE ONCE XX 07/20/16 07:45 07/20/16 07:46 (Vancomycin Inj/ NS 500 ml Inj) 515 ml @ 257.5 mls/ hr Q24H IV 07/18/16 08:00 Future Hold Heparin Sodium (Porcine) 5000 units 5,000 units Q12HR SQ 07/17/16 21:00 (Zithromax Inj/ NS 250 ml Inj) 250 ml @ 250 mls/hr Q24H IV 07/17/16 22:00 Family History Reviewed and noncontributory to current infectious disease problems. Social History reviewed. Comes from Rehab. Sent to Rehab after a fall and several injuries and surgeries. No alcohol No drugs No illicit drugs. Physical Exam Vital Signs Vital Signs Date Time Temp Pulse Resp B/P Pulse Ox O2 Delivery O2 Flow Rate FiO2 07/17/16 15:44 95.4 89 18 113/53 96 07/17/16 12:13 96.7 77 18 109/55 96 07/17/16 08:18 96.9 79 18 152/79 98 07/17/16 04:29 97.2 62 19 150/70 96 07/17/16 03:21 72 18 160/78 96 07/17/16 02:38 74 20 168/77 94 Simple Mask 07/17/16 00:35 64 20 147/80 95 Simple Mask 07/16/16 23:30 64 18 144/71 94 Simple Mask 07/16/16 22:37 53 18 147/80 96 Simple Mask 07/16/16 21:20 61 20 144/71 96 Simple Mask 5 07/16/16 21:19 18 96 Simple Mask 5 07/16/16 19:55 67 20 96 Simple Mask 5 07/16/16 19:39 97.7 64 24 150/77 95 Physical Exam GENERAL: Elderly white male well-nourished, well-developed patient, in no apparent distress. SKIN: No generalized rashes. HEAD: Atraumatic. Normocephalic. No temporal or scalp tenderness. EYES: Pupils equal round and reactive. Extraocular motions intact. No scleral icterus. No injection or drainage. ENT: Nose without bleeding, purulent drainage or septal hematoma. Throat without erythema, tonsillar hypertrophy or exudate. Uvula midline. Airway patent. NECK: Trachea midline. Supple, nontender, no meningeal signs. Back examination: Lower back surgical site with significant discharge noted. CARDIOVASCULAR: Heart sounds audible. No murmur appreciated. RESPIRATORY: Bilateral basilar crackles noted. Air entry decreased in the bases. GASTROINTESTINAL: Abdomen soft, non-tender, nondistended. Obese. MUSCULOSKELETAL: Extremities without clubbing, cyanosis. Trace pedal edema noted. NEUROLOGICAL: Awake and alert. Grossly nonfocal. Psych cooperative IV line sites with no evidence of infection. Laboratory Laboratory Tests Test 07/16/16 07/16/16 07/16/16 07/16/16 19:50 20:00 22:10 22:45 White Blood Count 11.3 Red Blood Count 3.75 Hemoglobin 11.2 Hematocrit 34.0 Mean Corpuscular Volume 90.5 Mean Corpuscular Hemoglobin 29.9 Mean Corpuscular Hemoglobin 33.0 Concent Red Cell Distribution Width 15.1 Platelet Count 312 Mean Platelet Volume 9.0 Neutrophils (%) (Auto) 69.1 Lymphocytes (%) (Auto) 16.3 Monocytes (%) (Auto) 7.3 Eosinophils (%) (Auto) 7.1 Basophils (%) (Auto) 0.2 Neutrophils # (Auto) 7.8 Lymphocytes # (Auto) 1.8 Monocytes # (Auto) 0.8 Eosinophils # (Auto) 0.8 Basophils # (Auto) 0.0 CBC Comment AUTO DIFF Differential Comment AUTO DIFF CONFIRMED Sodium Level 141 Potassium Level 3.5 Chloride Level 102 Carbon Dioxide Level 31.0 Anion Gap 8 Blood Urea Nitrogen 26 Creatinine 1.45 Estimat Glomerular Filtration 46 Rate Random Glucose 78 Calcium Level 8.7 Total Bilirubin 0.3 Aspartate Amino Transf 17 (AST/SGOT) Alanine Aminotransferase 20 (ALT/SGPT) Alkaline Phosphatase 99 Total Creatine Kinase 20 Troponin I LESS THAN 0.02 Total Protein 6.2 Albumin 2.1 Urine Opiates Screen NEG Urine Barbiturates Screen NEG Urine Amphetamines Screen NEG Urine Benzodiazepines Screen NEG Urine Cocaine Screen NEG Urine Cannabinoids Screen NEG Urine Color YELLOW Urine Turbidity HAZY Urine pH 5.0 Urine Specific [place] 1.009 Urine Protein TRACE Urine Glucose (UA) NEG Urine Ketones NEG Urine Occult Blood NEG Urine Nitrite NEG Urine Bilirubin NEG Urine Urobilinogen LESS THAN 2.0 Urine Leukocyte Esterase LARGE Urine RBC 6 Urine WBC 50 Urine Squamous Epithelial <1 Cells Urine Bacteria OCC Urine Mucus FEW Urine Yeast (Budding) RARE Microscopic Urinalysis Comment CATH-CULTURE IND B-Type Natriuretic Peptide 468 Date/Time Procedure Status Source Growth 07/16/16 22:55 Aerobic Blood Culture - Preliminary Resulted Blood Peripheral NO GROWTH IN 1 DAY 07/16/16 22:55 Anaerobic Blood Culture - Preliminary Resulted Blood Peripheral NO GROWTH IN 1 DAY 07/16/16 22:10 Urine Culture - Preliminary Resulted Urine Catheterized Urine RESULTS PENDING Result Diagram: 07/16/16194907/16/161949 Imaging Last Impressions Chest X-Ray 07/16/161999 Signed Impressions: Service Date/Time: Saturday, July 16, 2016 20:04 - CONCLUSION: Cardiomegaly with diffuse pulmonary consolidation likely representing edema. Some degree of effusion needs to be considered given the increased density at the bases. Paul Mahmood MD Assessment and Plan Assessment and Plan Pneumonia present on admission (aspiration PNA vs CAP vs atypical vs Pulm edema) MRSA surgical site infection possible osteomyelitis. Ethel glabrata UTI was being treated prior to admission (on prior discharge) Leucocytosis and hypothermia ? possible early sepsis Acute renal failure: ? prerenal vs Vanco induced. Acute metabolic encephalopathy: lethargic per family, sepsis. DM2 uncontrolled: sepsis, infection Eosinophilia? allergy to meds (Vanco IV) Recs Continue Azithro IV Continue Vanco IV (target 15-20) Continue Diflucan for now. Swallow eval. Follow Cr and CBC with diff (eosinophils) :? Allergic interstitial nephritis. Once Cr improves will consider repeat Imaging. Continue local wound care. Follow cultures Follow clinically. Melinda Clark MD Jul 17, 2016 15:54
[2016-07-17] MEDS ORDERED: RESP: ALBUTEROL 2.5 MG/IPRATROPIUM 0.5 MG NEB (PRN) NEB (17:00)
[2016-07-17] MEDS: RESP: ALBUTEROL 2.5 MG/IPRATROPIUM 0.5 MG NEB (SCH) NEB (20:09)
[2016-07-17] MEDS: HEPARIN SODIUM - SQ 10,000 UNITS/ML VIAL SQ SCH (23:40)
[2016-07-17] MEDS: AZITHROMYCIN INJ 500 MG in SODIUM CHLOR 0.9% 250 ML INJ 250 ML IV SCH (23:42)
[2016-07-18] VITALS (9 sets, daily range): BP systolic 66–135; BP diastolic 54–71; PULSE 50–82; RESP 18–22; TEMP 94.9–97.1; O2SAT 97–98
[2016-07-18] MEDS ORDERED: VANCOMYCIN 1,500 MG/NS 500 ML IV SCH ×4 (04:00→08:00)
[2016-07-18] MEDS: METOPROLOL TARTRATE 25 MG TAB PO SCH ×3 (06:26→21:02)
[2016-07-18] MEDS: INSULIN ASPART SUPPLEMENTAL SCALE SQ SCH ×4 (06:45→21:12)
[2016-07-18] MEDS: DEXTROSE 10% INJ 1,000 ML IV SCH (07:00)
[2016-07-18 07:08] LABS: AUTOMATED NEUTROPHIL # 7.1 TH/MM3 (1.8-7.7); BASOPHIL # 0.1 TH/MM3 (0-0.2); BASOPHIL % 0.5 % (0.0-2.0); EOSINOPHIL # 0.8 TH/MM3 (0-0.4); EOSINOPHIL % 8.4 % (0.0-4.0); HEMATOCRIT 32.5 % (39.0-51.0); LYMPH % 12.8 % (9.0-44.0); LYMPHOCYTE # 1.3 TH/MM3 (1.0-4.8); MEAN CELL VOLUME 91.2 FL (80.0-100.0); MEAN CORPUSCULAR HEMOGLOBIN 29.4 PG (27.0-34.0); MEAN CORPUSCULAR HGB CONC 32.2 % (32.0-36.0); MONO % 7.4 % (0.0-8.0); NEUT % 70.9 % (16.0-70.0); PLATELET COUNT 301 TH/MM3 (150-450); RED BLOOD COUNT 3.56 MIL/MM3 (4.50-5.90); RED CELL DISTRIBUTION WIDTH 14.9 % (11.6-17.2)
[2016-07-18 07:09] LABS: HEMO FLAGS AUTO DIFF
[2016-07-18 07:21] LABS: ALKALINE PHOSPHATASE 89 U/L (45-117); ALT (GPT) 15 U/L (12-78); ANION GAP 4 MEQ/L (5-15); AST (GOT) 13 U/L (15-37); BICARBONATE 36.6 MEQ/L (21.0-32.0); BLOOD UREA NITROGEN 20 MG/DL (7-18); CHLORIDE 103 MEQ/L (98-107); GLOMERULAR FILTRATION RATE 51 ML/MIN (>89); MAGNESIUM 1.8 MG/DL (1.5-2.5); POTASSIUM 3.2 MEQ/L (3.5-5.1); SODIUM (NA) 144 MEQ/L (136-145); TOTAL BILIRUBIN ADULT 0.3 MG/DL (0.2-1.0)
[2016-07-18 08:08] LABS: BANDS 3 % (0-6); EOSINOPHILS 7 % (0-4); MYELOCYTES 2 % (0-0); NEUTROPHIL # MANUAL DIFF 7.9 TH/MM3 (1.8-7.7); POLYS (SEG NEUTROPHILS) 74 % (16-70); WBC DIFF SAMPLE 100
[2016-07-18 08:09] LABS: PLATELET ESTIMATE SMEAR NORMAL (NORMAL); PLATELET MORPHOLOGY NORMAL (NORMAL); SCAN/DIFF FINAL DIFF MANUAL
[2016-07-18] MEDS: RESP: ALBUTEROL 2.5 MG/IPRATROPIUM 0.5 MG NEB (SCH) NEB ×4 (08:34→19:32)
[2016-07-18] MEDS ORDERED: AZITHROMYCIN INJ 500 MG in SODIUM CHLOR 0.9% 250 ML INJ 250 ML IV SCH (09:00)
[2016-07-18] MEDS: ISRADIPINE 2.5 MG PO SCH ×2 (09:00→21:02)
--- NOTE | 2016-07-18 09:27 | HHI.PR ---
Subjective Subjective Remarks I'm resting okay Alert, answers questions appropriately Appetite fair, not really that hungry Skin pale Resting in bed (Chloé Khanna) Review of Systems Constitutional Constitutional: Fatigue (easily), Weakness (generalized) (Chloé Khanna ) Pulmonary Respiratory: Coughing (random, by mouth liquids) (Chloé Khanna) Musculoskeletal MS: Weakness (generalized, with debility) (Chloé Khanna) Psychiatric Psychiatric: Normal Mood (Chloé Khanna) Vitals/Results Intake & Output 07/17/16 07/17/16 07/18/16 15:00 23:00 07:00 Output Total 2 ml Balance -2 ml Output Urine Total 2 ml # Voids 2 Vital Signs Vital Signs Date Time Temp Pulse Resp B/P Pulse Ox O2 Delivery O2 Flow Rate FiO2 07/18/16 08:13 95.4 50 18 116/58 97 07/18/16 04:02 96.9 76 22 114/56 97 07/18/16 00:37 96.2 77 22 121/54 98 07/17/16 20:09 99 Simple Mask 7.00 07/17/16 20:05 96.1 70 20 135/70 98 07/17/16 16:00 96.3 50 16 142/53 99 07/17/16 15:44 95.4 89 18 113/53 96 07/17/16 12:13 96.7 77 18 109/55 96 (Chloé Khanna) CBC/BMP: 07/18/16 0640 07/18/16 0640 Lab Results Laboratory Tests Test 07/18/16 06:40 White Blood Count 10.0 TH/MM3 Red Blood Count 3.56 MIL/MM3 Hemoglobin 10.5 GM/DL Hematocrit 32.5 % Mean Corpuscular Volume 91.2 FL Mean Corpuscular Hemoglobin 29.4 PG Mean Corpuscular Hemoglobin 32.2 % Concent Red Cell Distribution Width 14.9 % Platelet Count 301 TH/MM3 Mean Platelet Volume 8.4 FL Neutrophils (%) (Auto) 70.9 % Lymphocytes (%) (Auto) 12.8 % Monocytes (%) (Auto) 7.4 % Eosinophils (%) (Auto) 8.4 % Basophils (%) (Auto) 0.5 % Neutrophils # (Auto) 7.1 TH/MM3 Lymphocytes # (Auto) 1.3 TH/MM3 Monocytes # (Auto) 0.7 TH/MM3 Eosinophils # (Auto) 0.8 TH/MM3 Basophils # (Auto) 0.1 TH/MM3 CBC Comment AUTO DIFF Differential Total Cells 100 Counted Neutrophils % (Manual) 74 % Band Neutrophils % 3 % Lymphocytes % 9 % Monocytes % 5 % Eosinophils % 7 % Neutrophils # (Manual) 7.9 TH/MM3 Myelocytes 2 % Differential Comment FINAL DIFF MANUAL Platelet Estimate NORMAL Platelet Morphology Comment NORMAL Sodium Level 144 MEQ/L Potassium Level 3.2 MEQ/L Chloride Level 103 MEQ/L Carbon Dioxide Level 36.6 MEQ/L Anion Gap 4 MEQ/L Blood Urea Nitrogen 20 MG/DL Creatinine 1.33 MG/DL Estimat Glomerular Filtration 51 ML/MIN Rate Random Glucose 177 MG/DL Calcium Level 8.1 MG/DL Magnesium Level 1.8 MG/DL Total Bilirubin 0.3 MG/DL Aspartate Amino Transf 13 U/L (AST/SGOT) Alanine Aminotransferase 15 U/L (ALT/SGPT) Alkaline Phosphatase 89 U/L Total Protein 5.7 GM/DL Albumin 1.9 GM/DL Random Vancomycin Level 26.0 COMMENT Microbiology Microbiology 07/17/16 Legionella Antigen, Timoteo Batch Pending Imaging Remarks Last Impressions Chest X-Ray 07/16/161999 Signed Impressions: Service Date/Time: Saturday, July 16, 2016 20:04 - CONCLUSION: Cardiomegaly with diffuse pulmonary consolidation likely representing edema. Some degree of effusion needs to be considered given the increased density at the bases. Paul Mahmood MD Current Medications Active Medications Azithromycin/ Sodium Chloride (Zithromax Inj/ NS 250 ml Inj) 250 ml @ 250 mls/ hr Q24H IV Last administered on 07/17/16t 23:42; Admin Dose 250 MLS/HR; Start at 22:00 Azithromycin/ Sodium Chloride (Zithromax Inj/ NS 250 ml Inj) 250 ml @ 250 mls/ hr Q24H IV; Start 07/18/16 at 09:00; Stop 07/18/16 at 09:00; Status DC Cefepime HCl/ Sodium Chloride (Maxipime Inj/NS Inj) 100 ml @ 200 mls/hr Q24H IV Last administered on 07/17/16 12:25; Admin Dose 200 MLS/HR; Start 07/17/16 at 12:00; Stop 07/17/16 at 15:21; Status DC Heparin Sodium (Porcine) 5000 units 5,000 units Q12HR SQ Last administered on 23:40; Admin Dose 5,000 UNITS; Start 07/17/16 at 21:00 Metoprolol Tartrate 25 mg 25 mg Q8HR PO Last administered on 07/18/16 06:26; Admin Dose 25 MG; Start 07/17/16 at 14:00 Miscellaneous Information TSPECIFIC LAB TO BE INDER... ONCE ONCE XX; Start at 07:45; Stop 07/20/16 at 07:46 Potassium Chloride (KCl 40 Meq/30 ml Liq) 40 meq Q6HR NG; Start 07/18/16 at 12: 00; Status UNV Vancomycin HCl 1500 mg/Sodium Chloride 515 ml @ 257.5 mls/ hr Q24H IV; Start at 08:00; Status Hold Vancomycin HCl/ Sodium Chloride (Vancomycin Inj/ NS 500 ml Inj) 515 ml @ 257.5 mls/ hr Q24H IV; Start 07/18/16 at 04:00; Stop 07/18/16 at 04:00; Status DC ( Chloé Khanna) Physical Exam General General Appearance: No Acute Distress, Pale Appearance Remarks Slim, thin skin turgor (Chloé Khanna) Eyes Eye Exam: Pupils Equal, Pupils Reactive (Chloé KhannaP) Throat Throat Exam: Oral Mucosa Hoople & Moist (pale) (Chloé KhannaP) Neck Neck Exam: Neck Supple, Trachea Midline (Chloé KhannaP) Pulmonary Resp Exam: No Distress (at rest), Crackles (mild at bases ), Decreased Bases, Diminished Breath Sounds, Poor Inspiratory Effort (Chloé KhannaP) Cardiology CV Exam: Irregular (Chloé Khanna) Gastrointestinal/Abdomen GI Exam: Soft, Non-Tender, Bowel Sounds Present (Chloé Khanna) Musculoskeletal MS Exam: Joints Intact (Chloé Khanna) Integumentary Skin Exam: Clear, Warm, Dry, Intact Skin Remarks Thin skin turgor (Chloé Khanna) Extremeties Extremities Exam: No Edema (Chloé Khanna) Neurologic Neuro Exam: Alert, Awake, Speech Clear, Moving All Extremities (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 Failure to thrive 11. Hypokalemia Altered mental status, improved, resolving, answers all questions appropriately this a.m. Also please secondary to UTI DuoNeb's Continue with oxygen to keep sats greater than 92 swallow evaluation, for aspiration, need expert opinion, decreased appetite -Consult infectious disease, Dr. Antonio Recommendations to continue azithromycin, Diflucan for now, swallow eval CHF exacerbation, possibly diastolic, had recent echocardiogram May 13, 2016, EF 50-55% -Continue Lasix 40 mg IV daily -Monitor intake and output A. fib, controlled, controlled, monitor telemetry, heart rate lows noted 50, up to 70s to 80s. Asymptomatic Acute renal injury, likely due to dehydration Mild improvement, B UN 20, creatinine 1.33 Cautious hydration especially with by mouth until swallow eval done. History of diabetes II, now hypoglycemic, on oral hypoglycemics with poor by mouth intake -Accu-Cheks before meals and at bedtime D5W at 30 an hour, gentle hydration -Encourage oral intake, with swallow precautions. Discussed with patient Hypertension, stable Medical management, monitor vital signs. Patient currently afebrile, heart rate with controlled ventricular response. Monitor respiratory effort at rest and with activity. Currently normal trends Heparin for DVT prophylaxis Failure to thrive End-of-life care issue have been discussed with the patient's son Shawn who is also POA. Patient has a DNR, appropriate documentation has been sent from rehabilitation facility. DNR order has been entered. Patient's son will speak to his sisters regarding future goals of care, they may consider discussing with hospice at some point. physical therapy to assist patient out of bed. Supportive care to patient and family Hypokalemia, testing 3.2 this a.m. by mouth doses of potassium 2 today. BMP in a.m. UTI cultures pending. Patient is more alert and conversational. Azithromycin continues D/W Dr. Moss, patient seen on his behalf Discussed Condition with: Patient (Chloé Khanna) Assessment/Plan Pt seen and examined face to face time spent with pt labs reviwed meds reviewed dw rn dw carbon cleaner plan of care dw pt and daughter at bedside charlette ID input (Devorah Moss MD) Chloé Khanna Jul 18, 2016 09:27 Devorah Moss MD Jul 18, 2016 13:04
[2016-07-18] MEDS: FUROSEMIDE 40 MG/4 ML VIAL IV PUSH SCH (09:45)
[2016-07-18] MEDS: ASPIRIN EC 81 MG TABEC PO SCH (09:45)
[2016-07-18] MEDS: FAMOTIDINE 20 MG TAB PO SCH ×2 (09:45→21:02)
[2016-07-18] MEDS: SODIUM CHLORIDE 0.9% FLUSH 5 ML FLUSH FLUSH SCH ×2 (09:45→21:00)
[2016-07-18] MEDS: FLUCONAZOLE 200 MG TAB PO SCH (09:45)
[2016-07-18] MEDS: HEPARIN SODIUM - SQ 10,000 UNITS/ML VIAL SQ SCH ×2 (09:46→21:03)
[2016-07-18] MEDS: POTASSIUM CL 40 MEQ/30 ML LIQ UDC NG SCH ×2 (13:08→18:12)
[2016-07-18] MEDS: ALTEPLASE RECOMBINANT 2 MG VIAL PRN (16:36)
[2016-07-18] MEDS: AZITHROMYCIN INJ 500 MG in SODIUM CHLOR 0.9% 250 ML INJ 250 ML IV SCH (21:03)
[2016-07-19] VITALS (9 sets, daily range): BP systolic 105–141; BP diastolic 43–67; PULSE 65–86; RESP 20–22; TEMP 95.3–97.8; O2SAT 94–97
[2016-07-19] MEDS: INSULIN ASPART SUPPLEMENTAL SCALE SQ SCH ×4 (06:12→21:20)
[2016-07-19] MEDS: METOPROLOL TARTRATE 25 MG TAB PO SCH ×3 (06:12→21:20)
[2016-07-19] MEDS: DEXTROSE 10% INJ 1,000 ML IV SCH (07:00)
[2016-07-19 07:02] LABS: BICARBONATE 34.2 MEQ/L (21.0-32.0); POTASSIUM 4.1 MEQ/L (3.5-5.1)
[2016-07-19] MEDS: RESP: ALBUTEROL 2.5 MG/IPRATROPIUM 0.5 MG NEB (SCH) NEB ×4 (08:00→19:32)
[2016-07-19] MEDS: ISRADIPINE 2.5 MG PO SCH ×2 (08:44→21:19)
[2016-07-19] MEDS: FLUCONAZOLE 200 MG TAB PO SCH (08:44)
[2016-07-19] MEDS: ASPIRIN EC 81 MG TABEC PO SCH (08:44)
[2016-07-19] MEDS: HEPARIN SODIUM - SQ 10,000 UNITS/ML VIAL SQ SCH ×2 (08:44→21:20)
[2016-07-19] MEDS: FUROSEMIDE 40 MG/4 ML VIAL IV PUSH SCH (08:44)
[2016-07-19] MEDS: FAMOTIDINE 20 MG TAB PO SCH ×2 (08:44→21:20)
[2016-07-19] MEDS: SODIUM CHLORIDE 0.9% FLUSH 5 ML FLUSH FLUSH SCH ×2 (08:46→21:19)
--- NOTE | 2016-07-19 12:21 | HHI.PR ---
Subjective Interval History Patient is resting comfortably on bed without any apparent distress Feeling better No shortness of breath No chest pain next line occasional cough No abdominal pain No nausea vomiting Review of system for 10 point system otherwise unremarkable Review of Systems Constitutional Constitutional: Fatigue (easily), Weakness (generalized) Pulmonary Respiratory: Coughing (random, by mouth liquids) Musculoskeletal MS: Weakness (generalized, with debility) Psychiatric Psychiatric: Normal Mood Vitals/Results Intake & Output 07/18/16 07/18/16 07/19/16 15:00 23:00 07:00 Intake Total 960 ml 634 ml Output Total 2 ml Balance 960 ml 632 ml Intake Oral 960 ml IV Total 634 ml Output Urine Total 2 ml # Voids 5 # Bowel Movements 1 Vital Signs Vital Signs Date Time Temp Pulse Resp B/P Pulse Ox O2 Delivery O2 Flow Rate FiO2 07/19/16 11:28 94 Nasal Cannula 5.00 07/19/16 11:20 95.8 77 20 116/58 94 07/19/16 07:30 95.3 65 20 123/63 95 07/19/16 04:16 97.3 75 22 141/67 94 07/19/16 00:21 97.8 65 22 105/43 94 07/18/16 23:30 76 07/18/16 20:05 97.1 82 20 135/71 97 07/18/16 19:32 98 Nasal Cannula 5.00 07/18/16 16:33 94.9 60 18 66/ 98 07/18/16 12:44 95.4 67 20 113/56 98 CBC/BMP: 07/18/16 0640 07/19/16 0615 Lab Results Laboratory Tests Test 07/19/16 06:15 Sodium Level 144 MEQ/L Potassium Level 4.1 MEQ/L Chloride Level 105 MEQ/L Carbon Dioxide Level 34.2 MEQ/L Anion Gap 5 MEQ/L Blood Urea Nitrogen 22 MG/DL Creatinine 1.38 MG/DL Estimat Glomerular Filtration 49 ML/MIN Rate Random Glucose 160 MG/DL Calcium Level 8.5 MG/DL Random Vancomycin Level 21.8 COMMENT Physical Exam General General Appearance: No Acute Distress, Pale Eyes Eye Exam: Pupils Equal, Pupils Reactive Throat Throat Exam: Oral Mucosa [place] & Moist (pale) Neck Neck Exam: Neck Supple, Trachea Midline Pulmonary Resp Exam: No Distress, Decreased Bases, Diminished Breath Sounds Resp Remarks Rhonchi bibasally Cardiology CV Exam: Irregular Gastrointestinal/Abdomen GI Exam: Soft, Non-Tender, Bowel Sounds Present Musculoskeletal MS Exam: Joints Intact Integumentary Skin Exam: Clear, Warm, Dry, Intact Extremeties Extremities Exam: No Edema Neurologic Neuro Exam: Alert, Awake, Speech Clear, Moving All 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 Failure to thrive 11. Hypokalemia Altered mental status, improved, resolving, answers all questions appropriately this a.m. Also please secondary to UTI DuoNeb's Continue with oxygen to keep sats greater than 92 swallow evaluation, for aspiration, need expert opinion, decreased appetite -Appreciate consultation by infectious disease, Dr. Antonio Recommendations to continue azithromycin, Diflucan for now, swallow eval. Likely aspiration pneumonia on admission CHF exacerbation, possibly diastolic, had recent echocardiogram May 13, 2016, EF 50-55% -Continue Lasix 40 mg IV daily -Monitor intake and output A. fib, controlled, controlled, monitor telemetry, heart rate controlled. Asymptomatic Acute renal injury, likely due to dehydration Mild improvement, B UN 22, creatinine 1.3 Cautious hydration especially with by mouth until swallow eval done. History of diabetes II, now hypoglycemic, on oral hypoglycemics with poor by mouth intake -Accu-Cheks before meals and at bedtime D5W at 30 an hour, gentle hydration. Will DC -Encourage oral intake, with swallow precautions. Discussed with patient Hypertension, stable Medical management, monitor vital signs. Patient currently afebrile, heart rate with controlled ventricular response. Monitor respiratory effort at rest and with activity. Currently normal trends Heparin for DVT prophylaxis Failure to thrive End-of-life care issue have been discussed with the patient's son Shawn who is also POA on day of admission. Patient has a DNR, appropriate documentation has been sent from rehabilitation facility. DNR order has been entered. Supportive care to patient and family Hypokalemia, 4.1 BMP in a.m. Stable H&H UTI cultures showing yeast continue Diflucan Discussed with patient Discussed with RN Continue current management Medications reviewed Devorah Moss MD Jul 19, 2016 12:21
--- NOTE | 2016-07-19 13:48 | ECHLIM ---
Study Study Date:07/18/2016 STUDY CONCLUSIONS SUMMARY - Left ventricle: The cavity size was normal. Wall thickness was normal. Systolic function was normal. The estimated ejection fraction was in the range of 55% to 60%. Wall motion was normal; there were no regional wall motion abnormalities. The study is not technically sufficient to allow evaluation of LV diastolic function. - Mitral valve: Mild to moderate regurgitation. - Atrial septum: No defect or patent foramen ovale was identified. - Pulmonary arteries: PA peak pressure: 79mm Hg (S). If LV function is below 40, please consider prescribing an ACEI or ARB or document rationale for non-use. PROCEDURE DATA STUDY STATUS: Elective. Procedure: Transthoracic echocardiography. Image quality was good. Scanning was performed from the parasternal, apical, and subcostal acoustic windows. Study completion: The patient tolerated the procedure well. Transthoracic echocardiography. M-mode, complete 2D, complete spectral Doppler, and color Doppler. Patient status: Inpatient. CARDIAC ANATOMY LEFT VENTRICLE: The cavity size was normal. Wall thickness was normal. Systolic function was normal. The estimated ejection fraction was in the range of 55% to 60%. Wall motion was normal; there were no regional wall motion abnormalities. The study is not technically sufficient to allow evaluation of LV diastolic function. AORTIC VALVE: Trileaflet; mildly thickened, mildly calcified leaflets. Doppler: Transvalvular velocity was within the normal range. There was no stenosis. No regurgitation. AORTA: Aortic root: The aortic root was normal in size. MITRAL VALVE: Structurally normal valve. Doppler: Transvalvular velocity was within the normal range. There was no evidence for stenosis. Mild to moderate regurgitation. Peak gradient: 4mm Hg (D). LEFT ATRIUM: The atrium was normal in size. ATRIAL SEPTUM: No defect or patent foramen ovale was identified. RIGHT VENTRICLE: The cavity size was normal. Wall thickness was normal. Systolic pressure was within the normal range. PULMONIC VALVE: Doppler: Transvalvular velocity was within the normal range. There was no evidence for stenosis. No regurgitation. TRICUSPID VALVE: Structurally normal valve. Doppler: Transvalvular velocity was within the normal range. Trace regurgitation. PULMONARY ARTERY: The main pulmonary artery was normal-sized. Systolic pressure was within the normal range. RIGHT ATRIUM: The atrium was normal in size. PERICARDIUM: There was no pericardial effusion. SYSTEMIC VEINS: Inferior vena cava: The vessel was normal in size. BASIC MEASUREMENTS ADULT Normal Left ventricle LV internal dimension, ED, chordal level, *42.7 mm 43-52 PLAX LV posterior wall thickness, ED 7.86 mm IVS/LVPW ratio, ED *1.31 <1.3 Ventricular septum Septal thickness, ED 10.3 mm Aortic valve Leaflet separation 23 mm 15-26 Left atrium Anterior-posterior dimension 53 mm Right ventricle RV internal dimension, ED, PLAX 30.1 mm 19-38 BASIC MEASUREMENTS ADULT Normal Aortic valve Leaflet separation 23 mm 15-26 Aorta Root diameter, ED *39 mm 20-37 Left atrium Anterior-posterior dimension, ES *63 mm 19-40 LA/aortic root ratio 1.62 DOPPLER MEASUREMENTS ADULT Normal Main pulmonary artery Pressure, S *79 mm Hg =30 Aortic valve Peak velocity, S 129 cm/s Mitral valve Peak E-wave velocity 100 cm/s Peak A-wave velocity 42 cm/s Peak gradient, D 4 mm Hg Peak E/A ratio 2.4 Maximal regurgitant velocity 430 cm/s Tricuspid valve Regurgitant peak velocity 295 cm/s Peak RV-RA gradient, S 35 mm Hg Maximal regurgitant velocity 295 cm/s Systemic veins Estimated CVP 20 mm Hg Right ventricle RV pressure, S *79 mm Hg <30 LEGEND: Mean values are shown as u=mean value. Asterisk (*) catalan values outside specified normal range. Prepared and signed by Lizette So [id number]
[2016-07-19] MEDS: AZITHROMYCIN INJ 500 MG in SODIUM CHLOR 0.9% 250 ML INJ 250 ML IV SCH (21:20)
[2016-07-20] VITALS (10 sets, daily range): BP systolic 105–131; BP diastolic 46–64; PULSE 64–101; RESP 18–26; TEMP 95.4–97; O2SAT 91–98
[2016-07-20] MEDS: ALTEPLASE RECOMBINANT 2 MG VIAL PRN ×2 (03:58→09:04)
[2016-07-20] MEDS: METOPROLOL TARTRATE 25 MG TAB PO SCH ×3 (05:55→21:11)
[2016-07-20] MEDS: INSULIN ASPART SUPPLEMENTAL SCALE SQ SCH ×4 (06:39→22:33)
[2016-07-20] MEDS ORDERED: PHARMACY ORDERED LAB XX ONE (07:45)
[2016-07-20] MEDS: SODIUM CHLORIDE 0.9% FLUSH 5 ML FLUSH FLUSH SCH ×2 (08:17→21:11)
[2016-07-20] MEDS: FAMOTIDINE 20 MG TAB PO SCH ×2 (08:18→21:10)
[2016-07-20] MEDS: ISRADIPINE 2.5 MG PO SCH ×2 (08:18→21:10)
[2016-07-20] MEDS: FLUCONAZOLE 200 MG TAB PO SCH (08:18)
[2016-07-20] MEDS: ASPIRIN EC 81 MG TABEC PO SCH (08:19)
[2016-07-20] MEDS: FUROSEMIDE 40 MG/4 ML VIAL IV PUSH SCH (08:19)
[2016-07-20] MEDS: HEPARIN SODIUM - SQ 10,000 UNITS/ML VIAL SQ SCH ×2 (08:19→21:10)
[2016-07-20] MEDS: RESP: ALBUTEROL 2.5 MG/IPRATROPIUM 0.5 MG NEB (SCH) NEB ×4 (08:48→21:37)
[2016-07-20] MEDS ORDERED: VANCOMYCIN 1,500 MG/NS 500 ML IV SCH ×2 (09:00)
--- NOTE | 2016-07-20 10:16 | HHI.PR ---
Subjective Subjective Remarks Up in chair Alert, answers questions appropriately Appetite fair, slow improvement, Skin pale No acute shortness of breath (Chloé Khanna) Review of Systems Constitutional Constitutional: Fatigue (easily), Weakness (generalized) Constitutional Remarks 10 point ROS done. Positives noted generalized weakness and fatigue but with slow improvement. more alert mild cough Other systems negative including no leukocytosis (Chloé Khanna) Pulmonary Respiratory: Coughing (random, by mouth liquids) (Chloé Khanna) GI/Abdomen GI/Abdomen Remarks Appetite fair (Chloé Khanna) Musculoskeletal MS: Weakness (generalized, with debility) (Chloé Khanna) Integumentary Skin: Wounds Skin Remarks Mid back approximately 1.6 cm deep. Dressing intact change daily (Chloé Khanna) Psychiatric Psychiatric: Normal Mood (Chloé Khanna) Vitals/Results Intake & Output 07/19/16 07/19/16 07/20/16 15:00 23:00 07:00 Intake Total 360 ml Output Total 2 ml Balance 360 ml -2 ml Intake Oral 360 ml Stool Total 2 ml # Voids 0 4 # Bowel Movements 0 Vital Signs Vital Signs Date Time Temp Pulse Resp B/P Pulse Ox O2 Delivery O2 Flow Rate FiO2 07/20/16 08:00 95.7 75 21 131/60 95 07/20/16 04:00 97.0 79 20 131/60 91 07/20/16 00:23 96.4 64 20 108/46 96 07/19/16 20:32 95.7 86 20 119/63 95 07/19/16 19:33 97 Nasal Cannula 4.00 07/19/16 15:30 96.2 77 20 120/60 95 07/19/16 11:28 94 Nasal Cannula 5.00 07/19/16 11:20 95.8 77 20 116/58 94 (Chloé Khanna) CBC/BMP: 07/18/16 0640 07/20/16 0557 Lab Results Laboratory Tests Test 07/20/16 05:57 Creatinine 1.61 MG/DL Estimat Glomerular Filtration 41 ML/MIN Rate Current Medications Active Medications Miscellaneous Information SPECIFIC LAB TO BE DRAWN:VANCOMYCIN TROUGH DATE TO... ONCE ONCE XX; Start 07/22/16 at 08:45; Stop 07/22/16 at 08:46 Miscellaneous Information TSPECIFIC LAB TO BE INDER... ONCE ONCE XX; Start at 07:45; Stop 07/20/16 at 07:45; Status DC Vancomycin HCl/ Sodium Chloride (Vancomycin Inj/ NS 500 ml Inj) 515 ml @ 257.5 mls/ hr Q24H IV Last administered on 07/20/16t 08:17; Admin Dose 257.5 MLS/HR; Start 07/20/16 at 09:00; Stop 07/20/16 at 09:58; Status DC (Chloé Khanna [employer]IATION TECH[employer] SYSTEMS SPECIALIST) Physical Exam General General Appearance: No Acute Distress, Pale Appearance Remarks Slim, thin skin turgor (Chloé Khanna M. AVIATION TECHNICAL SYSTEMS SPECIALIST) Eyes Eye Exam: Pupils Equal, Pupils Reactive (Chloé Khanna M. AVIATION TECHN[employer] SYSTEMS SPECIALIST) Throat Throat Exam: Oral Mucosa [place] & Moist (pale) (Chloé Khanna M. AVIATION TECHNICAL SYSTEMS SPECIALIST) Neck Neck Exam: Neck Supple, Trachea Midline (Chloé Khanna M. AVIATION TECHNICAL SYSTEMS SPECIALIST) Pulmonary Resp Exam: No Distress, Decreased Bases, Diminished Breath Sounds (Chloé Khanna M. AVIATION TECHNICAL SYSTEMS SPECIALIST) Cardiology CV Exam: Irregular (Chloé Khanna M. AVIATION TECHNICAL SYSTEMS SPECIALIST) Gastrointestinal/Abdomen GI Exam: Soft, Non-Tender, Bowel Sounds Present (Elenita Khannaan M. AVIATION TECHNICAL SYSTEMS SPECIALIST) Musculoskeletal MS Exam: Joints Intact (Chloé Khanna M. AVIATION TECHNICAL SYSTEMS SPECIALIST) Integumentary Skin Exam: Clear, Warm, Dry, Intact Skin Remarks Thin skin turgor Wound mid back, open measurements taken today approximately 1.6mm deep (Chloé Khanna M. AVIATION TECHNICAL SYSTEMS SPECIALIST) Extremeties Extremities Exam: No Edema (Chloé Khanna M. 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 AVIATION TECHNICAL SYSTEMS SPECIALIST) VTE Prophylaxis VTE Prophylaxis Meds: Heparin (Chloé Khanna M. AVIATION TECH[employer]ICAL SYSTEMS SPECIALIST) PUD Prophylasis PUD Remarks Pepcid (Chloé Khanna M. AVIATION TECHNICAL SYSTEMS SPECIALIST) Assessment/Plan Assessment/Plan (1) CHF (congestive heart failure) (2) Diabetic neuropathy (3) Hx of unstable T8,T9 fractures due to fall with T7 to T11 posterior fixation using transpedicular screws and rods on 05/04/16 (4) MRSA (methicillin resistant Staphylococcus aureus) infection (5) Diabetes 1.5, managed as type 2 (6) Hypertension (7) Atrial fibrillation (8) Hypoglycemia (9) Acute renal injury 10. Failure to thrive 11. Hypokalemia Pressure wounds, right buttocks Altered mental status, improved, resolving, answers all questions appropriately this a.m. Also please secondary to UTI DuoNeb's Continue with oxygen to keep sats greater than 92 swallow evaluation, for aspiration, appetite improving, at this point no aspiration seen. Patient can have regular diet with thin liquids. Monitor for any coughing during eating. -Appreciate consultation by infectious disease, Dr. Antonio Recommendations to continue azithromycin, Diflucan for now, Likely aspiration pneumonia on admission Vancomycin therapy, PICC line not working well. New orders for new PICC if warranted. CHF exacerbation, possibly diastolic, had recent echocardiogram May 13, 2016, EF 50-55% -Continue Lasix 40 mg IV daily -Monitor intake and output A. fib, controlled, controlled, monitor telemetry, heart rate controlled. Asymptomatic Acute renal injury, likely due to dehydration Mild improvement, essentially unchanged Cautious hydration History of diabetes II, now hypoglycemic, on oral hypoglycemics with poor by mouth intake -Accu-Cheks before meals and at bedtime D5W at 30 an hour, gentle hydration. Will DC -Encourage oral intake, with swallow precautions. Discussed with patient Hypertension, stable Medical management, monitor vital signs. Patient currently afebrile, heart rate with controlled ventricular response. Monitor respiratory effort at rest and with activity. Currently normal trends Heparin for DVT prophylaxis Failure to thrive End-of-life care issue have been discussed with the patient's son Shawn who is also POA on day of admission. Patient has a DNR, appropriate documentation has been sent from rehabilitation facility. DNR order has been entered. Supportive care to patient and family. Stable H&H UTI cultures showing yeast continue Diflucan Right baton's pressure wound, added Mepilex per [facility] recommendations Added IOform for patients back, light packing. Discussed with patient Discussed with RN D/W wound care nurse, new orders for coccyx area as well as back. Continue current management Medications reviewed (Cholé Khanna) Assessment/Plan PAtiwnt seen and examined wean oxygen as tolerated change lasix to po d/c i/v fluids Echo with good EF antibiotics per ID monitor creatinine possible discharge to SNF in am discussed with patient/ daughter at bed side discussed with nursing staff discussed with Chloé MELGOZA (Lanette Craft MD) Chloé Khanna Jul 20, 2016 10:16 Lanette Craft MD Jul 20, 2016 13:17
[2016-07-20] MEDS: AZITHROMYCIN INJ 500 MG in SODIUM CHLOR 0.9% 250 ML INJ 250 ML IV SCH (21:10)
[2016-07-21] VITALS (8 sets, daily range): BP systolic 111–140; BP diastolic 55–68; PULSE 76–96; RESP 15–24; TEMP 96.1–96.8; O2SAT 93–95
[2016-07-21] MEDS: INSULIN ASPART SUPPLEMENTAL SCALE SQ SCH ×4 (06:39→22:05)
[2016-07-21] MEDS: METOPROLOL TARTRATE 25 MG TAB PO SCH ×3 (06:39→21:59)
[2016-07-21 07:01] LABS: AUTOMATED NEUTROPHIL # 6.5 TH/MM3 (1.8-7.7); BASOPHIL # 0.1 TH/MM3 (0-0.2); BASOPHIL % 0.8 % (0.0-2.0); EOSINOPHIL # 0.8 TH/MM3 (0-0.4); HEMATOCRIT 30.6 % (39.0-51.0); HEMO FLAGS DIFF FINAL; LYMPH % 20.9 % (9.0-44.0); LYMPHOCYTE # 2.1 TH/MM3 (1.0-4.8); MEAN CELL VOLUME 91.3 FL (80.0-100.0); MEAN CORPUSCULAR HEMOGLOBIN 29.8 PG (27.0-34.0); MEAN CORPUSCULAR HGB CONC 32.6 % (32.0-36.0); MONO % 6.8 % (0.0-8.0); NEUT % 63.5 % (16.0-70.0); PLATELET COUNT 296 TH/MM3 (150-450); RED BLOOD COUNT 3.35 MIL/MM3 (4.50-5.90); RED CELL DISTRIBUTION WIDTH 15.9 % (11.6-17.2); WHITE BLOOD COUNT 10.2 TH/MM3 (4.0-11.0)
[2016-07-21] MEDS: RESP: ALBUTEROL 2.5 MG/IPRATROPIUM 0.5 MG NEB (SCH) NEB ×3 (07:40→17:44)
[2016-07-21] MEDS: ISRADIPINE 2.5 MG PO SCH ×2 (10:09→21:59)
[2016-07-21] MEDS: FLUCONAZOLE 200 MG TAB PO SCH (10:10)
[2016-07-21] MEDS: FUROSEMIDE 40 MG TAB PO SCH (10:10)
[2016-07-21] MEDS: ASPIRIN EC 81 MG TABEC PO SCH (10:10)
[2016-07-21] MEDS: HEPARIN SODIUM - SQ 10,000 UNITS/ML VIAL SQ SCH ×2 (10:10→22:03)
[2016-07-21] MEDS: FAMOTIDINE 20 MG TAB PO SCH ×2 (10:11→21:59)
[2016-07-21] MEDS: SODIUM CHLORIDE 0.9% FLUSH 5 ML FLUSH FLUSH SCH ×2 (10:11→22:18)
--- NOTE | 2016-07-21 10:24 | HHI.PR ---
Subjective Remarks smiling, no complaints no cp no sob feels better awake, oriented x 2-3 no fever eating much better son at bsd (Margareth Iglesias) Objective Objective Results - Vital Signs Date Time Temp Pulse Resp B/P Pulse Ox O2 Delivery O2 Flow Rate FiO2 07/21/16 08:00 96.6 84 15 122/62 93 07/21/16 07:40 94 Nasal Cannula 2.00 07/21/16 06:30 96.7 91 18 130/62 93 07/21/16 00:00 96.2 78 18 114/55 93 07/20/16 21:38 92 Nasal Cannula 2.00 07/20/16 20:00 96.3 79 18 120/57 95 07/20/16 18:25 101 07/20/16 16:04 98 Nasal Cannula 07/20/16 16:00 95.7 78 24 122/64 96 07/20/16 12:20 95.4 74 26 105/51 98 I/O 07/20/16 07/20/16 07/20/16 07/21/16 07/21/16 07/21/16 07:00 15:00 23:00 07:00 15:00 23:00 Intake Total 240 ml Output Total 2 ml 0 ml Balance -2 ml 240 ml Intake Oral 240 ml Output Urine Total 0 ml Stool Total 2 ml # Voids 4 3 3 # Bowel Movements 0 0 0 (Margareth Iglesias) Result Diagram: 07/21/1641 07/21/1641 Imaging Last Impressions Chest X-Ray 07/16/161999 Signed Impressions: Service Date/Time: Saturday, July 16, 2016 20:04 - CONCLUSION: Cardiomegaly with diffuse pulmonary consolidation likely representing edema. Some degree of effusion needs to be considered given the increased density at the bases. Paul Mahmood MD Other Results Laboratory Tests Test 07/21/16 06:41 White Blood Count 10.2 Red Blood Count 3.35 Hemoglobin 10.0 Hematocrit 30.6 Mean Corpuscular Volume 91.3 Mean Corpuscular Hemoglobin 29.8 Mean Corpuscular Hemoglobin 32.6 Concent Red Cell Distribution Width 15.9 Platelet Count 296 Mean Platelet Volume 8.2 Neutrophils (%) (Auto) 63.5 Lymphocytes (%) (Auto) 20.9 Monocytes (%) (Auto) 6.8 Eosinophils (%) (Auto) 8.0 Basophils (%) (Auto) 0.8 Neutrophils # (Auto) 6.5 Lymphocytes # (Auto) 2.1 Monocytes # (Auto) 0.7 Eosinophils # (Auto) 0.8 Basophils # (Auto) 0.1 CBC Comment DIFF FINAL Differential Comment Sodium Level 145 Potassium Level 4.0 Chloride Level 107 Carbon Dioxide Level 32.0 Anion Gap 6 Blood Urea Nitrogen 26 Creatinine 1.63 Estimat Glomerular Filtration 40 Rate Random Glucose 149 Calcium Level 8.6 Date/Time Procedure Status Source Growth 07/17/16 22:10 Legionella Antigen Timoteo Batch Urine Random Urine Pending 07/16/16 22:55 Aerobic Blood Culture - Preliminary Resulted Blood Peripheral NO GROWTH IN 4 DAYS 07/16/16 22:55 Anaerobic Blood Culture - Preliminary Resulted Blood Peripheral NO GROWTH IN 4 DAYS 07/16/16 22:10 Urine Culture - Final Complete Urine Catheterized Urine Ethel Glabrata 07/16/16 22:10 Legionella Antigen - Final Complete Urine Random Urine PRESUMPTIVE NEGATIVE FOR LEGIONELLA P... (Margareth Iglesias) ROS General: No: Fatigue, Weakness HEENT: No: Sore Throat, Dysphagia Cardiac: No: Chest Pain, Edema, Palpitations Pulmonary: No: Cough, SOB, Wheezing GI: No: Abdominal Pain, BM, Diarrhea, N/V /TITLE SEARCHER: No: Dysuria, Urgency Neuro/MS: No: Lightheaded, Confusion Psych: No: Anxiety, Depression Skin: No: Itching, Rash (Margareth Iglesias) Physical Exam Physical Exam GENERAL: This is a well-nourished, well-developed patient, in no apparent distress. Lethargic, wakes to voice SKIN: No rashes, ecchymoses or lesions. Cool and dry. HEAD: Atraumatic. Normocephalic. No temporal or scalp tenderness. EYES: Pupils equal round and reactive. Extraocular motions intact. No scleral icterus. No injection or drainage. ENT: Nose without bleeding, purulent drainage or septal hematoma. Throat without erythema, tonsillar hypertrophy or exudate. Uvula midline. Airway patent. Oral mucosa dry. NECK: Trachea midline. No JVD or lymphadenopathy. Supple, nontender, no meningeal signs. CARDIOVASCULAR: S1 S2 irregularly irregular. Unable to detect any murmurs rubs or gallops. RESPIRATORY: Diminished at bases. GASTROINTESTINAL: Abdomen soft, non-tender, nondistended. No hepato-splenomegaly , or palpable masses. No guarding. MUSCULOSKELETAL: Extremities without clubbing, cyanosis. Bilateral lower extremities with trace pretibial edema, pedal pulses 2+ bilaterally. No joint tenderness, effusion, or edema noted. No calf tenderness. Negative Homans sign bilaterally. NEUROLOGICAL: Awake, oriented x 3. Following commands, no focal deficits. ( Margareth Iglesias) Urinary Catheter: No (Margareth Iglesias) Vascular Central Line Catheter: No (Margareth Iglesias) A/P Diagnosis: (1) CHF (congestive heart failure) (2) Diabetic neuropathy (3) Hx of unstable T8,T9 fractures due to fall with T7 to T11 posterior fixation using transpedicular screws and rods on 05/04/16 (4) MRSA (methicillin resistant Staphylococcus aureus) infection (5) Diabetes 1.5, managed as type 2 (6) Hypertension (7) Atrial fibrillation (8) Hypoglycemia (9) Acute renal injury Assessment and Plan 85-year-old elderly male with recent admissions, first after 10 ft. fall that resulted in left femur fracture as well T8-T9 fracture both requiring surgery. Most recently admitted with sepsis, pneumonia. Found with MRSA to surgical site in the spine, and hardware. Patient presented this time with shortness of breath and altered mental status. Chest x-ray with findings of possible CHF versus pneumonia. Altered mental status, possibly secondary to infectious process, PNA, UTI, also with MRSA infection to spinal hardware, surgical site. Improved. -Continue with vancomycin, follow cultures DuoNeb's Continue with oxygen to keep sats greater than 92 -Swallow evaluation, continue with their recommendations. Monitor for aspiration. -Consult infectious disease, Dr. Antonio-appreciate ID input CHF exacerbation, possibly diastolic, had recent echocardiogram May 13, 2016, EF 50-55%. -Continue Lasix 40 mg po daily -Monitor intake and output -Echo done EF 55 to 60 diastolic HF A. fib, controlled Continuous cardiac telemetry -Continue beta blockers Acute renal injury, likely due to dehydration Monitor renal function History of diabetes II, now hypoglycemic, on oral hypoglycemics with poor by mouth intake. Improving, now eating. -Accu-Cheks before meals and at bedtime Hypertension, stable Continue home medications Home medications reviewed, initiated as indicated Heparin for DVT prophylaxis CM for dc planing, hopefully dc tomorrow will have ID re-evaluate and clear for dc D/W RN D/W Dr. Craft D/W pt. This patient was seen by myself and Dr. Craft, this note is written on his behalf (Margareth Iglesias) Assessment and Plan patient seen and examined had a 10 beat run of V tach, asymptomatic now in A fib Mag level sent continue BB awaiting final recommendations per ID for discharge on po diuretics discussed with patient discussed with nursing staff discussed with Margareth possible discharge to SNF (Lanette Craft MD) Problem Qualifiers (1) CHF (congestive heart failure): Qualified Code: I50.9 - Congestive heart failure, unspecified congestive heart failure chronicity, unspecified congestive heart failure type (2) Diabetic neuropathy: Qualified Code: E11.42 - Diabetic polyneuropathy associated with type 2 diabetes mellitus (3) Hypertension: Qualified Code: I10 - Essential hypertension (4) Atrial fibrillation: Qualified Code: I48.91 - Atrial fibrillation, unspecified type Margareth Iglesias Jul 21, 2016 10:24 Lanette Craft MD Jul 21, 2016 14:48 (3) Hypertension: Qualified Code: I10 - Essential hypertension (4) Atrial fibrillation: Qualified Code: I48.91 - Atrial fibrillation, unspecified type Margareth Iglesias Jul 21, 2016 10:24 Lanette Craft MD Jul 21, 2016 14:48
[2016-07-21] MEDS ORDERED: IPRASOL NEB (11:58)
--- NOTE | 2016-07-21 11:59 | HHI.DCPOC ---
Discharge Care Plan Diagnosis: (1) CHF (congestive heart failure) (2) Atrial fibrillation (3) Hypoglycemia (4) Hypertension (5) MRSA (methicillin resistant Staphylococcus aureus) infection (6) Diabetes 1.5, managed as type 2 (7) Hx of unstable T8,T9 fractures due to fall with T7 to T11 posterior fixation using transpedicular screws and rods on 05/04/16 (8) Acute renal injury (9) Diabetic neuropathy Your Health Problems Are: Fluid/Lung Overload Shortness of Breath Goals to Promote Your Health * To prevent worsening of your condition and complications * To maintain your health at the optimal level Directions to Meet Your Goals Take your medications as prescribed Follow your dietary instruction Follow activity as directed Keep your appointments as scheduled Take your immunizations and boosters as scheduled If your symptoms worsen call your PCP, if no PCP go to Urgent Care Center or Emergency Room Smoking is Dangerous to Your Health. Avoid second hand smoke Call the 24-hour hour crisis hotline for domestic abuse at Margareth Iglesias Jul 21, 2016 11:59
[2016-07-21] MEDS ORDERED: SODIUM CHLORIDE 0.9% FLUSH 5 ML FLUSH IVF PRN ×2 (12:00)
--- NOTE | 2016-07-21 19:31 | HHI.FF ---
cc: Alisha Esteves MD Infusion Therapy Location of Infusion Therapy: [facility] Infusion Therapy Order Patient Information Appointment Date: Jul 22, 2016 Patient Weight 86.6 kg Diagnosis: Diagnosis Surgical Site infection MRSA Spine Osteomyelitis Coded Allergies: *MDRO Multi-Drug Resistant Organism (Verified Adverse Reaction, Unknown, ) 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 Administer Medication Vancomycin 1.5 grams IV q 24 hours Start Treatment: Jul 22, 2016 Stop Treatment: Aug 20, 2016 Additional Information Venous access: PICC Line Additional Instructions [x] Peripheral flush and dressing changes per protocol [x] Implanted port and central line prep cook: * Implanted port: 10 ml Normal Saline followed by 5 ml Heparin 100 units/ml Heparin flush after each use and monthly to maintain. [] May leave port accessed during therapy. [] May leave peripheral site accessed for duration of therapy. [x] If patient has SOB or respiratory distress, check oxygen saturation. If less than 90% or clinical signs of respiratory distress, administer oxygen at 2 L/min. via nasal cannula and notify physician. [x] Anaphylaxis/Reaction orders: * Stop infusion. * Keep IV line open with saline flush. * Notify physician. * Monitor vital signs every 15 minutes until symptoms resolve. * Check Oxygen saturation; Oxygen at 2 L/min. via nasal cannula if less than 90% or clinical signs of respiratory distress. * Administer diphenhydramine (Benadryl) 25 mg IV STAT, (unless patient has received as pre-med). May repeat once, if necessary. * Solu-Cortef 250 mg IVP over 30-60 seconds, use 100 mg vials for each dissolution. * Epinephrine (1mg/1 ml) 0.3 mg subcutaneously or IVP now with any signs of respiratory distress. * Check with physician for new additional pre-med orders if patient is re- challenged or re-treated. [x] May remove PICC line when treatment complete, after confirming with Physician. [x] If the patient is admitted to the hospital, the ED, or transferred via [facility] , complete transfer form including medication reconciliation order sheet. Laboratory Tests Weekly Labs: CBC w/diff, Creatinine, CRP, LFT's (Hepatic function test), Vancomycin Trough (target vanco trough 15-20) Additional Information Please draw weekly labs, fax to number below and Call with abnormals, change in clinical condition or problems to: Dr.Reba Esteves or Dr.Tanuja Antonio or Covering ID Physician Follow up appt: Patient to schedule follow up appt with Dr.Reba Esteves within 2 weeks post discharge. Follow up with PCP Follow up with other MDs as planned. Counseling: Counseled about medication side effects Counseled about PICC line care and hand hygiene. Melinda Antonio MD Jul 21, 2016 19:31
--- NOTE | 2016-07-21 19:40 | HHI.IDPN ---
Subjective Subjective Remarks is an 86 y/o CM. ID following for postoperative wound MRSA infection and thoracic spine possible osteomyelitis. Antibiotics Vanco IV Azithro oral Lines Line sites with no e/o infection Past Medical History reviewed Allergies: Coded Allergies: *MDRO Multi-Drug Resistant Organism (Verified Adverse Reaction, Unknown, ) 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 Objective . Vital Signs Date Time Temp Pulse Resp B/P Pulse Ox O2 Delivery O2 Flow Rate FiO2 07/21/16 17:46 95 Nasal Cannula 2.00 07/21/16 16:00 96.1 76 23 122/58 95 07/21/16 12:00 96.3 84 23 111/57 93 07/21/16 08:00 96.6 84 15 122/62 93 07/21/16 07:40 94 Nasal Cannula 2.00 07/21/16 06:30 96.7 91 18 130/62 93 07/21/16 00:00 96.2 78 18 114/55 93 07/20/16 21:38 92 Nasal Cannula 2.00 07/20/16 20:00 96.3 79 18 120/57 95 07/20/16 07/20/16 07/21/16 15:00 23:00 07:00 Intake Total 240 ml Output Total 0 ml Balance 240 ml Intake Oral 240 ml Output Urine Total 0 ml # Voids 3 3 # Bowel Movements 0 0 0 . Laboratory Tests Test 07/21/16 06:41 White Blood Count 10.2 TH/MM3 Red Blood Count 3.35 MIL/MM3 Hemoglobin 10.0 GM/DL Hematocrit 30.6 % Mean Corpuscular Volume 91.3 FL Mean Corpuscular Hemoglobin 29.8 PG Mean Corpuscular Hemoglobin 32.6 % Concent Red Cell Distribution Width 15.9 % Platelet Count 296 TH/MM3 Mean Platelet Volume 8.2 FL Neutrophils (%) (Auto) 63.5 % Lymphocytes (%) (Auto) 20.9 % Monocytes (%) (Auto) 6.8 % Eosinophils (%) (Auto) 8.0 % Basophils (%) (Auto) 0.8 % Neutrophils # (Auto) 6.5 TH/MM3 Lymphocytes # (Auto) 2.1 TH/MM3 Monocytes # (Auto) 0.7 TH/MM3 Eosinophils # (Auto) 0.8 TH/MM3 Basophils # (Auto) 0.1 TH/MM3 CBC Comment DIFF FINAL Differential Comment Laboratory Tests Test 07/20/16 07/21/16 07/21/16 05:57 06:41 15:40 Creatinine 1.61 MG/DL 1.63 MG/DL Estimat Glomerular Filtration 41 ML/MIN 40 ML/MIN Rate Sodium Level 145 MEQ/L Potassium Level 4.0 MEQ/L Chloride Level 107 MEQ/L Carbon Dioxide Level 32.0 MEQ/L Anion Gap 6 MEQ/L Blood Urea Nitrogen 26 MG/DL Random Glucose 149 MG/DL Calcium Level 8.6 MG/DL Magnesium Level 2.0 MG/DL Imaging Last Impressions Chest X-Ray 07/16/161999 Signed Impressions: Service Date/Time: Saturday, July 16, 2016 20:04 - CONCLUSION: Cardiomegaly with diffuse pulmonary consolidation likely representing edema. Some degree of effusion needs to be considered given the increased density at the bases. Paul Mahmood MD Physical Exam GENERAL: Elderly white male well-nourished, well-developed patient, in no apparent distress. SKIN: No generalized rashes. HEAD: Atraumatic. Normocephalic. No temporal or scalp tenderness. EYES: Pupils equal round and reactive. Extraocular motions intact. No scleral icterus. No injection or drainage. ENT: Nose without bleeding, purulent drainage or septal hematoma. Throat without erythema, tonsillar hypertrophy or exudate. Uvula midline. Airway patent. NECK: Trachea midline. Supple, nontender, no meningeal signs. Back examination: Lower back surgical site with significant discharge noted. CARDIOVASCULAR: Heart sounds audible. No murmur appreciated. RESPIRATORY: Bilateral basilar crackles noted. Air entry decreased in the bases. GASTROINTESTINAL: Abdomen soft, non-tender, nondistended. Obese. MUSCULOSKELETAL: Extremities without clubbing, cyanosis. Trace pedal edema noted. NEUROLOGICAL: Awake and alert. Grossly nonfocal. Back: surgical wound approximating. Hardware visible. Not much subq fat in that area. Dressing still soaked with faint yellow fluid. Not much surrounding erythema. Psych cooperative IV/PICC line sites with no evidence of infection. Assessment & Plan Remarks Pneumonia present on admission (aspiration PNA vs CAP vs atypical vs Pulm edema) MRSA surgical site infection possible osteomyelitis. Ethel glabrata UTI was being treated prior to admission (on prior discharge) Leucocytosis and hypothermia ? possible early sepsis Acute renal failure: ? prerenal vs Vanco induced. Acute metabolic encephalopathy: lethargic per family, sepsis. DM2 uncontrolled: sepsis, infection Eosinophilia? allergy to meds (Vanco IV) Recs DC Marleniro Continue Vanco IV (target 15-20) Continue Diflucan stop date 07/27/[address]Reba Esteves office. Number provided to family again and office notified. Continue local wound care. Follow cultures Follow clinically. Khadar Rubalcava family Will sign off please call back if any change in clinical condition or questions. Orders for infusion in chart. Melinda Antonio MD Jul 21, 2016 19:40
[2016-07-22] VITALS: BP 114/58; PULSE 80; RESP 22; TEMP 96.4; O2SAT 94
[2016-07-22 05:42] VITALS: BP 114/61; PULSE 85; RESP 18; TEMP 96.5; O2SAT 94
[2016-07-22] MEDS: METOPROLOL TARTRATE 25 MG TAB PO SCH ×2 (05:56→13:18)
[2016-07-22] MEDS: INSULIN ASPART SUPPLEMENTAL SCALE SQ SCH ×2 (05:56→13:19)
[2016-07-22 08:00] VITALS: BP 138/63; PULSE 66; RESP 18; TEMP 96.3; O2SAT 91
[2016-07-22] MEDS ORDERED: PHARMACY ORDERED LAB XX ONE (08:45)
[2016-07-22] MEDS ORDERED: SODIUM CHLORIDE 0.9% FLUSH 5 ML FLUSH IVF SCH (09:00)
[2016-07-22] MEDS: HEPARIN SODIUM - SQ 10,000 UNITS/ML VIAL SQ SCH (10:54)
[2016-07-22] MEDS: FAMOTIDINE 20 MG TAB PO SCH (10:54)
[2016-07-22] MEDS: ISRADIPINE 2.5 MG PO SCH (10:54)
[2016-07-22] MEDS: SODIUM CHLORIDE 0.9% FLUSH 5 ML FLUSH FLUSH SCH (10:54)
[2016-07-22] MEDS: FLUCONAZOLE 200 MG TAB PO SCH (10:55)
[2016-07-22] MEDS: ASPIRIN EC 81 MG TABEC PO SCH (10:55)
[2016-07-22] MEDS: FUROSEMIDE 40 MG TAB PO SCH (10:55)
[2016-07-22] MEDS ORDERED: DIFL200T PO (11:36)
[2016-07-22 12:36] VITALS: BP 106/51; PULSE 82; RESP 18; TEMP 96; O2SAT 92
--- NOTE | 2016-07-22 13:49 | HHI.PR ---
Subjective Remarks smiling, no complaints eating cake, yesterday was his bday awake, oriented x 3 feeling motivated anxious to go to rehab no fever had short NSVT, no more episodes overnight mg checked, was ok family at bsd Objective Objective Results - Vital Signs Date Time Temp Pulse Resp B/P Pulse Ox O2 Delivery O2 Flow Rate FiO2 07/22/16 12:36 96.0 82 18 106/51 92 07/22/16 08:00 96.3 66 18 138/63 91 07/22/16 05:42 96.5 85 18 114/61 94 07/22/16 00:00 96.4 80 22 114/58 94 07/21/16 20:00 96.8 96 24 140/68 94 07/21/16 17:46 95 Nasal Cannula 2.00 07/21/16 16:00 96.1 76 23 122/58 95 I/O 07/21/16 07/21/16 07/21/16 07/22/16 07/22/16 07/22/16 07:00 15:00 23:00 07:00 15:00 23:00 Intake Total 240 ml Balance 240 ml Intake Oral 240 ml # Voids 3 2 0 3 # Bowel Movements 0 1 0 0 Result Diagram: 07/21/16 0641 07/22/16 0600 Imaging Last Impressions Chest X-Ray 07/16/161999 Signed Impressions: Service Date/Time: Saturday, July 16, 2016 20:04 - CONCLUSION: Cardiomegaly with diffuse pulmonary consolidation likely representing edema. Some degree of effusion needs to be considered given the increased density at the bases. 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 Lethargic, wakes to voice SKIN: No rashes, ecchymoses or lesions. Cool and dry. HEAD: Atraumatic. Normocephalic. No temporal or scalp tenderness. EYES: Pupils equal round and reactive. Extraocular motions intact. No scleral icterus. No injection or drainage. ENT: Nose without bleeding, purulent drainage or septal hematoma. Throat without erythema, tonsillar hypertrophy or exudate. Uvula midline. Airway patent. Oral mucosa dry. NECK: Trachea midline. No JVD or lymphadenopathy. Supple, nontender, no meningeal signs. CARDIOVASCULAR: S1 S2 irregularly irregular. Unable to detect any murmurs rubs or gallops. RESPIRATORY: Diminished at bases. GASTROINTESTINAL: Abdomen soft, non-tender, nondistended. No hepato-splenomegaly , or palpable masses. No guarding. MUSCULOSKELETAL: Extremities without clubbing, cyanosis. Bilateral lower extremities with trace pretibial edema, pedal pulses 2+ bilaterally. No joint tenderness, effusion, or edema noted. No calf tenderness. Negative Homans sign bilaterally. NEUROLOGICAL: Awake, oriented x 3. Following commands, no focal deficits. Urinary Catheter: No Vascular Central Line Catheter: No Line: PICC A/P Diagnosis: (1) CHF (congestive heart failure) (2) Diabetic neuropathy (3) Hx of unstable T8,T9 fractures due to fall with T7 to T11 posterior fixation using transpedicular screws and rods on 05/04/16 (4) MRSA (methicillin resistant Staphylococcus aureus) infection (5) Diabetes 1.5, managed as type 2 (6) Hypertension (7) Atrial fibrillation (8) Hypoglycemia (9) Acute renal injury Assessment and Plan 85-year-old elderly male with recent admissions, first after 10 ft. fall that resulted in left femur fracture as well T8-T9 fracture both requiring surgery. Most recently admitted with sepsis, pneumonia. Found with MRSA to surgical site in the spine, and hardware. Patient presented this time with shortness of breath and altered mental status. Chest x-ray with findings of possible CHF versus pneumonia. Altered mental status, possibly secondary to infectious process, PNA, UTI, also with MRSA infection to spinal hardware, surgical site. Improved. -Continue with vancomycin, follow cultures DuoNeb's Continue with oxygen to keep sats greater than 92 -Swallow evaluation, continue with their recommendations. Monitor for aspiration. -Consult infectious disease, Dr. Antonio-appreciate ID input CHF exacerbation, possibly diastolic, had recent echocardiogram May 13, 2016, EF 50-55%. -Continue Lasix 40 mg po daily -Monitor intake and output -Echo done EF 55 to 60 diastolic HF A. fib, controlled Continuous cardiac telemetry -Continue beta blockers NSVT yesterday, none today -continue BB -Labs reviewed, stable Acute renal injury, likely due to dehydration Monitor renal function History of diabetes II, now hypoglycemic, on oral hypoglycemics with poor by mouth intake. Improving, now eating. -Accu-Cheks before meals and at bedtime Hypertension, stable Continue home medications Home medications reviewed, initiated as indicated Heparin for DVT prophylaxis CM for dc planning D/W ID, recommendations provided F/U Dr. Esteves F/U PCP F/U Dr. Antonia Ferrell-heart healthy Activity-as tolerated D/W RN D/W Dr. Craft D/W pt./family D/W CM This patient was seen by myself and Dr. Craft, this note is written on his behalf Discharge Planning 45minutes Problem Qualifiers (1) CHF (congestive heart failure): Qualified Code: I50.9 - Congestive heart failure, unspecified congestive heart failure chronicity, unspecified congestive heart failure type (2) Diabetic neuropathy: Qualified Code: E11.42 - Diabetic polyneuropathy associated with type 2 diabetes mellitus (3) Hypertension: Qualified Code: I10 - Essential hypertension (4) Atrial fibrillation: Qualified Code: I48.91 - Atrial fibrillation, unspecified type Margareth Iglesias Jul 22, 2016 13:49
--- NOTE | 2016-07-22 17:36 | HHI.DS ---
Discharge Summary Admission Date Jul 17, 2016 at 00:57 Discharge Date: Jul 22, 2016 Admitting Diagnosis CHF, AMS (1) CHF (congestive heart failure) (2) Diabetic neuropathy (3) Hx of unstable T8,T9 fractures due to fall with T7 to T11 posterior fixation using transpedicular screws and rods on 05/04/16 (4) MRSA (methicillin resistant Staphylococcus aureus) infection (5) Diabetes 1.5, managed as type 2 (6) Hypertension (7) Atrial fibrillation (8) Hypoglycemia (9) Acute renal injury (10) Pneumonia (11) thoracic wound infection + MRSA CBC/BMP: 07/21/16 0641 07/22/16 0600 Significant Findings Laboratory Tests Test 07/20/16 07/21/16 07/22/16 05:57 06:41 06:00 Creatinine 1.61 MG/DL 1.63 MG/DL 1.69 MG/DL (0.60-1.30) (0.60-1.30) (0.60-1.30) Estimat Glomerular Filtration 41 ML/MIN (>89) 40 ML/MIN (>89) 38 ML/MIN (>89) Rate Red Blood Count 3.35 MIL/MM3 (4.50-5.90) Hemoglobin 10.0 GM/DL (13.0-17.0) Hematocrit 30.6 % (39.0-51.0) Eosinophils (%) (Auto) 8.0 % (0.0-4.0) Eosinophils # (Auto) 0.8 TH/MM3 (0-0.4) Blood Urea Nitrogen 26 MG/DL (7-18) Random Glucose 149 MG/DL (74-106) Imaging Last Impressions Chest X-Ray 07/16/161999 Signed Impressions: Service Date/Time: Saturday, July 16, 2016 20:04 - CONCLUSION: Cardiomegaly with diffuse pulmonary consolidation likely representing edema. Some degree of effusion needs to be considered given the increased density at the bases. Paul Mahmood MD Hospital Course Pt is an 86 year old male patient, PMH of Atrial Fibrillation, HTN, CAD, and DM2, with recent hospitalizations. Initially, pt. presented to [facility] ER on 04/30 after a fall from 10 feet while trying to fix his pool screen and landed on his LEFT hip, hitting his head on the ground. No LOC. He was with left intertrochanteric femur fx and T8-T9 fx.Neursosurgery was consulted; s/p ORIF unstable T8,T9 fractures with T7 to T11 posterior fixation using transpedicular screws and rods on 05/04/[address] Knight. Orthopedics was consulted; s/p Left femur IMN on 05/[address] France. Pt. eventually stabilized and went to [facility] for comprehensive rehab. After [facility], he went to SNF for further rehab. He presented back to [place] with fever, was found septic. During workup he was found with MRSA to surgical site as well as pneumonia. He was evaluated by neurosurgery, as well as infectious disease. Per neurosurgery , there was no need to remove hardware. The recommendation was that there was no osteomyelitis and infection was likely superficial. Recommendations were made to continue on IV antibiotics at rehabilitation facility and PICC line was placed. Patient presented back to the emergency room for increased lethargy. Per emergency room report, patient was staring into space. Sats were 85% on nasal cannula 5 L. Patient is normally alert and oriented 4. Patient was evaluated in emergency room, laboratory workup was completed. He was noted with mild leukocytosis, WBC 11.3, hemoglobin 11.2, hematocrit 34. Creatinine was slightly elevated, 1.45. BUN 26. B natruretic peptide 468. Troponin was negative. Chest x-ray completed showed cardiomegaly with diffuse pulmonary consolidation likely representing edema as well as some degree of effusion. EKG showed atrial fibrillation. Patient was started empirically on antibiotics and Lasix. Cultures were obtained. UA positive for large amount of leukocyte esterase and WBC. Patient was evaluated, son was at bedside. He is also the POA. Patient was lethargic, did open eyes to voice, knew he was in the hospital however unable to provide any other details. His son Bill was concerned about patient's declining health and frequent hospitalizations. Patient does have a DNR and son wanted to make sure that we respect his wishes. Sisters were arriving from [place] and they will be discussing future goals of care. They have noticed that in the last couple days, patient had been refusing to eat and appeared to be "giving up". Patient was admitted for further evaluation and treatment. (1) CHF (congestive heart failure) (2) Diabetic neuropathy (3) Hx of unstable T8,T9 fractures due to fall with T7 to T11 posterior fixation using transpedicular screws and rods on 05/04/16 (4) MRSA (methicillin resistant Staphylococcus aureus) infection (5) Diabetes 1.5, managed as type 2 (6) Hypertension (7) Atrial fibrillation (8) Hypoglycemia (9) Acute renal injury (10) AMS (11) PNA During the course of the hospitalization, the following took place: 85-year-old elderly male with recent admissions, first after 10 ft. fall that resulted in left femur fracture as well T8-T9 fracture both requiring surgery. Most recently admitted with sepsis, pneumonia. Found with MRSA to surgical site in the spine, and hardware. Patient presented this time with shortness of breath and altered mental status. Chest x-ray with findings of possible CHF versus pneumonia. Altered mental status, possibly secondary to infectious process, PNA, UTI, also with MRSA infection to spinal hardware, surgical site. Improved as infection resolved. -Continued with vancomycin, followed cultures DuoNeb's ordered Continue with oxygen to keep sats greater than 92 -Swallow evaluation done, followed their recommendations. Monitored for aspiration. -Consulted infectious disease, Dr. Antonio-appreciate ID input. Followed infection parameters. No further changes were made to abx -cultures remained negative. -cleared for discharge by ID CHF exacerbation,diastolic, had recent echocardiogram May 13, 2016, EF 50- 55%. -Continue Lasix 40 mg po daily -Monitored intake and output -Echo done EF 55 to 60 diastolic HF -stable, continued on oxygen, no SOB. Diuresed well. A. fib, controlled Continuous cardiac telemetry -Continued beta blockers Had one episode of NSVT day of dc, it was held. -continued BB -Labs reviewed, stable -No further episodes. Acute renal injury, likely due to dehydration Monitored renal function -stable -lab ordered to be monitored at SNF History of diabetes II, was hypoglycemic, on oral hypoglycemics with poor by mouth intake.Improved as PO intake improved. -Accu-Cheks before meals and at bedtime -pt. eating, enc. to inc. PO intake -no further episodes of hypoglycemia Hypertension, stable Continued home medications Pt. stabilized, improved mentation better appetite ambulated with PT no fever CM consulted for DC planning. Was put on Heparin for DVT prophylaxis PT. discharged in stable condition to SNF Instructed to: F/U Dr. Esteves F/U PCP F/U Dr. Antonia Ferrell-heart healthy Activity-as tolerated Pt Condition on Discharge: Stable Discharge Disposition: Discharge to SNF Discharge Instructions DIET: Follow Instructions for: Diabetic Diet Activities you can perform: Weight Bearing as Mary Follow up Referrals: Appointment for Follow Up - 10 Days @ [facility] with Alisha Esteves MD PCP Follow-up New Medications: Fluconazole (Diflucan) 200 Mg Tab 200 MG PO DAILY Infection #5 TAB Ipratropium-Albuterol Neb (Duoneb) 0.5-2.5 Mg/3 Ml Neb 1 AMPULE NEB QID NEB Shortness of Breath #20 ML Continued Medications: Acetaminophen (Acetaminophen) 325 Mg Tab 650 MG PO Q4H PRN PAIN SCALE 1 TO 5 Days 14 TAB Allopurinol (Zyloprim) 300 Mg Tab 300 MG PO DAILY Days [address] (Aspirin EC) 81 Mg Tabdr 81 MG PO DAILY A. fib #[address] (Bisacodyl EC) 5 Mg Tabec 10 MG PO DAILY PRN CONSTIPATION Days 14 TAB Digoxin (Digoxin) 0.125 Mg Tab 0.125 MG PO DAILY Days 14 TAB Epinephrine Inj (Epinephrine Inj) 1 Mg/Ml Inj 0.3 MG IV PUSH ONCE PRN ALLERGIC REACTION #1 VIAL Epinephrine Inj (Epinephrine Inj) 1 Mg/Ml Inj 0.3 MG SQ ONCE Give with any signs of respiratory distress. PRN ALLERGIC REACTION #1 VIAL Famotidine (Famotidine) 20 Mg Tab 10 MG PO BID Days 14 TAB Furosemide (Lasix) 40 Mg Tab 40 MG PO DAILY Days 14 TAB Glipizide (Glipizide) 10 Mg Tab 20 MG PO BIDAC Take 30 minutes before a meal Blood Sugar Management #60 Ref 0 TAB Hydrocortisone Inj (Solu-Cortef Inj) 250 Mg Inj 250 MG IV PUSH ONCE Give over 30-60 seconds. PRN ALLERGIC REACTION #1 Ref 0 VIAL Isradipine (Isradipine) 2.5 Mg Cap 5 MG PO BID Days 14 CAP Magnesium Hydroxide Liq (Milk of Magnesia Liq) 400 Mg/5 Ml Susp 30 ML PO DAILY PRN constipation Days 14 Metoprolol Tartrate (Metoprolol Tartrate) 25 Mg Tab 25 MG PO Q8HR Days 14 TAB Skin Protectants, Misc. (Ilex Skin Protectant) 58.3 % Pst 1 APPLIC TOPICAL DAILY PRN skin prep Days 14 Vancomycin Inj (Vancomycin Inj) 10 Gm Inj 1500 MG IV DAILY MRSA spine hardware infection Days 42 Ref 0 VIAL Discontinued Medications: Metformin (Glucophage) 500 Mg Tab 500 MG PO BIDPC Days 14 TAB Oxycodone (Oxycodone) 5 Mg Tab 10 MG PO Q4H PRN PAIN SCALE 6 TO 10 Days 30 TAB Oxycodone (Oxycodone) 5 Mg Tab 5 MG PO Q4H PRN PAIN SCALE 1 TO 10 #14 TAB Margareth Iglesias Jul 22, 2016 17:36
[2016-07-22] MEDS ORDERED: VANCOMYCIN INJ 1,500 MG in SODIUM CHLORID 0.9% 500 ML INJ 500 ML IV ONE (18:00)
[2016-09-08] MEDS ORDERED: DOXA1TAB36 PO (12:07)
[2016-09-20] MEDS ORDERED: BETH25TA2 PO (14:43)
[2016-09-27] MEDS ORDERED: DOXA1TAB36 PO (17:13)
[2016-10-13] MEDS ORDERED: DOXY1CAP91 PO (10:52)
[2016-10-13] MEDS ORDERED: LACTCAP8 PO (10:52)
[2016-11-03] MEDS ORDERED: METO25TA3 PO (13:27)
[2016-11-03] MEDS ORDERED: VITA100T54 PO (13:27)
[2016-11-03] MEDS ORDERED: FURO1TAB62 PO (13:27)
[2016-11-03] MEDS ORDERED: MELA5TAB15 PO (13:27)
[2016-11-03] MEDS ORDERED: LACTCAP8 PO (13:27)
[2016-11-03] MEDS ORDERED: BETH25TA2 PO (14:14)
[2016-11-03] MEDS ORDERED: DOXA1TAB36 PO (14:14)
== END 2016-07-22 14:44 | DRG 177 ==
LOC: NEPE 19:36 → NEDA 07-17 00:57 → NEPFCDU 07-17 03:56 → N05B 07-17 16:26
PROVIDERS: ADMIT Specialist; ATTEND Specialist
DX: J69.0 Pneumonitis due to inhalation of food and vomit (principal); G93.41 Metabolic encephalopathy; I47.2 Ventricular tachycardia; N17.9 Acute kidney failure, unspecified; L89.312 Pressure ulcer of right buttock, stage 2; I50.32 Chronic diastolic (congestive) heart failure; E11.42 Type 2 diabetes mellitus with diabetic polyneuropathy; Z66 Do not resuscitate; E11.649 Type 2 diabetes mellitus with hypoglycemia without coma; B37.49 Other urogenital candidiasis; I10 Essential (primary) hypertension; I25.10 Atherosclerotic heart disease of native coronary artery without angina pectoris; I48.91 Unspecified atrial fibrillation; E86.0 Dehydration; F50.9 Eating disorder, unspecified; R62.7 Adult failure to thrive; M10.9 Gout, unspecified; F41.9 Anxiety disorder, unspecified; R41.0 Disorientation, unspecified; K21.9 Gastro-esophageal reflux disease without esophagitis; G47.30 Sleep apnea, unspecified; Z51.5 Encounter for palliative care; E87.6 Hypokalemia; Z96.659 Presence of unspecified artificial knee joint; Z79.84 Long term (current) use of oral hypoglycemic drugs; Z87.440 Personal history of urinary (tract) infections; Z91.81 History of falling; Z87.442 Personal history of urinary calculi; Z86.14 Personal history of Methicillin resistant Staphylococcus aureus infection; Z98.1 Arthrodesis status
CPT/HCPCS: 71010; 80048; 80053; 80202; 80307; 81001; 82550; 82565; 82948; 83735; 83880; 84484; 85007; 85025; 85027; 87040; 87086; 87449; 93005; 93308; 94640; 94664; 96365; 96375; J0456; J0692; J0696; J1642; J1644; J1815; J1940; J2997; J3370; J7040; J7050

== ENCOUNTER 2016-08-02 18:52 | Inpatient (IN) | payer MEDICARE ==
[~2016-08-02] VITALS: Ht 175.3 cm; Wt 86.5 kg
[~2016-08-02 18:52] MED LIST changes: +IPRASOL NEB; -METF500 PO; -METFPOW PO; -OXYC-392 PO
[2016-08-02 19:07] VITALS: BP 127/60; PULSE 71; RESP 22; TEMP 97.4; O2SAT 95
--- NOTE | 2016-08-02 19:38 | PD ---
HPI Chief Complaint: General Weakness Time Seen by Provider: 19:15 Travel History International Travel<30 days: No Contact w/Intl Traveler<30days: No Traveled to known affect area: No History of Present Illness HPI The patient is an 86 year old male who presents to the [facility] emergency department with a history of according to the nursing record generalized weakness for the last 3 days. The report was taken by the staff prior to arrival, therefore unable to speak to ambulance services regarding this patient. The patient does arrive awake and alert. He reports that he has weakness in both legs which is increased compared to previously. He is currently a resident at a local retirement for rehabilitation after a fall in April in which she acquired T8-T9 fractures and an intertrochanteric fracture of the femur. Subsequent to that he was also admitted to the hospital for sepsis likely related to a wound infection in his back that did not involve the hardware according to the record, and pneumonia. The patient was on a prolonged course of vancomycin, he believes that this was completed, however he is not exactly sure. He reports that he has had a mild cough although this has improved recently. He reports that his appetite has been improved. He reports that this morning he did have a fever, however he is unsure what the temperature was. The patient denies having any numbness or tingling to his extremities. He denies having any new weakness of his upper extremities. He denies having any facial droop, saddle anesthesia, difficulty with word finding ability, or dizziness. The patient denies any congestion, neck pain, chest pain , shortness of breath, abdominal pain, vomiting, diarrhea, urinary symptoms, or other neurologic symptoms. According to the note from ambulance services the patient's blood sugar prior to arrival was noted to be normal. The patient received normal saline a 500 mL bolus. [facility] Past Medical History Narrative Medical The patient's past medical history is significant for recent history of a fall April 302015 with a left hip intertrochanteric fracture, T8-T9 fracture, both status post surgical repair followed by sepsis related to a pneumonia and a wound infection, history of atrial fibrillation, coronary artery disease, diabetes mellitus, acid reflux, history of urinary tract infection previously, hypertension, kidney stones, gout, sleep apnea. The patient according to the retirement record is on supplemental oxygen at 3 L when necessary. Arthritis: No Asthma: No Autoimmune Disease: No Anxiety: Yes (occasionally in the evening since surgery) Depression: No Heart Rhythm Problems: Yes (A-fib) Cancer: No Cardiovascular Problems: Yes (AFIB) High Cholesterol: No Chemotherapy: No Chest Pain: No Congestive Heart Failure: No COPD: No Cerebrovascular Accident: No Diabetes: Yes Patient Takes Glucophage: Yes (METFORMIN ) Endocrine: Yes Gastrointestinal Disorders: No GERD: Yes (occasional) Genitourinary: Yes (uti) Headaches: No Hiatal Hernia: No Heparin Induced Thrombocytopen: No Hypertension: Yes Immune Disorder: No Implanted Vascular Access Dvce: No Kidney Stones: Yes Musculoskeletal: Yes (gout, back sx from fall) Neurologic: No Psychiatric: No Reproductive: No Respiratory: No Immunizations Current: Yes Migraines: No Radiation Therapy: No Renal Failure: No Seizures: No Sickle Cell Disease: No Sleep Apnea: Yes Thyroid Disease: No Ulcer: No Tetanus Vaccination: > 5 Years Past Surgical History Narrative Surgical The patient's past surgical history is significant for an abdominal surgery, cataract surgery, lithotripsy, knee replacement, inguinal hernia repair, left hip ORIF, ORIF of T7 through T 11 with fixation due to fractures from a fall. Abdominal Surgery: Yes AICD: No Arteriovenous Shunt: No Body Medical Devices: ROBINSON picc line Cardiac Surgery: No Ear Surgery: No Endocrine Surgery: No Eye Surgery: Yes (Cataract surgery both eyes) Genitourinary Surgery: Yes (STONES) Gynecologic Surgery: No Insulin Pump: No Joint Replacement: Yes (KNEE) Neurologic Surgery: No Oral Surgery: No Pacemaker: No Thoracic Surgery: Yes (Laminectomy 05/04/2016) Other Surgery: Yes (INGUINAL HERNIA REPAIR, back sx, left tibia) Social History Alcohol Use: Yes (couple times a week) Tobacco Use: No Substance Use: No Allergies-Medications (Allergen,Severity, Reaction): Coded Allergies: *MDRO Multi-Drug Resistant Organism (Verified Adverse Reaction, Unknown, ) 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 Reported Meds & Prescriptions Reported Meds & Active Scripts Active Aspirin EC (Aspirin) 81 Mg Tabdr 81 Mg PO DAILY Metoprolol Tartrate 25 Mg Tab 25 Mg PO Q8HR 14 Days Milk of Magnesia Liq (Magnesium Hydroxide) 400 Mg/5 Ml Susp 30 Ml PO DAILY PRN 14 Days Lasix (Furosemide) 40 Mg Tab 40 Mg PO DAILY 14 Days Digoxin 0.125 Mg Tab 0.125 Mg PO DAILY 14 Days Zyloprim (Allopurinol) 300 Mg Tab 300 Mg PO DAILY 14 Days Acetaminophen 325 Mg Tab 650 Mg PO Q4H PRN 14 Days Walker with Front Wheels (Device) 1 Mis Mis 1 Ea .ROUTE DIRECTED Reported Bisacodyl EC (Bisacodyl) 5 Mg Tabec 5 Mg PO DAILY PRN Isradipine 2.5 Mg Cap 2.5 Mg PO BID Famotidine 20 Mg Tab 20 Mg PO BID Vancomycin Inj (Vancomycin HCl) 1,000 Mg Inj 750 Mg IVPB DAILY Glipizide 10 Mg Tab 10 Mg PO BIDAC Take 30 minutes before a meal Review of Systems Except as stated in HPI: all other systems reviewed are Neg General / Constitutional: Positive: Fever Eyes: No: Visual changes HENT: No: Headaches Cardiovascular: No: Chest Pain or Discomfort, Dyspnea on exertion Respiratory: Positive: Cough, No: Shortness of Breath Gastrointestinal: No: Abdominal Pain Genitourinary: No: Dysuria Musculoskeletal: No: Pain Skin: No Rash Neurologic: Positive: Weakness (lower extremity weakness), No: Focal Abnormalities, Coordination Problem, Change in Mentation, Slurred Speech, Paresthesia, Sensory Disturbance Psychiatric: No: Depression Endocrine: No: Polydipsia Hematologic/Lymphatic: No: Easy Bruising Physical Exam Narrative General: The patient is a well-developed well-nourished male in no acute distress. He arrives awake and alert. He is pleasant and conversive. Head and Neck exam: Head is normocephalic atraumatic. Eyes: EOMI, pupils are equal round and reactive to light. Nose: Midline septum with pink mucous membranes Mouth: Dentition unremarkable. Moist mucus membranes. Posterior oropharynx is not erythematous. No tonsillar hypertrophy. Uvula midline. Airway patent. Neck: No palpable lymphadenopathy. No nuchal rigidity. No thyromegaly. Cardiovascular: Regular rate and rhythm without murmurs, gallops, or rubs. Lungs: Clear to auscultation bilaterally. No wheezes, rhonchi, or rales. Abdomen: Soft, without tenderness to palpation in all 4 quadrants of the abdomen. No guarding, rebound, or rigidity. Normal bowel sounds are audible. Extremities: No clubbing or cyanosis. The patient has trace pedal edema. 2+ pulses in all 4 extremities. On examination of the area where he had the hip fracture. The patient has complete healing and scarring of the postoperative wound Back: No spinous process tenderness to palpation. No costovertebral angle tenderness to palpation. The patient on examination of his back in the mid thoracic area has a bandage in place that is clean, dry, and intact. This was gently removed and the patient has an open wound that is packed with a dressing has a pick drainage on it. The patient has has no significant surrounding erythema, edema , or tenderness on palpation. No other drainage is able to be expressed. Neurologic Exam: Cranial nerves 2-12 were intact on exam. Strength is 5/5 in bilateral upper extremities. The patient has strength that is 3 over 5 in bilateral lower extremities. No sensory deficits noted. Skin Exam: No rash noted. Intact skin that is warm and dry. Data Data Last Documented VS Vital Signs Date Time Temp Pulse Resp B/P Pulse Ox O2 Delivery O2 Flow Rate FiO2 08/02/16 19:20 Nasal Cannula 08/02/16 19:07 97.4 71 22 127/[address] Thor Spine W/O Contrast (08/02/16 19:26) Ct Lumb Spine W/O Contrast (08/02/16 19:26) Electrocardiogram (08/02/16 19:26) Complete Blood Count With Diff (08/02/16:26) Comprehensive Metabolic Panel (08/02/16 19:26) Creatine Kinase (Cpk) (08/02/16 19:26) Ckmb (Isoenzyme) Profile (08/02/16:26) Troponin I (08/02/16:26) Prothrombin Time / Inr (Pt) (08/02/16:26) Act Partial Throm Time (Ptt) (08/02/16 19:26) Blood Culture (08/02/16:26) C-Reactive Protein (Crp) (08/02/16 19:26) Urinalysis - C+S If Indicated (08/02/16:26) Cath For Specimen (08/02/16:26) Westergren Sedimentation Rate (08/02/16:26) Magnesium (Mg) (08/02/16 19:26) Chest, Single Ap (08/02/16 19:26) Iv Access Insert/Monitor (08/02/16 19:26) Ecg Monitoring (08/02/16 19:26) Oximetry (08/02/16 19:26) Ceftriaxone Inj (Rocephin Inj) (08/02/16 21:00) Azithromycin Inj (Zithromax Inj) (08/02/16 21:00) Lactic Acid (08/02/16 20:54) Vancomycin Inj (Vancomycin Inj) (08/02/16 21:30) Admit Order (Ed Use Only) (08/02/16 21:29) Vital Signs (Adult) Q4H (08/02/16 21:29) Activity Oob With Assistance (08/02/16 21:29) Guidance Adviser / Telemetry .CONTINUOUS (08/02/16 21:29) Sodium Chloride 0.9% Flush (Ns Flush) (08/02/16 21:30) Sodium Chloride 0.9% Flush (Ns Flush) (08/03/16 09:00) Ondansetron Inj (Zofran Inj) (08/02/16 21:30) Basic Metabolic Panel (Bmp) (08/03/16 06:00) Complete Blood Count With Diff (08/03/16 06:00) Pt Request For Service (08/02/16 21:29) Case Management Consult (08/02/16 21:29) Heparin Inj (Heparin Inj) (08/03/16 06:00) Naloxone Inj (Narcan Inj) (08/02/16 21:30) Vancomycin Consult Pharmacy (Vancomycin (08/02/16 21:30) Levofloxacin 750 Mg Premix Inj (Levaquin (08/02/16 22:30) Labs Laboratory Tests Test 08/02/16 08/02/16 19:45 20:30 White Blood Count 10.7 TH/MM3 Red Blood Count 3.27 MIL/MM3 Hemoglobin 9.9 GM/DL Hematocrit 29.7 % Mean Corpuscular Volume 90.9 FL Mean Corpuscular Hemoglobin 30.4 PG Mean Corpuscular Hemoglobin 33.5 % Concent Red Cell Distribution Width 15.3 % Platelet Count 219 TH/MM3 Mean Platelet Volume 9.2 FL Neutrophils (%) (Auto) 66.9 % Lymphocytes (%) (Auto) 17.5 % Monocytes (%) (Auto) 9.4 % Eosinophils (%) (Auto) 4.9 % Basophils (%) (Auto) 1.3 % Neutrophils # (Auto) 7.2 TH/MM3 Lymphocytes # (Auto) 1.9 TH/MM3 Monocytes # (Auto) 1.0 TH/MM3 Eosinophils # (Auto) 0.5 TH/MM3 Basophils # (Auto) 0.1 TH/MM3 CBC Comment DIFF FINAL Differential Comment Erythrocyte Sedimentation Rate GREATER THAN 140 mm/hr Prothrombin Time 12.3 SEC Prothromb Time International 1.1 RATIO Ratio Activated Partial 31.5 SEC Thromboplast Time Sodium Level 140 MEQ/L Potassium Level 3.9 MEQ/L Chloride Level 103 MEQ/L Carbon Dioxide Level 28.8 MEQ/L Anion Gap 8 MEQ/L Blood Urea Nitrogen 26 MG/DL Creatinine 1.66 MG/DL Estimat Glomerular Filtration 39 ML/MIN Rate Random Glucose 107 MG/DL Calcium Level 8.5 MG/DL Magnesium Level 1.8 MG/DL Total Bilirubin 0.5 MG/DL Aspartate Amino Transf 24 U/L (AST/SGOT) Alanine Aminotransferase 14 U/L (ALT/SGPT) Alkaline Phosphatase 92 U/L Total Creatine Kinase 68 U/L Troponin I 0.03 NG/ML C-Reactive Protein 17.00 MG/DL Total Protein 6.8 GM/DL Albumin 2.1 GM/DL Lactic Acid Level 1.1 mmol/L [facility] Medical Decision Making Medical Screen Exam Complete: Yes Emergency Medical Condition: Yes Medical Record Reviewed: Yes Interpretation(s) Last Impressions Thoracic Spine CT 08/02/161925 Signed Impressions: Service Date/Time: Tuesday, August 02, 2016 19:46 - CONCLUSION: 1. Subacute fracture of the T9 vertebral body and posterior elements again noted, status post fusion from T7-T11. Fracture again noted to focally extend into the T8/T9 intervertebral disc space. The fracture is incompletely healed. 2. Vertebral body endplate destruction and anterior predominant osseous ridging have developed at T8/T9, etiology uncertain but I believe related to persistent motion as there is lucency around the bilateral pedicle screws at T10 and T11. I don't see an abscess or high-grade juxtavertebral inflammatory changes but please correlate clinically for the possibility of T8/T9 discitis.. 3. 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 4. Small right and [id number] left pleural effusions with dependent consolidation or noted of the visualized lungs. Paul Clinton MD Lumbar Spine CT 08/02/161925 Signed Impressions: Service Date/Time: Tuesday, August 02, 2016 19:53 - CONCLUSION: No acute abnormality or significant change seen in the CT appearance of the lumbar spine. Multilevel facet degenerative changes are again noted and chronic loss of height of L5. Paul Clinton MD Chest X-Ray 08/02/161925 Signed Impressions: Service Date/Time: Tuesday, August 02, 2016 19:38 - CONCLUSION: Mild patchy consolidation and small effusion on the left. Paul Clinton MD Hip X-Ray 08/02/16 0000 Signed Impressions: Service Date/Time: Wednesday, August 03, 2016 00:08 - CONCLUSION: 1. Medullary rosa and compression screw securing a presumed old left hip fracture. 2. Bony eburnation around the proximal femur but no acute fracture identified. Sherwin Wallace MD Differential Diagnosis Epidural abscess, versus epidural hematoma, versus weakness related to an infectious process such as a urinary tract infection, versus recurrent wound infection, versus pneumonia, versus sepsis of undetermined origin, versus electrolyte abnormality. Narrative Course During the course of the patients emergency department visit, the patients history, examination, and differential diagnosis were reviewed with the patient. The patient had IV access obtained and blood work sent for analysis. The patient was placed on a equipment validation specialist with oximetry and blood pressure monitoring. An EKG was ordered. A CT scan of the thoracic and lumbar spine was ordered. The patient's EKG shows atrial fibrillation with rate control, heart rate of 70, no acute ST segment elevation is noted, occasional PVCs are noted. Weighs are inverted in V1. The patients laboratory studies were reviewed and remarkable for a white count of 10.7, hemoglobin 9.9 which is compared to previously at 10 and similar, platelets tonight seen with 9.4 monocytes. CMP is remarkable for a BUN of 26, creatinine 1.66 which is compared to previously at 26 and 1.63 respectively, blood glucose 107, C-reactive protein is elevated at 17, PT 12.3, INR 1.1, PTT 31.5. Radiology studies were reviewed and remarkable for a chest x-ray that shows mild patchy consolidation and small effusion on the left, CT scan a lumbar spine shows no acute abnormality, degenerative changes are noted, chronic loss of height of L5 noted. Given the patient's patchy infiltrate and elevated CRP, this could be the cause of the patient's weakness, the patient was given Rocephin 1 g IV, Zithromax 500 IV for coverage for pneumonia. CT scan of the T- spine shows evidence of prior fracturing and fusion with continued healing. No evidence of abscess or inflammatory changes were noted by the radiologist. The patient's generalized weakness could be related to his acute infection, pneumonia. The patient will be admitted for continued evaluation and treatment. The patients results were discussed with the patient, including the plan of care. I explained that further testing and/ or monitoring is indicated based on the patients history, examination, and/ or laboratory findings. Therefore, I recommended admission for additional evaluation. The patient expressed understanding and was agreeable with this plan. The patient was admitted to the hospital in stable condition and sent to a bed under the care of the [facility]. Physician Communication Physician Communication The patient's case is discussed with Dr. Rain who did agree to admit the patient for further evaluation and treatment at this time. Diagnosis Primary Impression: Pneumonia Qualified Code: J18.9 - Pneumonia of left lung due to infectious organism, unspecified part of lung Additional Impression: Lower extremity weakness Qualified Code: R29.898 - Weakness of both lower extremities Admitting Information Admitting Physician Requests: Admit Michelle Mishra MD Aug 02, 2016 19:38
--- NOTE | 2016-08-02 19:46 | RADRPT ---
EXAM DATE/TIME: 08/02/2016 19:38 [facility] COMPARISON: CHEST SINGLE AP, July 16, 2016, 20:04. INDICATIONS : Cough MEDICAL HISTORY : Hypertension. Diabetes mellitus type II. Congestive heart failure. Cardiovascular disease. SURGICAL HISTORY : Thoracic spinal fusion. ENCOUNTER: Initial ACUITY: 2 days PAIN SCORE: 0/10 LOCATION: chest FINDINGS: Mild patchy infiltrates in left midlung and base. Small left pleural effusion also suspected. Right l sara clear. Heart size stable, the limits of normal. Thoracic aorta is tortuous and atherosclerotic. Patient has had previous thoracic spine fusion. CONCLUSION: Mild patchy consolidation and small effusion on the left. Paul Clinton MD on August 02, 2016 at 19:43 Board Certified Radiologist. This report was verified electronically.
[2016-08-02 20:00] LABS: AUTOMATED NEUTROPHIL # 7.2 TH/MM3 (1.8-7.7); BASOPHIL # 0.1 TH/MM3 (0-0.2); BASOPHIL % 1.3 % (0.0-2.0); EOSINOPHIL # 0.5 TH/MM3 (0-0.4); EOSINOPHIL % 4.9 % (0.0-4.0); HEMATOCRIT 29.7 % (39.0-51.0); HEMO FLAGS DIFF FINAL; LYMPH % 17.5 % (9.0-44.0); LYMPHOCYTE # 1.9 TH/MM3 (1.0-4.8); MEAN CELL VOLUME 90.9 FL (80.0-100.0); MEAN CORPUSCULAR HEMOGLOBIN 30.4 PG (27.0-34.0); MEAN CORPUSCULAR HGB CONC 33.5 % (32.0-36.0); MONO % 9.4 % (0.0-8.0); NEUT % 66.9 % (16.0-70.0); PLATELET COUNT 219 TH/MM3 (150-450); RED BLOOD COUNT 3.27 MIL/MM3 (4.50-5.90); RED CELL DISTRIBUTION WIDTH 15.3 % (11.6-17.2); WHITE BLOOD COUNT 10.7 TH/MM3 (4.0-11.0)
[2016-08-02 20:11] LABS: APTT (PATIENT) 31.5 SEC (24.3-30.1); INTERNATIONAL NORMALIZED RATIO 1.1 RATIO; PROTHROMBIN TIME - PATIENT 12.3 SEC (9.8-11.6)
[2016-08-02] MEDS ORDERED: VANC1000P IVPB (20:26)
[2016-08-02] MEDS ORDERED: FAMO20TA2 PO (20:26)
[2016-08-02] MEDS ORDERED: [UNRECOGNIZED DRUG - CODE] PO (20:27)
[2016-08-02 20:29] LABS: ALKALINE PHOSPHATASE 92 U/L (45-117); ALT (GPT) 14 U/L (12-78); ANION GAP 8 MEQ/L (5-15); AST (GOT) 24 U/L (15-37); BICARBONATE 28.8 MEQ/L (21.0-32.0); BLOOD UREA NITROGEN 26 MG/DL (7-18); CHLORIDE 103 MEQ/L (98-107); GLOMERULAR FILTRATION RATE 39 ML/MIN (>89); MAGNESIUM 1.8 MG/DL (1.5-2.5); SODIUM (NA) 140 MEQ/L (136-145); TOTAL BILIRUBIN ADULT 0.5 MG/DL (0.2-1.0)
[2016-08-02] MEDS ORDERED: FLEE5TAB PO (20:30)
[2016-08-02 20:32] LABS: CREATINE KINASE 68 U/L (39-308); POTASSIUM 3.9 MEQ/L (3.5-5.1)
--- NOTE | 2016-08-02 20:32 | RADRPT ---
EXAM DATE/TIME: 08/02/2016 19:53 [facility] COMPARISON: No previous studies available for comparison. INDICATIONS : Back pain and weakness. RADIATION DOSE: 24.72 CTDIvol (mGy) MEDICAL HISTORY : Cardiovascular disease. Hypertension. SURGICAL HISTORY : None. ENCOUNTER: Initial ACUITY: 1 day PAIN SCALE: 5/10 LOCATION: Paraspinal TECHNIQUE: Volumetric scanning of the lumbar spine was performed. Multiplanar reconstructions in the sagittal, coronal and oblique axial planes were performed. Using automated exposure control and adjustment of the mA and/or kV according to patient size, radiation dose was kept as low as reasonably achievable t o obtain optimal diagnostic quality images. FINDINGS: Since the prior CT, the patient has had fusion procedure with posterior instrumentation in the lower thoracic spine. CT thoracic spine to follow. Lumbar spine alignment remains normal. Chronic loss of height of L5 vertebral body again noted. No ac esther lumbar spine fracture demonstrated. Facet degenerative changes throughout and there is associated bilateral foraminal stenosis at L2/L3, L3/L4 and L4/L5. There is mild to moderate spinal stenosis at L4/L5. These findings are unchanged. CONCLUSION: No acute abnormality or significant change seen in the CT appearance of the lumbar spine. Multilevel facet degenerative changes are again noted and chronic loss of height of L5. Paul Clinton MD on August 02, 2016 at 20:26 Board Certified Radiologist. This report was verified electronically.
[2016-08-02] MEDS ORDERED: cefTRIAXone INJ 1,000 MG in SODIUM CHLORIDE 0.9% INJ 100 ML IV ONE (21:00)
[2016-08-02] MEDS ORDERED: AZITHROMYCIN INJ 500 MG in SODIUM CHLOR 0.9% 250 ML INJ 250 ML IV ONE (21:00)
--- NOTE | 2016-08-02 21:24 | RADRPT ---
EXAM DATE/TIME: 08/02/2016 19:46 [facility] COMPARISON: MRI THORACIC SPINE W/O CONTRAST, May 01, 2016, 19:32. CT THORACIC SPINE W/O CONTRAST, April 30, 2016, 17:50. INDICATIONS : Back pain and weakness. RADIATION DOSE: 24.53 CTDIvol (mGy) MEDICAL HISTORY : Cardiovascular disease. Hypertension. Gastroesophageal reflux disease. SURGICAL HISTORY : Multiple thoracic fusion. ENCOUNTER: Initial ACUITY: 1 day PAIN SCALE: 5/10 LOCATION: Paraspinal TECHNIQUE: Volumetric scanning of the thoracic spine was performed. Multiplanar reconstructions in the sagittal , coronal and oblique axial planes were performed. Using automated exposure control and adjustment o f the mA and/or kV according to patient size, radiation dose was kept as low as reasonably achievable to obtain optimal diagnostic quality images. FINDINGS: Since the prior studies the patient has had fusion procedure with posterior instrumentation from T7-T 11. There are bilateral pedicle screws at T7, T8, T10 and T11. There is a left-sided pedicle screw at T9. There is lucency around the T10 and T11 pedicle screws. The nearly transverse fracture of the T9 vertebral body extending into the posterior elements and also extending into the T8/T9 intervertebra l disc space is again noted, incompletely healed. Alignment is unchanged, near anatomic. However, the re is endplate destruction that involves the inferior endplate of T8 more so than the superior endpla te of T9, new. I am not totally convinced this is related to the fracture healing. Circumferential os seous ridging has also developed at this level, especially anteriorly, and I believe persistent motio n across T8/T9 is the most likely explanation. Still, clinical correlation for possible T8/T9 disciti s is needed. Bridging syndesmophytes almost throughout the thoracic spine again noted. There is exaggeration of th e thoracic kyphosis, similar to the prior. I believe the patient probably has ankylosing spondylitis. I don't see a lot of Juxtavertebral soft tissue inflammatory changes but there are small right and sm [id number] left pleural effusions with dependent consolidation noted. No definite abscess seen o n these noncontrast images. CONCLUSION: 1. Subacute fracture of the T9 vertebral body and posterior elements again noted, status post fusion from T7-T11. Fracture again noted to focally extend into the T8/T9 intervertebral disc space. The fra cture is incompletely healed. 2. Vertebral body endplate destruction and anterior predominant osseous ridging have developed at T8/ T9, etiology uncertain but I believe related to persistent motion as there is lucency around the bila teral pedicle screws at T10 and T11. I don't see an abscess or high-grade juxtavertebral inflammatory changes but please correlate clinically for the possibility of T8/T9 discitis.. 3. 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 4. Small right and [id number] left pleural effusions with dependent consolidation or noted of the visualized lungs. Paul Clinton MD on August 02, 2016 at 21:09 Board Certified Radiologist. This report was verified electronically.
[2016-08-02] MEDS ORDERED: VANCOMYCIN INJ 1,000 MG in SODIUM CHLOR 0.9% 250 ML INJ 250 ML IV ONE (21:30)
[2016-08-02] MEDS ORDERED: NALOXONE HCL 0.4 MG/ML AMP IV PRN (21:30)
[2016-08-02] MEDS ORDERED: SODIUM CHLORIDE 0.9% FLUSH 5 ML FLUSH FLUSH PRN (21:30)
[2016-08-02] MEDS ORDERED: Vancomycin Consult Pharmacy 1 EA OTHER SCH (21:30)
[2016-08-02] MEDS ORDERED: ONDANSETRON HCL 4 MG/2 ML VIAL IVP PRN (21:30)
[2016-08-02] MEDS ORDERED: LEVOFLOXACIN 750 MG PREMIX INJ 150 ML IV SCH (22:30)
[2016-08-02 23:01] VITALS: BP 124/61; PULSE 90; RESP 24; O2SAT 96
--- NOTE | 2016-08-02 23:48 | HHI.HP ---
HPI Service [facility] Hospitalists Primary Care Physician Renard Phillips M.D. Admission Diagnosis Pneumonia, generalized weakness Diagnoses: (1) Pneumonia (2) Weakness (3) History of MRSA infection (4) Anemia (5) Renal insufficiency (6) Left knee pain Chief Complaint: generalized weakness Travel History International Travel<30 Days: No Contact w/Intl Traveler <30 Da: No Traveled to Known Affected Are: No History of Present Illness Mr. Klein is an 86 year-old male with a history of left hip fracture , T8 through T9 fracture with T7-[address] Knight 05/04/16 followed by sepsis relating to pneumonia and MRSA wound infection, atrial fibrillation, coronary artery disease, type 2 diabetes mellitus, hypertension, nephrolithiasis, and sleep apnea who presented to the emergency room 08/02/2016 to be evaluated for generalized weakness lasting for 4-5 days. The patient is seen in his hospital room. He states that he came to the hospital because he has been feeling very weak for the last 4-5 days. He denies fall, syncope, shortness of breath, fever, nausea, vomiting, diarrhea, black or red stool, hematuria, dysuria, unilateral weakness, chest pain, palpitations. He reports some mild postsurgical back pain and states that wound care nurse visited the patient and his facility as an outpatient. He also reports bladder incontinence since prior to the surgery. No recent changes. Denies any history of diabetes mellitus, hypertension, myocardial infarction, cardiac stents, coronary artery bypass graft, congestive heart failure, AICD, COPD/emphysema/asthma, no liver or kidney problems, no thyroid problems, seizures, cancers, or problems with blood clots such as: CVA, PE, or DVT. CIR after April discharge from [facility] and then to [facility]; been there since - independent prior to apr hospitalization. . Review of Systems Except as stated in HPI: all other systems reviewed are Neg Past Family Social History Past Medical History Atrial fibrillation Cardiovascular disease Admitted 07/01-07/08 after a fall from roof, had injuries that resulted in left femur fracture and T8-T9 fracture. Eventually discharged to [facility] Diabetes Mellitus, type 2 GERD Hypertension Nephrolithiasis Gout Sleep apnea Sepsis Pneumonia MRSA in T7-11 fixation site . Past Surgical History Abdominal surgery Cataracts both eyes Lithotripsy Knee replacement surgery Inguinal hernia repair x 2 Status post left hip IM May 01, 2016 Status post ORIF with T7-T11 posterolateral fixation on 05/04/16 . Reported Medications Reported Meds & Active Scripts Active Aspirin EC (Aspirin) 81 Mg Tabdr 81 Mg PO DAILY Metoprolol Tartrate 25 Mg Tab 25 Mg PO Q8HR 14 Days Milk of Magnesia Liq (Magnesium Hydroxide) 400 Mg/5 Ml Susp 30 Ml PO DAILY PRN 14 Days Lasix (Furosemide) 40 Mg Tab 40 Mg PO DAILY 14 Days Digoxin 0.125 Mg Tab 0.125 Mg PO DAILY 14 Days Zyloprim (Allopurinol) 300 Mg Tab 300 Mg PO DAILY 14 Days Acetaminophen 325 Mg Tab 650 Mg PO Q4H PRN 14 Days Walker with Front Wheels (Device) 1 Mis Mis 1 Ea .ROUTE DIRECTED Reported Bisacodyl EC (Bisacodyl) 5 Mg Tabec 5 Mg PO DAILY PRN Isradipine 2.5 Mg Cap 2.5 Mg PO BID Famotidine 20 Mg Tab 20 Mg PO BID Vancomycin Inj (Vancomycin HCl) 1,000 Mg Inj 750 Mg IVPB DAILY Glipizide 10 Mg Tab 10 Mg PO BIDAC Take 30 minutes before a meal . Allergies: Coded Allergies: *MDRO Multi-Drug Resistant Organism (Verified Adverse Reaction, Unknown, ) 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 Active Ordered Medications Current Medications Ceftriaxone Sodium 1000 mg/ Sodium Chloride 100 ml @ 200 mls/hr ONCE ONCE IV Last administered on 08/02/16 22:31; Start 08/02/16 at 21:00; Stop 08/02/16 at 21: 29; Status DC Azithromycin 500 mg/Sodium Chloride 250 ml @ 250 mls/hr ONCE ONCE IV Last administered on 08/02/16 21:37; Start 08/02/16 at 21:00; Stop 08/02/16 at 21:59; Status DC Vancomycin HCl/ Sodium Chloride (Vancomycin Inj/ NS 250 ml Inj) 250 ml @ 250 mls/hr ONCE ONCE IV ; Start 08/02/16 at 21:30; Stop 08/02/16 at 22:29; Status DC IV Flush (NS Flush) 2 ml UNSCH PRN FLUSH FLUSH AFTER USING IV ACCESS; Start 08/02/16 at 21:30 IV Flush (NS Flush) 2 ml BID FLUSH ; Start 08/03/16 at 09:00 Ondansetron HCl (Zofran Inj) 4 mg Q6H PRN IVP NAUSEA OR VOMITING; Start at 21:30 Heparin Sodium (Porcine) (Heparin Inj) 5,000 units Q8H SQ ; Start 08/03/16 at 06: 00 Naloxone HCl 0.4 mg 0.4 mg UNSCH PRN IV SEE LABEL COMMENTS; Start 08/02/16 at 21 :30 Pharmacy Profile Note 0 ml @ 0 mls/hr UNSCH OTHER ; Start 08/02/16 at 21:30 Levofloxacin/ Dextrose (Levaquin 750 Mg Premix Inj) 150 ml @ 100 mls/hr Q48H IV ; Start 08/02/16 at 22:30 . Family History Denies significant family history . Social History ETOH: a couple of bourbons a day Tobacco: quit 1974 Illicit drugs: denies . Physical Exam Vital Signs Vital Signs Date Time Temp Pulse Resp B/P Pulse Ox O2 Delivery O2 Flow Rate FiO2 08/02/16 23:01 90 24 124/61 96 Nasal Cannula 2 08/02/16 19:20 Nasal Cannula 08/02/16 19:07 97.4 71 22 127/60 95 Physical Exam GENERAL: This is a well-nourished, well-developed pleasant patient, in no apparent distress. SKIN: No rashes, ecchymoses or lesions. Cool and dry. HEAD: Atraumatic. Normocephalic. EYES: No scleral icterus. No injection or drainage. ENT: Nose without bleeding, purulent drainage. NECK: Trachea midline. No JVD or lymphadenopathy. CARDIOVASCULAR: Regular rate and rhythm without murmurs, gallops, or rubs. RESPIRATORY: Clear to auscultation. Breath sounds equal bilaterally. No wheezes , rales, or rhonchi. GASTROINTESTINAL: Abdomen soft, non-tender, nondistended. No guarding. MUSCULOSKELETAL: Extremities without clubbing, cyanosis, or edema. No calf tenderness. NEUROLOGICAL: Awake and alert; pleasant. Motor and sensory grossly within normal limits. Normal speech. . Laboratory Laboratory Tests Test 08/02/16 08/02/16 19:45 20:30 White Blood Count 10.7 Red Blood Count 3.27 Hemoglobin 9.9 Hematocrit 29.7 Mean Corpuscular Volume 90.9 Mean Corpuscular Hemoglobin 30.4 Mean Corpuscular Hemoglobin 33.5 Concent Red Cell Distribution Width 15.3 Platelet Count 219 Mean Platelet Volume 9.2 Neutrophils (%) (Auto) 66.9 Lymphocytes (%) (Auto) 17.5 Monocytes (%) (Auto) 9.4 Eosinophils (%) (Auto) 4.9 Basophils (%) (Auto) 1.3 Neutrophils # (Auto) 7.2 Lymphocytes # (Auto) 1.9 Monocytes # (Auto) 1.0 Eosinophils # (Auto) 0.5 Basophils # (Auto) 0.1 CBC Comment DIFF FINAL Differential Comment Erythrocyte Sedimentation Rate GREATER THAN 140 Prothrombin Time 12.3 Prothromb Time International 1.1 Ratio Activated Partial 31.5 Thromboplast Time Sodium Level 140 Potassium Level 3.9 Chloride Level 103 Carbon Dioxide Level 28.8 Anion Gap 8 Blood Urea Nitrogen 26 Creatinine 1.66 Estimat Glomerular Filtration 39 Rate Random Glucose 107 Calcium Level 8.5 Magnesium Level 1.8 Total Bilirubin 0.5 Aspartate Amino Transf 24 (AST/SGOT) Alanine Aminotransferase 14 (ALT/SGPT) Alkaline Phosphatase 92 Total Creatine Kinase 68 Troponin I 0.03 C-Reactive Protein 17.00 Total Protein 6.8 Albumin 2.1 Lactic Acid Level 1.1 Date/Time Procedure Status Source Growth 08/02/16 20:20 Aerobic Blood Culture Received Blood Peripheral Pending 08/02/16 20:20 Anaerobic Blood Culture Received Blood Peripheral Pending Result Diagram: 08/02/16194408/02/161944 Imaging Last Impressions Knee X-Ray 08/02/16 [id number] Signed Impressions: Service Date/Time: Wednesday, August 03, 2016 00:06 - CONCLUSION: 1. 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 2. Plain film findings of a very small suprapatellar effusion. Sherwin Wallace MD Thoracic Spine CT 08/02/161925 Signed Impressions: Service Date/Time: Tuesday, August 02, 2016 19:46 - CONCLUSION: 1. Subacute fracture of the T9 vertebral body and posterior elements again noted, status post fusion from T7-T11. Fracture again noted to focally extend into the T8/T9 intervertebral disc space. The fracture is incompletely healed. 2. Vertebral body endplate destruction and anterior predominant osseous ridging have developed at T8/T9, etiology uncertain but I believe related to persistent motion as there is lucency around the bilateral pedicle screws at T10 and T11. I don't see an abscess or high-grade juxtavertebral inflammatory changes but please correlate clinically for the possibility of T8/T9 discitis.. 3. 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 4. Small right and [id number] left pleural effusions with dependent consolidation or noted of the visualized lungs. Paul Clinton MD Lumbar Spine CT 08/02/161925 Signed Impressions: Service Date/Time: Tuesday, August 02, 2016 19:53 - CONCLUSION: No acute abnormality or significant change seen in the CT appearance of the lumbar spine. Multilevel facet degenerative changes are again noted and chronic loss of height of L5. Paul Clinton MD Chest X-Ray 08/02/161925 Signed Impressions: Service Date/Time: Tuesday, August 02, 2016 19:38 - CONCLUSION: Mild patchy consolidation and small effusion on the left. Paul Clinton MD Hip X-Ray 08/02/16 0000 Signed Impressions: Service Date/Time: Wednesday, August 03, 2016 00:08 - CONCLUSION: 1. Medullary rosa and compression screw securing a presumed old left hip fracture. 2. Bony eburnation around the proximal femur but no acute fracture identified. Sherwin Wallace MD . Assessment and Plan Problem List: (1) Pneumonia ICD Code: J18.9 Status: Acute (2) Weakness ICD Code: R53.1 Status: Acute (3) History of MRSA infection ICD Code: Z86.14 Status: Resolved (4) Anemia ICD Code: D64.9 Status: Acute (5) Renal insufficiency ICD Code: N28.9 Status: Acute (6) Left knee pain ICD Code: M25.562 Status: Acute Assessment and Plan Mr. Klein is an 86 year-old male with a history of left hip fracture , T8 through T9 fracture with T7-[address] Knight 05/04/16 followed by sepsis relating to pneumonia and MRSA wound infection, atrial fibrillation, coronary artery disease, type 2 diabetes mellitus, hypertension, nephrolithiasis, and sleep apnea who presented to the emergency room 08/02/2016 to be evaluated for generalized weakness lasting for 4-5 days. Pneumonia - ESR greater than 140 - Levaquin 750 mg IV every 48 hours - Vancomycin IV with pharmacy consult for monitoring levels and adjusting therapeutic dosage - Chest x-ray with mild patchy consolidation and small effusion on the left Generalized weakness History of MRSA - posterior thorax wound - Consult physical therapy to assist with strengthening exercises - Lumbar spine CT with no acute abnormality or significant change - Thoracic spine with subacute fracture of the T9 vertebral body and posterior elements at again noted post-fusion T7 through T11. Vertebral body endplate distraction and anterior predominant osseous ridging have developed the T8. T9 with uncertain etiology. No abscesses or high-grade juxta vertebral inflammatory changes. - Contact isolation because of MRSA history - We will consult neurosurgery and infectious disease specialties to assist with management Anemia - Hemoglobin 9.9 on admission and 10.0 on 07/21/2016 - stable appearing for now - repeat CBC in a.m. and follow trends; transfuse if needed Acute renal insufficiency - BUN 26, creatinine 1.66, estimated GFR 39 -labs from 07/22/16 appear comparable but renal functions appeared closer to normal in the beginning of the month of June 2016 - Recheck BMP in a.m. and follow trends in renal indices - Avoid nephrotoxins Left knee pain - Left knee x-ray - plain film findings of a very small suprapatellar effusion - Left hip x-ray to rule out referred pain from the hip - negative for acute process; osteoarthritis noted DVT prophylaxis -Heparin 5000 units subcutaneous every 8 hours Written by Janna Rogers, acting as scribe for Dr. Rain on 08/02/16 at 23:39. All or portions of this note were transcribed by scribe [Janna Rogers]. I, Dr. Judy Rain personally performed the history, physical exam, and medical decision making; and confirmed the accuracy of the information in the transcribed note. Authenticated by Dr. Judy Rain on 08/02/16 at 6902 Discussed Condition With ER physician, patient, patient's 2 daughters were at the bedside . Problem Qualifiers (1) Pneumonia: Qualified Code: J18.9 - Pneumonia of left lung due to infectious organism, unspecified part of lung (2) Anemia: Qualified Code: D64.9 - Anemia, unspecified type Janna Rogers Aug 02, 2016 23:48 Judy Rain MD Aug 03, 2016 08:12
--- NOTE | 2016-08-03 00:32 | RADRPT ---
EXAM DATE/TIME: 08/03/2016 00:06 [facility] COMPARISON: No previous studies available for comparison. INDICATIONS : Left knee pain from unknown injury, unable to bear weight without knee giving out. MEDICAL HISTORY : None. SURGICAL HISTORY : Total knee replacement, left. ENCOUNTER: Initial ACUITY: 1 day PAIN SCORE: Non-responsive. LOCATION: Left knee FINDINGS: Two view examination of the left knee demonstrates total knee arthroplasty. All 3 components appear t o be intact. There may be a very small suprapatellar effusion. No fracture. CONCLUSION: 1. 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 2. Plain film findings of a very small suprapatellar effusion. Sherwin Wallace MD on August 03, 2016 at 0:23 Board Certified Radiologist. This report was verified electronically.
--- NOTE | 2016-08-03 00:34 | RADRPT ---
EXAM DATE/TIME: 08/03/2016 00:08 [facility] COMPARISON: HIP LEFT (AP&LAT 2/3VWS) WO AP PELVIS, May 01, 2016, 10:38. INDICATIONS : Left hip pain. MEDICAL HISTORY : None. SURGICAL HISTORY : Left hip replacement. ENCOUNTER: Initial ACUITY: 1 day PAIN SCORE: Non-responsive. LOCATION: Left hip FINDINGS: A limited two view examination of the left hip was performed. Medullary rosa and compression screw sec ures a presumed old left hip fracture. There is some bony eburnation around the proximal hip and I do not see an acute fracture. CONCLUSION: 1. Medullary rosa and compression screw securing a presumed old left hip fracture. 2. Bony eburnation around the proximal femur but no acute fracture identified. Sherwin Wallace MD on August 03, 2016 at 0:31 Board Certified Radiologist. This report was verified electronically.
[2016-08-03 00:42] VITALS: BP 137/65; PULSE 81; RESP 18; TEMP 97.2; O2SAT 96
[2016-08-03 04:09] VITALS: PULSE 106
[2016-08-03 04:38] VITALS: BP 118/63; PULSE 95; O2SAT 93
[2016-08-03] MEDS: METOPROLOL TARTRATE 25 MG TAB PO SCH ×3 (06:15→21:00)
[2016-08-03] MEDS: HEPARIN SODIUM - SQ 10,000 UNITS/ML VIAL SQ SCH ×3 (06:16→20:58)
[2016-08-03] MEDS ORDERED: glipiZIDE 10 MG TAB PO SCH (07:00)
[2016-08-03 07:32] VITALS: BP 122/69; PULSE 79; RESP 18; O2SAT 94
[2016-08-03] MEDS ORDERED: BISACODYL 10 MG SUPP PR PRN (07:45)
[2016-08-03] MEDS ORDERED: MORPHINE SULFATE 4 MG/ML INJ IV PRN (07:45)
[2016-08-03] MEDS ORDERED: ACETAMINOPHEN/HYDROcodone 325 MG/5 MG TAB PO PRN (07:45)
[2016-08-03] MEDS ORDERED: ACETAMINOPHEN/HYDROcodone 325 MG/7.5 MG TAB PO PRN (07:45)
[2016-08-03] MEDS ORDERED: SENNOSIDES 8.6 MG TAB PO PRN (07:45)
[2016-08-03] MEDS ORDERED: cloNIDine HCL 0.1 MG TAB PO PRN (07:45)
[2016-08-03] MEDS ORDERED: ACETAMINOPHEN 325 MG TAB PO PRN ×3 (07:45→16:15)
[2016-08-03] MEDS ORDERED: DOCUSATE SODIUM 100 MG CAP PO SCH (07:45)
[2016-08-03] MEDS ORDERED: LORazepam 1 MG TAB PO PRN (08:00)
[2016-08-03] MEDS ORDERED: FLUMAZENIL 0.5 MG/5 ML VIAL IV PUSH PRN (08:00)
[2016-08-03] MEDS ORDERED: LORazepam 2 MG/ML VIAL IV PUSH PRN ×4 (08:00)
[2016-08-03] MEDS ORDERED: GLUCAGON 1 MG/ML VIAL OTHER PRN (08:00)
[2016-08-03] MEDS ORDERED: LORazepam 2 MG TAB PO PRN (08:00)
[2016-08-03] MEDS ORDERED: HALOPERIDOL LACTATE 5 MG/ML AMP IM PRN (08:00)
[2016-08-03 08:12] LABS: AUTOMATED NEUTROPHIL # 6.6 TH/MM3 (1.8-7.7); BASOPHIL # 0.1 TH/MM3 (0-0.2); BASOPHIL % 0.7 % (0.0-2.0); EOSINOPHIL # 0.6 TH/MM3 (0-0.4); EOSINOPHIL % 6.1 % (0.0-4.0); HEMATOCRIT 28.3 % (39.0-51.0); HEMO FLAGS DIFF FINAL; LYMPH % 14.9 % (9.0-44.0); LYMPHOCYTE # 1.4 TH/MM3 (1.0-4.8); MEAN CELL VOLUME 91.2 FL (80.0-100.0); MEAN CORPUSCULAR HEMOGLOBIN 29.8 PG (27.0-34.0); MEAN CORPUSCULAR HGB CONC 32.7 % (32.0-36.0); NEUT % 71.3 % (16.0-70.0); PLATELET COUNT 205 TH/MM3 (150-450); RED BLOOD COUNT 3.11 MIL/MM3 (4.50-5.90); RED CELL DISTRIBUTION WIDTH 15.1 % (11.6-17.2); WHITE BLOOD COUNT 9.3 TH/MM3 (4.0-11.0)
[2016-08-03 08:51] LABS: BICARBONATE 31.9 MEQ/L (21.0-32.0); POTASSIUM 3.5 MEQ/L (3.5-5.1)
[2016-08-03] MEDS ORDERED: KETOROLAC TROMETHAMINE 10 MG TAB PO PRN (09:00)
[2016-08-03] MEDS ORDERED: FAMOTIDINE 20 MG TAB PO SCH (09:00)
[2016-08-03] MEDS: SODIUM CHLORIDE 0.9% FLUSH 5 ML FLUSH FLUSH SCH ×2 (09:00→20:57)
--- NOTE | 2016-08-03 09:27 | HHI.PR ---
Subjective Subjective Remarks more awake, alert, oriented x 3 no fever c/o mod back pain left knee pain per daughter left knee buckling during PT at rehab no fever overnight no chills wants to eat today low blood glucose reported per BMP Review of Systems Constitutional Constitutional Remarks 12 point ROS completed, negative except as noted above Vitals/Results Vital Signs Vital Signs Date Time Temp Pulse Resp B/P Pulse Ox O2 Delivery O2 Flow Rate FiO2 08/03/16 07:32 79 18 122/69 94 08/03/16 04:38 95 118/63 93 08/03/16 04:09 106 08/03/16 00:42 97.2 81 18 137/65 96 08/02/16 23:01 90 24 124/61 96 Nasal Cannula 2 08/02/16 19:20 Nasal Cannula 08/02/16 19:07 97.4 71 22 127/60 95 CBC/BMP: 08/03/16 0725 08/02/16 1945 Lab Results Laboratory Tests Test 08/02/16 08/02/16 08/03/16 19:45 20:30 07:25 White Blood Count 10.7 TH/MM3 9.3 TH/MM3 Red Blood Count 3.27 MIL/MM3 3.11 MIL/MM3 Hemoglobin 9.9 GM/DL 9.3 GM/DL Hematocrit 29.7 % 28.3 % Mean Corpuscular Volume 90.9 FL 91.2 FL Mean Corpuscular Hemoglobin 30.4 PG 29.8 PG Mean Corpuscular Hemoglobin 33.5 % 32.7 % Concent Red Cell Distribution Width 15.3 % 15.1 % Platelet Count 219 TH/MM3 205 TH/MM3 Mean Platelet Volume 9.2 FL 8.6 FL Neutrophils (%) (Auto) 66.9 % 71.3 % Lymphocytes (%) (Auto) 17.5 % 14.9 % Monocytes (%) (Auto) 9.4 % 7.0 % Eosinophils (%) (Auto) 4.9 % 6.1 % Basophils (%) (Auto) 1.3 % 0.7 % Neutrophils # (Auto) 7.2 TH/MM3 6.6 TH/MM3 Lymphocytes # (Auto) 1.9 TH/MM3 1.4 TH/MM3 Monocytes # (Auto) 1.0 TH/MM3 0.6 TH/MM3 Eosinophils # (Auto) 0.5 TH/MM3 0.6 TH/MM3 Basophils # (Auto) 0.1 TH/MM3 0.1 TH/MM3 CBC Comment DIFF FINAL DIFF FINAL Differential Comment Erythrocyte Sedimentation Rate GREATER THAN 140 mm/hr Prothrombin Time 12.3 SEC Prothromb Time International 1.1 RATIO Ratio Activated Partial 31.5 SEC Thromboplast Time Sodium Level 140 MEQ/L Potassium Level 3.9 MEQ/L Chloride Level 103 MEQ/L Carbon Dioxide Level 28.8 MEQ/L Anion Gap 8 MEQ/L Blood Urea Nitrogen 26 MG/DL Creatinine 1.66 MG/DL Estimat Glomerular Filtration 39 ML/MIN Rate Random Glucose 107 MG/DL Calcium Level 8.5 MG/DL Magnesium Level 1.8 MG/DL Total Bilirubin 0.5 MG/DL Aspartate Amino Transf 24 U/L (AST/SGOT) Alanine Aminotransferase 14 U/L (ALT/SGPT) Alkaline Phosphatase 92 U/L Total Creatine Kinase 68 U/L Troponin I 0.03 NG/ML C-Reactive Protein 17.00 MG/DL Total Protein 6.8 GM/DL Albumin 2.1 GM/DL Lactic Acid Level 1.1 mmol/L Microbiology Microbiology 08/02/16 Aerobic Blood Culture, Received Pending 08/02/16 Anaerobic Blood Culture, Received Pending 08/02/16 Aerobic Blood Culture, Received Pending 08/02/16 Anaerobic Blood Culture, Received Pending Physical Exam General General Appearance: Well Developed, No Acute Distress, Comfortable Eyes Eye Exam: Pupils Equal, Pupils Reactive Ears & Nose Ears & Nose Exam: Nasal Mucosa M[place]ord Throat Throat Exam: Oral Mucosa [place] & Moist Neck Neck Exam: Neck Supple, Trachea Midline Pulmonary Resp Exam: Decreased Bases Resp Remarks faint ronchi RLL Cardiology CV Exam: Regular, Good Perfusion Gastrointestinal/Abdomen GI Exam: Soft, Non-Tender, Bowel Sounds Present, Non-Distended Musculoskeletal MS Exam: Joints Intact MS Remarks wearing brace Integumentary Skin Exam: Warm, Dry Extremeties Extremities Exam: Pedal Pulses Palpable, Trace Edema Neurologic Neuro Exam: Alert, Awake, Oriented, Speech Clear, Moving All Extremities, No Focal Deficits Psychiatric Psych Exam: Appropriate Responses VTE Prophylaxis VTE Prophylaxis Meds: Heparin Assessment/Plan Problem List: (1) Pneumonia (2) Weakness (3) History of MRSA infection (4) Anemia (5) Renal insufficiency (6) Left knee pain (7) CHF (congestive heart failure) (8) Atrial fibrillation (9) Hypoglycemia (10) Hypertension (11) Hx of unstable T8,T9 fractures due to fall with T7 to T11 posterior fixation using transpedicular screws and rods on 05/04/16 Assessment/Plan Mr. Klein is an 86 year-old male with a history of left hip fracture , T8 through T9 fracture with T7-[address] Knight 05/04/16 followed by sepsis relating to pneumonia and MRSA wound infection, atrial fibrillation, coronary artery disease, type 2 diabetes mellitus, hypertension, nephrolithiasis, and sleep apnea who presented to the emergency room 08/02/2016 to be evaluated for generalized weakness lasting for 4-5 days. Pneumonia - ESR greater than 140 - Levaquin 750 mg IV every 48 hours - Vancomycin IV with pharmacy consult for monitoring levels and adjusting therapeutic dosage - Chest x-ray with mild patchy consolidation and small effusion on the left -ID consultation, Dr Antonio. Generalized weakness History of MRSA - posterior thorax wound - Consult physical therapy to assist with strengthening exercises - Lumbar spine CT with no acute abnormality or significant change - Thoracic spine with subacute fracture of the T9 vertebral body and posterior elements at again noted post-fusion T7 through T11. Vertebral body endplate distraction and anterior predominant osseous ridging have developed the T8. T9 with uncertain etiology. No abscesses or high-grade juxta vertebral inflammatory changes. - Contact isolation because of MRSA history - Neurosurgery and infectious disease specialties to assist with management Anemia - Hemoglobin 9.9 on admission and 10.0 on 07/21/2016 - stable appearing for now - repeat CBC in a.m. and follow trends; transfuse if needed Acute renal insufficiency - BUN 26, creatinine 1.66, estimated GFR 39 -labs from 07/22/16 appear comparable but renal functions appeared closer to normal in the beginning of the month of June 2016 - Recheck BMP in a.m. and follow trends in renal indices - Avoid nephrotoxins Left knee pain - Left knee x-ray - plain film findings of a very small suprapatellar effusion - Left hip x-ray to rule out referred pain from the hip - negative for acute process; osteoarthritis noted Hypoglycemia, hx of DM II, on oral hypoglycemic with reported poor PO intake -Hold oral hypoglycemic -continue with accuchecks AC/HS and ISS -Enc. PO intake Hx afib, stable -continue ASA, can't take anticoagulation due to previous GIB -continue Dig DVT prophylaxis -Heparin 5000 units subcutaneous every 8 hours Labs pending this morning pt. 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 Will need ID evaluation, IV antibiotics. Tx to telemetry D/W RN D/W pt, family D/W Dr. Taylor This patient was seen by myself and Dr. Taylor, this note is written on his behalf. Problem Qualifiers (1) Pneumonia: Qualified Code: J18.9 - Pneumonia of left lung due to infectious organism, unspecified part of lung (2) Anemia: Qualified Code: D64.9 - Anemia, unspecified type (3) Left knee pain: Qualified Code: M25.562 - Chronic pain of left knee (4) CHF (congestive heart failure): Qualified Code: I50.9 - Chronic congestive heart failure, unspecified congestive heart failure type (5) Atrial fibrillation: Qualified Code: I48.91 - Atrial fibrillation, unspecified type (6) Hypertension: Qualified Code: I10 - Essential hypertension Margareth Iglesias Aug 03, 2016 09:27
[2016-08-03] MEDS: ASPIRIN EC 81 MG TABEC PO SCH ×2 (10:32→21:03)
[2016-08-03] MEDS: MULTIVITAMINS/MINERALS THERAPEUTIC TAB PO SCH (10:32)
[2016-08-03] MEDS: THIAMINE HCL 100 MG TAB PO SCH (10:32)
[2016-08-03] MEDS: ISRADIPINE 2.5 MG PO SCH ×2 (10:32→21:00)
[2016-08-03] MEDS: DIGOXIN 0.125 MG TAB PO SCH (10:33)
[2016-08-03] MEDS: ALLOPURINOL 300 MG TAB PO SCH (10:33)
[2016-08-03] MEDS: FOLIC ACID 1 MG TAB PO SCH (10:33)
[2016-08-03] MEDS: FUROSEMIDE 40 MG TAB PO SCH (10:34)
[2016-08-03] MEDS: INSULIN ASPART SUPPLEMENTAL SCALE SQ SCH ×3 (11:00→21:00)
[2016-08-03] MEDS ORDERED: VANCOMYCIN 1,000 MG/NS 250 ML IV ONE ×2 (11:00)
--- NOTE | 2016-08-03 11:42 | EKG ---
Date Performed: 08/02/2016 Time Performed: 19:41:53 PTAGE: 86 years EKG: ATRIAL FIBRILLATION NONSPECIFIC ST & T-WAVE ABNORMALITY ABNORMAL RHYTHM ECG PREVIOUS TRACING : 07/16/2016 21.28 No significant change from previous tracing noted. DOCTOR: Zane Oneill Interpretating Date/Time 08/03/2016 11:40:27
[2016-08-03] MEDS ORDERED: PROPOFOL 200 MG/20 ML AMP IV ONE (13:24)
[2016-08-03] MEDS ORDERED: ONDANSETRON HCL 4 MG/2 ML VIAL IV PUSH ONE (13:24)
--- NOTE | 2016-08-03 14:55 | PD.ID.CON ---
History of Present Illness Service ID Consult Requested By / Harris BAILEY Reason for Consult Evaluation and Mment of Thoracic spine hardware infection. Primary Care Physician Renard Phillips M.D. Diagnoses: History of Present Illness is an 85 y/o CM with PMHx of history of admission for Trauma alert after a fall from a ladder, when he was diagnosed to have left side femur fracture, left side rib fracture and fracture thoracic spine. He underwent open reduction internal fixation of T8 and T9 fractures, T7 to T11 segmental instrumented fixation using transpedicular screws and rods, T7 to T11 posterolateral fusion using autologous bone graft combined with stem cells, microsurgical dissection. Post surgery he was sent to a rehab. He was admitted for local wound infection possible hardware infection/osteomyelitis as hardware was exposed. Patient has been admitted 3rd time for MRSA wound infection post surgery. Wound grew MRSA and patient has now been on approx 4 weeks of IV Vanco with not much improvement in lab parameters (ESR/CRP remain high), radiologically and clinically continues to have drainage locally. Patient reports generalized weakness in last few days. Patient was started on IV Vanco as well as possible CAP treatment on admission. His Cr has been high last admission as well. This admission patient was seen by Neurosrugery and plan is to have a local debridement in [place]. Of note patient is DNR per old records. Palliative care was consulted for evaluation of treatment goals in an attempt to respect patients wishes. He is not terminal at present time but his non response to treatment is worrisome and this being his 3rd admission post surgery for infection I have placed this consult to assist us. Patient denies any change in sensation in perineal area or lower extremities. History of prostate problems with h/o UTIs in past. ID was consulted for evaluation and Mment of Sepsis, Probable Discitis/Hardware infection. Review of Systems Constitutional: COMPLAINS OF: Chills, DENIES: Diaphoretic episodes, Fatigue, Fever, Weight gain, Weight loss, Dizziness, Change in appetite, Night Sweats Endocrine: DENIES: Heat/cold intolerance, Polydipsia, Polyuria, Polyphagia Eyes: DENIES: Blurred vision, Diplopia, Eye inflammation, Eye pain, Vision loss , Photosensitivity, Double Vision Ears, nose, mouth, throat: DENIES: Tinnitus, Hearing loss, Vertigo, Nasal discharge, Oral lesions, Throat pain, Hoarseness, Ear Pain, Running Nose, Epistaxis, Sinus Pain, Toothache, Odynophagia Respiratory: DENIES: Apneas, Cough, Snoring, Wheezing, Hemoptysis, Sputum production, Shortness of breath Cardiovascular: DENIES: Chest pain, Palpitations, Syncope, Dyspnea on Exertion , PND, Lower Extremity Edema, Orthopnea, Claudication Gastrointestinal: DENIES: Abdominal pain, Black stools, Bloody stools, Constipation, Diarrhea, Nausea, Vomiting, Difficulty Swallowing, Anorexia Genitourinary: DENIES: Sexual dysfunction, Urinary frequency, Urinary incontinence, Urgency, Hematuria, Dysuria, Nocturia, Penile Discharge, Testicular Pain, Testicular Swelling Musculoskeletal: COMPLAINS OF: Back pain, DENIES: Joint pain, Muscle aches, Stiffness, Joint Swelling, Neck pain Integumentary: DENIES: Abnormal pigmentation, Nail changes, Pruritus, Rash Hematologic/lymphatic: DENIES: Bruising, Lymphadenopathy Immunologic/allergic: DENIES: Eczema, Urticaria Neurologic: DENIES: Abnormal gait, Headache, Localized weakness, Paresthesias, Seizures, Speech Problems, Tremor, Poor Balance Psychiatric: DENIES: Anxiety, Confusion, Mood changes, Depression, Hallucinations, Agitation, Suicidal Ideation, Homicidal Ideation, Delusions Past Family Social History Allergies: Coded Allergies: *MDRO Multi-Drug Resistant Organism (Verified Adverse Reaction, Unknown, ) 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 Past Medical History 1. Atrial fibrillation 2. Cardiovascular disease 3. Recent left intertrochanteric femur fracture 4. Diabetes type 2 5. GERD 6. Previous UTI 7. Hypertension 8. Kidney stones 9. Gout 10. Sleep apnea Past Surgical History 1. Abdominal surgery 2. Cataracts both eyes 3. Stones 4. Lithotripsy 5. Knee replacement surgery 6. Laminectomy in 05/04/2016 7. Inguinal hernia repair Reported Medications Reported Meds & Active Scripts Active Aspirin EC (Aspirin) 81 Mg Tabdr 81 Mg PO DAILY Metoprolol Tartrate 25 Mg Tab 25 Mg PO Q8HR 14 Days Milk of Magnesia Liq (Magnesium Hydroxide) 400 Mg/5 Ml Susp 30 Ml PO DAILY PRN 14 Days Lasix (Furosemide) 40 Mg Tab 40 Mg PO DAILY 14 Days Digoxin 0.125 Mg Tab 0.125 Mg PO DAILY 14 Days Zyloprim (Allopurinol) 300 Mg Tab 300 Mg PO DAILY 14 Days Acetaminophen 325 Mg Tab 650 Mg PO Q4H PRN 14 Days Walker with Front Wheels (Device) 1 Mis Mis 1 Ea .ROUTE DIRECTED Reported Bisacodyl EC (Bisacodyl) 5 Mg Tabec 5 Mg PO DAILY PRN Isradipine 2.5 Mg Cap 2.5 Mg PO BID Famotidine 20 Mg Tab 20 Mg PO BID Vancomycin Inj (Vancomycin HCl) 1,000 Mg Inj 750 Mg IVPB DAILY Glipizide 10 Mg Tab 10 Mg PO BIDAC Take 30 minutes before a meal Active Ordered Medications Current Medications Medications (Trade) Dose Ordered Sig/Sybil Route Start Time Stop Time Status Last Admin (NS Flush) 2 ml UNSCH PRN FLUSH 08/02/16 21:30 (NS Flush) 2 ml BID FLUSH 08/03/16 09:00 (Zofran Inj) 4 mg Q6H PRN IVP 08/02/16 21:30 (Heparin Inj) 5,000 units Q8H SQ 08/03/16 06:00 08/03/16 06:16 (Narcan Inj) 0.4 mg UNSCH PRN IV 08/02/16 21:30 (Zyloprim) 300 mg DAILY PO 08/03/16 09:00 08/03/16 10:33 (Ecotrin Ec) 81 mg DAILY PO 08/03/16 09:00 08/03/16 10:32 (Lanoxin) 0.125 mg DAILY PO 08/03/16 09:00 08/03/16 10:33 (Lasix) 40 mg DAILY PO 08/03/16 09:00 08/03/16 10:34 (Dynacirc) 2.5 mg BID PO 08/03/16 09:00 08/03/16 10:32 (Lopressor) 25 mg Q8HR PO 08/03/16 06:00 08/03/16 06:15 (Dulcolax Supp) 10 mg DAILY PRN GA 08/03/16 07:45 (Senokot) 17.2 mg Q12H PRN PO 08/03/16 07:45 (Tylenol) 650 mg Q6H PRN PO 08/03/16 07:45 (Catapres) 0.1 mg Q6H PRN PO 08/03/16 07:45 (D50w (Vial) Inj) 25 ml UNSCH PRN IV PUSH 08/03/16 08:00 (Glucagon Inj) 1 mg UNSCH PRN OTHER 08/03/16 08:00 (Folate) 1 mg DAILY PO 08/03/16 09:00 08/08/16 08:59 08/03/16 10:33 (Vitamin B1) 100 mg DAILY PO 08/03/16 09:00 08/03/16 10:32 (Theragran M Tab) 1 tab DAILY PO 08/03/16 09:00 08/08/16 08:59 08/03/16 10:32 (Romazicon Inj) 0.2 mg Q1M PRN IV PUSH 08/03/16 08:00 (Toradol) 10 mg Q6H PRN PO 08/03/16 09:00 08/08/16 08:59 Famotidine 10 mg 10 mg BID PO 08/03/16 21:00 Potassium Chloride/Sodium Chloride 1,000 ml @ 100 mls/hr Q10H IV 08/03/16 17:00 (Ancef 2 Gm Premix) 50 ml @ 100 mls/hr Q8H IV 08/04/16 00:00 08/04/16 16:29 (Colace) 100 mg BID PO 08/03/16 21:00 (Protonix) 40 mg DAILY PO 08/04/16 09:00 ([place] 10-325 Mg) 1 tab Q4H PRN PO 08/03/16 16:15 ([place] 10-325 Mg) 2 tab Q4H PRN PO 08/03/16 16:15 (Morphine Inj) 2 mg Q2H PRN IV PUSH 08/03/16 16:15 (Morphine Inj) 4 mg Q2H PRN IV PUSH 08/03/16 16:15 (Tylenol) 650 mg Q4H PRN PO 08/03/16 16:15 (Pill Splitter) 1 ea UNSCH PRN OTHER 08/03/16 16:30 Miscellaneous Information ALL NURSING DEPARTME... UNSCH PRN XX 08/03/16 18:00 08/04/16 17:59 (Cubicin Inj/NS Inj) 100 ml @ 200 mls/hr Q24H IV 08/03/16 22:00 (Rifampin) 150 mg Q12HR PO 08/03/16 21:00 Family History reviewed and NC to current ID problems. Social History reviewed. Comes from Rehab. Sent to Rehab after a fall and several injuries and surgeries. No alcohol No drugs No illicit drugs. Patient has 5 children. One of his sons lives in [place]. 2 daughters were at the bedside at time of my visit. Physical Exam Vital Signs Vital Signs Date Time Temp Pulse Resp B/P Pulse Ox O2 Delivery O2 Flow Rate FiO2 08/03/16 07:32 79 18 122/69 94 08/03/16 04:38 95 118/63 93 08/03/16 04:09 106 08/03/16 00:42 97.2 81 18 137/65 96 08/02/16 23:01 90 24 124/61 96 Nasal Cannula 2 08/02/16 19:20 Nasal Cannula 08/02/16 19:07 97.4 71 22 127/60 95 Physical Exam GENERAL: This is a well-nourished, well-developed patient, in no apparent distress. SKIN: No rashes, ecchymoses or lesions. Cool and dry. HEAD: Atraumatic. Normocephalic. No temporal or scalp tenderness. EYES: Pupils equal round and reactive. Extraocular motions intact. No scleral icterus. No injection or drainage. ENT: Nose without bleeding, purulent drainage or septal hematoma. Throat without erythema, tonsillar hypertrophy or exudate. Uvula midline. Airway patent. NECK: Trachea midline. No JVD or lymphadenopathy. Supple, nontender, no meningeal signs. CARDIOVASCULAR: Regular rate and rhythm without murmurs, gallops, or rubs. RESPIRATORY: Clear to auscultation. Breath sounds equal bilaterally. No wheezes , rales, or rhonchi. GASTROINTESTINAL: Abdomen soft, non-tender, nondistended. No hepato-splenomegaly , or palpable masses. No guarding. MUSCULOSKELETAL: Extremities without clubbing, cyanosis, or edema. No joint tenderness, effusion, or edema noted. No calf tenderness. Negative Homans sign bilaterally. NEUROLOGICAL: Awake and alert. Grossly nonfocal Back: wound in back smaller but still with significant drainage. Psych: could not be assessed IV line sites with no e.o infection. Laboratory Laboratory Tests Test 08/02/16 08/02/16 08/03/16 19:45 20:30 07:25 White Blood Count 10.7 9.3 Red Blood Count 3.27 3.11 Hemoglobin 9.9 9.3 Hematocrit 29.7 28.3 Mean Corpuscular Volume 90.9 91.2 Mean Corpuscular Hemoglobin 30.4 29.8 Mean Corpuscular Hemoglobin 33.5 32.7 Concent Red Cell Distribution Width 15.3 15.1 Platelet Count 219 205 Mean Platelet Volume 9.2 8.6 Neutrophils (%) (Auto) 66.9 71.3 Lymphocytes (%) (Auto) 17.5 14.9 Monocytes (%) (Auto) 9.4 7.0 Eosinophils (%) (Auto) 4.9 6.1 Basophils (%) (Auto) 1.3 0.7 Neutrophils # (Auto) 7.2 6.6 Lymphocytes # (Auto) 1.9 1.4 Monocytes # (Auto) 1.0 0.6 Eosinophils # (Auto) 0.5 0.6 Basophils # (Auto) 0.1 0.1 CBC Comment DIFF FINAL DIFF FINAL Differential Comment Erythrocyte Sedimentation Rate GREATER THAN 140 Prothrombin Time 12.3 Prothromb Time International 1.1 Ratio Activated Partial 31.5 Thromboplast Time Sodium Level 140 142 Potassium Level 3.9 3.5 Chloride Level 103 104 Carbon Dioxide Level 28.8 31.9 Anion Gap 8 6 Blood Urea Nitrogen 26 23 Creatinine 1.66 1.51 Estimat Glomerular Filtration 39 44 Rate Random Glucose 107 47 Calcium Level 8.5 8.4 Magnesium Level 1.8 Total Bilirubin 0.5 Aspartate Amino Transf 24 (AST/SGOT) Alanine Aminotransferase 14 (ALT/SGPT) Alkaline Phosphatase 92 Total Creatine Kinase 68 Troponin I 0.03 C-Reactive Protein 17.00 Total Protein 6.8 Albumin 2.1 Lactic Acid Level 1.1 Hemoglobin A1c 6.2 Digoxin Level 1.0 Date/Time Procedure Status Source Growth 08/02/16 20:20 Aerobic Blood Culture - Preliminary Resulted Blood Peripheral NO GROWTH IN 1 DAY 08/02/16 20:20 Anaerobic Blood Culture - Preliminary Resulted Blood Peripheral NO GROWTH IN 1 DAY Result Diagram: 08/03/16 0725 08/03/16 0725 Imaging Last Impressions Knee X-Ray 08/02/16 1093 Signed Impressions: Service Date/Time: Wednesday, August 03, 2016 00:06 - CONCLUSION: 1. 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 2. Plain film findings of a very small suprapatellar effusion. Sherwin Wallace MD Thoracic Spine CT 08/02/161925 Signed Impressions: Service Date/Time: Tuesday, August 02, 2016 19:46 - CONCLUSION: 1. Subacute fracture of the T9 vertebral body and posterior elements again noted, status post fusion from T7-T11. Fracture again noted to focally extend into the T8/T9 intervertebral disc space. The fracture is incompletely healed. 2. Vertebral body endplate destruction and anterior predominant osseous ridging have developed at T8/T9, etiology uncertain but I believe related to persistent motion as there is lucency around the bilateral pedicle screws at T10 and T11. I don't see an abscess or high-grade juxtavertebral inflammatory changes but please correlate clinically for the possibility of T8/T9 discitis.. 3. 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 4. Small right and [id number] left pleural effusions with dependent consolidation or noted of the visualized lungs. Paul Clinton MD Lumbar Spine CT 08/02/161925 Signed Impressions: Service Date/Time: Tuesday, August 02, 2016 19:53 - CONCLUSION: No acute abnormality or significant change seen in the CT appearance of the lumbar spine. Multilevel facet degenerative changes are again noted and chronic loss of height of L5. Paul Clinton MD Chest X-Ray 08/02/161925 Signed Impressions: Service Date/Time: Tuesday, August 02, 2016 19:38 - CONCLUSION: Mild patchy consolidation and small effusion on the left. Paul Clinton MD Hip X-Ray 08/02/16 0000 Signed Impressions: Service Date/Time: Wednesday, August 03, 2016 00:08 - CONCLUSION: 1. Medullary rosa and compression screw securing a presumed old left hip fracture. 2. Bony eburnation around the proximal femur but no acute fracture identified. Sherwin Wallace MD Assessment and Plan Assessment and Plan MRSA discitis/osteomyelitis, hardware infection. Pneumonia Renal insufficiency CHF Afib HTN Hx of unstable T8,T9 fractures due to fall with T7 to T11 posterior fixation using transpedicular screws and rods on 05/04/16 Recs: DC Vanco IV (failed treatment at 4 wks, increased Cr) Bld culture from PICC line. Dapto IV (failed vanco IV at 4 wks of treatment, AIN high cr and high eosinophils) Check CK Start Rifampin oral (hardware infection) Follow cultures Follow clinically Introduced patient to Kayla Cummings with palliative care team to address goals of therapy.Patient would not like to meet her as he thinks this is his private decision with family. Family however would like to continue to maintain contact with palliative care. kyle BAILEY for [facility]. d/w clinical pharmacist. Melinda Antonio MD Aug 03, 2016 14:55
[2016-08-03] MEDS ORDERED: THROMBIN (TOPICAL) 5,000 UNIT VIAL ONE (15:30)
[2016-08-03] MEDS ORDERED: GELFOAM SIZE 100 ONE (15:30)
[2016-08-03] MEDS ORDERED: GENTAMICIN SULFATE 80 MG/2 ML VIAL ONE (15:30)
[2016-08-03] MEDS ORDERED: SUGAMMADEX SODIUM 200 MG/2 ML VIAL IV PUSH ONE ×2 (15:37)
[2016-08-03] MEDS ORDERED: MIDAZOLAM HCL 2 MG/2 ML VIAL ONE (15:38)
[2016-08-03] MEDS ORDERED: ACETAMINOPHEN 1000 MG/100 ML VIAL IV ONE (15:53)
[2016-08-03] MEDS ORDERED: ACETAMINOPHEN/HYDROcodone 325 MG/10 MG TAB PO PRN (16:15)
[2016-08-03] MEDS ORDERED: SODIUM CHLORIDE 0.9% FLUSH 5 ML FLUSH IVF PRN (16:15)
[2016-08-03] MEDS ORDERED: MORPHINE SULFATE 4 MG/ML INJ IV PUSH PRN ×2 (16:15)
[2016-08-03] MEDS ORDERED: PILL SPLITTER OTHER PRN (16:30)
[2016-08-03] MEDS ORDERED: NS + KCL 20 MEQ INJ 1,000 ML IV SCH (17:00)
--- NOTE | 2016-08-03 17:11 | HHI.NSPN ---
(Loulou Lozano) Note Status Status: Progress Note (Loulou Lozano) Interval History Interval History Mr Washburn is a 86 year old male who underwent open reduction internal fixation of unstable T8, T9 fracture on 05/04/16. He was doing well initially, but unfortunately developed a pressure ulcer in his midline with an opening into the surgical site. The wound has failed to heal despite wet to dry wound packing. He was brought back to the hospital from rehab facility due to his families' concern of his generalized weakness and difficulty standing. (Loulou Lozano) Labs, Micro, & Vital Signs Results Date Time Temp Pulse Resp B/P Pulse Ox O2 Delivery O2 Flow Rate FiO2 08/03/16 07:32 79 18 122/69 94 08/03/16 04:38 95 118/63 93 08/03/16 04:09 106 08/03/16 00:42 97.2 81 18 137/65 96 08/02/16 23:01 90 24 124/61 96 Nasal Cannula 2 08/02/16 19:20 Nasal Cannula 08/02/16 19:07 97.4 71 22 127/60 95 Constitutional Vital Signs Date Time Temp Pulse Resp B/P Pulse Ox O2 Delivery O2 Flow Rate FiO2 08/03/16 07:32 79 18 122/69 94 08/03/16 04:38 95 118/63 93 08/03/16 04:09 106 08/03/16 00:42 97.2 81 18 137/65 96 08/02/16 23:01 90 24 124/61 96 Nasal Cannula 2 08/02/16 19:20 Nasal Cannula 08/02/16 19:07 97.4 71 22 127/60 95 (Loulou Lozano) Review of Systems/Exam Exam Alert, no apparent distress, oriented to name and place. Follows commands well. Thoracic region with opening within the surgical incision, 2 cm in length, 1.5 cm in width and around 2 cm in depth. There is surgical screws also exposed. No active drainage seen. Motor: moves all major muscle groups of upper and lower extremities well with relatively good strength. Sensory; reports intact to light touch x 4 Plantars flexors b/l Neck: soft, supple CN: pupils equal, facial motor symmetric (Loulou Lozano) Medications Current Medications (Loulou Lozano) Medical Decision Making MDM Remarks 86 y/o male with thoracic wound dehiscence s/p irrigation and debridement with placement of wound vac on 08/03/16 ORIF T8, T9 fracture 05/04/16 (Loulou Lozano) Plan Plan Remarks for I&D with wound vac placement today keep NPO Dr. Knight have discussed in detail including the [id number] details of the surgical procedure, its indications, alternatives, risks, and potential complications. Risks and potential complications include, but are not limited to, infection, blood loss, CSF leak, partial or complete loss of sight in one or both eyes, paresis, paralysis, permanent pain or difficulty swallowing, loss of bowel or bladder function, complications from anesthesia, blood clot, stroke , myocardial infarction, or even . (Loulou Lozano) Attending Statement The exam, history, and the medical decision-making described in the above note were completed with the assistance of the mid-level provider. I reviewed and agree with the findings presented. I attest that I had a [id number] encounter with the patient on the same day, and personally performed and documented my assessment and findings in the medical record. (Leeroy Knight MD) Loulou Lozano Aug 03, 2016 17:11 Leeroy Knight MD Aug 06, 2016 15:37
--- NOTE | 2016-08-03 17:43 | PD.OP ---
Operative Report Date of Surgery: Aug 03, 2016 Preoperative Diagnosis: Pressure decubitus in the thoracic spine Postoperative Diagnosis: Pressure decubitus in the thoracic spine Procedure: Irrigation and debridement of thoracic wound Anesthesia: general Surgeon: Leeroy Knight Intake Coordinator(s): Laxmi Saba Operation and Findings: INDICATIONS FOR THE PROCEDURE mr Washburn is a 86 year old male who suffered a thoracic fracture and posterolateral fusion using transpedicular screws and rods. She did well postoperatively and his incision was examined and healing without complications. The is very thin and over time he developed a pressure decubitus in the midline, with small area of opening. His decubitus was not healing well and a screw was exposed. A surgical irrigation and debridement were indicated. The [id number] details of the procedure, indications, alternatives, risks and potential complications were fully discussed with the patient. The patient fully understood. All her questions were answered. No guarantees were given. She voiced requesting the procedure and provided informed consents. The patient was offered the alternative of delaying the procedure and continuing with nonsurgical management. DETAILS OF THE PROCEDURE After the induction of general anesthesia, endotracheal intubation was performed. A Momin catheter, bilateral NAIMA hose and sequential compression devices were placed and kept throughout the procedure. The patient was positioned prone on a Bubba table over a Tad frame. All pressure points were carefully padded with eggcrate mattress. The eyes were tapped shut after ointment was applied by the anesthesiologist to prevent corneal abrasion. A Madeline hugger was placed over the exposed lower body to maintain control of the core body temperature. The thoracic region was prepped and draped in the usual sterile fashion. Initially the wound was cultured and sent to the lab. No pockets were found. No purulent material was seen. he appears to have granulation tissue, but a screw was exposed. Using a #15 blade and a curette, the tissues were debrided to healthy granulation. Tussie was sent for cultures. Then, The incision was irrigated with several liters of basic ortho solution. The incision was then packed open using a wound vac. At the end of the procedure, the sponge, needle and instrument counts were all correct. The estimated blood loss was minimal. No intraoperative complications occurred. The patient received prophylactic antibiotics. The patient was then extubated and transferred to the recovery room in stable condition. Leeroy Knight MD Aug 03, 2016 17:43
[2016-08-03] MEDS ORDERED: DO NOT ADM ANY ANTICOAGULANT DRUGS XX PRN (18:00)
--- NOTE | 2016-08-03 18:39 | PD.CONS ---
Consult Service Palliative Care . Consult Requested By Dr. Shima Antonio. . Primary Care Physician Renard Phillips M.D. Reason for Consultation a. To assist with evaluation and management of symptoms including: pain, weakness. b. To assist medical decision maker(s) with: better understanding of current medical conditions; weighing benefits/burdens of medical treatment options; making medical treatment decisions. . HPI History of Present Illness Mr. Klein is an 86 year old male with past medical history of atrial fibrillation, CAD, DM, HTN, gout, nephrolithiasis, sleep apnea, GERD, left hip fracture s/p intramedullary nailing (05/01/2016) and T8 through T9 fracture with T7-[address] Knight 05/04/16. This is his 4th acute-care hospitalizations since April 2016. On 07/08/16 07/15/16 patient was admitted with sepsis, UTI, MRSA of back wound. He was readmitted 07/17/16 07/22/16 for CHF exacerbation and altered mental status secondary to infectious process pneumonia, UTI and MRSA infection to spinal hardware. He was discharged back to [facility] rehab, he had been there following these recent admissions. 08/02/16 patient was sent to the emergency department to be evaluated for generalized weakness lasting 3 to 4 days prior to presentation. He denied any syncope, shortness of breath, fever, nausea, vomiting, diarrhea, hematuria, dysuria, unilateral weakness, chest pain or palpitations. He reported mild post surgical back pain. Family reported he had some increase shortness of breath and cough. Initial emergency room evaluation revealed: * vital signs temp 97.4, pulse 71, respiration 22, BP 127/60, oxygen saturation 95%. * WBC 10.7, hemoglobin 9.9, hematocrit 29.7, platelet count 219, neutrophils 66.9% * PT 12.3, INR 1.1, PTT 31.5 * Sodium 140, potassium 3.9, chloride 103, carbon dioxide 28.8, creatinine 1.66 , BUN 26, GFR 39 * Total bilirubin 0.5, AST 24, ALT 14, alkaline phosphatase 92 * Total creatine kinase 68, troponin 0.03 * C-reactive protein 17 * Total protein 6.8, albumin 2.1 * hip x-ray medullary rosa and compression screw securing a presumed old left hip fracture, bony eburnation duration around proximal femur but no acute fracture identified. * Thoracic spine subacute fracture of T9 vertebral body and posterior elements again noted, status post fusion T7 T11, fracture again noted focal he extend into T8 T9 intervertebral disk space, fracture is incompletely healed, vertebral body endplate destruction and anterior predominant osseous raging have developed T8/T9, etiology uncertain, suspected ankylosing spondylitis, small right and small to moderate left pleural effusions with dependent consolidation of visualized lungs. * Lumbar spine CT no acute abnormality or significant change, multilevel facet degenerative changes noted. * Chest x-ray mild patchy consolidation in small effusion on the left. * Left knee x-ray left total knee arthroplasty and radiographically intact without fracture, small suprapatellar effusion Patient is admitted for pneumonia and wound infection. Dr. Knight, neurosurgery was consulted, plan for incision and drainage with wound VAC placement today. Infectious disease Dr. Antonio was consulted. She contacted palliative care for consultation to assist with further clarification of treatment goals given difficult nature of MRSA spinal hardware infection, limited antibiotic therapy and repeat hospitalizations. . Function/Cognitive Trajectory Patient was living independently prior to hospitalization in April 2016. Family reports in rehab he was able to ambulate with parallel bars. Appetite was good. He remained motivated and felt he was progressing with therapy. . Review of Systems Constitutional: COMPLAINS OF: Fatigue, Change in appetite (good appetite), Pain (left knee), Generalized weakness Respiratory: COMPLAINS OF: Apneas (sleep apnea), Cough, Shortness of breath Integumentary: COMPLAINS OF: Non-healing sores (spine) Hematologic/Lymphatics: COMPLAINS OF: Bruising Neurologic: COMPLAINS OF: Paresthesias, Poor Balance Past Family Social History Coded Allergies: *MDRO Multi-Drug Resistant Organism (Verified Adverse Reaction, Unknown, ) 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 Past Medical History Atrial fibrillation Cardiovascular disease Admitted 07/01-07/08 after a fall from roof, had injuries that resulted in left femur fracture and T8-T9 fracture. Eventually discharged to [facility] Diabetes Mellitus, type 2 GERD Hypertension Nephrolithiasis Gout Sleep apnea Sepsis Pneumonia MRSA in T7-11 fixation site . Past Surgical History Abdominal surgery Cataracts both eyes Lithotripsy Knee replacement surgery Inguinal hernia repair x 2 Status post left hip IM May 01, 2016 Status post ORIF with T7-T11 posterolateral fixation on 05/04/16 . Reported Medications Reported Meds & Active Scripts Active Aspirin EC (Aspirin) 81 Mg Tabdr 81 Mg PO DAILY Metoprolol Tartrate 25 Mg Tab 25 Mg PO Q8HR 14 Days Milk of Magnesia Liq (Magnesium Hydroxide) 400 Mg/5 Ml Susp 30 Ml PO DAILY PRN 14 Days Lasix (Furosemide) 40 Mg Tab 40 Mg PO DAILY 14 Days Digoxin 0.125 Mg Tab 0.125 Mg PO DAILY 14 Days Zyloprim (Allopurinol) 300 Mg Tab 300 Mg PO DAILY 14 Days Acetaminophen 325 Mg Tab 650 Mg PO Q4H PRN 14 Days Walker with Front Wheels (Device) 1 Mis Mis 1 Ea .ROUTE DIRECTED Reported Bisacodyl EC (Bisacodyl) 5 Mg Tabec 5 Mg PO DAILY PRN Isradipine 2.5 Mg Cap 2.5 Mg PO BID Famotidine 20 Mg Tab 20 Mg PO BID Vancomycin Inj (Vancomycin HCl) 1,000 Mg Inj 750 Mg IVPB DAILY Glipizide 10 Mg Tab 10 Mg PO BIDAC Take 30 minutes before a meal . Current Medications Medications (Trade) Dose Ordered Sig/Sybil Route Start Time Stop Time Status Last Admin (NS Flush) 2 ml UNSCH PRN FLUSH 08/02/16 21:30 (NS Flush) 2 ml BID FLUSH 08/03/16 09:00 (Zofran Inj) 4 mg Q6H PRN IVP 08/02/16 21:30 (Heparin Inj) 5,000 units Q8H SQ 08/03/16 06:00 08/03/16 06:16 Naloxone HCl 0.4 mg 0.4 mg UNSCH PRN IV 08/02/16 21:30 Pharmacy Profile Note 0 ml @ 0 mls/hr UNSCH OTHER 08/02/16 21:30 (Levaquin 750 Mg Premix Inj) 150 ml @ 100 mls/hr Q48H IV 08/02/16 22:30 08/03/16 02:11 (Zyloprim) 300 mg DAILY PO 08/03/16 09:00 08/03/16 10:33 (Ecotrin Ec) 81 mg DAILY PO 08/03/16 09:00 08/03/16 10:32 (Lanoxin) 0.125 mg DAILY PO 08/03/16 09:00 08/03/16 10:33 (Lasix) 40 mg DAILY PO 08/03/16 09:00 08/03/16 10:34 (Dynacirc) 2.5 mg BID PO 08/03/16 09:00 08/03/16 10:32 (Lopressor) 25 mg Q8HR PO 08/03/16 06:00 08/03/16 06:15 (Dulcolax Supp) 10 mg DAILY PRN AK 08/03/16 07:45 (Senokot) 17.2 mg Q12H PRN PO 08/03/16 07:45 (Tylenol) 650 mg Q6H PRN PO 08/03/16 07:45 (Catapres) 0.1 mg Q6H PRN PO 08/03/16 07:45 (D50w (Vial) Inj) 25 ml UNSCH PRN IV PUSH 08/03/16 08:00 (Glucagon Inj) 1 mg UNSCH PRN OTHER 08/03/16 08:00 (Folate) 1 mg DAILY PO 08/03/16 09:00 08/08/16 08:59 08/03/16 10:33 (Vitamin B1) 100 mg DAILY PO 08/03/16 09:00 08/03/16 10:32 (Theragran M Tab) 1 tab DAILY PO 08/03/16 09:00 08/08/16 08:59 08/03/16 10:32 (Romazicon Inj) 0.2 mg Q1M PRN IV PUSH 08/03/16 08:00 (Toradol) 10 mg Q6H PRN PO 08/03/16 09:00 08/08/16 08:59 Famotidine 10 mg 10 mg BID PO 08/03/16 21:00 Potassium Chloride/Sodium Chloride 1,000 ml @ 100 mls/hr Q10H IV 08/03/16 17:00 (Ancef 2 Gm Premix) 50 ml @ 100 mls/hr Q8H IV 08/03/16 16:15 08/04/16 08:44 UNV (Colace) 100 mg BID PO 08/03/16 21:00 (Protonix) 40 mg DAILY PO 08/04/16 09:00 ([place] 10-325 Mg) 1 tab Q4H PRN PO 08/03/16 16:15 ([place] 10-325 Mg) 2 tab Q4H PRN PO 3/7/17 16:15 (Morphine Inj) 2 mg Q2H PRN IV PUSH 08/03/16 16:15 (Morphine Inj) 4 mg Q2H PRN IV PUSH 08/03/16 16:15 (Tylenol) 650 mg Q4H PRN PO 08/03/16 16:15 (Pill Splitter) 1 ea UNSCH PRN OTHER 08/03/16 16:30 Miscellaneous Information ALL NURSING DEPARTME... UNSCH PRN XX 08/03/16 18:00 08/04/16 17:59 . Family History Denies significant family history . Substance Use ETOH: a couple of bourbons a day Tobacco: quit 1974 Illicit drugs: denies . Psychosocial History Born and raised in [place]. 3 years ago. Has 5 adult children: Lorri Amanda, Luisakely Smartm, Amari Latoya, Bi Latoya and Chloé Clemente. All children live out of state, however take turns coming to visit. Moved to [place] approximately 28 years ago. No experience. Worked for [employer]. . Spiritual/Cultural Factors Unknown. Patient is not want to talk during my visit. . Health Care Surrogate: Copy in medical record Durable Power of Lifter: Copy in medical record Date completed: 08/12/13 Health Care Surrogate(s): Power of assistant county attorney paperwork includes healthcare decision-making, names his son Shawn Klein (Bill) as medical decision maker. . Today's verbally stated goals: Patient desires continued aggressive care. Family/friends goals: Family supports patient wishes for continued aggressive care. Family indicates patient has afforded do not resuscitate order. Ethical and Legal Issues Patient is currently capacitated to make his own health care decisions. Power of assistant county attorney paperwork includes healthcare decision-making, names his son Shawn Klein (Bill) as medical decision maker should he lose capacity. . Physical Exam Vital Signs Date Time Temp Pulse Resp B/P Pulse Ox O2 Delivery O2 Flow Rate FiO2 08/03/16 17:13 97.5 112 16 123/69 97 Nasal Cannula 3 08/03/16 07:32 79 18 122/69 94 08/03/16 04:38 95 118/63 93 08/03/16 04:09 106 08/03/16 00:42 97.2 81 18 137/65 96 08/02/16 23:01 90 24 124/61 96 Nasal Cannula 2 08/02/16 19:20 Nasal Cannula 08/02/16 19:07 97.4 71 22 127/60 95 08/02/16 08/03/16 19:00 07:00 # Voids 2 Exam CONSTITUTIONAL/GENERAL: This is an adequately nourished patient, in no apparent distress. SKIN: No jaundice, rashes, or lesions. Ecchymoses on upper extremities. Wound upper spine, unable to adequately visualize today given my position when dressing was removed. Skin temperature appropriate. Not diaphoretic. HEAD: Atraumatic. Normocephalic. Some temporal wasting noted. EYES: Pupils equal and round and reactive. Extraocular motions intact. No scleral icterus. No injection or drainage. ENT: Hearing grossly normal. Nose without bleeding or purulent drainage. Throat without visible erythema, exudates, masses, or lesions. NECK: Trachea midline. Supple, nontender. No palpable thyroid enlargement or nodularity. CARDIOVASCULAR: Regular rate and rhythm without murmurs, gallops, or rubs. No JVD. Peripheral pulses symmetric. RESPIRATORY/CHEST: Symmetric, unlabored respirations. Decreased breath sounds bilaterally GASTROINTESTINAL: Abdomen soft, non-tender, nondistended. No hepato-splenomegaly , or palpable masses. No guarding. Bowel sounds present. GENITOURINARY: Without palpable bladder distension. MUSCULOSKELETAL: Extremities without clubbing, cyanosis, or edema. No joint tenderness or effusion noted. No calf tenderness. No mottling or clubbing. LYMPHATICS: No palpable cervical or supraclavicular adenopathy. NEUROLOGICAL: Awake and alert, closes eyes and does not want to speak during my visit. Lower extremity weakness. Follows commands. PSYCHIATRIC: No obvious anxiety/depression. no apparent hallucinations or other psychotic thought process. . Diagnostic Tests Laboratory Laboratory Tests Test 08/02/16 08/02/16 08/03/16 19:45 20:30 07:25 White Blood Count 10.7 TH/MM3 9.3 TH/MM3 (4.0-11.0) (4.0-11.0) Red Blood Count 3.27 MIL/MM3 3.11 MIL/MM3 (4.50-5.90) (4.50-5.90) Hemoglobin 9.9 GM/DL 9.3 GM/DL (13.0-17.0) (13.0-17.0) Hematocrit 29.7 % 28.3 % (39.0-51.0) (39.0-51.0) Mean Corpuscular Volume 90.9 FL 91.2 FL (80.0-100.0) (80.0-100.0) Mean Corpuscular Hemoglobin 30.4 PG 29.8 PG (27.0-34.0) (27.0-34.0) Mean Corpuscular Hemoglobin 33.5 % 32.7 % Concent (32.0-36.0) (32.0-36.0) Red Cell Distribution Width 15.3 % 15.1 % (11.6-17.2) (11.6-17.2) Platelet Count 219 TH/MM3 205 TH/MM3 (150-450) (150-450) Mean Platelet Volume 9.2 FL 8.6 FL (7.0-11.0) (7.0-11.0) Neutrophils (%) (Auto) 66.9 % 71.3 % (16.0-70.0) (16.0-70.0) Lymphocytes (%) (Auto) 17.5 % 14.9 % (9.0-44.0) (9.0-44.0) Monocytes (%) (Auto) 9.4 % (0.0-8.0) 7.0 % (0.0-8.0) Eosinophils (%) (Auto) 4.9 % (0.0-4.0) 6.1 % (0.0-4.0) Basophils (%) (Auto) 1.3 % (0.0-2.0) 0.7 % (0.0-2.0) Neutrophils # (Auto) 7.2 TH/MM3 6.6 TH/MM3 (1.8-7.7) (1.8-7.7) Lymphocytes # (Auto) 1.9 TH/MM3 1.4 TH/MM3 (1.0-4.8) (1.0-4.8) Monocytes # (Auto) 1.0 TH/MM3 0.6 TH/MM3 (0-0.9) (0-0.9) Eosinophils # (Auto) 0.5 TH/MM3 0.6 TH/MM3 (0-0.4) (0-0.4) Basophils # (Auto) 0.1 TH/MM3 0.1 TH/MM3 (0-0.2) (0-0.2) CBC Comment DIFF FINAL DIFF FINAL Differential Comment Erythrocyte Sedimentation Rate GREATER THAN 140 mm/hr (0-20) Prothrombin Time 12.3 SEC (9.8-11.6) Prothromb Time International 1.1 RATIO Ratio Activated Partial 31.5 SEC Thromboplast Time (24.3-30.1) Sodium Level 140 MEQ/L 142 MEQ/L (136-145) (136-145) Potassium Level 3.9 MEQ/L 3.5 MEQ/L (3.5-5.1) (3.5-5.1) Chloride Level 103 MEQ/L 104 MEQ/L (98-107) (98-107) Carbon Dioxide Level 28.8 MEQ/L 31.9 MEQ/L (21.0-32.0) (21.0-32.0) Anion Gap 8 MEQ/L (5-15) 6 MEQ/L (5-15) Blood Urea Nitrogen 26 MG/DL (7-18) 23 MG/DL (7-18) Creatinine 1.66 MG/DL 1.51 MG/DL (0.60-1.30) (0.60-1.30) Estimat Glomerular Filtration 39 ML/MIN (>89) 44 ML/MIN (>89) Rate Random Glucose 107 MG/DL 47 MG/DL (74-106) (74-106) Calcium Level 8.5 MG/DL 8.4 MG/DL (8.5-10.1) (8.5-10.1) Magnesium Level 1.8 MG/DL (1.5-2.5) Total Bilirubin 0.5 MG/DL (0.2-1.0) Aspartate Amino Transf 24 U/L (15-37) (AST/SGOT) Alanine Aminotransferase 14 U/L (12-78) (ALT/SGPT) Alkaline Phosphatase 92 U/L (45-117) Total Creatine Kinase 68 U/L (39-308) Troponin I 0.03 NG/ML (0.02-0.05) C-Reactive Protein 17.00 MG/DL (0.00-0.30) Total Protein 6.8 GM/DL (6.4-8.2) Albumin 2.1 GM/DL (3.4-5.0) Lactic Acid Level 1.1 mmol/L (0.4-2.0) Hemoglobin A1c 6.2 % (4.3-6.0) Digoxin Level 1.0 NG/ML (0.8-2.0) Result Diagram: 08/03/16 0725 08/03/16 0725 Microbiology Microbiology Date/Time Procedure Status Source Growth 08/02/16 20:12 Aerobic Blood Culture - Preliminary Resulted Blood Peripheral NO GROWTH IN 1 DAY 08/02/16 20:12 Anaerobic Blood Culture - Preliminary Resulted Blood Peripheral NO GROWTH IN 1 DAY 08/02/16 20:20 Aerobic Blood Culture - Preliminary Resulted Blood Peripheral NO GROWTH IN 1 DAY 08/02/16 20:20 Anaerobic Blood Culture - Preliminary Resulted Blood Peripheral NO GROWTH IN 1 DAY Imaging Last Impressions Knee X-Ray 08/02/16 [id number] Signed Impressions: Service Date/Time: Wednesday, August 03, 2016 00:06 - CONCLUSION: 1. 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 2. Plain film findings of a very small suprapatellar effusion. Sherwin Wallace MD Thoracic Spine CT 08/02/161925 Signed Impressions: Service Date/Time: Tuesday, August 02, 2016 19:46 - CONCLUSION: 1. Subacute fracture of the T9 vertebral body and posterior elements again noted, status post fusion from T7-T11. Fracture again noted to focally extend into the T8/T9 intervertebral disc space. The fracture is incompletely healed. 2. Vertebral body endplate destruction and anterior predominant osseous ridging have developed at T8/T9, etiology uncertain but I believe related to persistent motion as there is lucency around the bilateral pedicle screws at T10 and T11. I don't see an abscess or high-grade juxtavertebral inflammatory changes but please correlate clinically for the possibility of T8/T9 discitis.. 3. 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 4. Small right and [id number] left pleural effusions with dependent consolidation or noted of the visualized lungs. Paul Clinton MD Lumbar Spine CT 08/02/161925 Signed Impressions: Service Date/Time: Tuesday, August 02, 2016 19:53 - CONCLUSION: No acute abnormality or significant change seen in the CT appearance of the lumbar spine. Multilevel facet degenerative changes are again noted and chronic loss of height of L5. Paul Clinton MD Chest X-Ray 08/02/16 1926 Signed Impressions: Service Date/Time: Tuesday, August 02, 2016 19:38 - CONCLUSION: Mild patchy consolidation and small effusion on the left. Paul Clniton MD Hip X-Ray 08/02/16 0000 Signed Impressions: Service Date/Time: Wednesday, August 03, 2016 00:08 - CONCLUSION: 1. Medullary rosa and compression screw securing a presumed old left hip fracture. 2. Bony eburnation around the proximal femur but no acute fracture identified. Sherwin Wallace MD Patient/Family Conference Present at Family Conference: 08/03/16 palliative care met with patient and 2 of his daughters (Lorri and Demi) at bedside. Family Conference Time (mins): 35 Family Conference Location: Bedside Issues Discussed: * Palliative care role, purpose, approach * Additional medical, psychosocial, and spiritual history * Patients general health, functional status, and cognitive changes in the months leading up to the current hospitalization * Patient/family understanding of the current medical problems * Patient/family understanding of prognosis * Patients goals of care as best understood from advance directives and/or conversations and/or values * Current medical treatment options and benefits/burdens of those options * Likely scenarios comparing ongoing aggressive care with a transition to comfort measures only * Questions answered to the best of my ability * Palliative care contact information provided Palliative care was introduced by Dr. Antonio, upon introduction patient closed his eyes and turned his head did not want to speak. Palliative care DID NOT address goals of care, only obtained additional social history and introduced palliative care service in a supportive role of continued aggressive care, lengthy discussion with daughters regarding difference betweens between palliative care and hospice. Family was very appreciative, however I was later called and asked not to see the patient. Family would like continued palliative care communication and support, but asks that patient not be visited by palliative care team unless family requests as patient associates palliative care with end of life. For now I asked that daughters call if they need palliative care. Will do daily computer checks. Discussed with Dr. Shima Antonio. Assessment and Plan Disease Oriented Problem List: (1) Pneumonia (2) Weakness (3) Left knee pain (4) History of MRSA infection (5) Atrial fibrillation (6) CHF (congestive heart failure) (7) Hypoglycemia (8) Hypertension (9) Hx of unstable T8,T9 fractures due to fall with T7 to T11 posterior fixation using transpedicular screws and rods on 05/04/16 (10) Renal insufficiency (11) Anemia Symptom Scale: (1) Left knee pain 0-10 Scale: 0 (2) Weakness 0-10 Scale: Unable to quantify Pertinent Non-Medical Issues Psychosocial: . Supported by his 5 children who all live out of start, though take turns visiting. Spiritual: Unknown. Legal:Patient is currently capacitated to make his own health care decisions. Power of assistant county attorney paperwork includes healthcare decision-making, names his son Shawn Klein (Bill) (son) as medical decision maker should he lose capacity. Ethical issues impacting care: no known concerns at this time. . Important Contacts * Aamri Klein, son/POA includes healthcare: [phone] lives in [place] * Lorri Patel, daughter: [phone] lives in [place] * Luisa Klein, daughter: [phone] lives in [place] * Bi Klein, son: [phone] lives in [place] * Chloé Cornejo. , Daughter: [phone] lives in [place] Prognosis Mr. Klein is an 86-year-old male with multiple medical comorbidities who was living independently prior to April 2016 hospitalization, he has had for acute care hospitalizations since that time. He continues to have repeat hospitalizations for infection. It appears patient will survive this hospitalization, though given his advanced age, repeat hospitalizations he is high risk for further decline. . Plan * Patient is currently capacitated to make his own health care decisions. Power of assistant county attorney paperwork includes healthcare decision-making, names his son Shawn Klein (Bill) (son) as medical decision maker should he lose capacity. * Medical team should address code status, family indicates patient has DNR. Patient did not want to speak with me during my visit. [place] do not resuscitate scanned into EMR dated 06/02/16 signed by the patient. * 08/03/16 palliative care met with patient and 2 of his daughters (Lorri and Demi) at bedside. Palliative care was introduced by Dr. Antonio, upon introduction patient closed his eyes and turned his head did not want to speak. Palliative care DID NOT address goals of care, only obtained additional social history and introduced palliative care service in a supportive role of continued aggressive care, lengthy discussion with daughters regarding difference betweens between palliative care and hospice. Family was very appreciative, however I was later called and asked not to see the patient. Family would like continued palliative care communication and support, but asks that patient not be visited by palliative care team unless family requests as patient associates palliative care with end of life. For now I asked that daughters call if they need palliative care. Will do daily computer checks. Discussed with Dr. Shima Antonio. * Palliative care number provided. Daughters at bedside will provide palliative care number to the rest of their siblings. * Palliative care will only follow this patient if and when family requests visits be done. Time Spent Total Floor Time (mins): 45 Face to Face Time (mins): 35 >50% Counseling/Coord of Care: Yes Thank you for the opportunity to participate in the care of Mr. Klein. Attestation To help prompt me to consider important information that might be impacting today's encounter and assessment, information from prior notes written by myself or my colleagues may have been "brought forward" into today's note. My signature on this note, however, is an attestation that I personally performed the exam, history, and/or decision-making noted today, and, unless otherwise indicated, the interactions with patient, family, and staff as well as the review of records all occurred today. I also attest that the listed assessment and stated plan reflect my best clinical judgment today based on the combination of historical information, prior notes, and today's exam/ interactions. When time spent is documented, it refers only to time spent today by the signer, or if indicated, combined time spent today by collaborating physician/nurse practitioner. HANK GARAY Aug 03, 2016 18:39
[2016-08-03 20:00] VITALS: BP 116/58; PULSE 104; RESP 18; TEMP 96.3; O2SAT 95
[2016-08-03] MEDS: DEXTROSE 50% IN WATER 50 ML VIAL(D50) IV PUSH PRN ×3 (20:52→23:28)
[2016-08-03] MEDS ORDERED: SODIUM CHLORIDE 0.9% FLUSH 5 ML FLUSH IVF SCH (21:00)
[2016-08-03] MEDS: RIFAMPIN 150 MG CAP PO SCH (21:01)
[2016-08-03] MEDS: DOCUSATE SODIUM 100 MG CAP PO SCH (21:01)
[2016-08-03] MEDS: FAMOTIDINE 20 MG TAB PO SCH (21:01)
[2016-08-03 21:29] VITALS: O2SAT 96
[2016-08-03] MEDS: DAPTOMYCIN IV SCH (23:28)
[2016-08-03] MEDS: SODIUM CHLORIDE 0.9% IV SCH (23:28)
[2016-08-04] VITALS (9 sets, daily range): BP systolic 114–142; BP diastolic 56–73; PULSE 67–98; RESP 18–24; TEMP 95.1–97.4; O2SAT 93–100
[2016-08-04] MEDS: D5-1/2 NS + KCL 20 MEQ INJ 1,000 ML IV SCH ×3 (00:59→21:00)
[2016-08-04] MEDS: ceFAZolin 2 GM PREMIX 50 ML IV SCH ×3 (00:59→18:01)
[2016-08-04] MEDS: METOPROLOL TARTRATE 25 MG TAB PO SCH ×3 (06:00→21:53)
[2016-08-04] MEDS: HEPARIN SODIUM - SQ 10,000 UNITS/ML VIAL SQ SCH ×3 (06:00→21:52)
[2016-08-04] MEDS: INSULIN ASPART SUPPLEMENTAL SCALE SQ SCH ×4 (07:00→21:54)
[2016-08-04] MEDS: SODIUM CHLORIDE 0.9% FLUSH 5 ML FLUSH FLUSH SCH ×2 (09:49→21:52)
[2016-08-04] MEDS: MULTIVITAMINS/MINERALS THERAPEUTIC TAB PO SCH (09:49)
[2016-08-04] MEDS: FAMOTIDINE 20 MG TAB PO SCH ×2 (09:53→21:53)
[2016-08-04] MEDS: FUROSEMIDE 40 MG TAB PO SCH (09:53)
[2016-08-04] MEDS: FOLIC ACID 1 MG TAB PO SCH (09:53)
[2016-08-04] MEDS: THIAMINE HCL 100 MG TAB PO SCH (09:53)
[2016-08-04] MEDS: DIGOXIN 0.125 MG TAB PO SCH (09:54)
[2016-08-04] MEDS: PANTOPRAZOLE SOD 40 MG DELAYED RELEASE TAB PO SCH (09:54)
[2016-08-04] MEDS: ALLOPURINOL 300 MG TAB PO SCH (09:54)
[2016-08-04] MEDS: RIFAMPIN 150 MG CAP PO SCH ×2 (09:54→21:52)
[2016-08-04] MEDS: DOCUSATE SODIUM 100 MG CAP PO SCH ×2 (09:55→21:00)
[2016-08-04] MEDS: ISRADIPINE 2.5 MG PO SCH ×2 (11:04→21:59)
--- NOTE | 2016-08-04 11:11 | HHI.HCPN ---
Call from daughter, Lorri to report patient is doing well today post surgery. She was asking if we need copy of written advanced directives, I advised we have a copy scanned into EMR. She advises patient wants DNR implemented and requests order be implemented now that patient has had surgery. I will change order as per family request and patient written [place] Do Not Resuscitate order , signed by patient 06/02/16. Family does not feel patient wants palliative care visit today. . HANK GARAY Aug 04, 2016 11:10
--- NOTE | 2016-08-04 11:46 | HHI.NSPN ---
(Loulou Lozano) Note Status Status: Progress Note (Loulou Lozano) Interval History Interval History Mr Washburn is a 86 year old male who underwent open reduction internal fixation of unstable T8, T9 fracture on 05/04/16. He was doing well initially, but unfortunately developed a pressure ulcer in his midline with an opening into the surgical site. The wound has failed to heal despite wet to dry wound packing. He was brought back to the hospital from rehab facility due to his families' concern of his generalized weakness and difficulty standing. 08/04: s/p I&D with placement of wound vac. doing well, denies significant back pain, nor changes to LE's sensorimotor function. (Loulou Lozano) Labs, Micro, & Vital Signs Results Date Time Temp Pulse Resp B/P Pulse Ox O2 Delivery O2 Flow Rate FiO2 08/04/16 09:13 93 Nasal Cannula 3.00 08/04/16 08:10 95.1 98 24 142/66 95 08/04/16 04:00 97.3 93 18 128/73 95 08/04/16 00:00 97.4 92 18 114/56 95 08/03/16 21:29 96 Nasal Cannula 3.00 08/03/16 20:00 96.3 104 18 116/58 95 08/03/16 18:17 107 16 115/56 96 Nasal Cannula 3 08/03/16 18:00 94 16 110/62 95 Nasal Cannula 3 08/03/16 17:45 94 16 105/58 97 Nasal Cannula 3 08/03/16 17:30 97 16 106/64 95 Nasal Cannula 3 08/03/16 17:13 97.5 112 16 123/69 97 Nasal Cannula 3 08/04/16 07:00 Intake Total 1510 ml Output Total 0 ml Balance 1510 ml Constitutional Vital Signs Date Time Temp Pulse Resp B/P Pulse Ox O2 Delivery O2 Flow Rate FiO2 08/04/16 09:13 93 Nasal Cannula 3.00 08/04/16 08:10 95.1 98 24 142/66 95 08/04/16 04:00 97.3 93 18 128/73 95 08/04/16 00:00 97.4 92 18 114/56 95 08/03/16 21:29 96 Nasal Cannula 3.00 08/03/16 20:00 96.3 104 18 116/58 95 08/03/16 18:17 107 16 115/56 96 Nasal Cannula 3 08/03/16 18:00 94 16 110/62 95 Nasal Cannula 3 08/03/16 17:45 94 16 105/58 97 Nasal Cannula 3 08/03/16 17:30 97 16 106/64 95 Nasal Cannula 3 08/03/16 17:13 97.5 112 16 123/69 97 Nasal Cannula 3 08/04/16 07:00 Intake Total 1510 ml Output Total 0 ml Balance 1510 ml (Loulou Lozano) Review of Systems/Exam Exam Alert, no apparent distress, oriented to name and place. Thoracic wound with wound vac in place. CN: pupils equal, facial motor symmetric . Motor: moves all major muscle groups of upper and lower extremities well with relatively good strength. Sensory; reports intact to light touch x 4 Plantars flexors b/l Neck: soft, supple (Loulou Lozano) Medications Current Medications Current Medications Medications (Trade) Dose Ordered Sig/Sybil Route PRN Reason Start Time Stop Time Status Last Admin Dose Admin IV Flush (NS Flush) 2 ml UNSCH PRN FLUSH FLUSH AFTER USING IV ACCESS 08/02/16 21:30 IV Flush (NS Flush) 2 ml BID FLUSH 08/03/16 09:00 08/04/16 09:49 Ondansetron HCl (Zofran Inj) 4 mg Q6H PRN IVP NAUSEA OR VOMITING 08/02/16 21:30 Heparin Sodium (Porcine) (Heparin Inj) 5,000 units Q8H SQ 08/03/16 06:00 08/03/16 06:16 Naloxone HCl (Narcan Inj) 0.4 mg UNSCH PRN IV SEE LABEL COMMENTS 08/02/16 21:30 Allopurinol (Zyloprim) 300 mg DAILY PO 08/03/16 09:00 08/04/16 09:54 Aspirin (Ecotrin Ec) 81 mg DAILY PO 08/03/16 09:00 08/03/16 10:32 Digoxin (Lanoxin) 0.125 mg DAILY PO 08/03/16 09:00 08/04/16 09:54 Furosemide (Lasix) 40 mg DAILY PO 08/03/16 09:00 08/04/16 09:53 Isradipine (Dynacirc) 2.5 mg BID PO 08/03/16 09:00 08/04/16 11:04 Metoprolol Tartrate (Lopressor) 25 mg Q8HR PO 08/03/16 06:00 08/03/16 06:15 Bisacodyl (Dulcolax Supp) 10 mg DAILY PRN CO CONSTIPATION 08/03/16 07:45 Sennosides (Senokot) 17.2 mg Q12H PRN PO CONSTIPATION 08/03/16 07:45 Acetaminophen (Tylenol) 650 mg Q6H PRN PO PAIN SCALE 1 TO 2 08/03/16 07:45 08/03/16 21:01 Clonidine (Catapres) 0.1 mg Q6H PRN PO SBP> OR = 180, DBP> OR = 100 08/03/16 07:45 Dextrose (D50w (Vial) Inj) 25 ml UNSCH PRN IV PUSH HYPOGLYCEMIA-SEE COMMENTS 08/03/16 08:00 08/03/16 23:28 Glucagon (Glucagon Inj) 1 mg UNSCH PRN OTHER HYPOGLYCEMIA-SEE COMMENTS 08/03/16 08:00 Folic Acid (Folate) 1 mg DAILY PO 08/03/16 09:00 08/08/16 08:59 08/04/16 09:53 Thiamine HCl (Vitamin B1) 100 mg DAILY PO 08/03/16 09:00 08/04/16 09:53 Multivitamins/ Minerals Therapeutic (Theragran M Tab) 1 tab DAILY PO 08/03/16 09:00 08/08/16 08:59 08/04/16 09:49 Flumazenil (Romazicon Inj) 0.2 mg Q1M PRN IV PUSH SEE LABEL COMMENTS 08/03/16 08:00 Ketorolac Tromethamine (Toradol) 10 mg Q6H PRN PO PAIN SCALE 1 TO 5 08/03/16 09:00 08/08/16 08:59 Famotidine 10 mg 10 mg BID PO 08/03/16 21:00 08/04/16 09:53 Cefazolin Sodium/ Dextrose (Ancef 2 Gm Premix) 50 ml @ 100 mls/hr Q8H IV 08/04/16 00:00 08/04/16 16:29 08/04/16 09:49 Docusate Sodium (Colace) 100 mg BID PO 08/03/16 21:00 08/04/16 09:55 Pantoprazole Sodium (Protonix) 40 mg DAILY PO 08/04/16 09:00 08/04/16 09:54 Acetaminophen/ Hydrocodone Bitart ([place] 10-325 Mg) 1 tab Q4H PRN PO PAIN SCALE 1 TO 5 08/03/16 16:15 Acetaminophen/ Hydrocodone Bitart ([place] 10-325 Mg) 2 tab Q4H PRN PO PAIN SCALE 6 TO 10 08/03/16 16:15 Morphine Sulfate (Morphine Inj) 2 mg Q2H PRN IV PUSH PAIN SCALE 1 TO 6 08/03/16 16:15 Morphine Sulfate (Morphine Inj) 4 mg Q2H PRN IV PUSH PAIN SCALE 7 TO 10 08/03/16 16:15 Acetaminophen (Tylenol) 650 mg Q4H PRN PO TEMPERATURE > 101.5 F 08/03/16 16:15 Miscellaneous (Pill Splitter) 1 ea UNSCH PRN OTHER SEE LABEL COMMENTS 08/03/16 16:30 08/04/16 11:04 Miscellaneous Information ALL NURSING DEPARTME... UNSCH PRN XX SEE LABEL COMMENTS 08/03/16 18:00 08/04/16 17:59 Daptomycin/Sodium Chloride (Cubicin Inj/NS Inj) 100 ml @ 200 mls/hr Q24H IV 08/03/16 22:00 08/03/16 23:28 Rifampin 150 mg 150 mg Q12HR PO 08/03/16 21:00 08/04/16 09:54 Potassium Chloride/Dextrose/ Sod Cl (D5-1/2 NS + KCl 20 Meq Inj) 1,000 ml @ 100 mls/hr Q10H IV 08/04/16 01:00 08/04/16 00:59 (Loulou Lozano) Medical Decision Making MDM Remarks 86 y/o male with thoracic wound dehiscence s/p irrigation and debridement with placement of wound vac on 08/03/16 ORIF T8, T9 fracture 05/04/16 (Loulou Lozano) Plan Plan Remarks cont wound vac, dressing changes per protocol wound nurse for sacral decub cont medical management ok to dc back brace, dw patient again to be careful to avoid falls ok to dc back to rehab from [facility] standpoint f/u outpatient in 2-3 weeks (Loulou Lozano) Attending Statement The exam, history, and the medical decision-making described in the above note were completed with the assistance of the mid-level provider. I reviewed and agree with the findings presented. I attest that I had a [id number] encounter with the patient on the same day, and personally performed and documented my assessment and findings in the medical record. (Leeroy Knight MD) Loulou Lozano Aug 04, 2016 11:46 Leeroy Knight MD Aug 06, 2016 15:37
--- NOTE | 2016-08-04 14:00 | HHI.PR ---
Subjective Subjective Remarks s/p I&D with placement of wound vac 08/03 Doing well Has been out of bed Has a wound VAC in place No fever Blood glucose was low this morning, very little oral intake last night because of surgery Last blood glucose 160 No chest pain, No shortness of breath Patient in good spirits, smiling Family at bedside Review of Systems Constitutional Constitutional Remarks 12 point ROS completed, negative except as noted above Vitals/Results Intake & Output 08/03/16 08/03/16 08/04/16 15:00 23:00 07:00 Intake Total 650 ml 740 ml 120 ml Output Total 0 ml Balance 650 ml 740 ml 120 ml Intake Oral 400 ml 240 ml 120 ml IV Total 250 ml 100 ml Other 400 ml Output Urine Total 0 ml Estimated Blood Loss 0 ml # Voids 3 2 3 # Bowel Movements 1 2 Vital Signs Vital Signs Date Time Temp Pulse Resp B/P Pulse Ox O2 Delivery O2 Flow Rate FiO2 08/04/16 12:00 95.8 98 23 133/63 100 08/04/16 09:13 93 Nasal Cannula 3.00 08/04/16 08:10 95.1 98 24 142/66 95 08/04/16 04:00 97.3 93 18 128/73 95 08/04/16 00:00 97.4 92 18 114/56 95 08/03/16 21:29 96 Nasal Cannula 3.00 08/03/16 20:00 96.3 104 18 116/58 95 08/03/16 18:17 107 16 115/56 96 Nasal Cannula 3 08/03/16 18:00 94 16 110/62 95 Nasal Cannula 3 08/03/16 17:45 94 16 105/58 97 Nasal Cannula 3 08/03/16 17:30 97 16 106/64 95 Nasal Cannula 3 08/03/16 17:13 97.5 112 16 123/69 97 Nasal Cannula 3 CBC/BMP: 08/03/16 0725 08/03/16 0725 Microbiology Microbiology 08/03/16 Gram Stain - Final, Resulted 08/03/16 Wound Culture - Preliminary, Resulted NO GROWTH IN 24 HOURS. 08/03/16 Acid Fast Stain, Received Pending 08/03/16 Mycobacterial Culture, Received Pending 08/03/16 Fungal Smear - Final, Resulted NO FUNGAL ELEMENTS SEEN. 08/03/16 Fungal Culture, Resulted Pending 08/03/16 Gram Stain - Final, Resulted 08/03/16 Wound Culture - Preliminary, Resulted NO GROWTH IN 24 HOURS. 08/03/16 Acid Fast Stain, Received Pending 08/03/16 Mycobacterial Culture, Received Pending 08/03/16 Fungal Smear - Final, Resulted NO FUNGAL ELEMENTS SEEN. 08/03/16 Fungal Culture, Resulted Pending 08/03/16 Aerobic Blood Culture - Preliminary, Resulted NO GROWTH IN 1 DAY 08/03/16 Anaerobic Blood Culture - Preliminary, Resulted NO GROWTH IN 1 DAY Physical Exam General General Appearance: Well Developed, No Acute Distress, Comfortable Eyes Eye Exam: Pupils Equal, Pupils Reactive Ears & Nose Ears & Nose Exam: Nasal Mucosa [place] Throat Throat Exam: Oral Mucosa [place] & Moist Neck Neck Exam: Neck Supple, Trachea Midline Pulmonary Resp Exam: Decreased Bases Resp Remarks faint ronchi RLL Cardiology CV Exam: Regular, Good Perfusion Gastrointestinal/Abdomen GI Exam: Soft, Non-Tender, Bowel Sounds Present, Non-Distended Musculoskeletal MS Exam: Joints Intact MS Remarks wearing brace Integumentary Skin Exam: Warm, Dry Extremeties Extremities Exam: Pedal Pulses Palpable, Trace Edema Neurologic Neuro Exam: Alert, Awake, Oriented, Speech Clear, Moving All Extremities, No Focal Deficits Psychiatric Psych Exam: Appropriate Responses VTE Prophylaxis VTE Prophylaxis Meds: Heparin Assessment/Plan Problem List: (1) Pneumonia (2) Weakness (3) History of MRSA infection (4) Anemia (5) Renal insufficiency (6) Left knee pain (7) CHF (congestive heart failure) (8) Atrial fibrillation (9) Hypoglycemia (10) Hypertension (11) Hx of unstable T8,T9 fractures due to fall with T7 to T11 posterior fixation using transpedicular screws and rods on 05/04/16 Assessment/Plan Mr. Klein is an 86 year-old male with a history of left hip fracture , T8 through T9 fracture with T7-[address] Knight 05/04/16 followed by sepsis relating to pneumonia and MRSA wound infection, atrial fibrillation, coronary artery disease, type 2 diabetes mellitus, hypertension, nephrolithiasis, and sleep apnea who presented to the emergency room 08/02/2016 to be evaluated for generalized weakness lasting for 4-5 days. Pneumonia-- Chest x-ray with mild patchy consolidation and small effusion on the left - ESR greater than 140 -BC GPC, follow up on sensitivities -Appreciate ID input, new abx recommendations MRSA wound infection, failed therapy. CRP elevated -Lumbar spine CT with no acute abnormality or significant change - Thoracic spine with subacute fracture of the T9 vertebral body and posterior elements at again noted post-fusion T7 through T11. Vertebral body endplate distraction and anterior predominant osseous ridging have developed the T8. T9 with uncertain etiology. No abscesses or high-grade juxta vertebral inflammatory changes. -Appreciate neurosurgery input, s/p I&D with placement of wound vac 08/03 -per ID Vanco D/C failed therapy, on Dapto and Rifampin Anemia - HH stable -monitor - Follow trends; transfuse if needed Acute renal insufficiency -creat improving 1.51 - Avoid nephrotoxins Left knee pain - Left knee x-ray - plain film findings of a very small suprapatellar effusion - Left hip x-ray to rule out referred pain from the hip - negative for acute process; osteoarthritis noted -Biofreeze PRN -continue with PT Hypoglycemia, hx of DM II, on oral hypoglycemic with reported poor PO intake -Hold oral hypoglycemic -continue with accuchecks AC/HS and ISS -Enc. PO intake Hx afib, stable -continue ASA, can't take anticoagulation due to previous GIB -continue Dig DVT prophylaxis -Heparin 5000 units subcutaneous every 8 hours Appreciate palliative care input, pt. not ready to discuss with palliative care team, agreed to DNR status. Continue with present care follow cultures when ok per ID, dc back to SNF with PICC and continue abx and wound vac clear by neurosurgery for dc, wound vac orders provided Labs in am D/W RN D/W pt, family D/W Dr. Taylor This patient was seen by myself and Dr. Taylor, this note is written on his behalf. Problem Qualifiers (1) Pneumonia: Qualified Code: J18.9 - Pneumonia of left lung due to infectious organism, unspecified part of lung (2) Anemia: Qualified Code: D64.9 - Anemia, unspecified type (3) Left knee pain: Qualified Code: M25.562 - Chronic pain of left knee (4) CHF (congestive heart failure): Qualified Code: I50.9 - Chronic congestive heart failure, unspecified congestive heart failure type (5) Atrial fibrillation: Qualified Code: I48.91 - Atrial fibrillation, unspecified type (6) Hypertension: Qualified Code: I10 - Essential hypertension Margareth Iglesias Aug 04, 2016 14:00
[2016-08-04 16:48] LABS: BICARBONATE 28.8 MEQ/L (21.0-32.0); POTASSIUM 4.1 MEQ/L (3.5-5.1)
[2016-08-04] MEDS: SODIUM CHLORIDE 0.9% IV SCH (21:50)
[2016-08-04] MEDS: DAPTOMYCIN IV SCH (21:50)
[2016-08-05] VITALS (11 sets, daily range): BP systolic 103–153; BP diastolic 59–78; PULSE 58–96; RESP 16–22; TEMP 96.2–98.4; O2SAT 92–99
[2016-08-05] MEDS: METOPROLOL TARTRATE 25 MG TAB PO SCH ×3 (06:21→22:55)
[2016-08-05] MEDS: HEPARIN SODIUM - SQ 10,000 UNITS/ML VIAL SQ SCH ×3 (06:21→22:56)
[2016-08-05] MEDS: INSULIN ASPART SUPPLEMENTAL SCALE SQ SCH ×4 (06:22→22:58)
[2016-08-05] MEDS: D5-1/2 NS + KCL 20 MEQ INJ 1,000 ML IV SCH ×2 (06:22→18:35)
[2016-08-05 07:14] LABS: HEMATOCRIT 26.4 % (39.0-51.0); MEAN CELL VOLUME 91.2 FL (80.0-100.0); MEAN CORPUSCULAR HGB CONC 32.8 % (32.0-36.0); PLATELET COUNT 239 TH/MM3 (150-450); RED BLOOD COUNT 2.89 MIL/MM3 (4.50-5.90); REVIEW FLAG FINAL; WHITE BLOOD COUNT 7.7 TH/MM3 (4.0-11.0)
[2016-08-05 07:27] LABS: BICARBONATE 29.5 MEQ/L (21.0-32.0); POTASSIUM 3.9 MEQ/L (3.5-5.1)
[2016-08-05] MEDS: ASPIRIN EC 81 MG TABEC PO SCH (09:00)
[2016-08-05] MEDS: SODIUM CHLORIDE 0.9% FLUSH 5 ML FLUSH FLUSH SCH ×2 (09:37→21:00)
[2016-08-05] MEDS: DIGOXIN 0.125 MG TAB PO SCH (09:38)
[2016-08-05] MEDS: FAMOTIDINE 20 MG TAB PO SCH ×2 (09:38→22:56)
[2016-08-05] MEDS: FUROSEMIDE 40 MG TAB PO SCH (09:38)
[2016-08-05] MEDS: DOCUSATE SODIUM 100 MG CAP PO SCH ×2 (09:39→22:55)
[2016-08-05] MEDS: THIAMINE HCL 100 MG TAB PO SCH (09:39)
[2016-08-05] MEDS: ALLOPURINOL 300 MG TAB PO SCH (09:39)
[2016-08-05] MEDS: FOLIC ACID 1 MG TAB PO SCH (09:39)
[2016-08-05] MEDS: PANTOPRAZOLE SOD 40 MG DELAYED RELEASE TAB PO SCH (10:45)
[2016-08-05] MEDS: RIFAMPIN 150 MG CAP PO SCH ×2 (10:45→22:56)
[2016-08-05] MEDS: ISRADIPINE 2.5 MG PO SCH ×2 (10:45→22:55)
[2016-08-05] MEDS: MULTIVITAMINS/MINERALS THERAPEUTIC TAB PO SCH (10:45)
--- NOTE | 2016-08-05 13:31 | HHI.PR ---
Subjective Subjective Remarks Alert. Talkative Up in chair Appetite good/fair Denies any pain in back Wound VAC on Family in room Review of Systems Constitutional Constitutional: Weakness (generalized) Pulmonary Respiratory: Shortness of Breath (more exertional) GI/Abdomen GI/Abdomen Remarks Occasional abdominal cramps, denies any diarrhea Musculoskeletal MS: Weakness (generalized) Integumentary Skin: Wounds (wound VAC on mid back, secured clean dry and intact) Psychiatric Psychiatric: Normal Mood (appears to be feeling fairly good today, afebrile) Vitals/Results Intake & Output 08/04/16 08/04/16 08/05/16 15:00 23:00 07:00 Intake Total 240 ml 532 ml Balance 240 ml 532 ml Intake Oral 240 ml IV Total 532 ml # Voids 2 2 3 # Bowel Movements 1 1 1 Vital Signs Vital Signs Date Time Temp Pulse Resp B/P Pulse Ox O2 Delivery O2 Flow Rate FiO2 08/05/16 08:29 97.1 88 18 143/67 94 08/05/16 08:00 88 08/05/16 07:56 97 Nasal Cannula 2.00 08/05/16 04:00 97.8 88 22 136/65 92 08/05/16 00:00 98.0 58 18 126/78 95 08/05/16 00:00 97.3 76 16 103/59 93 08/04/16 20:00 97.3 89 18 137/66 100 08/04/16 17:45 99 Nasal Cannula 3.00 08/04/16 16:00 95.3 88 24 114/56 99 CBC/BMP: 08/05/16 0645 08/05/16 0645 Lab Results Laboratory Tests Test 08/04/16 08/05/16 14:27 06:45 Sodium Level 141 MEQ/L 142 MEQ/L Potassium Level 4.1 MEQ/L 3.9 MEQ/L Chloride Level 105 MEQ/L 106 MEQ/L Carbon Dioxide Level 28.8 MEQ/L 29.5 MEQ/L Anion Gap 7 MEQ/L 7 MEQ/L Blood Urea Nitrogen 20 MG/DL 21 MG/DL Creatinine 1.52 MG/DL 1.53 MG/DL Estimat Glomerular Filtration 43 ML/MIN 43 ML/MIN Rate Random Glucose 137 MG/DL 130 MG/DL Calcium Level 8.4 MG/DL 8.8 MG/DL White Blood Count 7.7 TH/MM3 Red Blood Count 2.89 MIL/MM3 Hemoglobin 8.7 GM/DL Hematocrit 26.4 % Mean Corpuscular Volume 91.2 FL Mean Corpuscular Hemoglobin 30.0 PG Mean Corpuscular Hemoglobin 32.8 % Concent Red Cell Distribution Width 15.0 % Platelet Count 239 TH/MM3 Mean Platelet Volume 8.6 FL Microbiology Microbiology 08/05/16 Aerobic Blood Culture, Received Pending 08/05/16 Anaerobic Blood Culture, Received Pending 08/05/16 Aerobic Blood Culture, Received Pending 08/05/16 Anaerobic Blood Culture, Received Pending Imaging Remarks Last Impressions Knee X-Ray 08/02/16 1259 Signed Impressions: Service Date/Time: Wednesday, August 03, 2016 00:06 - CONCLUSION: 1. 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 2. Plain film findings of a very small suprapatellar effusion. Sherwin Wallace MD Thoracic Spine CT 08/02/161925 Signed Impressions: Service Date/Time: Tuesday, August 02, 2016 19:46 - CONCLUSION: 1. Subacute fracture of the T9 vertebral body and posterior elements again noted, status post fusion from T7-T11. Fracture again noted to focally extend into the T8/T9 intervertebral disc space. The fracture is incompletely healed. 2. Vertebral body endplate destruction and anterior predominant osseous ridging have developed at T8/T9, etiology uncertain but I believe related to persistent motion as there is lucency around the bilateral pedicle screws at T10 and T11. I don't see an abscess or high-grade juxtavertebral inflammatory changes but please correlate clinically for the possibility of T8/T9 discitis.. 3. 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 4. Small right and [id number] left pleural effusions with dependent consolidation or noted of the visualized lungs. Paul Clinton MD Lumbar Spine CT 08/02/161925 Signed Impressions: Service Date/Time: Tuesday, August 02, 2016 19:53 - CONCLUSION: No acute abnormality or significant change seen in the CT appearance of the lumbar spine. Multilevel facet degenerative changes are again noted and chronic loss of height of L5. Paul Clinton MD Chest X-Ray 08/02/161925 Signed Impressions: Service Date/Time: Tuesday, August 02, 2016 19:38 - CONCLUSION: Mild patchy consolidation and small effusion on the left. Paul Clinton MD Hip X-Ray 08/02/16 0000 Signed Impressions: Service Date/Time: Wednesday, August 03, 2016 00:08 - CONCLUSION: 1. Medullary rosa and compression screw securing a presumed old left hip fracture. 2. Bony eburnation around the proximal femur but no acute fracture identified. Sherwin Wallace MD Physical Exam General General Appearance: Well Developed, No Acute Distress, Comfortable Appearance Remarks Slim build Eyes Eye Exam: Pupils Equal, Pupils Reactive Ears & Nose Ears & Nose Exam: Nasal Mucosa [place] Throat Throat Exam: Oral Mucosa [place] & Moist Neck Neck Exam: Neck Supple, Trachea Midline Pulmonary Resp Exam: Decreased Bases Resp Remarks Lung volumes Cardiology CV Exam: Regular, Good Perfusion Gastrointestinal/Abdomen GI Exam: Soft, Non-Tender, Bowel Sounds Present, Non-Distended Musculoskeletal MS Exam: Joints Intact MS Remarks Healing left hip fracture incision clean dry and intact Integumentary Skin Exam: Warm, Dry Extremeties Extremities Exam: Pedal Pulses Palpable, Trace Edema Neurologic Neuro Exam: Alert, Awake, Oriented, Speech Clear, Moving All Extremities, No Focal Deficits Psychiatric Psych Exam: Appropriate Responses VTE Prophylaxis VTE Prophylaxis Meds: Heparin Assessment/Plan Problem List: (1) Pneumonia (2) Weakness (3) History of MRSA infection (4) Anemia (5) Renal insufficiency (6) Left knee pain (7) CHF (congestive heart failure) (8) Atrial fibrillation (9) Hypoglycemia (10) Hypertension (11) Hx of unstable T8,T9 fractures due to fall with T7 to T11 posterior fixation using transpedicular screws and rods on 05/04/16 Assessment/Plan Pneumonia--antibiotic therapy, O2 range from 90-100, patient using oxygen as needed 2 L , medical management, antibiotics -BC , final no growth GI cramping, occasional. Patient denies any diarrhea. Added Pepto-Bismol when necessary if needed Wound culture staph coag. -Appreciate ID input, antibiotic therapy at daptomycin, and rifampin dosing. MRSA wound infection, failed initial therapy, currently has wound VAC on to assist with healing properties. Currently patient is afebrile, no leukocytosis. We will monitor any abnormal labs or vitals Possible other source of infection PICC line. Will be DC'd later today -Appreciate neurosurgery input, s/p I&D with placement of wound vac 08/03 Monitored scans, non- surgical treatment regimen Anemia, no acute bleeding noted. Currently hemoglobin 8.7, secondary to chronic disease versus recent hip surgery and blood loss. Monitor any needs Acute renal insufficiency, continues to be without acute changes. Monitor labs, medical management Generalized debility with knee and hip pain PT working with patient for ADLs and strengthening, mobility. Attempt is to keep patient is active as possible and use minimal pain management meds. -continue with accuchecks AC/HS and ISS, no further episodes of hypoglycemia -Enc. PO intake, encouraged nutrition DVT prophylaxis -Heparin 5000 units subcutaneous every 8 hours Appreciate palliative care input, patient is DO NOT RESUSCITATE status, but not agreeable to move forward with any other discussions for now. when ok per ID, dc back to SNF with PICC and continue abx and wound vac clear by neurosurgery for dc, wound vac orders provided Discharge planning work in process, case management assisting. Family staying with patient. D/W Dr. Taylor This patient was seen by myself and Dr. Taylor. Problem Qualifiers (1) Pneumonia: Qualified Code: J18.9 - Pneumonia of left lung due to infectious organism, unspecified part of lung (2) Anemia: Qualified Code: D64.9 - Anemia, unspecified type (3) Left knee pain: Qualified Code: M25.562 - Chronic pain of left knee (4) CHF (congestive heart failure): Qualified Code: I50.9 - Chronic congestive heart failure, unspecified congestive heart failure type (5) Atrial fibrillation: Qualified Code: I48.91 - Atrial fibrillation, unspecified type (6) Hypertension: Qualified Code: I10 - Essential hypertension Chloé Khanna Aug 05, 2016 13:31 Problem Qualifiers (1) Pneumonia: Qualified Code: J18.9 - Pneumonia of left lung due to infectious organism, unspecified part of lung (2) Anemia: Qualified Code: D64.9 - Anemia, unspecified type (3) Left knee pain: Qualified Code: M25.562 - Chronic pain of left knee (4) CHF (congestive heart failure): Qualified Code: I50.9 - Chronic congestive heart failure, unspecified congestive heart failure type (5) Atrial fibrillation: Qualified Code: I48.91 - Atrial fibrillation, unspecified type (6) Hypertension: Qualified Code: I10 - Essential hypertension Chloé Khanna Aug 05, 2016 13:31
[2016-08-05] MEDS ORDERED: BISMUTH SUBSALICYLATE 240 ML BTL PO PRN (13:45)
--- NOTE | 2016-08-05 16:07 | HHI.IDPN ---
Subjective Subjective Remarks is an 85 y/o CM with PMHx of history of admission for Trauma alert after a fall from a ladder, when he was diagnosed to have left side femur fracture, left side rib fracture and fracture thoracic spine. He underwent open reduction internal fixation of T8 and T9 fractures, T7 to T11 segmental instrumented fixation using transpedicular screws and rods, T7 to T11 posterolateral fusion using autologous bone graft combined with stem cells, microsurgical dissection. Post surgery he was sent to a rehab. He was admitted for local wound infection possible hardware infection/osteomyelitis as hardware was exposed. Patient has been admitted 3rd time for MRSA wound infection post surgery. Wound grew MRSA and patient has now been on approx 4 weeks of IV Vanco with not much improvement in lab parameters (ESR/CRP remain high), radiologically and clinically continues to have drainage locally. Patient reports generalized weakness in last few days. Patient was started on IV Vanco as well as possible CAP treatment on admission. His Cr has been high last admission as well. This admission patient was seen by Neurosrugery and plan is to have a local debridement in OR. Of note patient is DNR per old records. Palliative care was consulted for evaluation of treatment goals in an attempt to respect patients wishes. He is not terminal at present time but his non response to treatment is worrisome and this being his 3rd admission post surgery for infection I have placed this consult to assist us. Patient denies any change in sensation in perineal area or lower extremities. History of prostate problems with h/o UTIs in past. ID was consulted for evaluation and Mment of Sepsis, Probable Discitis/Hardware infection. Overnight events reviewed. No fever No rash No diarrhea Sitting in bed. Wound vac in place. No surrounding erythema. Antibiotics Dapto IV Rifampin oral. Lines Line sites with no e.o infection. Past Medical History reviewed Allergies: Coded Allergies: *MDRO Multi-Drug Resistant Organism (Verified Adverse Reaction, Unknown, ) 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 Objective . Vital Signs Date Time Temp Pulse Resp B/P Pulse Ox O2 Delivery O2 Flow Rate FiO2 08/05/16 12:14 97.2 96 18 131/68 08/05/16 12:00 97.2 96 18 131/68 99 08/05/16 08:29 97.1 88 18 143/67 94 08/05/16 08:00 88 08/05/16 07:56 97 Nasal Cannula 2.00 08/05/16 04:00 97.8 88 22 136/65 92 08/05/16 00:00 98.0 58 18 126/78 95 08/05/16 00:00 97.3 76 16 103/59 93 08/04/16 20:00 97.3 89 18 137/66 100 08/04/16 17:45 99 Nasal Cannula 3.00 08/04/16 08/04/16 08/05/16 15:00 23:00 07:00 Intake Total 240 ml 532 ml Balance 240 ml 532 ml Intake Oral 240 ml IV Total 532 ml # Voids 2 2 3 # Bowel Movements 1 1 1 . Laboratory Tests Test 08/05/16 06:45 White Blood Count 7.7 TH/MM3 Red Blood Count 2.89 MIL/MM3 Hemoglobin 8.7 GM/DL Hematocrit 26.4 % Mean Corpuscular Volume 91.2 FL Mean Corpuscular Hemoglobin 30.0 PG Mean Corpuscular Hemoglobin 32.8 % Concent Red Cell Distribution Width 15.0 % Platelet Count 239 TH/MM3 Mean Platelet Volume 8.6 FL Laboratory Tests Test 08/04/16 08/05/16 14:27 06:45 Sodium Level 141 MEQ/L 142 MEQ/L Potassium Level 4.1 MEQ/L 3.9 MEQ/L Chloride Level 105 MEQ/L 106 MEQ/L Carbon Dioxide Level 28.8 MEQ/L 29.5 MEQ/L Anion Gap 7 MEQ/L 7 MEQ/L Blood Urea Nitrogen 20 MG/DL 21 MG/DL Creatinine 1.52 MG/DL 1.53 MG/DL Estimat Glomerular Filtration 43 ML/MIN 43 ML/MIN Rate Random Glucose 137 MG/DL 130 MG/DL Calcium Level 8.4 MG/DL 8.8 MG/DL Microbiology Date/Time Procedure Status Source Growth 08/02/16 20:12 Aerobic Blood Culture - Preliminary Resulted Blood Peripheral Staph Sp Coagulase Negative 08/02/16 20:12 Anaerobic Blood Culture - Preliminary Resulted Gram Positive Cocci 08/02/16 20:20 Aerobic Blood Culture - Preliminary Resulted Blood Peripheral NO GROWTH IN 3 DAYS 08/02/16 20:20 Anaerobic Blood Culture - Preliminary Resulted Blood Peripheral NO GROWTH IN 3 DAYS 08/03/16 16:48 Gram Stain - Final Resulted Wound Other 08/03/16 16:48 Wound Culture - Preliminary Resulted Staph Sp Coagulase Negative 08/03/16 16:48 Acid Fast Stain - Final Resulted Wound Other NO ACID FAST BACILLI SEEN 08/03/16 16:48 Mycobacterial Culture Resulted Wound Other Pending 08/03/16 16:48 Fungal Smear - Final Resulted Wound Other NO FUNGAL ELEMENTS SEEN. 08/03/16 16:48 Fungal Culture Resulted Wound Other Pending 08/03/16 16:48 Gram Stain - Final Resulted Wound Other 08/03/16 16:48 Wound Culture - Preliminary Resulted Wound Other NO GROWTH IN 48 HOURS. 08/03/16 16:48 Acid Fast Stain - Final Resulted Wound Other NO ACID FAST BACILLI SEEN 08/03/16 16:48 Mycobacterial Culture Resulted Wound Other Pending 08/03/16 16:48 Fungal Smear - Final Resulted Wound Other NO FUNGAL ELEMENTS SEEN. 08/03/16 16:48 Fungal Culture Resulted Wound Other Pending 08/03/16 23:45 Aerobic Blood Culture - Preliminary Resulted Blood Other NO GROWTH IN 2 DAYS 08/03/16 23:45 Anaerobic Blood Culture - Preliminary Resulted Blood Other NO GROWTH IN 2 DAYS 08/05/16 09:50 Aerobic Blood Culture Received Blood Peripheral Pending 08/05/16 09:50 Anaerobic Blood Culture Received Blood Peripheral Pending 08/05/16 10:04 Aerobic Blood Culture Received Blood Other Pending 08/05/16 10:04 Anaerobic Blood Culture Received Blood Other Pending Imaging Last Impressions Knee X-Ray 08/02/16 [id number] Signed Impressions: Service Date/Time: Wednesday, August 03, 2016 00:06 - CONCLUSION: 1. 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 2. Plain film findings of a very small suprapatellar effusion. Sherwin Wallace MD Thoracic Spine CT 08/02/16 192 Signed Impressions: Service Date/Time: Tuesday, August 02, 2016 19:46 - CONCLUSION: 1. Subacute fracture of the T9 vertebral body and posterior elements again noted, status post fusion from T7-T11. Fracture again noted to focally extend into the T8/T9 intervertebral disc space. The fracture is incompletely healed. 2. Vertebral body endplate destruction and anterior predominant osseous ridging have developed at T8/T9, etiology uncertain but I believe related to persistent motion as there is lucency around the bilateral pedicle screws at T10 and T11. I don't see an abscess or high-grade juxtavertebral inflammatory changes but please correlate clinically for the possibility of T8/T9 discitis.. 3. 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 4. Small right and [id number] left pleural effusions with dependent consolidation or noted of the visualized lungs. Paul Clinton MD Lumbar Spine CT 08/02/161925 Signed Impressions: Service Date/Time: Tuesday, August 02, 2016 19:53 - CONCLUSION: No acute abnormality or significant change seen in the CT appearance of the lumbar spine. Multilevel facet degenerative changes are again noted and chronic loss of height of L5. Paul Clinton MD Chest X-Ray 08/02/161925 Signed Impressions: Service Date/Time: Tuesday, August 02, 2016 19:38 - CONCLUSION: Mild patchy consolidation and small effusion on the left. Paul Clinton MD Hip X-Ray 08/02/16 0000 Signed Impressions: Service Date/Time: Wednesday, August 03, 2016 00:08 - CONCLUSION: 1. Medullary rosa and compression screw securing a presumed old left hip fracture. 2. Bony eburnation around the proximal femur but no acute fracture identified. Sherwin Wallace MD Physical Exam GENERAL: This is a well-nourished, well-developed patient, in no apparent distress. SKIN: No rashes, ecchymoses or lesions. Cool and dry. HEAD: Atraumatic. Normocephalic. No temporal or scalp tenderness. EYES: Pupils equal round and reactive. Extraocular motions intact. No scleral icterus. No injection or drainage. ENT: Nose without bleeding, purulent drainage or septal hematoma. Throat without erythema, tonsillar hypertrophy or exudate. Uvula midline. Airway patent. NECK: Trachea midline. No JVD or lymphadenopathy. Supple, nontender, no meningeal signs. CARDIOVASCULAR: Regular rate and rhythm without murmurs, gallops, or rubs. RESPIRATORY: Clear to auscultation. Breath sounds equal bilaterally. No wheezes , rales, or rhonchi. GASTROINTESTINAL: Abdomen soft, non-tender, nondistended. No hepato-splenomegaly , or palpable masses. No guarding. MUSCULOSKELETAL: Extremities without clubbing, cyanosis, or edema. No joint tenderness, effusion, or edema noted. No calf tenderness. Negative Homans sign bilaterally. NEUROLOGICAL: Awake and alert. Grossly nonfocal Back: wound vac in place with no surrounding erythema, vac container with approx 200 cc of sanguinous discharge. Psych: could not be assessed IV line sites with no e.o infection. Assessment & Plan Remarks Gram positive bacteremia: ? PICC vs Hardware infection related. MRSA discitis/osteomyelitis, hardware infection. Pneumonia Renal insufficiency CHF Afib HTN Hx of unstable T8,T9 fractures due to fall with T7 to T11 posterior fixation using transpedicular screws and rods on 05/04/16 Recs: Bld culture from PICC line. Dapto IV (failed vanco IV at 4 wks of treatment, AIN high cr and high eosinophils) Continue Rifampin oral (hardware infection) PICC line DC today. Doppler UE at site of PICC. 2D ECHO Follow cultures Follow clinically Appreciate Palliative care efforts at communicating with family. Patient would not like to visit with Palliative care team as he believes his family is involved and he has laid out his goals of care with them. LYNN Brown with hospitalist. d/w patient and daughter in room: plan for the day. d/w case management: patients family considering home with home health, Home PT/ OT and Home wound vac care. Time spent in excess of 40 mins. Critical thinking and decision making. Melinda Antonio MD Aug 05, 2016 16:07
[2016-08-05] MEDS: DAPTOMYCIN IV SCH (22:57)
[2016-08-05] MEDS: SODIUM CHLORIDE 0.9% IV SCH (22:57)
[2016-08-06] VITALS (9 sets, daily range): BP systolic 140–179; BP diastolic 66–79; PULSE 78–96; RESP 18; TEMP 95.1–98.6; O2SAT 94–98
[2016-08-06] MEDS: D5-1/2 NS + KCL 20 MEQ INJ 1,000 ML IV SCH ×2 (06:41→16:57)
[2016-08-06] MEDS: HEPARIN SODIUM - SQ 10,000 UNITS/ML VIAL SQ SCH ×3 (06:42→20:42)
[2016-08-06] MEDS: METOPROLOL TARTRATE 25 MG TAB PO SCH ×3 (06:42→21:02)
[2016-08-06] MEDS: INSULIN ASPART SUPPLEMENTAL SCALE SQ SCH ×4 (07:15→22:44)
[2016-08-06] MEDS: SODIUM CHLORIDE 0.9% FLUSH 5 ML FLUSH FLUSH SCH ×2 (09:00→21:00)
[2016-08-06] MEDS: DIGOXIN 0.125 MG TAB PO SCH (09:20)
[2016-08-06] MEDS: FOLIC ACID 1 MG TAB PO SCH (09:20)
[2016-08-06] MEDS: FAMOTIDINE 20 MG TAB PO SCH ×2 (09:20→20:41)
[2016-08-06] MEDS: THIAMINE HCL 100 MG TAB PO SCH (09:20)
[2016-08-06] MEDS: ASPIRIN EC 81 MG TABEC PO SCH (09:21)
[2016-08-06] MEDS: FUROSEMIDE 40 MG TAB PO SCH (09:21)
[2016-08-06] MEDS: MULTIVITAMINS/MINERALS THERAPEUTIC TAB PO SCH (09:21)
[2016-08-06] MEDS: ALLOPURINOL 300 MG TAB PO SCH (09:21)
[2016-08-06] MEDS: RIFAMPIN 150 MG CAP PO SCH ×2 (09:21→20:41)
[2016-08-06] MEDS: PANTOPRAZOLE SOD 40 MG DELAYED RELEASE TAB PO SCH (09:21)
[2016-08-06] MEDS: DOCUSATE SODIUM 100 MG CAP PO SCH ×2 (09:24→20:41)
--- NOTE | 2016-08-06 12:24 | HHI.HCPN ---
Call from daughter Lorri Patel to tell me family has gotten more information and wants to talk to me. She reports infection is worse than what they originally thought, that pt refused UE ultrasound "because they are just going to keep finding things" yesterday. Medical update provided. She is asking questions about prognosis, life expectancy and whether or not hospice should be considered. I advised I will speak with Dr. Antonio (ID) and advise. Dr. Antonio and I later met with daughter, Lorri outside of pt room. Daughter requests we not visit today as he is having a "good day." Dr. Antonio provided medical update and review of options to continue aggressive antibiotic therapy with recommendation for 8 weeks of IV antibiotics from date of negative blood culture, followed by 4-12 months of oral antibiotics. Patient failed first line treatment with Vancomycin and has developed UTI. pneumonia while on Vanco. Family has been talking and feels patient may be getting tired of continued aggressive care. [facility] Daughter feels patient might want to consider going to [place] to live with one of his [place]. Family wants to see how he does over the next few days and wants to review status and wishes then. Dr. Antonio will follow up with patient on Tuesday and notify palliative care if our services are requested. Family again requests I not visit patient today. . HANK GARAY Aug 06, 2016 12:24
--- NOTE | 2016-08-06 13:04 | HHI.PR ---
Subjective Subjective Remarks Alert. Talkative Up in chair Appetite good/fair Denies any pain in back Wound VAC on Daughter in room (Chloé Khanna) Review of Systems Constitutional Constitutional: Weakness (generalized) Constitutional Remarks 10 point ROS done. wound vac mid back, very soft stools, geneerlaized weakness. Otherwise systems negative (Chloé Khanna) Pulmonary Respiratory: Shortness of Breath (more exertional) (Chloé Khanna) GI/Abdomen GI/Abdomen Remarks Occasional abdominal cramps, denies any diarrhea stools very soft. (Chloé Khanna) Musculoskeletal MS: Weakness (generalized) (Chloé Khanna) Integumentary Skin: Wounds (wound VAC on mid back, secured clean dry and intact) (Chloé Khanna) Psychiatric Psychiatric: Normal Mood (appears to be feeling fairly good today, afebrile) ( Chloé Khanna) Vitals/Results Intake & Output 08/05/16 08/05/16 08/06/16 15:00 23:00 07:00 Intake Total 760 ml 360 ml Balance 760 ml 360 ml Intake Oral 480 ml 360 ml IV Total 280 ml # Voids 3 5 # Bowel Movements 2 4 Vital Signs Vital Signs Date Time Temp Pulse Resp B/P Pulse Ox O2 Delivery O2 Flow Rate FiO2 08/06/16 12:15 96.0 95 18 141/78 98 08/06/16 11:52 88 08/06/16 09:05 95 Nasal Cannula 2.00 08/06/16 08:36 96.9 78 18 158/74 08/06/16 04:46 98.0 96 18 150/74 94 08/06/16 00:30 98.6 84 18 140/70 96 08/05/16 23:00 86 08/05/16 21:07 98.4 88 18 153/72 96 08/05/16 16:14 97.2 96 18 131/68 08/05/16 16:00 96.2 86 18 150/73 96 (Chloé Khanna) CBC/BMP: 08/05/16 0645 08/05/16 0645 Current Medications Active Medications Bismuth Subsalicylate (Pepto-Bismol Liq) 30 ml PCHS PRN PO; Start 08/05/16 at 13 :45 (Chloé KhannaP) Physical Exam General General Appearance: Well Developed, No Acute Distress, Comfortable Appearance Remarks Slim build (Chloé Khanna [employer]CEAN IMP[employer] REPRESENTATIVE) Eyes Eye Exam: Pupils Equal, Pupils Reactive (Chloé Khanna [employer]CEAN IMP[employer] REPRESENTATIVE) Ears & Nose Ears & Nose Exam: Nasal Mucosa [place] (Chloé Khanna OCEAN IMP[employer] REPRESENTATIVE) Throat Throat Exam: Oral Mucosa [place] & Moist (Chloé Khanna OCEAN IMPORT REPRESENTATIVE) Neck Neck Exam: Neck Supple, Trachea Midline (Chloé Khanna OCEAN IMPORT REPRESENTATIVE) Pulmonary Resp Exam: Decreased Bases Resp Remarks Lung volumes (Chloé Khanna OCEAN IMP[employer] REPRESENTATIVE) Cardiology CV Exam: Regular, Good Perfusion (Chloé Khanna [employer]CEAN IMP[employer] REPRESENTATIVE) Gastrointestinal/Abdomen GI Exam: Soft, Non-Tender, Bowel Sounds Present, Non-Distended (Chloé KhannaP) Musculoskeletal MS Exam: Joints Intact MS Remarks Healing left hip fracture incision clean dry and intact (Chloé KhannaP) Integumentary Skin Exam: Warm, Dry (Chloé KhannaP) Extremeties Extremities Exam: Pedal Pulses Palpable, Trace Edema (Chloé Khanna [employer]CEAN IMP[employer] REPRESENTATIVE) Neurologic Neuro Exam: Alert, Awake, Oriented, Speech Clear, Moving All Extremities, No Focal Deficits (Chloé Khanna [employer]CE[employer] REPRESENTATIVE) Psychiatric Psych Exam: Appropriate Responses (Chloé KhannaP) VTE Prophylaxis VTE Prophylaxis Meds: Heparin (Chloé KhannaP) Assessment/Plan Problem List: (1) Pneumonia (2) Weakness (3) History of MRSA infection (4) Anemia (5) Renal insufficiency (6) Left knee pain (7) CHF (congestive heart failure) (8) Atrial fibrillation (9) Hypoglycemia (10) Hypertension (11) Hx of unstable T8,T9 fractures due to fall with T7 to T11 posterior fixation using transpedicular screws and rods on 05/04/16 Assessment/Plan Pneumonia--antibiotic therapy, O2 range from 90-100, patient using oxygen as needed 2 L , medical management, antibiotics -BC , final no growth GI cramping, occasional. Patient denies any diarrhea. Added Pepto-Bismol and will try scheduled dose. If watery diarrhea occurs, will check C-diff. Wound culture staph coag. -Appreciate ID input, antibiotic therapy at daptomycin, and rifampin dosing. MRSA wound infection, failed initial therapy, currently has wound VAC on to assist with healing properties. Currently patient is afebrile, no leukocytosis. We will monitor any abnormal labs or vitals PICC line removed, 08-05-16 Continues wih IV antibiotics. -Appreciate neurosurgery input, s/p I&D with placement of wound vac 08/03 Monitored scans, non- surgical treatment regimen Anemia, no acute bleeding noted. Currently hemoglobin 8.7, secondary to chronic disease versus recent hip surgery and blood loss. Monitor any needs Acute renal insufficiency, continues to be without acute changes. Monitor labs, medical management Generalized debility with knee and hip pain PT working with patient for ADLs and strengthening, mobility. Attempt is to keep patient is active as possible and use minimal pain management meds. -continue with accuchecks AC/HS and ISS, no further episodes of hypoglycemia -Enc. PO intake, encouraged nutrition DVT prophylaxis -Heparin 5000 units subcutaneous every 8 hours Appreciate palliative care input, patient is DO NOT RESUSCITATE status, but not agreeable to move forward with any other discussions for now. when ok per ID, dc back to SNF, or family looking at taking patient back home. Patient does not want to speak with Palliative care for now. Still on IV antibiotics. clear by neurosurgery for dc, wound vac orders provided Discharge planning work in process, case management assisting. Family staying with patientduring daytime. D/W Dr. Taylor This patient was seen by myself and Dr. Taylor. (Chloé Khanna) Assessment/Plan seen and examined by myself,Dr Taylor , on 08/06/16 Discussed with patient and his daughter He is sitting up in chair enjoying dinner Unfortunately, his prognosis is rather poor Hospice/comfort care would be appropriate Discussed with mid-level practitioner The exam, history, and the medical decision-making described in the above note were completed with the assistance of the mid-level provider. I reviewed the findings presented. I attest that I had a [id number] encounter with the patient on the same day, and personally performed and documented my assessment and findings in the medical record (Brady Taylor MD) Problem Qualifiers (1) Pneumonia: Qualified Code: J18.9 - Pneumonia of left lung due to infectious organism, unspecified part of lung (2) Anemia: Qualified Code: D64.9 - Anemia, unspecified type (3) Left knee pain: Qualified Code: M25.562 - Chronic pain of left knee (4) CHF (congestive heart failure): Qualified Code: I50.9 - Chronic congestive heart failure, unspecified congestive heart failure type (5) Atrial fibrillation: Qualified Code: I48.91 - Atrial fibrillation, unspecified type (6) Hypertension: Qualified Code: I10 - Essential hypertension Chloé Khanna Aug 06, 2016 13:04 Brady Taylor MD Aug 07, 2016 14:10
[2016-08-06] MEDS: ISRADIPINE 2.5 MG PO SCH ×2 (13:11→20:41)
--- NOTE | 2016-08-06 15:13 | ECHLIM ---
Study Study Date:08/06/2016 STUDY CONCLUSIONS SUMMARY - Left ventricle: The cavity size was normal. Wall thickness was normal. Systolic function was normal. The estimated ejection fraction was in the range of 55% to 60%. Wall motion was normal; there were no regional wall motion abnormalities. - Aortic valve: Mild regurgitation. Valve area: 3.12cm^2 (Vmax). - Mitral valve: Mild regurgitation. - Tricuspid valve: Moderate regurgitation. Impressions: No evidence of endocarditis. If LV function is below 40, please consider prescribing an ACEI or ARB or document rationale for non-use. PROCEDURE DATA STUDY STATUS: Elective. Procedure: Transthoracic echocardiography. Image quality was good. Scanning was performed from the parasternal, apical, and subcostal acoustic windows. Study completion: The patient tolerated the procedure well. Transthoracic echocardiography. M-mode, complete 2D, complete spectral Doppler, and color Doppler. Height: Height: 69in. Weight: Weight: 190.6lb. Body mass index: BMI: 28.2kg/m^2. Body surface area: BSA: 2.03m^2. Patient status: Inpatient. CARDIAC ANATOMY LEFT VENTRICLE: The cavity size was normal. Wall thickness was normal. Systolic function was normal. The estimated ejection fraction was in the range of 55% to 60%. Wall motion was normal; there were no regional wall motion abnormalities. AORTIC VALVE: Trileaflet; normal thickness, mildly calcified leaflets. Doppler: Transvalvular velocity was within the normal range. There was no stenosis. Mild regurgitation. Valve area: 3.12cm^2 (Vmax). Indexed valve area: 1.54cm^2/m^2 (Vmax). AORTA: Aortic root: The aortic root was normal in size. MITRAL VALVE: Structurally normal valve. Doppler: Transvalvular velocity was within the normal range. There was no evidence for stenosis. Mild regurgitation. Valve area by pressure half-time: 2.86cm^2. Indexed valve area by pressure half-time: 1.41cm^2/m^2. Peak gradient: 3mm Hg (D). LEFT ATRIUM: The atrium was normal in size. RIGHT VENTRICLE: The cavity size was normal. Wall thickness was normal. PULMONIC VALVE: Doppler: Transvalvular velocity was within the normal range. There was no evidence for stenosis. No regurgitation. TRICUSPID VALVE: Structurally normal valve. Doppler: Transvalvular velocity was within the normal range. Moderate regurgitation. Peak gradient: 61mm Hg (D). PULMONARY ARTERY: The main pulmonary artery was normal-sized. Systolic pressure was within the normal range. RIGHT ATRIUM: The atrium was normal in size. PERICARDIUM: There was no pericardial effusion. SYSTEMIC VEINS: Inferior vena cava: The vessel was normal in size. Patient weight: 190.6lb _Ejection fraction:_ 65-75% _Fractional shortening:_ 32% up to 5Kg 5-11.5Kg 11.6-22.9Kg 23-45Kg 45-57Kg Aortic Root 7-13 <17 13-22 17-27 17-27 LA diam 6-13 <23 24-38 33-47 37-40 RVID 10-17 7-15 7-15 7-18 8-17 LVIDd 12-22 <32 24-38 33-47 37-40 LVPW 2-4 3-6 5-7 6-8 7-8 IVS 2-4 3-6 5-7 6-8 7-8 BASIC MEASUREMENTS ADULT NORMAL Left ventricle LV internal dimension, ED, chordal 48.6 mm 43-52 level, PLAX LV internal dimension, ES, chordal 31.6 mm 23-38 level, PLAX Fractional shortening, chordal level, 35 % >29 PLAX LV posterior wall thickness, ED 10.8 mm IVS/LVPW ratio, ED 1.02 <1.3 Ventricular septum Septal thickness, ED 11 mm Aortic valve Leaflet separation 18 mm 15-26 Aorta Root diameter, ED 36 mm Left atrium Anterior-posterior dimension 51 mm Anterior-posterior dimension index *2.51 cm/m^2 <2.2 BASIC MEASUREMENTS ADULT NORMAL Aortic valve Leaflet separation 18 mm 15-26 Aorta Root diameter, ED 30 mm 20-37 DOPPLER MEASUREMENTS ADULT NORMAL Aortic valve Peak velocity, S 107 cm/s Valve area, Vmax 3.12 cm^2 Valve area index, Vmax 1.54 cm^2/m^2 Regurgitant velocity, ED 322 cm/s Regurgitant deceleration 1820 cm/s^2 Regurgitant pressure half-time 433 ms Regurgitant gradient, ED 41 mm Hg Mitral valve Peak E-wave velocity 80 cm/s Peak A-wave velocity 30.1 cm/s Pressure half-time 77 ms Peak gradient, D 3 mm Hg Peak E/A ratio 2.7 Valve area, pressure half-time 2.86 cm^2 Valve area index, pressure half-time 1.41 cm^2/m^2 Tricuspid valve Peak gradient, D 61 mm Hg Maximal inflow velocity 392 cm/s Systemic veins Estimated CVP 10 mm Hg Pulmonic valve Peak velocity, S 73.3 cm/s LEGEND: Mean values are shown as u=mean value. Asterisk (*) catalan values outside specified normal range. Prepared and signed by Ward Edwards [id number]
[2016-08-06] MEDS: DAPTOMYCIN IV SCH (21:12)
[2016-08-06] MEDS: SODIUM CHLORIDE 0.9% IV SCH (21:12)
[2016-08-07] VITALS (8 sets, daily range): BP systolic 127–160; BP diastolic 69–84; PULSE 72–97; RESP 17–18; TEMP 95.6–97.6; O2SAT 93–98
[2016-08-07] MEDS: METOPROLOL TARTRATE 25 MG TAB PO SCH ×3 (06:01→21:04)
[2016-08-07] MEDS: HEPARIN SODIUM - SQ 10,000 UNITS/ML VIAL SQ SCH ×3 (06:01→21:03)
[2016-08-07] MEDS: INSULIN ASPART SUPPLEMENTAL SCALE SQ SCH ×4 (08:03→21:22)
[2016-08-07] MEDS: ISRADIPINE 2.5 MG PO SCH ×2 (09:00→21:03)
[2016-08-07] MEDS: SODIUM CHLORIDE 0.9% FLUSH 5 ML FLUSH FLUSH SCH ×2 (09:00→21:00)
[2016-08-07] MEDS: DOCUSATE SODIUM 100 MG CAP PO SCH ×2 (09:00→21:03)
[2016-08-07] MEDS: D5-1/2 NS + KCL 20 MEQ INJ 1,000 ML IV SCH ×3 (09:00→21:25)
--- NOTE | 2016-08-07 09:54 | HHI.PR ---
Subjective Subjective Remarks Alert. Talkative Up on side of bed. Appetite good/ Denies any pain in back Wound VAC on, Daughter in room (Chloé Khanna) Review of Systems Constitutional Constitutional: Weakness (generalized) Constitutional Remarks 10 point ROS done. wound vac mid back, very soft stools, generalized weakness. Otherwise systems negative (Chloé Khanna) Pulmonary Respiratory: Shortness of Breath (more exertional) (Chloé Khanna) GI/Abdomen GI/Abdomen Remarks Occasional abdominal cramps, denies any diarrhea stools very soft. (Chloé Khanna) Musculoskeletal MS: Weakness (generalized) (Chloé Khanna) Integumentary Skin: Wounds (wound VAC on mid back, secured clean dry and intact) (Chloé Khanna) Psychiatric Psychiatric: Normal Mood (appears to be feeling fairly good today, afebrile) ( Chloé Khanna) Vitals/Results Intake & Output 08/06/16 08/06/16 08/07/16 15:00 23:00 07:00 Intake Total 480 ml Balance 480 ml Intake Oral 480 ml # Voids 3 2 # Bowel Movements 2 1 4 Vital Signs Vital Signs Date Time Temp Pulse Resp B/P Pulse Ox O2 Delivery O2 Flow Rate FiO2 08/07/16 08:00 97.6 72 17 150/76 93 08/07/16 04:00 97.4 87 18 149/75 98 08/07/16 00:00 97.1 87 18 160/84 97 08/06/16 20:00 97.0 78 18 179/79 97 08/06/16 18:00 85 08/06/16 16:20 95.1 88 18 140/66 97 08/06/16 12:15 96.0 95 18 141/78 98 08/06/16 11:52 88 (Chloé Khanna) CBC/BMP: 08/05/16 0645 08/05/16 0645 Physical Exam General General Appearance: Well Developed, No Acute Distress, Comfortable Appearance Remarks Slim build (Chloé Khanna) Eyes Eye Exam: Pupils Equal, Pupils Reactive ([place],Chloé M. SHOP COORDINATOR) Ears & Nose Ears & Nose Exam: Nasal Mucosa [place] (Chloé Khanna M. SHOP COORDINATOR) Throat Throat Exam: Oral Mucosa [place] & Moist (Chloé Khanna. SHOP COORDINATOR) Neck Neck Exam: Neck Supple, Trachea Midline (Chloé Khanna M. SHOP COORDINATOR) Pulmonary Resp Exam: Decreased Bases Resp Remarks Lung volumes (Chloé Khanna. SHOP COORDINATOR) Cardiology CV Exam: Regular, Good Perfusion (Chloé Khanna. SHOP COORDINATOR) Gastrointestinal/Abdomen GI Exam: Soft, Non-Tender, Bowel Sounds Present, Non-Distended (Chloé Khanna. SHOP COORDINATOR) Musculoskeletal MS Exam: Joints Intact MS Remarks Healing left hip fracture incision clean dry and intact (Chloé Khanna. SHOP COORDINATOR) Integumentary Skin Exam: Warm, Dry (Chloé Khanna. SHOP COORDINATOR) Extremeties Extremities Exam: Pedal Pulses Palpable, Trace Edema (Chloé Khanna. SHOP COORDINATOR) Neurologic Neuro Exam: Alert, Awake, Oriented, Speech Clear, Moving All Extremities, No Focal Deficits (Chloé Khanna M. SHOP COORDINATOR) Psychiatric Psych Exam: Appropriate Responses (Chloé Khanna. SHOP COORDINATOR) VTE Prophylaxis VTE Prophylaxis Meds: Heparin (Chloé Khanna. SHOP COORDINATOR) Assessment/Plan Problem List: (1) Pneumonia (2) Weakness (3) History of MRSA infection (4) Anemia (5) Renal insufficiency (6) Left knee pain (7) CHF (congestive heart failure) (8) Atrial fibrillation (9) Hypoglycemia (10) Hypertension (11) Hx of unstable T8,T9 fractures due to fall with T7 to T11 posterior fixation using transpedicular screws and rods on 05/04/16 Assessment/Plan Pneumonia--antibiotic therapy, O2 range from 90-100, patient using oxygen as needed 2 L , medical management, antibiotics -BC , final no growth GI cramping, occasional. Patient denies any diarrhea. Added Pepto-Bismol and will try scheduled dose. If watery diarrhea occurs, will check C-diff. Wound culture staph coag. -Appreciate ID input, antibiotic therapy at daptomycin, and rifampin dosing. MRSA wound infection, failed initial therapy, currently has wound VAC on to assist with healing properties. Currently patient is afebrile, no leukocytosis. We will monitor any abnormal labs or vitals PICC line removed, 08-05-16 Continues wih IV antibiotics. Family awaiting ID to meet with patient and family Tuesday for further dc planning. Daughters requesting on discussion until this meeting Tuesday. -Appreciate neurosurgery input, s/p I&D with placement of wound vac 08/03 Monitored scans, non- surgical treatment regimen Anemia, no acute bleeding noted. monitor Acute renal insufficiency, continues to be without acute changes. Monitor labs, medical management Generalized debility with knee and hip pain PT working with patient for ADLs and strengthening, mobility. Attempt is to keep patient is active as possible and use minimal pain management meds. -continue with accuchecks AC/HS and ISS, no further episodes of hypoglycemia -Enc. PO intake, encouraged nutrition DVT prophylaxis -Heparin 5000 units subcutaneous every 8 hours Appreciate palliative care input, patient is DO NOT RESUSCITATE status, but not agreeable to move forward with any other discussions for now. Family talked last pm and continuing discussions. Meeting planned Tuesday with patient. Discharge planning work in process, case management assisting. Family staying with patient during daytime. D/W Dr. Duran, seen on her behalf (Chloé Khanna) Assessment/Plan 86yr old male seen and examined today. Family in room. Above A/P discussed with Chloé. Family wants to discuss with Dr. Antonio on Tuesday and then make the decision. Will follow. (Gio Duran MD) Problem Qualifiers (1) Pneumonia: Qualified Code: J18.9 - Pneumonia of left lung due to infectious organism, unspecified part of lung (2) Anemia: Qualified Code: D64.9 - Anemia, unspecified type (3) Left knee pain: Qualified Code: M25.562 - Chronic pain of left knee (4) CHF (congestive heart failure): Qualified Code: I50.9 - Chronic congestive heart failure, unspecified congestive heart failure type (5) Atrial fibrillation: Qualified Code: I48.91 - Atrial fibrillation, unspecified type (6) Hypertension: Qualified Code: I10 - Essential hypertension Chloé Khanna Aug 07, 2016 09:53 Gio Duran MD Aug 07, 2016 14:16
[2016-08-07] MEDS: RIFAMPIN 150 MG CAP PO SCH ×2 (10:33→21:03)
[2016-08-07] MEDS: FOLIC ACID 1 MG TAB PO SCH (10:33)
[2016-08-07] MEDS: FAMOTIDINE 20 MG TAB PO SCH ×2 (10:33→21:03)
[2016-08-07] MEDS: MULTIVITAMINS/MINERALS THERAPEUTIC TAB PO SCH (10:33)
[2016-08-07] MEDS: ALLOPURINOL 300 MG TAB PO SCH (10:34)
[2016-08-07] MEDS: FUROSEMIDE 40 MG TAB PO SCH (10:34)
[2016-08-07] MEDS: DIGOXIN 0.125 MG TAB PO SCH (10:34)
[2016-08-07] MEDS: THIAMINE HCL 100 MG TAB PO SCH (10:34)
[2016-08-07] MEDS: ASPIRIN EC 81 MG TABEC PO SCH (10:34)
[2016-08-07] MEDS: PANTOPRAZOLE SOD 40 MG DELAYED RELEASE TAB PO SCH (10:34)
[2016-08-07] MEDS: DAPTOMYCIN IV SCH (21:22)
[2016-08-07] MEDS: SODIUM CHLORIDE 0.9% IV SCH (21:22)
[2016-08-08] VITALS (10 sets, daily range): BP systolic 136–163; BP diastolic 68–90; PULSE 70–96; RESP 18–27; TEMP 95.1–98; O2SAT 85–99
[2016-08-08] MEDS: METOPROLOL TARTRATE 25 MG TAB PO SCH ×3 (04:41→23:28)
[2016-08-08] MEDS: HEPARIN SODIUM - SQ 10,000 UNITS/ML VIAL SQ SCH ×3 (04:41→23:28)
[2016-08-08] MEDS: INSULIN ASPART SUPPLEMENTAL SCALE SQ SCH ×3 (05:31→16:00)
[2016-08-08] MEDS: SODIUM CHLORIDE 0.9% FLUSH 5 ML FLUSH FLUSH SCH ×2 (09:00→21:00)
[2016-08-08] MEDS: DOCUSATE SODIUM 100 MG CAP PO SCH ×2 (09:00→23:27)
[2016-08-08] MEDS: PANTOPRAZOLE SOD 40 MG DELAYED RELEASE TAB PO SCH (09:21)
[2016-08-08] MEDS: ISRADIPINE 2.5 MG PO SCH ×2 (09:21→23:27)
[2016-08-08] MEDS: THIAMINE HCL 100 MG TAB PO SCH (09:22)
[2016-08-08] MEDS: FUROSEMIDE 40 MG TAB PO SCH (09:22)
[2016-08-08] MEDS: ALLOPURINOL 300 MG TAB PO SCH (09:22)
[2016-08-08] MEDS: DIGOXIN 0.125 MG TAB PO SCH (09:22)
[2016-08-08] MEDS: ASPIRIN EC 81 MG TABEC PO SCH (09:22)
[2016-08-08] MEDS: RIFAMPIN 150 MG CAP PO SCH ×2 (09:22→23:27)
[2016-08-08] MEDS: FAMOTIDINE 20 MG TAB PO SCH ×2 (09:22→23:28)
--- NOTE | 2016-08-08 11:24 | HHI.PR ---
Subjective Subjective Remarks Alert. Responsive Sitting up in chair reading the newspaper Denies any pain in back Wound VAC on, secure Daughter in room Review of Systems Constitutional Constitutional: Weakness (generalized) Constitutional Remarks 10 point ROS done. wound vac mid back, very soft stools, generalized weakness. Otherwise systems negative Pulmonary Respiratory: Shortness of Breath (more exertional) GI/Abdomen GI/Abdomen Remarks Occasional abdominal cramps, denies any diarrhea stools very soft. Musculoskeletal MS: Weakness (generalized) Integumentary Skin: Wounds (wound VAC on mid back, secured clean dry and intact) Psychiatric Psychiatric: Normal Mood (appears to be feeling fairly good today, afebrile) Vitals/Results Intake & Output 08/07/16 08/07/16 08/08/16 15:00 23:00 07:00 # Voids 3 3 # Bowel Movements 1 Vital Signs Vital Signs Date Time Temp Pulse Resp B/P Pulse Ox O2 Delivery O2 Flow Rate FiO2 08/08/16 10:54 88 08/08/16 08:09 98 Nasal Cannula 3.00 08/08/16 08:00 96.9 73 27 163/90 95 08/08/16 07:18 85 21 08/08/16 04:00 97.0 82 20 154/80 97 08/08/16 00:00 97.0 93 18 136/68 95 08/07/16 20:20 21 08/07/16 20:00 97.3 97 18 148/70 93 08/07/16 16:42 88 08/07/16 16:00 95.6 94 17 127/69 97 08/07/16 12:00 97.2 85 17 146/71 97 CBC/BMP: 08/05/16 0645 08/05/16 0645 Imaging Remarks Last Impressions Knee X-Ray 08/02/16 4784 Signed Impressions: Service Date/Time: Wednesday, August 03, 2016 00:06 - CONCLUSION: 1. 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 2. Plain film findings of a very small suprapatellar effusion. Sherwin Wallace MD Thoracic Spine CT 08/02/16 1926 Signed Impressions: Service Date/Time: Tuesday, August 02, 2016 19:46 - CONCLUSION: 1. Subacute fracture of the T9 vertebral body and posterior elements again noted, status post fusion from T7-T11. Fracture again noted to focally extend into the T8/T9 intervertebral disc space. The fracture is incompletely healed. 2. Vertebral body endplate destruction and anterior predominant osseous ridging have developed at T8/T9, etiology uncertain but I believe related to persistent motion as there is lucency around the bilateral pedicle screws at T10 and T11. I don't see an abscess or high-grade juxtavertebral inflammatory changes but please correlate clinically for the possibility of T8/T9 discitis.. 3. 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 4. Small right and [id number] left pleural effusions with dependent consolidation or noted of the visualized lungs. Paul Clinton MD Lumbar Spine CT 08/02/161925 Signed Impressions: Service Date/Time: Tuesday, August 02, 2016 19:53 - CONCLUSION: No acute abnormality or significant change seen in the CT appearance of the lumbar spine. Multilevel facet degenerative changes are again noted and chronic loss of height of L5. Paul Clinton MD Chest X-Ray 08/02/161925 Signed Impressions: Service Date/Time: Tuesday, August 02, 2016 19:38 - CONCLUSION: Mild patchy consolidation and small effusion on the left. Paul Clinton MD Hip X-Ray 08/02/16 0000 Signed Impressions: Service Date/Time: Wednesday, August 03, 2016 00:08 - CONCLUSION: 1. Medullary rosa and compression screw securing a presumed old left hip fracture. 2. Bony eburnation around the proximal femur but no acute fracture identified. Sherwin Wallace MD Physical Exam General General Appearance: Well Developed, No Acute Distress, Comfortable Appearance Remarks Slim build Eyes Eye Exam: Pupils Equal, Pupils Reactive Ears & Nose Ears & Nose Exam: Nasal Mucosa [place] Throat Throat Exam: Oral Mucosa [place] & Moist Neck Neck Exam: Neck Supple, Trachea Midline Pulmonary Resp Exam: Decreased Bases Resp Remarks Lung volumes Cardiology CV Exam: Regular, Good Perfusion Gastrointestinal/Abdomen GI Exam: Soft, Non-Tender, Bowel Sounds Present, Non-Distended Musculoskeletal MS Exam: Joints Intact MS Remarks Healing left hip fracture incision clean dry and intact Integumentary Skin Exam: Warm, Dry Extremeties Extremities Exam: Pedal Pulses Palpable, Trace Edema Neurologic Neuro Exam: Alert, Awake, Oriented, Speech Clear, Moving All Extremities, No Focal Deficits Psychiatric Psych Exam: Appropriate Responses VTE Prophylaxis VTE Prophylaxis Meds: Heparin Assessment/Plan Problem List: (1) Pneumonia (2) Weakness (3) History of MRSA infection (4) Anemia (5) Renal insufficiency (6) Left knee pain (7) CHF (congestive heart failure) (8) Atrial fibrillation (9) Hypoglycemia (10) Hypertension (11) Hx of unstable T8,T9 fractures due to fall with T7 to T11 posterior fixation using transpedicular screws and rods on 05/04/16 Assessment/Plan Pneumonia--antibiotic therapy, O2 range from 90-100, patient using oxygen as needed 2 L , medical management, antibiotics GI cramping, occasional. Patient denies any diarrhea. Added Pepto-Bismol and will try scheduled dose. If watery diarrhea occurs, will check C-diff. No C. difficile check for now. No diarrhea Wound culture staph coag. -Appreciate ID input, antibiotic therapy at daptomycin, and rifampin dosing. MRSA wound infection, PICC line removed, 08-05-16 Continues wih IV antibiotics. Family awaiting ID to meet with patient and family Tuesday for further dc planning. Case management assisting as needed with discharge planning. Vital signs and labs monitored as needed Anemia, probably due to chronic disease Acute renal insufficiency, continues to be without acute changes. Monitor labs, medical management Activity includes getting up out of bed daily continue with accuchecks AC/HS and ISS, -Enc. PO intake, encouraged nutrition, fair to good intake most of the time DVT prophylaxis Patient is DO NOT RESUSCITATE, otherwise full aggressive care Problem Qualifiers (1) Pneumonia: Qualified Code: J18.9 - Pneumonia of left lung due to infectious organism, unspecified part of lung (2) Anemia: Qualified Code: D64.9 - Anemia, unspecified type (3) Left knee pain: Qualified Code: M25.562 - Chronic pain of left knee (4) CHF (congestive heart failure): Qualified Code: I50.9 - Chronic congestive heart failure, unspecified congestive heart failure type (5) Atrial fibrillation: Qualified Code: I48.91 - Atrial fibrillation, unspecified type (6) Hypertension: Qualified Code: I10 - Essential hypertension Chloé Khanna Aug 08, 2016 11:24
[2016-08-08] MEDS: D5-1/2 NS + KCL 20 MEQ INJ 1,000 ML IV SCH (15:00)
[2016-08-08] MEDS: SODIUM CHLORIDE 0.9% IV SCH (23:36)
[2016-08-08] MEDS: DAPTOMYCIN IV SCH (23:36)
[2016-08-09] VITALS (10 sets, daily range): BP systolic 124–159; BP diastolic 63–85; PULSE 61–100; RESP 18–22; TEMP 92.8–99; O2SAT 93–99
[2016-08-09] MEDS: ACETAMINOPHEN/HYDROcodone 325 MG/10 MG TAB PO PRN (01:22)
[2016-08-09] MEDS: INSULIN ASPART SUPPLEMENTAL SCALE SQ SCH ×5 (01:23→21:34)
[2016-08-09] MEDS: D5-1/2 NS + KCL 20 MEQ INJ 1,000 ML IV SCH ×3 (01:24→21:00)
[2016-08-09] MEDS: METOPROLOL TARTRATE 25 MG TAB PO SCH ×3 (05:32→21:29)
[2016-08-09] MEDS: HEPARIN SODIUM - SQ 10,000 UNITS/ML VIAL SQ SCH ×3 (05:32→21:28)
[2016-08-09] MEDS: DOCUSATE SODIUM 100 MG CAP PO SCH ×2 (09:00→21:00)
[2016-08-09] MEDS: THIAMINE HCL 100 MG TAB PO SCH (09:22)
[2016-08-09] MEDS: DIGOXIN 0.125 MG TAB PO SCH (09:22)
[2016-08-09] MEDS: PANTOPRAZOLE SOD 40 MG DELAYED RELEASE TAB PO SCH (09:22)
[2016-08-09] MEDS: ASPIRIN EC 81 MG TABEC PO SCH (09:23)
[2016-08-09] MEDS: FUROSEMIDE 40 MG TAB PO SCH (09:23)
[2016-08-09] MEDS: RIFAMPIN 150 MG CAP PO SCH ×2 (09:23→21:29)
[2016-08-09] MEDS: ISRADIPINE 2.5 MG PO SCH ×2 (09:23→21:29)
[2016-08-09] MEDS: SODIUM CHLORIDE 0.9% FLUSH 5 ML FLUSH FLUSH SCH ×2 (09:24→21:00)
[2016-08-09] MEDS: FAMOTIDINE 20 MG TAB PO SCH ×2 (09:24→21:29)
[2016-08-09] MEDS: ALLOPURINOL 300 MG TAB PO SCH (09:24)
--- NOTE | 2016-08-09 10:47 | HHI.HCPN ---
Palliative Care was called over this weekend having a few questions by Lorri Patel. I spoke with Lorri over the phone this am. She mainly had questions about outpatient Palliative Care. I told her at the time being, we do not have an outpatient palliative care program. I told them there is a hopsice program, but that is different and the main focus will be only on comfort measures. She has questions about if wound vac will be managed or covered by home health? I told them likely that we will need to get case management involve. She indicate that she will speak with Dr. Antonio and ask if Dr. Antonio can call her 30 mins ahead of time so that both her sister and herself can be there. She decline for me to visit today. She declined for palliative care to meet with father today. I told her I will touch base with Dr. Antonio. Ben Garces MD Aug 09, 2016 10:47
--- NOTE | 2016-08-09 14:18 | HHI.IDPN ---
Note Infectious Disease Note Khadar family Lorri the daughter on Tuesday as well as today. Extensive discussions about DC planning. Patients daughter would like Hospice consult in case post discharge they change their minds She would like to set up home health with IV ABX and wound care while he gets a chance to meet his son who has cancer and lives in [place]. khadar Case management. Between Tue and today I have spent over 2 hours to help the patients daughter make decisions. They still are undecided between home health and Hospice at home. Will meet again tomorrow with both daughters and patient in room. khadar primary team as well. Vital Signs Date Time Temp Pulse Resp B/P Pulse Ox O2 Delivery O2 Flow Rate FiO2 08/09/16 08:51 97.1 84 22 145/70 97 08/09/16 04:00 95.6 82 20 142/71 95 08/09/16 00:00 99.0 100 18 131/84 99 08/08/16 20:20 99 Nasal Cannula 3.00 08/08/16 20:00 98.0 96 18 136/71 96 08/08/16 16:00 96.2 70 25 140/72 96 Melinda Antonio MD Aug 09, 2016 14:18
--- NOTE | 2016-08-09 21:20 | HHI.IDPN ---
Subjective Subjective Remarks is an 85 y/o CM with PMHx of history of admission for Trauma alert after a fall from a ladder, when he was diagnosed to have left side femur fracture, left side rib fracture and fracture thoracic spine. He underwent open reduction internal fixation of T8 and T9 fractures, T7 to T11 segmental instrumented fixation using transpedicular screws and rods, T7 to T11 posterolateral fusion using autologous bone graft combined with stem cells, microsurgical dissection. Post surgery he was sent to a rehab. He was admitted for local wound infection possible hardware infection/osteomyelitis as hardware was exposed. Patient has been admitted 3rd time for MRSA wound infection post surgery. Wound grew MRSA and patient has now been on approx 4 weeks of IV Vanco with not much improvement in lab parameters (ESR/CRP remain high), radiologically and clinically continues to have drainage locally. Patient reports generalized weakness in last few days. Patient was started on IV Vanco as well as possible CAP treatment on admission. His Cr has been high last admission as well. This admission patient was seen by Neurosrugery and plan is to have a local debridement in OR. Of note patient is DNR per old records. Palliative care was consulted for evaluation of treatment goals in an attempt to respect patients wishes. He is not terminal at present time but his non response to treatment is worrisome and this being his 3rd admission post surgery for infection I have placed this consult to assist us. Patient denies any change in sensation in perineal area or lower extremities. History of prostate problems with h/o UTIs in past. ID was consulted for evaluation and Mment of Sepsis, Probable Discitis/Hardware infection. Overnight events reviewed. No fever No rash No diarrhea Sitting in bed. Wound vac in place. No surrounding erythema. Antibiotics Dapto IV Rifampin oral. Lines Line sites with no e.o infection. Past Medical History reviewed Allergies: Coded Allergies: *MDRO Multi-Drug Resistant Organism (Verified Adverse Reaction, Unknown, ) 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 Objective . Vital Signs Date Time Temp Pulse Resp B/P Pulse Ox O2 Delivery O2 Flow Rate FiO2 08/09/16 20:26 93 21 08/09/16 20:00 96.8 84 18 159/74 95 08/09/16 16:20 96.5 61 18 156/85 96 08/09/16 13:43 96 08/09/16 12:22 92.8 90 19 124/63 08/09/16 09:00 74 08/09/16 08:51 97.1 84 22 145/70 97 08/09/16 04:00 95.6 82 20 142/71 95 08/09/16 00:00 99.0 100 18 131/84 99 08/08/16 08/08/16 08/09/16 15:00 23:00 07:00 Intake Total 960 ml Output Total 800 ml Balance 960 ml -800 ml Intake Oral 960 ml Output Urine Total 800 ml # Voids 4 1 # Bowel Movements 1 Imaging Last Impressions Knee X-Ray 08/02/16 3470 Signed Impressions: Service Date/Time: Wednesday, August 03, 2016 00:06 - CONCLUSION: 1. 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 2. Plain film findings of a very small suprapatellar effusion. Sherwin Wallace MD Thoracic Spine CT 08/02/161925 Signed Impressions: Service Date/Time: Tuesday, August 02, 2016 19:46 - CONCLUSION: 1. Subacute fracture of the T9 vertebral body and posterior elements again noted, status post fusion from T7-T11. Fracture again noted to focally extend into the T8/T9 intervertebral disc space. The fracture is incompletely healed. 2. Vertebral body endplate destruction and anterior predominant osseous ridging have developed at T8/T9, etiology uncertain but I believe related to persistent motion as there is lucency around the bilateral pedicle screws at T10 and T11. I don't see an abscess or high-grade juxtavertebral inflammatory changes but please correlate clinically for the possibility of T8/T9 discitis.. 3. 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 4. Small right and [id number] left pleural effusions with dependent consolidation or noted of the visualized lungs. Paul Clinton MD Lumbar Spine CT 08/02/161925 Signed Impressions: Service Date/Time: Tuesday, August 02, 2016 19:53 - CONCLUSION: No acute abnormality or significant change seen in the CT appearance of the lumbar spine. Multilevel facet degenerative changes are again noted and chronic loss of height of L5. Paul Clinton MD Chest X-Ray 08/02/161925 Signed Impressions: Service Date/Time: Tuesday, August 02, 2016 19:38 - CONCLUSION: Mild patchy consolidation and small effusion on the left. Paul Clinton MD Hip X-Ray 08/02/16 0000 Signed Impressions: Service Date/Time: Wednesday, August 03, 2016 00:08 - CONCLUSION: 1. Medullary rosa and compression screw securing a presumed old left hip fracture. 2. Bony eburnation around the proximal femur but no acute fracture identified. Sherwin Wallace MD Physical Exam GENERAL: This is a well-nourished, well-developed patient, in no apparent distress. SKIN: No rashes, ecchymoses or lesions. Cool and dry. HEAD: Atraumatic. Normocephalic. No temporal or scalp tenderness. EYES: Pupils equal round and reactive. Extraocular motions intact. No scleral icterus. No injection or drainage. ENT: Nose without bleeding, purulent drainage or septal hematoma. Throat without erythema, tonsillar hypertrophy or exudate. Uvula midline. Airway patent. NECK: Trachea midline. No JVD or lymphadenopathy. Supple, nontender, no meningeal signs. CARDIOVASCULAR: Regular rate and rhythm without murmurs, gallops, or rubs. RESPIRATORY: Clear to auscultation. Breath sounds equal bilaterally. No wheezes , rales, or rhonchi. GASTROINTESTINAL: Abdomen soft, non-tender, nondistended. No hepato-splenomegaly , or palpable masses. No guarding. MUSCULOSKELETAL: Extremities without clubbing, cyanosis, or edema. No joint tenderness, effusion, or edema noted. No calf tenderness. Negative Homans sign bilaterally. NEUROLOGICAL: Awake and alert. Grossly nonfocal Back: wound vac in place with no surrounding erythema, vac container with approx 200 cc of sanguinous discharge. Psych: could not be assessed IV line sites with no e.o infection. Assessment & Plan Remarks Coag neg staph bacteremia: ? PICC vs Hardware infection related. MRSA acute discitis/osteomyelitis, hardware infection. Renal insufficiency CHF Afib HTN Hx of unstable T8,T9 fractures due to fall with T7 to T11 posterior fixation using transpedicular screws and rods on 05/04/16 Recs: PICC line consult in am. BCX negative so far. Dapto IV (ASP: failed vanco IV at 4 wks of treatment, AIN high cr and high eosinophils) Continue Rifampin oral (hardware infection) 2D ECHO with no vegetations. Follow cultures Follow clinically Appreciate Palliative care efforts. LYNN Brown with hospitalist. d/w patient and daughter Demi in room: plan for the day. Additionally, discussed options for DC antibiotics with both daughters. I cannot say at this point if new regimen is working this will have to be decided on follow up with Dr.Reba Esteves. Patients family would like to see if he can go home with Dapto IV. D.w acquisition associate Rosita: patient still needs lot of assistance for transfers and mobility. Recommend d.w PT/OT to see if he is candidate to DC home with home health (IV Abx, wound vac and PT/OT) vs SNF rehab for the same. kyle case management re: approval of Daptomycin and reasons for choice as documented in my note earlier. Time spent in excess of 60 mins for DC planning. I have placed PICC consult and orders in chart. Once we know where he is being discharged please call me so I can sign post hospital infusion for respective place of DC. d/w case management: patients family considering home with home health, Home PT/ OT and Home wound vac care. Time spent in excess of 40 mins. Critical thinking and decision making. Melinda Antonio MD Aug 09, 2016 21:19
--- NOTE | 2016-08-09 21:24 | HHI.FF ---
cc: Alisha Esteves MD, MD patients PCP. Infusion Therapy Location of Infusion Therapy: [facility] Infusion Therapy Order Patient Information Patient Weight 85 kg Diagnosis: Coded Allergies: *MDRO Multi-Drug Resistant Organism (Verified Adverse Reaction, Unknown, ) 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 Administer Medication Daptomycin Daptomycin 700 mg IV every 24 hours. Start Treatment: Aug 09, 2016 Stop Treatment: Sep 11, 2016 Additional Information Additional Medications Rifampin 150 mg by mouth every 12 hours (no alcohol or herbs while on Rifampin) Venous access: PICC Line Additional Instructions [x] Peripheral flush and dressing changes per protocol [x] Implanted port and central linen room supervisor: * Implanted port: 10 ml Normal Saline followed by 5 ml Heparin 100 units/ml Heparin flush after each use and monthly to maintain. [] May leave port accessed during therapy. [] May leave peripheral site accessed for duration of therapy. [x] If patient has SOB or respiratory distress, check oxygen saturation. If less than 90% or clinical signs of respiratory distress, administer oxygen at 2 L/min. via nasal cannula and notify physician. [x] Anaphylaxis/Reaction orders: * Stop infusion. * Keep IV line open with saline flush. * Notify physician. * Monitor vital signs every 15 minutes until symptoms resolve. * Check Oxygen saturation; Oxygen at 2 L/min. via nasal cannula if less than 90% or clinical signs of respiratory distress. * Administer diphenhydramine (Benadryl) 25 mg IV STAT, (unless patient has received as pre-med). May repeat once, if necessary. * Solu-Cortef 250 mg IVP over 30-60 seconds, use 100 mg vials for each dissolution. * Epinephrine (1mg/1 ml) 0.3 mg subcutaneously or IVP now with any signs of respiratory distress. * Check with physician for new additional pre-med orders if patient is re- challenged or re-treated. [x] May remove PICC line when treatment complete, after confirming with Physician. [x] If the patient is admitted to the hospital, the ED, or transferred via [facility] , complete transfer form including medication reconciliation order sheet. Laboratory Tests Weekly Labs: CBC w/diff, CRP, LFT's (Hepatic function test), Serum CK Levels Additional Information Please draw labs, fax results to numbers provided below, Call with abnormals, change in clinical condition or problems to: Dr.Reba Esteves or or covering [facility] Physician Follow up appt: Patient to schedule follow up appt with Dr.Reba Esteves within 2 weeks post discharge. Follow up with PCP Follow up with other MDs as planned. Counseling: Counseled about medication side effects Counseled about PICC line care and hand hygiene. Melinda Antonio MD Aug 09, 2016 21:24
[2016-08-09] MEDS: DAPTOMYCIN IV SCH (21:29)
[2016-08-09] MEDS: SODIUM CHLORIDE 0.9% IV SCH (21:29)
[2016-08-09] MEDS ORDERED: RIFA150C2 PO (21:31)
[2016-08-09] MEDS ORDERED: EPIN1INJ21 SQ (21:31)
[2016-08-09] MEDS ORDERED: SOLU250I IV PUSH (21:31)
[2016-08-09] MEDS ORDERED: LACTTAB8 PO (21:31)
[2016-08-09] MEDS ORDERED: EPIN1INJ21 IV PUSH (21:31)
[2016-08-09] MEDS ORDERED: DAPT250I IV (21:33)
[2016-08-10] VITALS (8 sets, daily range): BP systolic 148–167; BP diastolic 70–81; PULSE 61–84; RESP 18–22; TEMP 96.4–97.9; O2SAT 94–96
[2016-08-10] MEDS: HEPARIN SODIUM - SQ 10,000 UNITS/ML VIAL SQ SCH ×3 (06:06→22:11)
[2016-08-10] MEDS: METOPROLOL TARTRATE 25 MG TAB PO SCH ×3 (06:06→22:10)
[2016-08-10] MEDS: INSULIN ASPART SUPPLEMENTAL SCALE SQ SCH ×4 (06:12→22:20)
[2016-08-10] MEDS: D5-1/2 NS + KCL 20 MEQ INJ 1,000 ML IV SCH ×2 (06:13→17:00)
--- NOTE | 2016-08-10 08:24 | HHI.PR ---
Subjective History of Present Illness pt was seen on 08/09/16 around 2 30m pm Forgot to write Note chart was reviewed/ pt was seen & examined daughter was present at bedside feels better back pain is improving No fever or chills No N/V appetite is better No cough or sputum No CP Offers no other c/o Review of Systems Constitutional Constitutional: Weakness (generalized) Pulmonary Respiratory: Shortness of Breath (more exertional) Musculoskeletal MS: Weakness (generalized) Integumentary Skin: Wounds (wound VAC on mid back, secured clean dry and intact) Psychiatric Psychiatric: Normal Mood (appears to be feeling fairly good today, afebrile) Vitals/Results Intake & Output 08/09/16 08/09/16 08/10/16 15:00 23:00 07:00 Intake Total 120 ml 240 ml 2025 ml Output Total 100 ml Balance 120 ml 140 ml 2025 ml Intake Oral 120 ml 240 ml IV Total 2025 ml Output Urine Total 100 ml # Voids 4 4 3 # Bowel Movements 3 Vital Signs Vital Signs Date Time Temp Pulse Resp B/P Pulse Ox O2 Delivery O2 Flow Rate FiO2 08/10/16 04:20 96.8 83 18 156/81 95 08/10/16 01:02 97.9 80 22 148/76 94 08/09/16 23:00 64 08/09/16 20:26 93 21 08/09/16 20:00 96.8 84 18 159/74 95 08/09/16 16:20 96.5 61 18 156/85 96 08/09/16 13:43 96 08/09/16 12:22 92.8 90 19 124/63 08/09/16 09:00 74 08/09/16 08:51 97.1 84 22 145/70 97 Physical Exam General General Appearance: No Acute Distress, Comfortable Appearance Remarks elderly WM sitting up in chair Eyes Eye Exam: Pupils Equal, Pupils Reactive Ears & Nose Ears & Nose Exam: Nasal Mucosa [place] Throat Throat Exam: Oral Mucosa [place] & Moist Neck Neck Exam: Neck Supple, Trachea Midline Pulmonary Resp Exam: Clear Bilaterally, Breath Sounds Equal Cardiology CV Exam: Irregular, Arrhythmia Gastrointestinal/Abdomen GI Exam: Soft, Non-Tender, Bowel Sounds Present, Non-Distended Musculoskeletal MS Remarks wound vac on mid mid , No surrounding redness or swelling noted Integumentary Skin Exam: Warm, Dry Extremeties Extremities Exam: No Edema, Pedal Pulses Palpable Neurologic Neuro Exam: Alert, Awake, Oriented, Speech Clear, Moving All Extremities Psychiatric Psych Exam: Appropriate Responses VTE Prophylaxis VTE Prophylaxis Meds: Heparin Assessment/Plan Problem List: (1) Pneumonia (2) Weakness (3) History of MRSA infection (4) Anemia (5) Renal insufficiency (6) Left knee pain (7) CHF (congestive heart failure) (8) Atrial fibrillation (9) Hypoglycemia (10) Hypertension (11) Hx of unstable T8 T9 fractures due to fall with T7 to T11 posterior fixation using transpedicular screws and rods on 12 6 16 Assessment/Plan Pneumonia Vs Atelactasis O2 therapy, Aerosol tx Incentive spirometry Wound culture staph coag. - IV antibiotic per ID , Daptomycin, and rifampin - d/w DR Antonio Hx of MRSA wound infection, ASA BB/Dig for rate control BP control pepcid Monitor labs, medical management Diabetic diet continue with accuchecks AC/HS and ISS, -Enc. PO intake, encouraged nutrition, fair to good intake most of the time DVT prophylaxis, sq heparin Patient is DO NOT RESUSCITATE, otherwise full aggressive care PT eval & tx ss for d/c planning d/w PT & his daughter at bedside will f/u Problem Qualifiers (1) Pneumonia: Qualified Code: J18.9 - Pneumonia of left lung due to infectious organism, unspecified part of lung (2) Anemia: Qualified Code: D64.9 - Anemia, unspecified type (3) Left knee pain: Qualified Code: M25.562 - Chronic pain of left knee (4) CHF (congestive heart failure): Qualified Code: I50.9 - Chronic congestive heart failure, unspecified congestive heart failure type (5) Atrial fibrillation: Qualified Code: I48.91 - Atrial fibrillation, unspecified type (6) Hypertension: Qualified Code: I10 - Essential hypertension Rachel Park MD Aug 10, 2016 08:24
[2016-08-10] MEDS: ALLOPURINOL 300 MG TAB PO SCH (08:30)
[2016-08-10] MEDS: FUROSEMIDE 40 MG TAB PO SCH (08:30)
[2016-08-10] MEDS: PANTOPRAZOLE SOD 40 MG DELAYED RELEASE TAB PO SCH (08:30)
[2016-08-10] MEDS: THIAMINE HCL 100 MG TAB PO SCH (08:30)
[2016-08-10] MEDS: ASPIRIN EC 81 MG TABEC PO SCH (08:30)
[2016-08-10] MEDS: ISRADIPINE 2.5 MG PO SCH ×2 (08:30→22:10)
[2016-08-10] MEDS: RIFAMPIN 150 MG CAP PO SCH ×2 (08:31→22:10)
[2016-08-10] MEDS: DIGOXIN 0.125 MG TAB PO SCH (08:31)
[2016-08-10] MEDS: DOCUSATE SODIUM 100 MG CAP PO SCH ×2 (08:31→21:00)
[2016-08-10] MEDS: FAMOTIDINE 20 MG TAB PO SCH ×2 (08:31→22:10)
[2016-08-10] MEDS: SODIUM CHLORIDE 0.9% FLUSH 5 ML FLUSH FLUSH SCH ×2 (09:00→22:13)
--- NOTE | 2016-08-10 10:46 | HHI.PR ---
Subjective History of Present Illness I am ok back pain is ok /painmeds are helping No fever or chills No N/V appetite is better No cough or sputum No CP Offers no other c/o daughter is at bedside Review of Systems Constitutional Constitutional: Weakness (generalized) Pulmonary Respiratory: Shortness of Breath (more exertional) Musculoskeletal MS: Weakness (generalized) Integumentary Skin: Wounds (wound VAC on mid back, secured clean dry and intact) Psychiatric Psychiatric: Normal Mood (appears to be feeling fairly good today, afebrile) Vitals/Results Intake & Output 08/09/16 08/09/16 08/10/16 15:00 23:00 07:00 Intake Total 120 ml 240 ml 2025 ml Output Total 100 ml Balance 120 ml 140 ml 2025 ml Intake Oral 120 ml 240 ml IV Total 2025 ml Output Urine Total 100 ml # Voids 4 4 3 # Bowel Movements 3 Vital Signs Vital Signs Date Time Temp Pulse Resp B/P Pulse Ox O2 Delivery O2 Flow Rate FiO2 08/10/16 08:00 96.4 61 22 160/80 96 08/10/16 04:20 96.8 83 18 156/81 95 08/10/16 01:02 97.9 80 22 148/76 94 08/09/16 23:00 64 08/09/16 20:26 93 21 08/09/16 20:00 96.8 84 18 159/74 95 08/09/16 16:20 96.5 61 18 156/85 96 08/09/16 13:43 96 08/09/16 12:22 92.8 90 19 124/63 Physical Exam General General Appearance: No Acute Distress, Comfortable Appearance Remarks elderly WM sitting up in chair Eyes Eye Exam: Pupils Equal, Pupils Reactive Ears & Nose Ears & Nose Exam: Nasal Mucosa [place] Throat Throat Exam: Oral Mucosa [place] & Moist Neck Neck Exam: Neck Supple, Trachea Midline Pulmonary Resp Exam: Clear Bilaterally, Breath Sounds Equal Cardiology CV Exam: Irregular, Arrhythmia Gastrointestinal/Abdomen GI Exam: Soft, Non-Tender, Bowel Sounds Present, Non-Distended Musculoskeletal MS Remarks wound vac on mid mid , No surrounding redness or swelling noted Integumentary Skin Exam: Warm, Dry Extremeties Extremities Exam: No Edema, Pedal Pulses Palpable Neurologic Neuro Exam: Alert, Awake, Oriented, Speech Clear, Moving All Extremities Psychiatric Psych Exam: Appropriate Responses VTE Prophylaxis VTE Prophylaxis Meds: Heparin Assessment/Plan Problem List: (1) Pneumonia (2) Weakness (3) History of MRSA infection (4) Anemia (5) Renal insufficiency (6) Left knee pain (7) CHF (congestive heart failure) (8) Atrial fibrillation (9) Hypoglycemia (10) Hypertension (11) Hx of unstable T8 T9 fractures due to fall with T7 to T11 posterior fixation using transpedicular screws and rods on 05 04 16 Assessment/Plan Atelactasis O2 therapy, Aerosol tx Incentive spirometry Hx of MRSA wound infection, Wound culture staph coag. IV antibiotic per ID , Daptomycin, and rifampin PICC line is ordered Final abx Rec given by ID , stop date september 11 2016 wkly labs /picc care ordered ASA BB/Dig for rate control BP control pepcid Monitor labs, medical management Diabetic diet continue with accuchecks AC/HS and ISS, -Enc. PO intake, encouraged nutrition, fair to good intake most of the time DVT prophylaxis, sq heparin DNR PT eval & tx medically stable for d.c d/w ,pt is turned by [facility]. 2nd choice , [facility] is going to eval pt today i spoke to pt & daughter , gave them 3 rd option of [facility]i d/c to SNF when arrangements are made see MRS see HRS f/u pcp & Nsx f/u ID Problem Qualifiers (1) Pneumonia: Qualified Code: J18.9 - Pneumonia of left lung due to infectious organism, unspecified part of lung (2) Anemia: Qualified Code: D64.9 - Anemia, unspecified type (3) Left knee pain: Qualified Code: M25.562 - Chronic pain of left knee (4) CHF (congestive heart failure): Qualified Code: I50.9 - Chronic congestive heart failure, unspecified congestive heart failure type (5) Atrial fibrillation: Qualified Code: I48.91 - Atrial fibrillation, unspecified type (6) Hypertension: Qualified Code: I10 - Essential hypertension Rachel Park MD Aug 10, 2016 10:46
[2016-08-10] MEDS ORDERED: HYDR-3583 PO (11:49)
[2016-08-10] MEDS ORDERED: HEPA10003 SQ (11:49)
--- NOTE | 2016-08-10 14:27 | RADRPT ---
EXAM DATE/TIME: 08/10/2016 13:27 [place] COMPARISON: CHEST SINGLE AP, August 02, 2016, 19:38. INDICATIONS : Post PICC line placement MEDICAL HISTORY : hypertension, diabetes, CHF, cardiovascular disease SURGICAL HISTORY : thoracic spine fusion ENCOUNTER: Subsequent ACUITY: 1 day PAIN SCORE: Non-responsive. LOCATION: Bilateral chest FINDINGS: A single view of the chest demonstrates cardiomegaly bibasilar densities. Right-sided PICC line seen. Fusion rods and screws again seen along the thoracic spine. Osseous structures are intact. CONCLUSION: Cardiomegaly with minimal bibasilar densities. PICC line with tip in the SVC. Jared Larios MD on August 10, 2016 at 14:25 Board Certified Radiologist. This report was verified electronically.
[2016-08-10] MEDS: SODIUM CHLORIDE 0.9% IV SCH (22:11)
[2016-08-10] MEDS: DAPTOMYCIN IV SCH (22:11)
[2016-08-11] VITALS (10 sets, daily range): BP systolic 148–183; BP diastolic 72–83; PULSE 77–99; RESP 18–20; TEMP 95.4–97.8; O2SAT 93–98
[2016-08-11] MEDS: D5-1/2 NS + KCL 20 MEQ INJ 1,000 ML IV SCH ×3 (03:00→23:00)
[2016-08-11] MEDS: HEPARIN SODIUM - SQ 10,000 UNITS/ML VIAL SQ SCH ×3 (06:00→21:25)
[2016-08-11] MEDS: METOPROLOL TARTRATE 25 MG TAB PO SCH ×3 (06:50→21:25)
[2016-08-11] MEDS: INSULIN ASPART SUPPLEMENTAL SCALE SQ SCH ×4 (06:53→21:26)
[2016-08-11] MEDS: DOCUSATE SODIUM 100 MG CAP PO SCH ×2 (09:00→21:00)
[2016-08-11] MEDS: PANTOPRAZOLE SOD 40 MG DELAYED RELEASE TAB PO SCH (09:24)
[2016-08-11] MEDS: ISRADIPINE 2.5 MG PO SCH ×2 (09:24→21:25)
[2016-08-11] MEDS: FAMOTIDINE 20 MG TAB PO SCH ×2 (09:24→21:25)
[2016-08-11] MEDS: FUROSEMIDE 40 MG TAB PO SCH (09:24)
[2016-08-11] MEDS: ASPIRIN EC 81 MG TABEC PO SCH (09:24)
[2016-08-11] MEDS: THIAMINE HCL 100 MG TAB PO SCH (09:24)
[2016-08-11] MEDS: DIGOXIN 0.125 MG TAB PO SCH (09:25)
[2016-08-11] MEDS: ALLOPURINOL 300 MG TAB PO SCH (09:25)
[2016-08-11] MEDS: RIFAMPIN 150 MG CAP PO SCH ×2 (09:25→21:25)
[2016-08-11] MEDS: SODIUM CHLORIDE 0.9% FLUSH 5 ML FLUSH FLUSH SCH ×2 (09:26→21:26)
--- NOTE | 2016-08-11 14:00 | HHI.PR ---
Addendum to Inpatient Note Addendum Reason: Additional Documentation Additional Information D./w Chloé BAILEY for : Weekly CBC with diff, CMP, Serum CK levels and CRP while on Daptomycin IV to be ordered by hospitalist. PICC line care per protocol. Please call me with any change in condition or questions or abnormal labs. Will sign off please call as need be. Melinda Antonio MD Aug 11, 2016 14:00
--- NOTE | 2016-08-11 15:23 | HHI.PR ---
Subjective Subjective Remarks Alert. Responsive Sitting up in chair Denies any pain in back Wound VAC on, secure Daughter in room Review of Systems Constitutional Constitutional: Weakness (generalized) Constitutional Remarks 10 point ROS done. wound vac mid back, very soft stools, generalized weakness. Otherwise systems negative Pulmonary Respiratory: Shortness of Breath (more exertional) GI/Abdomen GI/Abdomen Remarks Occasional abdominal cramps, denies any diarrhea stools very soft. Musculoskeletal MS: Weakness (generalized) Integumentary Skin: Wounds (wound VAC on mid back, secured clean dry and intact) Psychiatric Psychiatric: Normal Mood (appears to be feeling fairly good today, afebrile) Vitals/Results Intake & Output 08/10/16 08/10/16 08/11/16 15:00 23:00 07:00 Intake Total 720 ml 919 ml Output Total 500 ml 200 ml Balance 220 ml 719 ml Intake Oral 720 ml IV Total 919 ml Output Urine Total 500 ml 200 ml # Voids 1 2 # Bowel Movements 2 Vital Signs Vital Signs Date Time Temp Pulse Resp B/P Pulse Ox O2 Delivery O2 Flow Rate FiO2 08/11/16 12:15 95.4 77 18 148/73 95 08/11/16 09:00 95 21 08/11/16 08:25 97.2 87 18 183/83 95 08/11/16 04:37 97.8 90 20 151/74 93 08/11/16 00:33 96.9 81 20 156/78 94 08/10/16 22:00 66 08/10/16 21:29 96.7 76 18 148/70 95 08/10/16 18:39 94 21 08/10/16 16:02 97.6 73 18 167/78 94 Current Medications Last Impressions Chest X-Ray 08/10/16 0000 Signed Impressions: Service Date/Time: Wednesday, August 10, 2016 13:27 - CONCLUSION: Cardiomegaly with minimal bibasilar densities. PICC line with tip in the SVC. Jared Larios MD Knee X-Ray 08/02/16 4047 Signed Impressions: Service Date/Time: Wednesday, August 03, 2016 00:06 - CONCLUSION: 1. 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 2. Plain film findings of a very small suprapatellar effusion. Sherwin Wallace MD Thoracic Spine CT 08/02/161925 Signed Impressions: Service Date/Time: Tuesday, August 02, 2016 19:46 - CONCLUSION: 1. Subacute fracture of the T9 vertebral body and posterior elements again noted, status post fusion from T7-T11. Fracture again noted to focally extend into the T8/T9 intervertebral disc space. The fracture is incompletely healed. 2. Vertebral body endplate destruction and anterior predominant osseous ridging have developed at T8/T9, etiology uncertain but I believe related to persistent motion as there is lucency around the bilateral pedicle screws at T10 and T11. I don't see an abscess or high-grade juxtavertebral inflammatory changes but please correlate clinically for the possibility of T8/T9 discitis.. 3. 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 4. Small right and [id number] left pleural effusions with dependent consolidation or noted of the visualized lungs. Paul Clinton MD Lumbar Spine CT 08/02/161925 Signed Impressions: Service Date/Time: Tuesday, August 02, 2016 19:53 - CONCLUSION: No acute abnormality or significant change seen in the CT appearance of the lumbar spine. Multilevel facet degenerative changes are again noted and chronic loss of height of L5. Paul Clinton MD Hip X-Ray 08/02/16 0000 Signed Impressions: Service Date/Time: Wednesday, August 03, 2016 00:08 - CONCLUSION: 1. Medullary rosa and compression screw securing a presumed old left hip fracture. 2. Bony eburnation around the proximal femur but no acute fracture identified. Sherwin Wallace MD Physical Exam General General Appearance: No Acute Distress, Comfortable Appearance Remarks Slim build Eyes Eye Exam: Pupils Equal, Pupils Reactive Ears & Nose Ears & Nose Exam: Nasal Mucosa [place] Throat Throat Exam: Oral Mucosa [place] & Moist Neck Neck Exam: Neck Supple, Trachea Midline Pulmonary Resp Exam: Clear Bilaterally, Breath Sounds Equal Resp Remarks Lung volumes Cardiology CV Exam: Irregular, Arrhythmia Gastrointestinal/Abdomen GI Exam: Soft, Non-Tender, Bowel Sounds Present, Non-Distended Musculoskeletal MS Remarks Healing left hip fracture incision clean dry and intact Integumentary Skin Exam: Warm, Dry Extremeties Extremities Exam: No Edema, Pedal Pulses Palpable Neurologic Neuro Exam: Alert, Awake, Oriented, Speech Clear, Moving All Extremities Psychiatric Psych Exam: Appropriate Responses VTE Prophylaxis VTE Prophylaxis Meds: Heparin Assessment/Plan Problem List: (1) Pneumonia (2) Weakness (3) History of MRSA infection (4) Anemia (5) Renal insufficiency (6) Left knee pain (7) CHF (congestive heart failure) (8) Atrial fibrillation (9) Hypoglycemia (10) Hypertension (11) Hx of unstable T8 T9 fractures due to fall with T7 to T11 posterior fixation using transpedicular screws and rods on 12 6 16 Assessment/Plan Atelactasis, O2 therapy, no SOB at rest, encourage Incentive spirometry Hx of MRSA wound infection, Wound culture staph coag. IV antibiotic per ID , Daptomycin, and rifampin PICC line is ordered, please see note at bottom of page for weekly labs ASA BB/Dig for rate control BP control pepcid Monitor labs, medical management Diabetic diet continue with accuchecks AC/HS and ISS, -Enc. PO intake, encouraged nutrition, fair to good intake most of the time DVT prophylaxis, sq heparin DNR , but continue full aggressive care otherwise Hospice and to give information only per family request PT treatment with ambulation Patient will be in patient hospital due to IV antibiotics, explained to patient and his family Final abx Rec given by ID , stop date september 11 2016 wkly labs /picc care ordered, first set a labs ordered on 08/11/16 for review, will follow These of the instructions left for patient and his labs to be done on a weekly basis. Per ID Weekly CBC with diff, CMP, Serum CK levels and CRP while on Daptomycin IV to be ordered by hospitalist. PICC line care per protocol. Please call me with any change in condition or questions or abnormal labs. Will sign off please call as need be. Problem Qualifiers (1) Pneumonia: Qualified Code: J18.9 - Pneumonia of left lung due to infectious organism, unspecified part of lung (2) Anemia: Qualified Code: D64.9 - Anemia, unspecified type (3) Left knee pain: Qualified Code: M25.562 - Chronic pain of left knee (4) CHF (congestive heart failure): Qualified Code: I50.9 - Chronic congestive heart failure, unspecified congestive heart failure type (5) Atrial fibrillation: Qualified Code: I48.91 - Atrial fibrillation, unspecified type (6) Hypertension: Qualified Code: I10 - Essential hypertension Chloé Khanna Aug 11, 2016 15:23
[2016-08-11] MEDS: SODIUM CHLORIDE 0.9% IV SCH (21:26)
[2016-08-11] MEDS: DAPTOMYCIN IV SCH (21:26)
[2016-08-12] VITALS (7 sets, daily range): BP systolic 107–146; BP diastolic 61–87; PULSE 75–97; RESP 18–50; TEMP 95.1–96.8; O2SAT 94–97
[2016-08-12] MEDS: HEPARIN SODIUM - SQ 10,000 UNITS/ML VIAL SQ SCH ×3 (06:42→22:00)
[2016-08-12] MEDS: METOPROLOL TARTRATE 25 MG TAB PO SCH ×3 (06:43→23:07)
[2016-08-12] MEDS: INSULIN ASPART SUPPLEMENTAL SCALE SQ SCH ×4 (06:43→23:08)
[2016-08-12] MEDS: DIGOXIN 0.125 MG TAB PO SCH (08:51)
[2016-08-12] MEDS: ISRADIPINE 2.5 MG PO SCH ×2 (08:51→23:06)
[2016-08-12] MEDS: THIAMINE HCL 100 MG TAB PO SCH (08:51)
[2016-08-12] MEDS: FAMOTIDINE 20 MG TAB PO SCH ×2 (08:52→23:06)
[2016-08-12] MEDS: ALLOPURINOL 300 MG TAB PO SCH (08:52)
[2016-08-12] MEDS: FUROSEMIDE 40 MG TAB PO SCH (08:52)
[2016-08-12] MEDS: RIFAMPIN 150 MG CAP PO SCH ×2 (08:52→23:07)
[2016-08-12] MEDS: DOCUSATE SODIUM 100 MG CAP PO SCH ×2 (08:53→23:09)
[2016-08-12] MEDS: PANTOPRAZOLE SOD 40 MG DELAYED RELEASE TAB PO SCH (08:53)
[2016-08-12] MEDS: ASPIRIN EC 81 MG TABEC PO SCH (08:53)
[2016-08-12] MEDS: SODIUM CHLORIDE 0.9% FLUSH 5 ML FLUSH FLUSH SCH ×2 (08:54→23:09)
[2016-08-12] MEDS: D5-1/2 NS + KCL 20 MEQ INJ 1,000 ML IV SCH ×2 (09:00→19:00)
--- NOTE | 2016-08-12 13:44 | HHI.PR ---
Subjective Subjective Remarks Alert. Responsive Sitting up in chair Denies any pain in back Wound VAC on, secure Daughter in room (Chloé Khanna) Review of Systems Constitutional Constitutional: Weakness (generalized) Constitutional Remarks 10 point ROS done. wound vac mid back, very soft stools, generalized weakness. Otherwise systems negative (Chloé Khanna) Pulmonary Respiratory: Shortness of Breath (more exertional) (Chloé Khanna) GI/Abdomen GI/Abdomen Remarks BM today. stools very soft. (Chloé Khanna) Musculoskeletal MS: Weakness (generalized) (Chloé Khanna) Integumentary Skin: Wounds (wound VAC on mid back, secured clean dry and intact) (Chloé Khanna) Psychiatric Psychiatric: Normal Mood (appears to be feeling fairly good today, afebrile) ( Chloé Khanna) Vitals/Results Intake & Output 08/11/16 08/11/16 08/12/16 15:00 23:00 07:00 Intake Total 720 ml 360 ml 120 ml Output Total 600 ml Balance 720 ml -240 ml 120 ml Intake Oral 720 ml 360 ml 120 ml Output Urine Total 600 ml # Voids 2 1 # Bowel Movements 1 0 0 Vital Signs Vital Signs Date Time Temp Pulse Resp B/P Pulse Ox O2 Delivery O2 Flow Rate FiO2 08/12/16 12:33 95.4 89 18 119/61 97 08/12/16 09:28 96.8 85 18 107/63 94 08/12/16 08:03 97 08/12/16 04:00 95.1 89 20 142/69 94 08/12/16 00:00 95.3 75 50 132/80 95 08/11/16 23:00 99 08/11/16 21:04 96.7 81 18 153/72 98 08/11/16 18:22 97 21 08/11/16 16:21 96.1 92 18 153/80 97 08/11/16 16:03 93 (Chloé Khanna) Physical Exam General General Appearance: No Acute Distress, Comfortable Appearance Remarks Slim build (Chloé Khanna) Eyes Eye Exam: Pupils Equal, Pupils Reactive (Chloé Khanna. DOPEMAN) Ears & Nose Ears & Nose Exam: Nasal Mucosa [place] (Chloé Khanna. DOPEMAN) Throat Throat Exam: Oral Mucosa [place] & Moist (Chloé Khanna. DOPEMAN) Neck Neck Exam: Neck Supple, Trachea Midline (Chloé Khanna. DOPEMAN) Pulmonary Resp Exam: Clear Bilaterally, Breath Sounds Equal Resp Remarks Lung volumes (Chloé Khanna DOPEMAN) Cardiology CV Exam: Irregular, Arrhythmia (Chloé Khanna. DOPEMAN) Gastrointestinal/Abdomen GI Exam: Soft, Non-Tender, Bowel Sounds Present, Non-Distended (Chléo Khanna. DOPEMAN) Musculoskeletal MS Remarks Healing left hip fracture incision clean dry and intact (Chloé Khanna. DOPEMAN) Integumentary Skin Exam: Warm, Dry (Chloé Khanna. DOPEMAN) Extremeties Extremities Exam: No Edema, Pedal Pulses Palpable (Chloé Khanna DOPEMAN) Neurologic Neuro Exam: Alert, Awake, Oriented, Speech Clear, Moving All Extremities ( Chloé Khanna M. DOPEMAN) Psychiatric Psych Exam: Appropriate Responses (Chloé Khanna. DOPEMAN) VTE Prophylaxis VTE Prophylaxis Meds: Heparin (Chloé Khanna. DOPEMAN) Assessment/Plan Problem List: (1) Pneumonia (2) Weakness (3) History of MRSA infection (4) Anemia (5) Renal insufficiency (6) Left knee pain (7) CHF (congestive heart failure) (8) Atrial fibrillation (9) Hypoglycemia (10) Hypertension (11) Hx of unstable T8 T9 fractures due to fall with T7 to T11 posterior fixation using transpedicular screws and rods on 05 04 16 Assessment/Plan Atelactasis, O2 therapy, no SOB at rest, encourage Incentive spirometry, patient does on his home Hx of MRSA wound infection, Wound culture staph coag. IV antibiotic per ID , Daptomycin, and rifampin PICC line is ordered, please see note at bottom of page for weekly labs Stop date September 11 for a daptomycin. Patient and family understands inpatient hospital stay for IV medication Weekly labs ordered for 08-16-16 ASA BB/Dig for rate control BP control pepcid, medical management Diabetic diet continue with accuchecks AC/HS and ISS, -Enc. PO intake, encouraged nutrition, fair to good intake most of the time DVT prophylaxis, sq heparin DNR , but continue full aggressive care otherwise Hospice and to give information only per family request PT treatment with ambulation Patient will be in patient hospital due to IV antibiotics, explained to patient and his family Final abx Rec given by ID , stop date september 11 2016 wkly labs /picc care ordered, first set a labs ordered on 08/16/16 for review, will follow These of the instructions left for patient and his labs to be done on a weekly basis. Per ID Weekly CBC with diff, CMP, Serum CK levels and CRP while on Daptomycin IV to be ordered by hospitalist. PICC line care per protocol. Please call me with any change in condition or questions or abnormal labs. Will sign off please call as need be. (Chloé Khanna) Assessment/Plan pt is seen & examined d/w PT & his daughter at bedside IV daptomycin wound care analgesic weekly blood work will f/u (Rachel Park MD) Problem Qualifiers (1) Pneumonia: Qualified Code: J18.9 - Pneumonia of left lung due to infectious organism, unspecified part of lung (2) Anemia: Qualified Code: D64.9 - Anemia, unspecified type (3) Left knee pain: Qualified Code: M25.562 - Chronic pain of left knee (4) CHF (congestive heart failure): Qualified Code: I50.9 - Chronic congestive heart failure, unspecified congestive heart failure type (5) Atrial fibrillation: Qualified Code: I48.91 - Atrial fibrillation, unspecified type (6) Hypertension: Qualified Code: I10 - Essential hypertension Chloé Khanna Aug 12, 2016 13:44 Rachel Park MD Aug 12, 2016 15:51
[2016-08-12] MEDS: ACETAMINOPHEN/HYDROcodone 325 MG/10 MG TAB PO PRN (23:06)
[2016-08-12] MEDS: DAPTOMYCIN IV SCH (23:11)
[2016-08-12] MEDS: SODIUM CHLORIDE 0.9% IV SCH (23:11)
[2016-08-13] VITALS: BP 144/68; PULSE 91; RESP 20; TEMP 96; O2SAT 93
[2016-08-13 04:00] VITALS: BP 167/94; PULSE 89; RESP 20; TEMP 96.5; O2SAT 94
[2016-08-13] MEDS: METOPROLOL TARTRATE 25 MG TAB PO SCH ×3 (05:03→23:13)
[2016-08-13] MEDS: INSULIN ASPART SUPPLEMENTAL SCALE SQ SCH ×4 (05:03→23:16)
[2016-08-13] MEDS: HEPARIN SODIUM - SQ 10,000 UNITS/ML VIAL SQ SCH ×3 (05:03→23:17)
[2016-08-13 06:37] LABS: HEMATOCRIT 28.8 % (39.0-51.0); MEAN CORPUSCULAR HEMOGLOBIN 28.6 PG (27.0-34.0); MEAN CORPUSCULAR HGB CONC 31.8 % (32.0-36.0); PLATELET COUNT 296 TH/MM3 (150-450); RED CELL DISTRIBUTION WIDTH 15.6 % (11.6-17.2); REVIEW FLAG FINAL; WHITE BLOOD COUNT 14.7 TH/MM3 (4.0-11.0)
[2016-08-13 06:51] LABS: BICARBONATE 29.9 MEQ/L (21.0-32.0); POTASSIUM 3.8 MEQ/L (3.5-5.1)
[2016-08-13 07:45] VITALS: BP 146/57; PULSE 84; RESP 20; TEMP 96.4; O2SAT 95
[2016-08-13] MEDS: ISRADIPINE 2.5 MG PO SCH ×2 (08:53→23:14)
[2016-08-13] MEDS: ALLOPURINOL 300 MG TAB PO SCH (08:54)
[2016-08-13] MEDS: FUROSEMIDE 40 MG TAB PO SCH (08:54)
[2016-08-13] MEDS: RIFAMPIN 150 MG CAP PO SCH ×2 (08:54→23:15)
[2016-08-13] MEDS: PANTOPRAZOLE SOD 40 MG DELAYED RELEASE TAB PO SCH (08:54)
[2016-08-13] MEDS: DIGOXIN 0.125 MG TAB PO SCH (08:54)
[2016-08-13] MEDS: FAMOTIDINE 20 MG TAB PO SCH ×2 (08:55→23:14)
[2016-08-13] MEDS: ASPIRIN EC 81 MG TABEC PO SCH (08:55)
[2016-08-13] MEDS: DOCUSATE SODIUM 100 MG CAP PO SCH ×2 (08:55→23:15)
[2016-08-13] MEDS: THIAMINE HCL 100 MG TAB PO SCH (08:55)
[2016-08-13] MEDS: SODIUM CHLORIDE 0.9% FLUSH 5 ML FLUSH FLUSH SCH ×2 (09:00→23:18)
[2016-08-13 12:15] VITALS: BP 117/59; PULSE 88; RESP 20; TEMP 96.8; O2SAT 97
[2016-08-13 15:54] VITALS: BP 156/73; PULSE 84; RESP 20; TEMP 98.5; O2SAT 95
--- NOTE | 2016-08-13 17:12 | HHI.PR ---
Subjective History of Present Illness I am ok back pain is ok /painmeds are helping No fever or chills No N/V appetite is better No cough or sputum No CP Offers no other c/o daughter is at bedside Review of Systems Constitutional Constitutional: Weakness (generalized) Pulmonary Respiratory: Shortness of Breath (more exertional) Musculoskeletal MS: Weakness (generalized) Integumentary Skin: Wounds (wound VAC on mid back, secured clean dry and intact) Psychiatric Psychiatric: Normal Mood (appears to be feeling fairly good today, afebrile) Vitals/Results Intake & Output 08/12/16 08/12/16 08/13/16 15:00 23:00 07:00 Intake Total 200 ml 60 ml Balance 200 ml 60 ml Intake Oral 200 ml 60 ml # Voids 4 2 # Bowel Movements 2 0 Vital Signs Vital Signs Date Time Temp Pulse Resp B/P Pulse Ox O2 Delivery O2 Flow Rate FiO2 08/13/16 15:54 98.5 84 20 156/73 95 08/13/16 12:15 96.8 88 20 117/59 97 08/13/16 07:45 96.4 84 20 146/57 95 08/13/16 04:00 96.5 89 20 167/94 94 08/13/16 00:00 96.0 91 20 144/68 93 08/12/16 20:00 88 CBC/BMP: 08/13/16 0600 08/13/16 0600 Lab Results Laboratory Tests Test 08/13/16 06:00 White Blood Count 14.7 TH/MM3 Red Blood Count 3.20 MIL/MM3 Hemoglobin 9.2 GM/DL Hematocrit 28.8 % Mean Corpuscular Volume 90.0 FL Mean Corpuscular Hemoglobin 28.6 PG Mean Corpuscular Hemoglobin 31.8 % Concent Red Cell Distribution Width 15.6 % Platelet Count 296 TH/MM3 Mean Platelet Volume 8.3 FL Sodium Level 144 MEQ/L Potassium Level 3.8 MEQ/L Chloride Level 106 MEQ/L Carbon Dioxide Level 29.9 MEQ/L Anion Gap 8 MEQ/L Blood Urea Nitrogen 19 MG/DL Creatinine 1.27 MG/DL Estimat Glomerular Filtration 54 ML/MIN Rate Random Glucose 159 MG/DL Calcium Level 8.8 MG/DL Aspartate Amino Transf 13 U/L (AST/SGOT) Alanine Aminotransferase 14 U/L (ALT/SGPT) Alkaline Phosphatase 120 U/L Physical Exam General General Appearance: No Acute Distress, Comfortable Appearance Remarks elderly WM sitting up in chair Eyes Eye Exam: Pupils Equal, Pupils Reactive Ears & Nose Ears & Nose Exam: Nasal Mucosa [place] Throat Throat Exam: Oral Mucosa [place] & Moist Neck Neck Exam: Neck Supple, Trachea Midline Pulmonary Resp Exam: Clear Bilaterally, Breath Sounds Equal Cardiology CV Exam: Irregular, Arrhythmia Gastrointestinal/Abdomen GI Exam: Soft, Non-Tender, Bowel Sounds Present, Non-Distended Musculoskeletal MS Remarks wound vac on mid mid , No surrounding redness or swelling noted Integumentary Skin Exam: Warm, Dry Extremeties Extremities Exam: No Edema, Pedal Pulses Palpable Neurologic Neuro Exam: Alert, Awake, Oriented, Speech Clear, Moving All Extremities Psychiatric Psych Exam: Appropriate Responses VTE Prophylaxis VTE Prophylaxis Meds: Heparin Assessment/Plan Problem List: (1) Pneumonia (2) Weakness (3) History of MRSA infection (4) Anemia (5) Renal insufficiency (6) Left knee pain (7) CHF (congestive heart failure) (8) Atrial fibrillation (9) Hypoglycemia (10) Hypertension (11) Hx of unstable T8 T9 fractures due to fall with T7 to T11 posterior fixation using transpedicular screws and rods on 05 04 16 Assessment/Plan IV daptomycin Wound care /wound Vac analgesic blood work noted , d/w PT's daughter at bedside Inc WBC, clinically stable BB/Dig & CCB ASA pepcid sq heparin will f/u Problem Qualifiers (1) Pneumonia: Qualified Code: J18.9 - Pneumonia of left lung due to infectious organism, unspecified part of lung (2) Anemia: Qualified Code: D64.9 - Anemia, unspecified type (3) Left knee pain: Qualified Code: M25.562 - Chronic pain of left knee (4) CHF (congestive heart failure): Qualified Code: I50.9 - Chronic congestive heart failure, unspecified congestive heart failure type (5) Atrial fibrillation: Qualified Code: I48.91 - Atrial fibrillation, unspecified type (6) Hypertension: Qualified Code: I10 - Essential hypertension Rachel Park MD Aug 13, 2016 17:12
[2016-08-13 20:00] VITALS: BP 156/71; PULSE 80; RESP 24; TEMP 96.4; O2SAT 94
[2016-08-13] MEDS: SODIUM CHLORIDE 0.9% IV SCH (23:12)
[2016-08-13] MEDS: DAPTOMYCIN IV SCH (23:12)
[2016-08-13] MEDS: D5-1/2 NS + KCL 20 MEQ INJ 1,000 ML IV SCH ×2 (23:23→23:27)
[2016-08-14] VITALS (9 sets, daily range): BP systolic 133–182; BP diastolic 60–84; PULSE 68–102; RESP 18–24; TEMP 96.5–98.7; O2SAT 93–98
[2016-08-14] MEDS: INSULIN ASPART SUPPLEMENTAL SCALE SQ SCH ×4 (05:25→22:08)
[2016-08-14] MEDS: HEPARIN SODIUM - SQ 10,000 UNITS/ML VIAL SQ SCH ×3 (06:15→21:58)
[2016-08-14] MEDS: METOPROLOL TARTRATE 25 MG TAB PO SCH ×3 (06:15→21:54)
[2016-08-14] MEDS: SODIUM CHLORIDE 0.9% FLUSH 5 ML FLUSH FLUSH SCH ×2 (08:33→21:52)
[2016-08-14] MEDS: FAMOTIDINE 20 MG TAB PO SCH ×2 (08:34→21:55)
[2016-08-14] MEDS: PANTOPRAZOLE SOD 40 MG DELAYED RELEASE TAB PO SCH (08:34)
[2016-08-14] MEDS: DIGOXIN 0.125 MG TAB PO SCH (08:34)
[2016-08-14] MEDS: ISRADIPINE 2.5 MG PO SCH ×2 (08:34→21:54)
[2016-08-14] MEDS: RIFAMPIN 150 MG CAP PO SCH ×2 (08:34→21:58)
[2016-08-14] MEDS: THIAMINE HCL 100 MG TAB PO SCH (08:35)
[2016-08-14] MEDS: ALLOPURINOL 300 MG TAB PO SCH (08:35)
[2016-08-14] MEDS: ASPIRIN EC 81 MG TABEC PO SCH (08:35)
[2016-08-14] MEDS: DOCUSATE SODIUM 100 MG CAP PO SCH ×2 (08:35→22:09)
[2016-08-14] MEDS: FUROSEMIDE 40 MG TAB PO SCH (08:35)
[2016-08-14] MEDS: D5-1/2 NS + KCL 20 MEQ INJ 1,000 ML IV SCH (09:44)
--- NOTE | 2016-08-14 13:29 | HHI.PR ---
Subjective Subjective Remarks s/p I&D with placement of wound vac 08/03 sitting up in chair, in good spirits ambulating in room with walker minimal back pain eating well no cp no sob no fever Review of Systems Constitutional Constitutional Remarks 12 point ROS completed, negative except as noted above Vitals/Results Intake & Output 08/13/16 08/13/16 08/14/16 15:00 23:00 07:00 Intake Total 360 ml 742 ml Balance 360 ml 742 ml Intake Oral 360 ml IV Total 742 ml # Voids 1 1 3 Vital Signs Vital Signs Date Time Temp Pulse Resp B/P Pulse Ox O2 Delivery O2 Flow Rate FiO2 08/14/16 12:17 96.9 102 18 133/84 98 08/14/16 08:21 96.5 69 18 145/69 93 08/14/16 08:00 102 08/14/16 04:00 96.8 79 20 136/65 93 08/14/16 03:50 75 08/14/16 00:00 97.0 79 24 182/81 93 08/13/16 20:00 96.4 80 24 156/71 94 08/13/16 15:54 98.5 84 20 156/73 95 CBC/BMP: 08/13/16 0600 08/13/16 0600 Physical Exam General General Appearance: Well Developed, No Acute Distress, Comfortable Eyes Eye Exam: Pupils Equal, Pupils Reactive, Extraocular Movement Intact Ears & Nose Ears & Nose Exam: Nasal Mucosa [place] Throat Throat Exam: Oral Mucosa [place] & Moist Neck Neck Exam: Neck Supple, Trachea Midline Pulmonary Resp Exam: Clear Bilaterally, Breath Sounds Equal, Decreased Bases Resp Remarks diminished Cardiology CV Exam: Irregular, Arrhythmia Gastrointestinal/Abdomen GI Exam: Soft, Non-Tender, Bowel Sounds Present, Non-Distended Musculoskeletal MS Exam: Joints Intact MS Remarks wearing brace Integumentary Skin Exam: Warm, Dry Skin Remarks thoracic incision with wound vac Extremeties Extremities Exam: No Edema, Pedal Pulses Palpable Neurologic Neuro Exam: Alert, Awake, Oriented, Speech Clear, Moving All Extremities, No Focal Deficits Psychiatric Psych Exam: Appropriate Responses VTE Prophylaxis VTE Prophylaxis Meds: Heparin PUD Prophylasis PUD Remarks Pepcid Assessment/Plan Problem List: (1) Pneumonia (2) Weakness (3) History of MRSA infection (4) Anemia (5) Renal insufficiency (6) Left knee pain (7) CHF (congestive heart failure) (8) Atrial fibrillation (9) Hypoglycemia (10) Hypertension (11) Hx of unstable T8 T9 fractures due to fall with T7 to T11 posterior fixation using transpedicular screws and rods on 05 04 16 Assessment/Plan continue with abx per ID recommendations monitor labs continue wound vac continue home meds accuchecks ac/hs with ISS continue with PT Heparin for DVT prophylaxis pt. has been discharged, no placement due to cost of antibiotics D/W RN D/W Dr. Park D/W pt, daughter This patient was seen by myself and Dr. Park, this note is written on his behalf. Problem Qualifiers (1) Pneumonia: Qualified Code: J18.9 - Pneumonia of left lung due to infectious organism, unspecified part of lung (2) Anemia: Qualified Code: D64.9 - Anemia, unspecified type (3) Left knee pain: Qualified Code: M25.562 - Chronic pain of left knee (4) CHF (congestive heart failure): Qualified Code: I50.9 - Chronic congestive heart failure, unspecified congestive heart failure type (5) Atrial fibrillation: Qualified Code: I48.91 - Atrial fibrillation, unspecified type (6) Hypertension: Qualified Code: I10 - Essential hypertension Margareth Iglesias Aug 14, 2016 13:29 Margareth Iglesias Aug 14, 2016 13:29
[2016-08-14] MEDS: SODIUM CHLORIDE 0.9% IV SCH (21:56)
[2016-08-14] MEDS: DAPTOMYCIN IV SCH (21:56)
[2016-08-15] VITALS (8 sets, daily range): BP systolic 128–158; BP diastolic 59–79; PULSE 78–93; RESP 19–20; TEMP 95.7–97.9; O2SAT 92–98
[2016-08-15] MEDS: INSULIN ASPART SUPPLEMENTAL SCALE SQ SCH ×4 (05:25→22:13)
[2016-08-15] MEDS: HEPARIN SODIUM - SQ 10,000 UNITS/ML VIAL SQ SCH ×3 (05:25→22:13)
[2016-08-15] MEDS: METOPROLOL TARTRATE 25 MG TAB PO SCH ×3 (05:26→22:13)
[2016-08-15] MEDS: ASPIRIN EC 81 MG TABEC PO SCH (08:39)
[2016-08-15] MEDS: SODIUM CHLORIDE 0.9% FLUSH 5 ML FLUSH FLUSH SCH ×2 (08:39→22:11)
[2016-08-15] MEDS: RIFAMPIN 150 MG CAP PO SCH ×2 (08:39→22:12)
[2016-08-15] MEDS: PANTOPRAZOLE SOD 40 MG DELAYED RELEASE TAB PO SCH (08:40)
[2016-08-15] MEDS: THIAMINE HCL 100 MG TAB PO SCH (08:40)
[2016-08-15] MEDS: ALLOPURINOL 300 MG TAB PO SCH (08:40)
[2016-08-15] MEDS: DIGOXIN 0.125 MG TAB PO SCH (08:40)
[2016-08-15] MEDS: FUROSEMIDE 40 MG TAB PO SCH (08:40)
[2016-08-15] MEDS: ISRADIPINE 2.5 MG PO SCH ×2 (08:40→22:11)
[2016-08-15] MEDS: FAMOTIDINE 20 MG TAB PO SCH ×2 (08:41→22:12)
[2016-08-15] MEDS: DOCUSATE SODIUM 100 MG CAP PO SCH ×2 (08:59→22:11)
--- NOTE | 2016-08-15 10:58 | HHI.PR ---
Subjective Subjective Remarks s/p I&D with placement of wound vac 08/03 wound vac changed today, per nursing, wound decreasing sitting up in chair, in good spirits ambulating in room with walker remains active, wants to walk more no pain eating well no cp no sob no fever daughter at [facility] Review of Systems Constitutional Constitutional Remarks 12 point ROS completed, negative except as noted above Vitals/Results Intake & Output 08/14/16 08/14/16 08/15/16 15:00 23:00 07:00 Intake Total 480 ml 120 ml Output Total 600 ml 275 ml Balance -120 ml -155 ml Intake Oral 480 ml 120 ml Output Urine Total 600 ml 275 ml # Voids 3 # Bowel Movements 1 0 Vital Signs Vital Signs Date Time Temp Pulse Resp B/P Pulse Ox O2 Delivery O2 Flow Rate FiO2 08/15/16 09:16 93 08/15/16 07:20 95.7 82 19 152/79 94 08/15/16 04:00 96.6 89 20 158/70 92 08/15/16 00:00 97.2 86 20 129/61 93 08/14/16 21:00 68 08/14/16 20:00 98.7 102 24 145/60 94 08/14/16 16:00 96.8 82 18 149/72 95 08/14/16 12:17 96.9 102 18 133/84 98 CBC/BMP: 08/13/16 0600 08/13/16 0600 Physical Exam General General Appearance: Well Developed, No Acute Distress, Comfortable Eyes Eye Exam: Pupils Equal, Pupils Reactive, Extraocular Movement Intact Ears & Nose Ears & Nose Exam: Nasal Mucosa [employer] Throat Throat Exam: Oral Mucosa [employer] & Moist Neck Neck Exam: Neck Supple, Trachea Midline Pulmonary Resp Exam: Clear Bilaterally, Breath Sounds Equal, Decreased Bases Resp Remarks diminished Cardiology CV Exam: Irregular, Arrhythmia Gastrointestinal/Abdomen GI Exam: Soft, Non-Tender, Bowel Sounds Present, Non-Distended Musculoskeletal MS Exam: Joints Intact MS Remarks wearing brace Integumentary Skin Exam: Warm, Dry Skin Remarks thoracic incision with wound vac Extremeties Extremities Exam: No Edema, Pedal Pulses Palpable Neurologic Neuro Exam: Alert, Awake, Oriented, Speech Clear, Moving All Extremities, No Focal Deficits Psychiatric Psych Exam: Appropriate Responses VTE Prophylaxis VTE Prophylaxis Meds: Heparin PUD Prophylasis PUD Remarks Pepcid Assessment/Plan Problem List: (1) Pneumonia (2) Weakness (3) History of MRSA infection (4) Anemia (5) Renal insufficiency (6) Left knee pain (7) CHF (congestive heart failure) (8) Atrial fibrillation (9) Hypoglycemia (10) Hypertension (11) Hx of unstable T8 T9 fractures due to fall with T7 to T11 posterior fixation using transpedicular screws and rods on 12 6 16 Assessment/Plan continue with abx per ID recommendations monitor labs continue wound vac continue home meds accuchecks ac/hs with ISS continue with PT Heparin for DVT prophylaxis pt. has been discharged, no placement due to cost of antibiotics D/W RN D/W Dr. Park D/W pt, daughter This patient was seen by myself and Dr. Park, this note is written on his behalf. Problem Qualifiers (1) Pneumonia: Qualified Code: J18.9 - Pneumonia of left lung due to infectious organism, unspecified part of lung (2) Anemia: Qualified Code: D64.9 - Anemia, unspecified type (3) Left knee pain: Qualified Code: M25.562 - Chronic pain of left knee (4) CHF (congestive heart failure): Qualified Code: I50.9 - Chronic congestive heart failure, unspecified congestive heart failure type (5) Atrial fibrillation: Qualified Code: I48.91 - Atrial fibrillation, unspecified type (6) Hypertension: Qualified Code: I10 - Essential hypertension Margareth Iglesias Aug 15, 2016 10:57
[2016-08-15] MEDS: DAPTOMYCIN IV SCH (22:13)
[2016-08-15] MEDS: SODIUM CHLORIDE 0.9% IV SCH (22:13)
[2016-08-15] MEDS: MELATONIN 5 MG TAB PO PRN (22:14)
[2016-08-16 01:00] VITALS: BP 111/55; PULSE 73; RESP 17; TEMP 96.1; O2SAT 93
[2016-08-16] MEDS: METOPROLOL TARTRATE 25 MG TAB PO SCH ×3 (04:39→21:22)
[2016-08-16] MEDS: HEPARIN SODIUM - SQ 10,000 UNITS/ML VIAL SQ SCH ×3 (04:39→21:23)
[2016-08-16 04:56] VITALS: BP 155/73; PULSE 88; RESP 22; TEMP 98.5; O2SAT 95
[2016-08-16 05:24] LABS: AUTOMATED NEUTROPHIL # 6.8 TH/MM3 (1.8-7.7); BASOPHIL # 0.1 TH/MM3 (0-0.2); BASOPHIL % 1.2 % (0.0-2.0); EOSINOPHIL # 0.7 TH/MM3 (0-0.4); EOSINOPHIL % 5.8 % (0.0-4.0); HEMATOCRIT 27.7 % (39.0-51.0); HEMO FLAGS DIFF FINAL; LYMPH % 25.9 % (9.0-44.0); LYMPHOCYTE # 2.9 TH/MM3 (1.0-4.8); MEAN CELL VOLUME 89.8 FL (80.0-100.0); MEAN CORPUSCULAR HEMOGLOBIN 29.1 PG (27.0-34.0); MEAN CORPUSCULAR HGB CONC 32.4 % (32.0-36.0); MONO % 6.9 % (0.0-8.0); NEUT % 60.2 % (16.0-70.0); PLATELET COUNT 254 TH/MM3 (150-450); RED BLOOD COUNT 3.08 MIL/MM3 (4.50-5.90); RED CELL DISTRIBUTION WIDTH 16.1 % (11.6-17.2); WHITE BLOOD COUNT 11.3 TH/MM3 (4.0-11.0)
[2016-08-16] MEDS: INSULIN ASPART SUPPLEMENTAL SCALE SQ SCH ×4 (05:27→21:23)
[2016-08-16 05:43] LABS: ALT (GPT) 14 U/L (12-78); ANION GAP 7 MEQ/L (5-15); AST (GOT) 11 U/L (15-37); BICARBONATE 30.8 MEQ/L (21.0-32.0); BLOOD UREA NITROGEN 24 MG/DL (7-18); CHLORIDE 105 MEQ/L (98-107); GLOMERULAR FILTRATION RATE 43 ML/MIN (>89); POTASSIUM 3.8 MEQ/L (3.5-5.1); SODIUM (NA) 143 MEQ/L (136-145)
[2016-08-16 05:45] LABS: ALKALINE PHOSPHATASE 110 U/L (45-117); TOTAL BILIRUBIN ADULT 0.3 MG/DL (0.2-1.0)
[2016-08-16 05:52] LABS: CREATINE KINASE 18 U/L (39-308)
[2016-08-16 07:20] VITALS: BP 149/77; PULSE 81; RESP 19; TEMP 96.5; O2SAT 93
--- NOTE | 2016-08-16 08:58 | HHI.PR ---
Subjective Subjective Remarks s/p I&D with placement of wound vac 08/03 sleeping no fever no acute changes overnight no cp no sob Review of Systems Constitutional Constitutional Remarks 12 point ROS completed, negative except as noted above Vitals/Results Intake & Output 08/15/16 08/15/16 08/16/16 15:00 23:00 07:00 Intake Total 960 ml Output Total 150 ml Balance 810 ml Intake Oral 960 ml Output Urine Total 150 ml # Voids 1 1 # Bowel Movements 2 Vital Signs Vital Signs Date Time Temp Pulse Resp B/P Pulse Ox O2 Delivery O2 Flow Rate FiO2 08/16/16 07:20 96.5 81 19 149/77 93 08/16/16 04:56 98.5 88 22 155/73 95 08/16/16 01:00 96.1 73 17 111/55 93 08/15/16 22:32 84 08/15/16 20:41 97.9 86 19 128/59 95 08/15/16 15:15 96.1 78 19 136/70 96 08/15/16 11:10 97.6 90 19 140/75 98 08/15/16 09:16 93 CBC/BMP: 08/16/16 0449 08/16/16 0449 Lab Results Laboratory Tests Test 08/16/16 04:49 White Blood Count 11.3 TH/MM3 Red Blood Count 3.08 MIL/MM3 Hemoglobin 9.0 GM/DL Hematocrit 27.7 % Mean Corpuscular Volume 89.8 FL Mean Corpuscular Hemoglobin 29.1 PG Mean Corpuscular Hemoglobin 32.4 % Concent Red Cell Distribution Width 16.1 % Platelet Count 254 TH/MM3 Mean Platelet Volume 8.5 FL Neutrophils (%) (Auto) 60.2 % Lymphocytes (%) (Auto) 25.9 % Monocytes (%) (Auto) 6.9 % Eosinophils (%) (Auto) 5.8 % Basophils (%) (Auto) 1.2 % Neutrophils # (Auto) 6.8 TH/MM3 Lymphocytes # (Auto) 2.9 TH/MM3 Monocytes # (Auto) 0.8 TH/MM3 Eosinophils # (Auto) 0.7 TH/MM3 Basophils # (Auto) 0.1 TH/MM3 CBC Comment DIFF FINAL Differential Comment Sodium Level 143 MEQ/L Potassium Level 3.8 MEQ/L Chloride Level 105 MEQ/L Carbon Dioxide Level 30.8 MEQ/L Anion Gap 7 MEQ/L Blood Urea Nitrogen 24 MG/DL Creatinine 1.52 MG/DL Estimat Glomerular Filtration 43 ML/MIN Rate Random Glucose 153 MG/DL Calcium Level 8.9 MG/DL Total Bilirubin 0.3 MG/DL Aspartate Amino Transf 11 U/L (AST/SGOT) Alanine Aminotransferase 14 U/L (ALT/SGPT) Alkaline Phosphatase 110 U/L Total Creatine Kinase 18 U/L C-Reactive Protein 6.35 MG/DL Total Protein 6.6 GM/DL Albumin 2.3 GM/DL Physical Exam General General Appearance: Well Developed, No Acute Distress, Comfortable, Sleeping Eyes Eye Exam: Pupils Equal, Pupils Reactive, Extraocular Movement Intact Ears & Nose Ears & Nose Exam: Nasal Mucosa [place] Throat Throat Exam: Oral Mucosa [place] & Moist Neck Neck Exam: Neck Supple, Trachea Midline Pulmonary Resp Exam: Clear Bilaterally, Breath Sounds Equal, Decreased Bases Resp Remarks diminished Cardiology CV Exam: Irregular, Arrhythmia Gastrointestinal/Abdomen GI Exam: Soft, Non-Tender, Bowel Sounds Present, Non-Distended Musculoskeletal MS Exam: Joints Intact MS Remarks wearing brace Integumentary Skin Exam: Warm, Dry Skin Remarks thoracic incision with wound vac Extremeties Extremities Exam: No Edema, Pedal Pulses Palpable Neurologic Neuro Exam: Alert, Awake, Oriented, Speech Clear, Moving All Extremities, No Focal Deficits Psychiatric Psych Exam: Appropriate Responses VTE Prophylaxis VTE Prophylaxis Meds: Heparin PUD Prophylasis PUD Remarks Pepcid Assessment/Plan Problem List: (1) Pneumonia (2) Weakness (3) History of MRSA infection (4) Anemia (5) Renal insufficiency (6) Left knee pain (7) CHF (congestive heart failure) (8) Atrial fibrillation (9) Hypoglycemia (10) Hypertension (11) Hx of unstable T8 T9 fractures due to fall with T7 to T11 posterior fixation using transpedicular screws and rods on 05 04 16 Assessment/Plan continue with abx per ID recommendations monitor labs continue wound vac continue home meds accuchecks ac/hs with ISS continue with PT Heparin for DVT prophylaxis pt. has been discharged, no placement due to cost of antibiotics D/W CM, financial background check to be done today for poss. assistance program dc tele D/W RN D/W Dr. Park D/W pt D/W CM This patient was seen by myself and Dr. Park, this note is written on his behalf. Problem Qualifiers (1) Pneumonia: Qualified Code: J18.9 - Pneumonia of left lung due to infectious organism, unspecified part of lung (2) Anemia: Qualified Code: D64.9 - Anemia, unspecified type (3) Left knee pain: Qualified Code: M25.562 - Chronic pain of left knee (4) CHF (congestive heart failure): Qualified Code: I50.9 - Chronic congestive heart failure, unspecified congestive heart failure type (5) Atrial fibrillation: Qualified Code: I48.91 - Atrial fibrillation, unspecified type (6) Hypertension: Qualified Code: I10 - Essential hypertension Margareth Iglesias [facility] Aug 16, 2016 08:58
[2016-08-16] MEDS: DOCUSATE SODIUM 100 MG CAP PO SCH ×2 (09:00→21:22)
[2016-08-16] MEDS: ASPIRIN EC 81 MG TABEC PO SCH (10:09)
[2016-08-16] MEDS: ALLOPURINOL 300 MG TAB PO SCH (10:09)
[2016-08-16] MEDS: THIAMINE HCL 100 MG TAB PO SCH (10:09)
[2016-08-16] MEDS: FUROSEMIDE 40 MG TAB PO SCH (10:10)
[2016-08-16] MEDS: ISRADIPINE 2.5 MG PO SCH ×2 (10:11→21:21)
[2016-08-16] MEDS: RIFAMPIN 150 MG CAP PO SCH ×2 (10:12→21:22)
[2016-08-16] MEDS: FAMOTIDINE 20 MG TAB PO SCH ×2 (10:13→21:21)
[2016-08-16] MEDS: PANTOPRAZOLE SOD 40 MG DELAYED RELEASE TAB PO SCH (10:14)
[2016-08-16] MEDS: SODIUM CHLORIDE 0.9% FLUSH 5 ML FLUSH FLUSH SCH ×2 (10:15→21:23)
[2016-08-16] MEDS: DIGOXIN 0.125 MG TAB PO SCH (10:15)
[2016-08-16 11:00] VITALS: BP 128/64; PULSE 83; RESP 19; TEMP 95.5; O2SAT 96
[2016-08-16 15:45] VITALS: BP 134/79; PULSE 63; RESP 19; TEMP 96.6; O2SAT 96
[2016-08-16] MEDS ORDERED: WHEELCHAIR CUSH1 MI1 (16:38)
[2016-08-16] MEDS ORDERED: WHEEMIS3 (16:38)
[2016-08-16 20:00] VITALS: BP 132/73; PULSE 88; RESP 18; TEMP 96.8; O2SAT 98
[2016-08-16] MEDS: DAPTOMYCIN IV SCH (21:20)
[2016-08-16] MEDS: SODIUM CHLORIDE 0.9% IV SCH (21:20)
[2016-08-16] MEDS: MELATONIN 5 MG TAB PO PRN (21:22)
[2016-08-17] VITALS: BP 135/64; PULSE 71; RESP 16; TEMP 97.6; O2SAT 95
[2016-08-17] MEDS: METOPROLOL TARTRATE 25 MG TAB PO SCH ×3 (05:49→21:03)
[2016-08-17] MEDS: INSULIN ASPART SUPPLEMENTAL SCALE SQ SCH ×4 (05:49→21:04)
[2016-08-17] MEDS: HEPARIN SODIUM - SQ 10,000 UNITS/ML VIAL SQ SCH ×3 (05:49→21:04)
[2016-08-17 06:16] VITALS: BP 146/71; PULSE 83; RESP 16; TEMP 96.6; O2SAT 93
[2016-08-17 08:00] VITALS: BP 172/78; PULSE 74; RESP 19; TEMP 97.7; O2SAT 95
[2016-08-17] MEDS: SODIUM CHLORIDE 0.9% FLUSH 5 ML FLUSH FLUSH SCH ×2 (09:00→21:03)
[2016-08-17] MEDS: FUROSEMIDE 40 MG TAB PO SCH (09:35)
[2016-08-17] MEDS: ASPIRIN EC 81 MG TABEC PO SCH (09:35)
[2016-08-17] MEDS: DOCUSATE SODIUM 100 MG CAP PO SCH ×2 (09:35→21:03)
[2016-08-17] MEDS: FAMOTIDINE 20 MG TAB PO SCH ×2 (09:35→21:04)
[2016-08-17] MEDS: PANTOPRAZOLE SOD 40 MG DELAYED RELEASE TAB PO SCH (09:36)
[2016-08-17] MEDS: ALLOPURINOL 300 MG TAB PO SCH (09:36)
[2016-08-17] MEDS: RIFAMPIN 150 MG CAP PO SCH ×2 (09:36→21:03)
[2016-08-17] MEDS: THIAMINE HCL 100 MG TAB PO SCH (09:36)
[2016-08-17] MEDS: DIGOXIN 0.125 MG TAB PO SCH (09:36)
[2016-08-17] MEDS: ISRADIPINE 2.5 MG PO SCH ×2 (09:36→21:03)
[2016-08-17 12:00] VITALS: BP 135/66; PULSE 81; RESP 17; TEMP 95.6; O2SAT 97
--- NOTE | 2016-08-17 12:00 | HHI.HCPN ---
Spoke with daughter, Lorri Patel via telephone to notify I was back in town to see if they had any questions or concerns. Patient continues to do well, planning for DC home in the coming days. He will continue IV antibiotics at home with C. Family reports he is getting stronger and are happy to have more quality time with him. She later called again to ask if I had any resources for a ramp. I advised her to check with local [facility] as they may periodically get something like this in. She appreciates time. Palliative care will be available in the future if needed. . HANK GARAY Aug 17, 2016 12:00
[2016-08-17] MEDS ORDERED: ADJUSTABLE COMM1 MIS (13:10)
--- NOTE | 2016-08-17 15:10 | HHI.PR ---
Subjective Subjective Remarks s/p I&D with placement of wound vac 08/03 sitting up in chair ambulating with PT getting stronger no fever no acute changes overnight no cp no sob has decided to go home with [facility], will be paying for abx and family will be assisting with his care daughter at [facility] Review of Systems Constitutional Constitutional Remarks 12 point ROS completed, negative except as noted above Vitals/Results Intake & Output 08/16/16 08/16/16 08/17/16 15:00 23:00 07:00 Intake Total 240 ml Output Total 1 ml Balance 239 ml Intake Oral 240 ml Output Urine Total 1 ml # Voids 2 3 # Bowel Movements 2 0 Vital Signs Vital Signs Date Time Temp Pulse Resp B/P Pulse Ox O2 Delivery O2 Flow Rate FiO2 08/17/16 12:00 95.6 81 17 135/66 97 08/17/16 08:00 97.7 74 19 172/78 95 08/17/16 06:16 96.6 83 16 146/71 93 08/17/16 00:00 97.6 71 16 135/64 95 08/16/16 20:55 97 Venturi Mask 08/16/16 20:20 89 Nasal Cannula 3.00 08/16/16 20:00 96.8 88 18 132/73 98 08/16/16 15:45 96.6 63 19 134/79 96 CBC/BMP: 08/16/16 0449 08/16/16 0449 Physical Exam General General Appearance: Well Developed, No Acute Distress, Comfortable Eyes Eye Exam: Pupils Equal, Pupils Reactive, Extraocular Movement Intact Ears & Nose Ears & Nose Exam: Nasal Mucosa [place] Throat Throat Exam: Oral Mucosa [place] & Moist Neck Neck Exam: Neck Supple, Trachea Midline Pulmonary Resp Exam: Clear Bilaterally, Breath Sounds Equal, Decreased Bases Resp Remarks diminished Cardiology CV Exam: Irregular, Arrhythmia Gastrointestinal/Abdomen GI Exam: Soft, Non-Tender, Bowel Sounds Present, Non-Distended Musculoskeletal MS Exam: Joints Intact MS Remarks wearing brace Integumentary Skin Exam: Warm, Dry Skin Remarks thoracic incision with wound vac Extremeties Extremities Exam: No Edema, Pedal Pulses Palpable Neurologic Neuro Exam: Alert, Awake, Oriented, Speech Clear, Moving All Extremities, No Focal Deficits Psychiatric Psych Exam: Appropriate Responses VTE Prophylaxis VTE Prophylaxis Meds: Heparin PUD Prophylasis PUD Remarks Pepcid Assessment/Plan Problem List: (1) Pneumonia (2) Weakness (3) History of MRSA infection (4) Anemia (5) Renal insufficiency (6) Left knee pain (7) CHF (congestive heart failure) (8) Atrial fibrillation (9) Hypoglycemia (10) Hypertension (11) Hx of unstable T8 T9 fractures due to fall with T7 to T11 posterior fixation using transpedicular screws and rods on 12 6 16 Assessment/Plan continue with abx per ID recommendations monitor labs continue wound vac continue home meds accuchecks ac/hs with ISS continue with PT Heparin for DVT prophylaxis d/w CM, arranging HHC for PT, IV abx, DME has been ordered. daughter and his other children will be assisting with his care. poss. dc tomorrow if all arrangements made wound vac, bed, wc are being ordered will contact ID to obtain orders D/W RN D/W Dr. Park D/W pt and daughter at length, questions answered in detail D/W CM This patient was seen by myself and Dr. Park, this note is written on his behalf. Problem Qualifiers (1) Pneumonia: Qualified Code: J18.9 - Pneumonia of left lung due to infectious organism, unspecified part of lung (2) Anemia: Qualified Code: D64.9 - Anemia, unspecified type (3) Left knee pain: Qualified Code: M25.562 - Chronic pain of left knee (4) CHF (congestive heart failure): Qualified Code: I50.9 - Chronic congestive heart failure, unspecified congestive heart failure type (5) Atrial fibrillation: Qualified Code: I48.91 - Atrial fibrillation, unspecified type (6) Hypertension: Qualified Code: I10 - Essential hypertension Margareth Iglesias Aug 17, 2016 15:10
--- NOTE | 2016-08-17 15:12 | HHI.FF ---
Face to Face Verification Diagnosis: (1) thoracic wound infection + MRSA (2) Lower extremity weakness (3) Hx of unstable T8 T9 fractures due to fall with T7 to T11 posterior fixation using transpedicular screws and rods on 12 16 (4) Ankylosing spondylitis lumbar region (5) Hypertension (6) Hypoglycemia (7) CHF (congestive heart failure) (8) Atrial fibrillation (9) History of MRSA infection (10) Left knee pain (11) Weakness Physical Therapy Order: Evaluate and Treat Home Health Nursing Order: Medical education Signs/symptoms of disease process CHF education Wound care and dressing changes Nursing assessment with vital signs IV medication administration Instructions: wound vac and care IV antibiotics and lab monitoring monitor blood glucose [employer] Order: To Evaluate: Support services Order: To Provide: Community services I have seen patient Skyler Klein on 08/17/16. My clinical findings support the need for the requested home health care services because: Deconditioned w/ increased weakness Need for psychosocial assistance Infection w/ risk of complications Injectable med education/admin I certify that my clinical findings support that this patient is homebound because: Post-op weakness Unsteady gait/balance Unsafe to leave home unassisted Need for psychosocial assistance Margareth Iglesias Aug 17, 2016 15:12
[2016-08-17 16:17] VITALS: BP 145/76; PULSE 70; RESP 20; TEMP 97.9; O2SAT 94
--- NOTE | 2016-08-17 16:28 | HHI.FF ---
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 [] May leave port accessed during therapy. [] May leave peripheral site accessed for duration of therapy. [x] If patient has SOB or respiratory distress, check oxygen saturation. If less than 90% or clinical signs of respiratory distress, administer oxygen at 2 L/min. via nasal cannula and notify physician. [x] Anaphylaxis/Reaction orders: * Stop infusion. * Keep IV line open with saline flush. * Notify physician. * Monitor vital signs every 15 minutes until symptoms resolve. * Check Oxygen saturation; Oxygen at 2 L/min. via nasal cannula if less than 90% or clinical signs of respiratory distress. * Administer diphenhydramine (Benadryl) 25 mg IV STAT, (unless patient has received as pre-med). May repeat once, if necessary. * Solu-Cortef 250 mg IVP over 30-60 seconds, use 100 mg vials for each dissolution. * Epinephrine (1mg/1 ml) 0.3 mg subcutaneously or IVP now with any signs of respiratory distress. * Check with physician for new additional pre-med orders if patient is re- challenged or re-treated. [x] May remove PICC line when treatment complete, after confirming with Physician. [x] If the patient is admitted to the hospital, the ED, or transferred via [facility] , complete transfer form including medication reconciliation order sheet. Laboratory Tests Weekly Labs: CBC w/diff, CRP, LFT's (Hepatic function test), Serum CK Levels Additional Information Refer Questions to Dr. Shima Antonio. Chuck Stoll MD Aug 17, 2016 16:28
[2016-08-17 20:00] VITALS: BP 154/71; PULSE 90; RESP 18; TEMP 97.4; O2SAT 97
[2016-08-17] MEDS: DAPTOMYCIN IV SCH (21:05)
[2016-08-17] MEDS: SODIUM CHLORIDE 0.9% IV SCH (21:05)
[2016-08-18] VITALS: BP 161/72; PULSE 73; RESP 16; TEMP 96.3; O2SAT 97
[2016-08-18 04:00] VITALS: BP 127/59; PULSE 88; RESP 22; TEMP 96.6; O2SAT 95
[2016-08-18] MEDS: METOPROLOL TARTRATE 25 MG TAB PO SCH ×3 (05:06→22:52)
[2016-08-18] MEDS: HEPARIN SODIUM - SQ 10,000 UNITS/ML VIAL SQ SCH ×3 (05:07→22:57)
[2016-08-18 05:09] LABS: HEMATOCRIT 28.1 % (39.0-51.0); MEAN CELL VOLUME 89.7 FL (80.0-100.0); MEAN CORPUSCULAR HEMOGLOBIN 30.2 PG (27.0-34.0); MEAN CORPUSCULAR HGB CONC 33.6 % (32.0-36.0); PLATELET COUNT 265 TH/MM3 (150-450); RED BLOOD COUNT 3.14 MIL/MM3 (4.50-5.90); RED CELL DISTRIBUTION WIDTH 16.2 % (11.6-17.2); REVIEW FLAG FINAL
[2016-08-18] MEDS: INSULIN ASPART SUPPLEMENTAL SCALE SQ SCH ×4 (05:13→22:57)
[2016-08-18 05:35] LABS: BICARBONATE 30.2 MEQ/L (21.0-32.0); POTASSIUM 3.6 MEQ/L (3.5-5.1)
[2016-08-18 08:00] VITALS: BP 160/71; PULSE 90; RESP 19; TEMP 95.9; O2SAT 96
--- NOTE | 2016-08-18 09:35 | HHI.FF ---
Face to Face Verification Diagnosis: (1) MRSA (methicillin resistant Staphylococcus aureus) infection (2) Sepsis (3) Pneumonia (4) MRSA (methicillin resistant Staphylococcus aureus) infection (5) Hx of unstable T8 T9 fractures due to fall with T7 to T11 posterior fixation using transpedicular screws and rods on 05 04 16 (6) Lower extremity weakness (7) thoracic wound infection + MRSA Physical Therapy Order: Evaluate and Treat Home Health Nursing Order: Medical education Signs/symptoms of disease process Wound care and dressing changes Nursing assessment with vital signs IV medication administration Instructions: wound vac lab monitoring monitor blood glucose, pt. with occ. episodes of hypoglycemia in the hospital IV antibiotics Bucket Chucker Order: To Evaluate: Support services I have seen patient Skyler Klein on 08/18/16. My clinical findings support the need for the requested home health care services because: Deconditioned w/ increased weakness Limited ability to care for self High risk of falls Infection w/ risk of complications Injectable med education/admin I certify that my clinical findings support that this patient is homebound because: Post-op weakness Unsteady gait/balance Need for psychosocial assistance Unable to use public transportation Margareth Iglesias Aug 18, 2016 09:35
[2016-08-18] MEDS ORDERED: DIGO0.12 PO (09:42)
[2016-08-18] MEDS ORDERED: ALLO300 PO (09:42)
[2016-08-18] MEDS ORDERED: FURO1TAB60 PO (09:42)
[2016-08-18] MEDS ORDERED: METO25TA3 PO (09:42)
[2016-08-18] MEDS ORDERED: [UNRECOGNIZED DRUG - CODE] PO (09:42)
[2016-08-18] MEDS ORDERED: VITA100T2 PO (09:42)
[2016-08-18] MEDS ORDERED: GLIP10TA6 PO (09:42)
[2016-08-18] MEDS ORDERED: ASPI81TA11 PO (09:42)
[2016-08-18] MEDS ORDERED: METF500 PO (09:45)
[2016-08-18] MEDS: RIFAMPIN 150 MG CAP PO SCH ×2 (09:46→22:55)
[2016-08-18] MEDS: ASPIRIN EC 81 MG TABEC PO SCH (09:46)
[2016-08-18] MEDS: THIAMINE HCL 100 MG TAB PO SCH (09:46)
[2016-08-18] MEDS: DOCUSATE SODIUM 100 MG CAP PO SCH ×2 (09:47→21:00)
[2016-08-18] MEDS: PANTOPRAZOLE SOD 40 MG DELAYED RELEASE TAB PO SCH (09:47)
[2016-08-18] MEDS: FUROSEMIDE 40 MG TAB PO SCH (09:47)
[2016-08-18] MEDS: DIGOXIN 0.125 MG TAB PO SCH (09:47)
[2016-08-18] MEDS: FAMOTIDINE 20 MG TAB PO SCH ×2 (09:47→22:54)
[2016-08-18] MEDS: ALLOPURINOL 300 MG TAB PO SCH (09:47)
[2016-08-18] MEDS: SODIUM CHLORIDE 0.9% FLUSH 5 ML FLUSH FLUSH SCH ×2 (09:48→22:56)
[2016-08-18] MEDS: metFORMIN HCL 500 MG TAB PO SCH ×2 (09:58→18:49)
[2016-08-18] MEDS: ISRADIPINE 2.5 MG PO SCH ×2 (09:58→22:53)
--- NOTE | 2016-08-18 10:17 | HHI.PR ---
Subjective Subjective Remarks s/p I&D with placement of wound vac 08/03 sitting up in chair ambulating with PT no fever no acute changes overnight no cp no sob daughter at bsd, multiple questions about discharge Review of Systems Constitutional Constitutional Remarks 12 point ROS completed, negative except as noted above Vitals/Results Intake & Output 08/17/16 08/17/16 08/18/16 15:00 23:00 07:00 Intake Total 825 ml 240 ml Balance 825 ml 240 ml Intake Oral 825 ml 240 ml # Voids 1 1 2 # Bowel Movements 0 1 0 Vital Signs Vital Signs Date Time Temp Pulse Resp B/P Pulse Ox O2 Delivery O2 Flow Rate FiO2 08/18/16 08:00 95.9 90 19 160/71 96 08/18/16 04:00 96.6 88 22 127/59 95 08/18/16 00:00 96.3 73 16 161/72 97 08/17/16 20:30 Room Air 08/17/16 20:00 97.4 90 18 154/71 97 08/17/16 16:17 97.9 70 20 145/76 94 08/17/16 12:00 95.6 81 17 135/66 97 CBC/BMP: 08/18/16 0500 08/18/16 0500 Lab Results Laboratory Tests Test 08/18/16 05:00 White Blood Count 11.0 TH/MM3 Red Blood Count 3.14 MIL/MM3 Hemoglobin 9.5 GM/DL Hematocrit 28.1 % Mean Corpuscular Volume 89.7 FL Mean Corpuscular Hemoglobin 30.2 PG Mean Corpuscular Hemoglobin 33.6 % Concent Red Cell Distribution Width 16.2 % Platelet Count 265 TH/MM3 Mean Platelet Volume 8.1 FL Sodium Level 142 MEQ/L Potassium Level 3.6 MEQ/L Chloride Level 104 MEQ/L Carbon Dioxide Level 30.2 MEQ/L Anion Gap 8 MEQ/L Blood Urea Nitrogen 25 MG/DL Creatinine 1.17 MG/DL Estimat Glomerular Filtration 59 ML/MIN Rate Random Glucose 183 MG/DL Calcium Level 9.1 MG/DL Physical Exam General General Appearance: Well Developed, No Acute Distress, Comfortable Eyes Eye Exam: Pupils Equal, Pupils Reactive, Extraocular Movement Intact Ears & Nose Ears & Nose Exam: Nasal Mucosa [place] Throat Throat Exam: Oral Mucosa [place] & Moist Neck Neck Exam: Neck Supple, Trachea Midline Pulmonary Resp Exam: Clear Bilaterally, Breath Sounds Equal, Decreased Bases Resp Remarks diminished Cardiology CV Exam: Irregular, Arrhythmia Gastrointestinal/Abdomen GI Exam: Soft, Non-Tender, Bowel Sounds Present, Non-Distended Musculoskeletal MS Exam: Joints Intact MS Remarks wearing brace Integumentary Skin Exam: Warm, Dry Skin Remarks thoracic incision with wound vac Extremeties Extremities Exam: No Edema, Pedal Pulses Palpable Neurologic Neuro Exam: Alert, Awake, Oriented, Speech Clear, Moving All Extremities, No Focal Deficits Psychiatric Psych Exam: Appropriate Responses VTE Prophylaxis VTE Prophylaxis Meds: Heparin PUD Prophylasis PUD Remarks Pepcid Assessment/Plan Problem List: (1) Pneumonia (2) Weakness (3) History of MRSA infection (4) Anemia (5) Renal insufficiency (6) Left knee pain (7) CHF (congestive heart failure) (8) Atrial fibrillation (9) Hypoglycemia (10) Hypertension (11) Hx of unstable T8 T9 fractures due to fall with T7 to T11 posterior fixation using transpedicular screws and rods on 05 04 16 Assessment/Plan continue with abx per ID recommendations monitor labs continue wound vac continue home meds accuchecks ac/hs with ISS continue with PT Heparin for DVT prophylaxis d/w CM, arranging [facility] for PT, IV abx, DME has been ordered. daughter and his other children will be assisting with his care. wound vac, bed, wc are being ordered d/w pharmacy, CM regarding retiming of antibiotics. labs reviewed, renal function stable Medication list reviewed with pt. and daughter, Rx provided pt. to receive Dapto tonight at 6pm then dc home with HHC D/W RN D/W Dr. Park D/W pt and daughter at length, questions answered in detail D/W CM This patient was seen by myself and Dr. Park, this note is written on his behalf. Discharge Minutes: 50 Problem Qualifiers (1) Pneumonia: Qualified Code: J18.9 - Pneumonia of left lung due to infectious organism, unspecified part of lung (2) Anemia: Qualified Code: D64.9 - Anemia, unspecified type (3) Left knee pain: Qualified Code: M25.562 - Chronic pain of left knee (4) CHF (congestive heart failure): Qualified Code: I50.9 - Chronic congestive heart failure, unspecified congestive heart failure type (5) Atrial fibrillation: Qualified Code: I48.91 - Atrial fibrillation, unspecified type (6) Hypertension: Qualified Code: I10 - Essential hypertension Margareth Iglesias Aug 18, 2016 10:17
[2016-08-18] MEDS ORDERED: BLOOD GLUCOSE T1 TES (10:37)
[2016-08-18] MEDS ORDERED: BLOOD GLUCOSE M1 KIT (10:37)
[2016-08-18 12:00] VITALS: BP 123/63; PULSE 73; RESP 18; TEMP 99.4; O2SAT 96
[2016-08-18 16:00] VITALS: BP 151/69; PULSE 65; RESP 17; TEMP 95.5; O2SAT 98
[2016-08-18] MEDS ORDERED: SODIUM CHLORIDE 0.9% IV SCH (18:00)
[2016-08-18] MEDS ORDERED: DAPTOMYCIN IV SCH (18:00)
[2016-08-18 20:00] VITALS: BP 149/78; PULSE 87; RESP 24; TEMP 97.8; O2SAT 95
[2016-08-18] MEDS: MELATONIN 5 MG TAB PO PRN (23:07)
[2016-08-19] VITALS: BP 138/76; PULSE 86; RESP 22; TEMP 97.9; O2SAT 96
[2016-08-19 04:00] VITALS: BP 139/69; PULSE 87; RESP 22; TEMP 97.9; O2SAT 95
[2016-08-19] MEDS: INSULIN ASPART SUPPLEMENTAL SCALE SQ SCH (06:38)
[2016-08-19] MEDS: METOPROLOL TARTRATE 25 MG TAB PO SCH (06:38)
[2016-08-19] MEDS: HEPARIN SODIUM - SQ 10,000 UNITS/ML VIAL SQ SCH (06:38)
[2016-08-19 08:34] VITALS: BP 113/62; PULSE 89; RESP 18; TEMP 95.5; O2SAT 93
[2016-08-19] MEDS: SODIUM CHLORIDE 0.9% FLUSH 5 ML FLUSH FLUSH SCH (09:00)
[2016-08-19] MEDS: THIAMINE HCL 100 MG TAB PO SCH (09:25)
[2016-08-19] MEDS: DIGOXIN 0.125 MG TAB PO SCH (09:26)
[2016-08-19] MEDS: ALLOPURINOL 300 MG TAB PO SCH (09:26)
[2016-08-19] MEDS: ISRADIPINE 2.5 MG PO SCH (09:26)
[2016-08-19] MEDS: PANTOPRAZOLE SOD 40 MG DELAYED RELEASE TAB PO SCH (09:26)
[2016-08-19] MEDS: DOCUSATE SODIUM 100 MG CAP PO SCH (09:27)
[2016-08-19] MEDS: ASPIRIN EC 81 MG TABEC PO SCH (09:29)
[2016-08-19] MEDS: FAMOTIDINE 20 MG TAB PO SCH (09:30)
[2016-08-19] MEDS: RIFAMPIN 150 MG CAP PO SCH (09:30)
[2016-08-19] MEDS: metFORMIN HCL 500 MG TAB PO SCH (09:30)
[2016-08-19] MEDS: FUROSEMIDE 40 MG TAB PO SCH (09:31)
--- NOTE | 2016-08-19 10:34 | HHI.DS ---
Discharge Summary Admission Date Aug 02, 2016 at 21:32 Discharge Date: Aug 19, 2016 Admitting Diagnosis Pneumonia, generalized weakness (1) Hx of unstable T8 T9 fractures due to fall with T7 to T11 posterior fixation using transpedicular screws and rods on 05 04 16 (2) Lower extremity weakness (3) thoracic wound infection + MRSA (4) Sepsis (5) Diabetic neuropathy (6) Ankylosing spondylitis lumbar region (7) DM2 (diabetes mellitus, type 2) (8) CHF (congestive heart failure) (9) Atrial fibrillation (10) Hypoglycemia (11) Hypertension Procedures s/p I&D with placement of wound vac 08/03 CBC/BMP: 08/18/16 0500 08/18/16 0500 Significant Findings Laboratory Tests Test 08/18/16 05:00 Red Blood Count 3.14 MIL/MM3 (4.50-5.90) Hemoglobin 9.5 GM/DL (13.0-17.0) Hematocrit 28.1 % (39.0-51.0) Blood Urea Nitrogen 25 MG/DL (7-18) Estimat Glomerular Filtration 59 ML/MIN (>89) Rate Random Glucose 183 MG/DL (74-106) Hospital Course Mr. Klein is an 86 year-old male with a history of left hip fracture , T8 through T9 fracture with T7-[address] Knight 05/04/16 followed by sepsis relating to pneumonia and MRSA wound infection, atrial fibrillation, coronary artery disease, type 2 diabetes mellitus, hypertension, nephrolithiasis, and sleep apnea who presented to the emergency room 08/02/2016 to be evaluated for generalized weakness lasting for 4-5 days. The patient was seen in his hospital room. He states that he came to the hospital because he had been feeling very weak for the last 4-5 days. He denied fall, syncope, shortness of breath, fever, nausea, vomiting, diarrhea, black or red stool, hematuria, dysuria, unilateral weakness, chest pain, palpitations. He reported some mild postsurgical back pain and states that wound care nurse visited the patient and his facility as an outpatient. He also reported bladder incontinence since prior to the surgery. No recent changes. Pt. evaluated, had work up completed and found with: . (1) Pneumonia (2) Weakness (3) History of MRSA infection (4) Anemia (5) Renal insufficiency (6) Left knee pain (7) CHF (congestive heart failure) (8) Atrial fibrillation (9) Hypoglycemia (10) Hypertension (11) Hx of unstable T8,T9 fractures due to fall with T7 to T11 posterior fixation using transpedicular screws and rods on 05/04/16 During the course of the hospitalization the following took place: Mr. Klein is an 86 year-old male with a history of left hip fracture , T8 through T9 fracture with T7-[address] Knight 05/04/16 followed by sepsis relating to pneumonia and MRSA wound infection, atrial fibrillation, coronary artery disease, type 2 diabetes mellitus, hypertension, nephrolithiasis, and sleep apnea who presented to the emergency room 08/02/2016 to be evaluated for generalized weakness lasting for 4-5 days. Recurrent Pneumonia-- Chest x-ray with mild patchy consolidation and small effusion on the left - ESR greater than 140 -ID evaluated, abx were initiated. MRSA wound infection, failed therapy. CRP elevated -Lumbar spine CT with no acute abnormality or significant change - Thoracic spine with subacute fracture of the T9 vertebral body and posterior elements at again noted post-fusion T7 through T11. Vertebral body endplate distraction and anterior predominant osseous ridging have developed the T8. T9 with uncertain etiology. No abscesses or high-grade juxta vertebral inflammatory changes. -Appreciate neurosurgery input, s/p I&D with placement of wound vac 08/03 -per ID Vanco D/C failed therapy, was put on Dapto and Rifampin -pt. had prolonged stay as different SNFs did not accept due to cost of antibiotics CM worked diligently to find different options. It was finally decided that pt. would be going home. CM arranged DME, wound vac, antibiotics. ID provided instructions on lab work up to be done while on abx, f/u with Dr. Hsieh as OP Pt's family agreed to be with pt. in his home and assist wit his care Pt. and family's questions were answered in detail, medications were explained, refills were given. The res of his medical conditions were managed as below: Anemia - HH stable -monitor - Follow trends; transfuse if needed Acute renal insufficiency -creat improved after cautious hydration, avoided nephrotoxins Left knee pain - Left knee x-ray - plain film findings of a very small suprapatellar effusion - Left hip x-ray to rule out referred pain from the hip - negative for acute process; osteoarthritis noted -Biofreeze PRN -continued with PT -pt did well with PT Hypoglycemia, hx of DM II, on oral hypoglycemic with reported poor PO intake -Held oral hypoglycemic initially then restarted on Metformin 500 mg po bid -continued with accuchecks AC/HS and ISS -Enc. PO intake -Blood glucose started increasing, 200s, managed with insulin Hx afib, stable -continue ASA, can't take anticoagulation due to previous GIB -continued Dig DVT prophylaxis -Heparin 5000 units subcutaneous every 8 hours Appreciate palliative care input, pt. not ready to discuss with palliative care team, agreed to DNR status. Pt. was discharged home in stable condition. He was ambulating with walker, remained afebrile. Tolerated antibiotics well. Wound was improving and decreasing in size. Follow up instructions were provided in detail Pt Condition on Discharge: Stable Discharge Disposition: Disch w/ Home Health Serv Discharge Instructions DIET: Follow Instructions for: Heart Healthy Diet Fluid Restrictions: 1500cc/day Activities you can perform: Weight Bearing as Mary Other Activity Instructions: avoid laying on the back , turn in bed from sided to side at least q 2 hrs Follow up Referrals: Appointment for Follow Up - 2 Weeks @ [facility] with Alisha Esteves MD Neurosurgery - 08/31/16 with Leeroy Knight MD PCP Follow-up New Medications: Adjustable Commode 3-in-1 (Adjustable Commode 3-in-1) 1 Mis Mis 1 EA .ROUTE DIRECTED #1 EA Blood Glucose Monitoring W/Device (Blood Glucose Monitoring W/Device) 1 Kit Kit 1 KIT .ROUTE DIRECTED Blood Sugar Management #1 Ref 0 KIT Blood Glucose Test Strips (Blood Glucose Test Strips) 1 Lakshmi Lakshmi 1 EA .ROUTE DIRECTED Blood Sugar Management #100 Ref 0 BOX Daptomycin Inj (Daptomycin Inj) 500 Mg Vial 700 MG IV Q24H Must dilute in appropriate IV Fluid prior to administration MRSA spine osteo,discitis Days 36 Ref 0 VIAL Epinephrine Inj (Epinephrine Inj) 1 Mg/Ml Inj 0.3 MG IV PUSH ONCE PRN ALLERGIC REACTION #1 VIAL Epinephrine Inj (Epinephrine Inj) 1 Mg/Ml Inj 0.3 MG SQ ONCE Give with any signs of respiratory distress. PRN ALLERGIC REACTION #1 VIAL Hydrocortisone Inj (Solu-Cortef Inj) 250 Mg Inj 250 MG IV PUSH ONCE Give over 30-60 seconds. PRN ALLERGIC REACTION #1 Ref 0 VIAL Lactobacillus Acidophilus (Lactobacillus Acidophilus) 1 Tab Tab 1 TAB PO TIDAC Nutritional Supplement #30 Ref 0 TAB Wheelchair (Wheelchair) 1 Mis Mis 1 EA .ROUTE DIRECTED #1 Ref 0 EA Wheelchair Cushion (Wheelchair Cushion) 1 Mis Mis 1 EA .ROUTE DIRECTED #1 EA Heparin Sodium (Porcine) (Heparin Sodium) 10,000 Unit/Ml Inj 5000 UNITS SQ Q8H clot prevention Days 14 INJECTION Hydrocodone-Acetaminophen (Hydrocodone-Acetaminophen) 10-325 mg Tab 1 TAB PO Q4H PRN PAIN SCALE 1 TO 5 #60 TAB Metformin (Glucophage) 500 Mg Tab 500 MG PO BIDPC BLOOD GLUCOSE MANAGEMENT #60 Ref 1 TAB Rifampin (Rifampin) 150 Mg Cap 150 MG PO Q12HR Hardware MRSA infection,osteo Days 28 Ref 0 CAP Thiamine (Vitamin B-1) 100 Mg Tab 100 MG PO DAILY SUPPLEMENT #30 Ref 1 TAB Changed Medications: Furosemide (Lasix) 40 Mg Tab 20 MG PO DAILY CHF #60 Ref 1 TAB (Changed from: 40 MG; Removed Days; Refills: ) Continued Medications: Allopurinol (Zyloprim) 300 Mg Tab 300 MG PO DAILY GOUT #30 TAB (This prescription has been renewed) Aspirin DR (Aspirin EC) 81 Mg Tabdr 81 MG PO DAILY A. fib #30 TAB (This prescription has been renewed) Bisacodyl DR (Bisacodyl EC) 5 Mg Tabec 5 MG PO DAILY PRN CONSTIPATION Ref 0 TAB Digoxin (Digoxin) 0.125 Mg Tab 0.125 MG PO DAILY ATRIAL FIB #30 Ref 1 TAB (This prescription has been renewed) Famotidine (Famotidine) 20 Mg Tab 20 MG PO BID Reflux #60 Ref 0 TAB Glipizide (Glipizide) 10 Mg Tab 10 MG PO BIDAC Take 30 minutes before a meal Blood Sugar Management #60 Ref 0 TAB (This prescription has been renewed) Isradipine (Isradipine) 2.5 Mg Cap 2.5 MG PO BID AFIB #60 Ref 1 CAP (This prescription has been renewed) Magnesium Hydroxide Liq (Milk of Magnesia Liq) 400 Mg/5 Ml Susp 30 ML PO DAILY PRN constipation Days 14 Metoprolol Tartrate (Metoprolol Tartrate) 25 Mg Tab 25 MG PO Q8HR ATRIAL FIB #90 Ref 1 TAB (This prescription has been renewed) Discontinued Medications: Acetaminophen (Acetaminophen) 325 Mg Tab 650 MG PO Q4H PRN PAIN SCALE 1 TO 5 Days 14 TAB Vancomycin Inj (Vancomycin Inj) 1,000 Mg Inj 750 MG IVPB DAILY Infection Ref 0 Margareth Courtney [facility] Aug 19, 2016 10:34
[2016-09-08] MEDS ORDERED: DOXA1TAB36 PO (12:07)
[2016-09-20] MEDS ORDERED: BETH25TA2 PO (14:43)
[2016-09-27] MEDS ORDERED: DOXA1TAB36 PO (17:13)
[2016-10-13] MEDS ORDERED: DOXY1CAP91 PO (10:52)
[2016-10-13] MEDS ORDERED: LACTCAP8 PO (10:52)
[2016-11-03] MEDS ORDERED: LACTCAP8 PO (13:27)
[2016-11-03] MEDS ORDERED: VITA100T54 PO (13:27)
[2016-11-03] MEDS ORDERED: METO25TA3 PO (13:27)
[2016-11-03] MEDS ORDERED: MELA5TAB15 PO (13:27)
[2016-11-03] MEDS ORDERED: FURO1TAB62 PO (13:27)
[2016-11-03] MEDS ORDERED: DOXA1TAB36 PO (14:14)
[2016-11-03] MEDS ORDERED: BETH25TA2 PO (14:14)
== END 2016-08-19 10:25 | disposition home health service (06) | DRG 856 ==
LOC: NEPE 18:52 → INTOOBSV 21:32 → NEDA 21:32 → OBSVTOIN 21:32 → NEPHCDU 23:19 → N05A 08-03 18:30
PROVIDERS: ADMIT Specialist; ATTEND Specialist
PROC: 0JD70ZZ Extraction of Back Subcutaneous Tissue and Fascia, Open Approach (ICD-10-PCS; principal; 2016-08-03 15:58)
PROC: 02HV33Z Insertion of Infusion Device into Superior Vena Cava, Percutaneous Approach (ICD-10-PCS; 2016-08-10)
DX: T81.4XXA Infection following a procedure, initial encounter (principal); J18.9 Pneumonia, unspecified organism; L89.109 Pressure ulcer of unspecified part of back, unspecified stage; L89.159 Pressure ulcer of sacral region, unspecified stage; T81.32XA Disruption of internal operation (surgical) wound, not elsewhere classified, initial encounter; I11.0 Hypertensive heart disease with heart failure; J44.0 Chronic obstructive pulmonary disease with (acute) lower respiratory infection; I50.9 Heart failure, unspecified; N39.0 Urinary tract infection, site not specified; E11.40 Type 2 diabetes mellitus with diabetic neuropathy, unspecified; E11.649 Type 2 diabetes mellitus with hypoglycemia without coma; I48.91 Unspecified atrial fibrillation; N28.9 Disorder of kidney and ureter, unspecified; S22.079D Unspecified fracture of T9-T10 vertebra, subsequent encounter for fracture with routine healing; I25.10 Atherosclerotic heart disease of native coronary artery without angina pectoris; G47.30 Sleep apnea, unspecified; K21.9 Gastro-esophageal reflux disease without esophagitis; M10.9 Gout, unspecified; R32 Unspecified urinary incontinence; D63.8 Anemia in other chronic diseases classified elsewhere; G89.29 Other chronic pain; M25.462 Effusion, left knee; W13.2XXD Fall from, out of or through roof, subsequent encounter; Z66 Do not resuscitate; Z79.84 Long term (current) use of oral hypoglycemic drugs; Z86.14 Personal history of Methicillin resistant Staphylococcus aureus infection; Z87.891 Personal history of nicotine dependence; Z96.652 Presence of left artificial knee joint; Z98.1 Arthrodesis status
CPT/HCPCS: 36569; 71010; 72128; 72131; 73502; 73560; 76937; 80048; 80053; 80162; 82550; 82948; 83036; 83605; 83735; 84075; 84450; 84460; 84484; 85025; 85027; 85610; 85652; 85730; 86140; 86403; 87015; 87040; 87070; 87077; 87102; 87116; 87186; 87205; 87206; 93005; 93308; 94150; G8987-GP; G8988-GP; J0131; J0456; J0690; J0696; J0878; J1580; J1642; J1644; J1815; J1956; J2250; J2405; J3010; J3370; J3480; J7050

== ENCOUNTER → 2016-09-08 | Outpatient (CLI) | payer MEDICARE ==
[~2016-09-08] MED LIST changes: -ACET325T PO; +ADJUSTABLE COMM1 MIS; +BETH25TA2 PO; +BLOOD GLUCOSE M1 KIT; +BLOOD GLUCOSE T1 TES; +DAPT250I IV; -DIFL200T PO; +DOXA1TAB36 PO; +DOXY1CAP91 PO; +FURO1TAB62 PO; +HEPA10003 SQ; +HYDR-3583 PO; -IPRASOL NEB; +LACTCAP8 PO; +LACTTAB8 PO; +MELA5TAB15 PO; +METF500 PO; +RIFA150C2 PO; -VANC10IN IV; +VITA100T2 PO; +VITA100T54 PO; +WHEELCHAIR CUSH1 MI1; +WHEEMIS3; -[UNRECOGNIZED DRUG - OTHER] TOPICAL
[2016-09-08 12:07] LABS: AUTOMATED NEUTROPHIL # 5.2 TH/MM3 (1.8-7.7); BASOPHIL # 0.1 TH/MM3 (0-0.2); BASOPHIL % 0.7 % (0.0-2.0); EOSINOPHIL # 1.1 TH/MM3 (0-0.4); EOSINOPHIL % 12.8 % (0.0-4.0); HEMATOCRIT 28.8 % (39.0-51.0); HEMO FLAGS DIFF FINAL; LYMPH % 21.8 % (9.0-44.0); LYMPHOCYTE # 1.9 TH/MM3 (1.0-4.8); MEAN CELL VOLUME 90.3 FL (80.0-100.0); MEAN CORPUSCULAR HEMOGLOBIN 30.4 PG (27.0-34.0); MEAN CORPUSCULAR HGB CONC 33.6 % (32.0-36.0); MONO % 5.6 % (0.0-8.0); NEUT % 59.1 % (16.0-70.0); PLATELET COUNT 248 TH/MM3 (150-450); RED BLOOD COUNT 3.18 MIL/MM3 (4.50-5.90); RED CELL DISTRIBUTION WIDTH 16.4 % (11.6-17.2); WHITE BLOOD COUNT 8.8 TH/MM3 (4.0-11.0)
[2016-09-08 12:28] LABS: INDIRECT BILIRUBIN 0.2 MG/DL (0.0-0.8); TOTAL BILIRUBIN ADULT 0.3 MG/DL (0.2-1.0)
== END ==
LOC: EREF 09:56
PROVIDERS: ATTEND Specialist
DX: J18.9 Pneumonia, unspecified organism (principal); I50.9 Heart failure, unspecified; N18.9 Chronic kidney disease, unspecified; E11.22 Type 2 diabetes mellitus with diabetic chronic kidney disease; S22.062A Unstable burst fracture of T7-T8 vertebra, initial encounter for closed fracture; X58.XXXA Exposure to other specified factors, initial encounter
CPT/HCPCS: 80076; 82550; 85025; 86140